=== PATIENT | female | born 1960 | race Caucasian/White ===

== ENCOUNTER 2020-04-13 10:52 | Outpatient (REF) | payer OTHER, SELFPAY ==
--- NOTE | 2020-04-13 10:56 | MM_ITS ---
EXAMINATION: MM SCREENING DIGITAL BREAST TOMOSYNTHESIS, BILATERAL CLINICAL INFORMATION: Screening. Asymptomatic. Prior history breast reduction. The lifetime risk of breast cancer based on the Tyrer-Cuzick Model is 6%. COMPARISON: Mammography: 02/04/2019, 12/23/2017, 12/02/2016 TECHNIQUE: Digital breast tomosynthesis is performed in both the craniocaudal and mediolateral oblique views along with computer-aided detection (CAD). Synthesized 2D images are generated from the tomosynthesis. Additional bilateral CC views are provided. FINDINGS: The breasts are almost entirely fatty (ACR BI-RADS breast composition Category a). There are no significant masses, abnormal calcifications, or other abnormalities. Parenchymal pattern is similar to prior studies. No significant changes. MM/MM tomosynthesis screening BI IMPRESSION: No mammographic evidence of malignancy. ASSESSMENT: BI-RADS 1: Negative RECOMMENDATION: Routine annual mammography screening. This patient's information was entered into a reminder system with a target due date for their next mammogram.
== END 2020-04-13 10:53 | disposition home or self-care (01) ==
LOC: HO.MAMMO 10:52
PROVIDERS: PCP Internal Medicine; Visit Provider Internal Medicine
DX: Z12.31 Encounter for screening mammogram for malignant neoplasm of breast (principal)
CPT/HCPCS: 77063; 77067

== ENCOUNTER → 2020-08-06 08:50 | Outpatient (BNVA) | payer OTHER, SELFPAY | PROVIDERS: PCP Internal Medicine; Visit Provider Physician Assistant ==

== ENCOUNTER → 2020-09-28 08:53 | Outpatient (BNVA) | payer OTHER, SELFPAY | PROVIDERS: PCP Internal Medicine; Referring Provider Internal Medicine; Visit Provider Dietitian, Registered | DX: E66.9 Obesity, unspecified (principal); Z68.32 Body mass index [BMI] 32.0-32.9, adult | CPT/HCPCS: 97802 ==

== ENCOUNTER 2020-09-29 15:38 | Outpatient (REF) | payer OTHER, SELFPAY ==
--- NOTE | ~2020-09-29 | XR_ITS ---
EXAMINATION: XR HAND, RIGHT XR HAND, LEFT CLINICAL INFORMATION: Pain in the right hand and left hand. COMPARISON: None pertinent. TECHNIQUE: 3 views of the right hand. 3 views of the left hand. FINDINGS: RIGHT HAND: There is no evidence of fracture. There are multifocal degenerative changes, particularly involving the DIP joints with joint space narrowing, subchondral sclerosis, and osteophyte formation. The most prominent is DIP joint of the index finger where there are large osteophytes present. Also noted is absence of the trapezium, presumably surgically absent. The base of the 1st metacarpal is subluxed proximally. No erosions are identified. The soft tissues are unremarkable. LEFT HAND: There is no evidence of fracture. Multifocal degenerative changes are noted, most prominently involving the DIP joints of the index and long fingers. This is associated with significant joint space narrowing and prominent osteophyte formation. There is also fairly prominent degenerative change at the 1st CMC joint, where the trapezium demonstrates an irregular contour and the base of the 1st metacarpal is subluxed radially and there is widening of the intermetacarpal joint space. No definite erosions are visualized. The soft tissues are unremarkable. XR/XR hand RT 2V IMPRESSION: Right Hand: Degenerative changes most prominent at the DIP joint of the index finger. 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 Left Hand: Multifocal degenerative changes, most prominent at the DIP joints of the index finger and long finger, as well as at the 1st CMC joint with subluxation of the base of the 1st metacarpal.
--- NOTE | ~2020-09-29 | XR_ITS ---
EXAMINATION: XR KNEE, LEFT CLINICAL INFORMATION: Pain in the left knee. COMPARISON: Left knee radiographs dated 06/10/2013. TECHNIQUE: AP, lateral, and sunrise views of the left knee. FINDINGS: There is no evidence of fracture. There are tricompartmental degenerative changes most prominent in the medial compartment and patellofemoral compartment, with moderate joint space narrowing and osteophyte formation. There are also marginal osteophytes in the lateral compartment, although the joint space is relatively well maintained. Since the previous radiograph, there may have been some progression of joint space narrowing in the patellofemoral compartment. Otherwise, no substantial interval change compared to prior. The patella is high riding. No subluxation is seen. The soft tissues are unremarkable. There is no knee joint effusion. The soft tissues are unremarkable. XR/XR knee LT 3V IMPRESSION: Tricompartmental degenerative changes in the left knee. The involvement of the patellofemoral compartment appears slightly progressed since the previous radiographs from 06/10/2013, but otherwise the appearance is relatively similar.
--- NOTE | ~2020-09-29 | XR_ITS ---
EXAMINATION: XR HAND, RIGHT XR HAND, LEFT CLINICAL INFORMATION: Pain in the right hand and left hand. COMPARISON: None pertinent. TECHNIQUE: 3 views of the right hand. 3 views of the left hand. FINDINGS: RIGHT HAND: There is no evidence of fracture. There are multifocal degenerative changes, particularly involving the DIP joints with joint space narrowing, subchondral sclerosis, and osteophyte formation. The most prominent is DIP joint of the index finger where there are large osteophytes present. Also noted is absence of the trapezium, presumably surgically absent. The base of the 1st metacarpal is subluxed proximally. No erosions are identified. The soft tissues are unremarkable. LEFT HAND: There is no evidence of fracture. Multifocal degenerative changes are noted, most prominently involving the DIP joints of the index and long fingers. This is associated with significant joint space narrowing and prominent osteophyte formation. There is also fairly prominent degenerative change at the 1st CMC joint, where the trapezium demonstrates an irregular contour and the base of the 1st metacarpal is subluxed radially and there is widening of the intermetacarpal joint space. No definite erosions are visualized. The soft tissues are unremarkable. XR/XR hand LT 2V IMPRESSION: Right Hand: Degenerative changes most prominent at the DIP joint of the index finger. 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 Left Hand: Multifocal degenerative changes, most prominent at the DIP joints of the index finger and long finger, as well as at the 1st CMC joint with subluxation of the base of the 1st metacarpal.
== END 2020-09-29 15:39 | disposition home or self-care (01) ==
LOC: HO.XRAY 15:38
PROVIDERS: PCP Internal Medicine; Visit Provider Internal Medicine
DX: M25.562 Pain in left knee (principal); M79.641 Pain in right hand; M79.642 Pain in left hand
CPT/HCPCS: 73120; 73562

== ENCOUNTER → 2020-11-02 10:20 | Outpatient (BNVA) | payer OTHER, SELFPAY | PROVIDERS: PCP Internal Medicine; Referring Provider Internal Medicine; Visit Provider Physician Assistant ==

== ENCOUNTER 2020-12-25 10:01 | Outpatient (REF) | payer OTHER, SELFPAY ==
[2020-12-25 11:22] LABS: MANUAL DIFF FLAG NO
[2020-12-25 11:31] LABS: Basophils Percent Auto 0.6 % (0-2); Eosinophils Absolute Auto 0.1 X10*3/uL (0.0-0.4); Eosinophils Percent Auto 2.4 % (0-4); Hematocrit 40.7 % (37-47); Hemoglobin 13.5 g/dl (12.0-16.0); Imm Gran Abs Auto 0.01 X10*3/uL (0.00-0.03); Imm Gran Pct Auto 0.2 % (0.0-0.4); Lymphocytes Absolute Auto 1.5 X10*3/uL (1.2-4.9); Lymphocytes Percent Auto 31.2 % (20-40); Mean Corpuscular HGB Conc 33.2 g/dl (31.0-35.0); Mean Corpuscular Hemoglobin 29.2 pg (27.0-33.0); Mean Corpuscular Volume 87.9 fL (80-98); Mean Platelet Volume 12.3 fL (9.4-12.3); Monocytes Absolute Auto 0.5 X10*3/uL (0.1-1.2); Neutrophils Absolute Auto 2.6 X10*3/uL (2.0-8.3); Neutrophils Percent Auto 55.6 % (45-73); Platelet Count 223 X10*3/uL (160-400); Red Blood Count 4.63 X10*6/uL (4.20-5.50); Red Cell Distribution Width 12.5 % (11.0-16.0); White Blood Count 4.7 X10*3/uL (4.8-10.8)
[2020-12-25 12:07] LABS: Free T4 (Free Thyroxine) 0.78 ng/dL (0.71-1.85); Thyroid Stimulating Hormone 1.83 uIU/mL (0.32-4.0); Vitamin D 25-OH Total 35.8 ng/mL (>30)
[2020-12-25 12:14] LABS: Alanine Aminotransferase 26 U/L (0-31); Albumin Level 4.3 g/dL (3.5-5.0); Alkaline Phosphatase 54 U/L (39-117); Anion Gap 13 (12-20); Aspartate Amino Transferase 22 U/L (5-31); Blood Urea Nitrogen 19 mg/dL (9-16); Carbon Dioxide 25 mmol/L (22-29); Chloride 106 mmol/L (96-108); Cholesterol 188 mg/dL; Estimated Glomerular Filt Rate > 60; Glucose Random 93 mg/dL (60-115); HDL Cholesterol 54 mg/dL; LDL Cholesterol Calculated 117 mg/dl; Potassium 4.3 mmol/L (3.3-5.1); Sodium 140 mmol/L (135-145); Total Protein 6.6 g/dL (6.5-8.0); Triglycerides 89 mg/dL
[2020-12-25 12:28] LABS: Folate 12.7 ng/mL (> or = 4.0); Vitamin B12 423 pg/mL (200-900)
== END 2020-12-25 10:02 | disposition home or self-care (01) ==
LOC: HO.HMGCLDS 10:01
PROVIDERS: PCP Internal Medicine; Visit Provider Internal Medicine
DX: I10 Essential (primary) hypertension (principal); E78.00 Pure hypercholesterolemia, unspecified
CPT/HCPCS: 36415; 80053; 80061; 82306; 82607; 82746; 84439; 84443; 85025

== ENCOUNTER → 2020-12-29 08:47 | Outpatient (BNVA) | payer OTHER, SELFPAY | PROVIDERS: PCP Internal Medicine; Visit Provider Dietitian, Registered | DX: E66.9 Obesity, unspecified (principal); Z68.33 Body mass index [BMI] 33.0-33.9, adult | CPT/HCPCS: 97803 ==

== ENCOUNTER 2021-05-11 07:31 | Outpatient (REF) | payer OTHER, SELFPAY ==
--- NOTE | ~2021-05-11 | MM_ITS ---
EXAMINATION: MM SCREENING DIGITAL BREAST TOMOSYNTHESIS, BILATERAL CLINICAL INFORMATION: Screening. Asymptomatic. Prior history reduction mammoplasty, 02/27/2017. The lifetime risk of breast cancer based on the Tyrer-Cuzick Model is 4%. COMPARISON: Mammography: 04/13/2020, 02/04/2019, 12/23/2017 TECHNIQUE: Digital breast tomosynthesis is performed in both the craniocaudal and mediolateral oblique views along with computer-aided detection (CAD). Synthesized 2D images are generated from the tomosynthesis. Additional right CC view is provided. FINDINGS: The breasts are almost entirely fatty (ACR BI-RADS breast composition Category a). There is minor stable scarring consistent with the reduction mammoplasty. Background stromal and fibroglandular densities are stable. There are no significant changes from prior studies. No interval mass or architectural abnormality or abnormal calcifications. MM/MM tomosynthesis screening BI IMPRESSION: No mammographic evidence of malignancy. ASSESSMENT: BI-RADS 2: Benign RECOMMENDATION: Routine annual mammography screening. This patient's information was entered into a reminder system with a target due date for their next mammogram.
== END 2021-05-11 07:32 | disposition home or self-care (01) ==
LOC: HO.MAMMO 07:31
PROVIDERS: PCP Internal Medicine; Visit Provider Internal Medicine
DX: Z12.31 Encounter for screening mammogram for malignant neoplasm of breast (principal)
CPT/HCPCS: 77063; 77067

== ENCOUNTER 2022-01-06 09:46 | Outpatient (REF) | payer OTHER, SELFPAY ==
[2022-01-06 11:34] LABS: MANUAL DIFF FLAG NO
[2022-01-06 11:45] LABS: Basophils Percent Auto 0.8 % (0-2); Eosinophils Absolute Auto 0.1 X10*3/uL (0.0-0.4); Eosinophils Percent Auto 1.8 % (0-4); Hematocrit 43.7 % (37.0-47.0); Hemoglobin 14.1 g/dl (12.0-16.0); Imm Gran Abs Auto 0.01 X10*3/uL (0.00-0.03); Imm Gran Pct Auto 0.2 % (0.0-0.4); Lymphocytes Absolute Auto 1.4 X10*3/uL (1.2-4.9); Lymphocytes Percent Auto 27.9 % (20-40); Mean Corpuscular HGB Conc 32.3 g/dl (31.0-35.0); Mean Corpuscular Hemoglobin 28.4 pg (27.0-33.0); Mean Corpuscular Volume 88.1 fL (80.0-98.0); Mean Platelet Volume 12.2 fL (9.4-12.3); Monocytes Absolute Auto 0.5 X10*3/uL (0.1-1.2); Monocytes Percent Auto 9.3 % (2-11); Platelet Count 261 X10*3/uL (160-400); Red Blood Count 4.96 X10*6/uL (4.20-5.50); Red Cell Distribution Width 12.2 % (11.0-16.0); White Blood Count 5.1 X10*3/uL (4.8-10.8)
[2022-01-06 12:06] LABS: Alanine Aminotransferase 27 U/L (0-31); Albumin Level 4.5 g/dL (3.5-5.0); Alkaline Phosphatase 62 U/L (39-117); Anion Gap 13 (12-20); Aspartate Amino Transferase 20 U/L (5-31); Bilirubin Total 0.9 mg/dL (0.0-1.0); Blood Urea Nitrogen 24 mg/dL (9-16); Calcium 9.3 mg/dL (8.4-10.2); Carbon Dioxide 29 mmol/L (22-29); Chloride 106 mmol/L (96-108); Cholesterol 204 mg/dL; Estimated Glomerular Filt Rate > 60; Glucose Random 88 mg/dL (60-115); HDL Cholesterol 65 mg/dL; LDL Cholesterol Calculated 127 mg/dl; Potassium 4.8 mmol/L (3.3-5.1); Sodium 143 mmol/L (135-145); Total Protein 6.8 g/dL (6.5-8.0); Triglycerides 61 mg/dL
[2022-01-06 12:31] LABS: Free T4 (Free Thyroxine) 0.94 ng/dL (0.71-1.85); Thyroid Stimulating Hormone 1.25 uIU/mL (0.32-4.0); Vitamin D 25-OH Total 30.6 ng/mL (>30)
[2022-01-06 12:41] LABS: Folate 7.8 ng/mL (> or = 4.0); Vitamin B12 356 pg/mL (200-900)
== END 2022-01-06 09:47 | disposition home or self-care (01) ==
LOC: HO.HMGCLDS 09:46
PROVIDERS: PCP Internal Medicine; Visit Provider Internal Medicine
DX: E78.00 Pure hypercholesterolemia, unspecified (principal)
CPT/HCPCS: 36415; 80053; 80061; 82306; 82607; 82746; 84439; 84443; 85025

== ENCOUNTER 2022-02-09 09:17 | Outpatient (REF) | payer OTHER, SELFPAY ==
--- NOTE | ~2022-02-09 | MM_ITS ---
EXAMINATION: BONE DENSITOMETRY CLINICAL INDICATION: Osteoporosis. COMPARISON: Baseline BD dated 05/06/2016. TECHNIQUE: Using a [employer] DXA System (software version: 13.1) manufactured by [employer], dual-energy x-ray absorptiometry was performed of the lumbar spine and left hip. The images are of good technical quality. Summary results are attached. FINDINGS: AP SPINE L1-L4: Current: BMD 1.170 g/cm2, Z-score 0.4, T-score -0.1, normal, 6.7% increase from baseline (<5% change is not significant). Baseline: BMD 1.097 g/cm2. LEFT FEMUR, NECK: Current: BMD 0.878 g/cm2, Z-score -0.4, T-score -1.2, osteopenia. Baseline: BMD 1.046 g/cm2. LEFT FEMUR, TOTAL: Current: BMD 0.966 g/cm2, Z-score 0.1, T-score -0.3, normal, 11.5% decrease from baseline (<5% change is not significant). Baseline: BMD 1.092 g/cm2. IDENTIFIED RISK FACTORS: Menopause, height loss, hysterectomy, history of fracture (adult), bilateral oophorectomy. HISTORY OF FRACTURE: Elbow. MEDICATIONS: None listed. MM/XR DEXA axial skeleton IMPRESSION: 1. DIAGNOSIS: Osteopenia based on the lowest T-score value of -1.2 in the femoral neck applying World Health Organization criteria. 2. 10-YEAR FRACTURE RISK PREDICTION, FRAX: Major osteoporotic fracture (clinical spine, forearm, hip or shoulder) 12.7%. Hip fracture 1.0%. 3. Treatment Recommendations: NOF guidelines recommend consideration for treatment in postmenopausal women and men age 50 and older presenting with the following: -A hip or vertebral (clinical or morphometric) fracture. -T-score less than or equal to -2.5 at the femoral neck or spine after appropriate evaluation to exclude secondary causes. -Low bone mass at the hip or spine and a 10-year fracture probability by FRAX of greater than or equal to 3% for hip fracture or greater than or equal to 20% for major osteoporotic fracture based on the [place] adapted WHO algorithm. 4. Other Recommendations: All treatment decisions require clinical judgment and consideration of individual patient factors, including patient preferences, comorbidities, previous drug use, risk factors not captured in the FRAX model (e.g. frailty, falls, vitamin D deficiency, increased bone turnover, interval significant decline in bone density) and possible under or overestimation of fracture risk by FRAX. Additional medical evaluation for secondary cause of low bone mineral density may be appropriate. FUTURE SCAN RECOMMENDATION: People with diagnosed cases of osteoporosis or at high risk for fracture should have regular bone mineral density tests. For patients eligible for Medicare, routine testing is allowed once every 2 years. The testing frequency can be increased to one year for patients who have rapidly progressing disease, those who are receiving or discontinuing medical therapy to restore bone mass, or have additional risk factors.
== END 2022-02-09 09:18 | disposition home or self-care (01) ==
LOC: HO.MAMMO 09:17
PROVIDERS: PCP Internal Medicine; Visit Provider Internal Medicine
DX: Z13.820 Encounter for screening for osteoporosis (principal); M81.0 Age-related osteoporosis without current pathological fracture; Z78.0 Asymptomatic menopausal state
CPT/HCPCS: 77080

== ENCOUNTER 2022-02-10 14:13 | Outpatient (REF) | payer OTHER, SELFPAY | END 2022-02-10 14:14 | disposition home or self-care (01) | LOC: HO.LNP 14:13 | PROVIDERS: Visit Provider Nurse Practitioner Family | DX: Z20.822 Contact with and (suspected) exposure to COVID-19 (principal); J06.9 Acute upper respiratory infection, unspecified | CPT/HCPCS: U0003; U0005 ==

== ENCOUNTER → 2022-02-24 10:18 | Outpatient (REF) | payer OTHER, SELFPAY | LOC: HO.SL 10:18 | PROVIDERS: PCP Internal Medicine; Visit Provider Internal Medicine | DX: G47.10 Hypersomnia, unspecified (principal) | CPT/HCPCS: 95806 ==

== ENCOUNTER 2022-05-16 07:23 | Outpatient (REF) | payer OTHER, SELFPAY ==
--- NOTE | ~2022-05-16 | MM_ITS ---
EXAMINATION: MM SCREENING DIGITAL BREAST TOMOSYNTHESIS, BILATERAL CLINICAL INFORMATION: Screening. Asymptomatic. Status post bilateral breast reduction surgery. The lifetime risk of breast cancer based on the Tyrer-Cuzick Model is 5.3%. COMPARISON: Mammography: May 11, 2021 and studies dating back to November 30, 2015 TECHNIQUE: Digital breast tomosynthesis is performed in both the craniocaudal and mediolateral oblique views along with computer-aided detection (CAD). Synthesized 2D images are generated from the tomosynthesis. Additional left breast exaggerated craniocaudal view performed. FINDINGS: The breasts are almost entirely fatty (ACR BI-RADS breast composition Category a). There are no significant masses, abnormal calcifications, or other abnormalities. Bilateral postsurgical change present. MM/MM tomosynthesis screening BI IMPRESSION: No significant changes ASSESSMENT: BI-RADS 2: Benign RECOMMENDATION: Routine annual mammography screening. This patient's information was entered into a reminder system with a target due date for their next mammogram.
== END 2022-05-16 07:24 | disposition home or self-care (01) ==
LOC: HO.MAMMO 07:23
PROVIDERS: PCP Internal Medicine; Visit Provider Internal Medicine
DX: Z12.31 Encounter for screening mammogram for malignant neoplasm of breast (principal)
CPT/HCPCS: 77063; 77067

== ENCOUNTER 2022-11-01 12:30 | Outpatient (AMB) | payer OTHER, SELFPAY ==
[2022-11-01 12:33] VITALS: BP 128/80; PULSE 78; O2SAT 98; BMI 33.9
--- NOTE | 2022-11-01 12:33 | MHC.PC.OV ---
Vital Signs 11/01/22 12:33 Height 5 ft 6.5 in Weight 213 lb BMI 33.9 BP 128/80 Blood Pressure Location Lt brachial Position Sitting Pulse 78 Pulse Source Pulse Oximeter Pulse Oximetry (%) 98 Oxygen Delivery Method Room Air Intake Visit Reasons: Medical Issues F/U Allergies No Known Allergies [No Known Allergies*] Allergy (Verified 11/01/22 12:34) Tobacco use date assessed: 04/27/22 Fall risk assessment: No Falls in past year Last assessed Fall Risk: 11/01/22 Dental Screening Dental Screen Date: 11/01/22 Did you have a dental visit in the last 12 months?: Yes Did you have a dental problem in the last 6 months where you did not have access to dental care?: No Was dental information given to patient?: Patient has dentist HPI Medical Issues F/U HPI Details 62-year-old obese female with obstructive sleep apnea generalized anxiety disorder hypercholesterolemia hypertension coming in for follow-up last seen in July 2022 blood work requested. Review of the notes in September [facility] sinus problems treated with Augmentin. problematic about friends dying. concern about cardiac, deny sob, , no palpitatons. epigastric pain. FH - sister had heart problem, brother - pacemaker, another heart problem. Patient is active and swims. wants work up [facility] Medical History (Updated 11/01/22 @ 12:44 by Hyacinth Marquez MD) Annual physical exam Anxiety and depression Cervicalgia Constipation COVID-19 virus infection Factor 5 Leiden mutation, heterozygous Finger pain Hypercholesterolemia Hypertension Knee pain, left Left renal stone Low back pain Lumbar spondylosis Osteoarthritis Overweight (BMI 25.0-29.9) Preop exam for internal medicine Pulmonary valve stenosis Sinusitis Viral upper respiratory illness Vitamin D deficiency Witnessed apneic spells Surgical History History of shoulder surgery Hx of breast reduction, elective Hx of right knee surgery Hx of total knee arthroplasty Peripheral vascular disease S/P PASCALE-BSO Strabismus Family History (Updated 07/13/22 @ 09:41 by Isis Murphy CMA) Father Lung cancer Mother COPD (chronic obstructive pulmonary disease) CVD (cardiovascular disease) AAA (abdominal aortic aneurysm) Brother Diabetes Sister Acute CVA (cerebrovascular accident) Daughter Thyroid cancer Social History Housing: House Alcohol intake: never Patient Tobacco Use Status: Never used Tobacco e-Cigarette/Vaping Use: Never Used Second Hand Smoke Exposure: No service: No Current occupational status: retired Cognitive needs: No Hearing needs: No Vision needs: Yes Questionnaire PHQ-9 Over the last 2 weeks, how often have you been bothered by any of the following problems? 1. Little interest or pleasure in doing things: not at all 2. Feeling down, depressed, or hopeless: several days 3. Trouble falling or staying asleep, or sleeping too much: not at all 4. Feeling tired or having little energy: not at all 5. Poor appetite or overeating: not at all 6. Feeling bad about yourself - or that you are a failure or have let yourself or your family down: not at all 7. Trouble concentrating on things, such as reading the newspaper or watching television: not at all 8. Moving or speaking so slowly that other people could have noticed. Or the opposite - being so fidgety or restless that you have been moving around a lot more than usual: not at all 9. Thoughts that you would be better off or of hurting yourself in some way: not at all Total score: 1 Depression Screening Interpretation: Negative Source: Developed by Drs. Boom Jin, Yesy Yang, Travis Santos and colleagues, with an educational pascual from [employer]. Thrive Questionnaire Date Thrive assessed: 04/27/22 AUDIT C Alcohol Use Questionnaire (AUDIT-C) 1. How often do you have a drink containing alcohol?: Monthly or less 2. How many drinks containing alcohol do you have on a typical day when you are drinking?: 1 or 2 3. How often do you have six or more drinks on one occasion?: Never Total Score: 1 BING-7 AMB Questionnaire BING-7 Date BING - 7 assessed: 11/01/22 Feeling nervous, anxious, or on edge: 1 = Several days Not being able to stop or control worryin = Not at all Worrying too much about different things: 0 = Not at all Trouble relaxin = Not at all Being so restless that it is hard to sit still: 0 = Not at all Becoming easily annoyed or irritable: 0 = Not at all Feeling afraid as if something awful might happen: 0 = Not at all Total BING-7 score (0-4 normal; 5-9 mild; 10-14 moderate; 15-21 severe): 1 Source: Developed by Drs. Boom Jin, Yesy Yang, Travis Santos and colleagues, with an educational pascual from [employer]. Physical exam (Primary Care) Vital Signs: Oxygen Delivery Method Room Air 11/01/22 12:33 BMI result Body Mass Index 33.9 Tobacco/Smoking Status: Tobacco use Status Tobacco use date assessed 04/27/22 07/13/22 09:41 Patient Tobacco Use Status Never used Tobacco 09/29/22 09:13 e-Cigarette/Vaping Use Never Used 07/13/22 09:41 Depression Screening Interpretation: Negative Thrive Assessment: Date of Thrive Assessment Date Thrive assessed 04/27/22 07/13/22 09:41 Const General: alert; No acute distress Eyes Conjunctivae: conjunctivae normal Resp Auscultation: clear to auscultation bilaterally Cardio Rate: regular rate Rhythm: regular rhythm GI Inspection: Yes normal to inspection Extrem General: Yes normal to inspection and No edema Assessment and Plan Assessment & Plan (1) Hypertension: Code(s): I10 - Essential (primary) hypertension Qualifiers: Hypertension type: essential hypertension Qualified Code(s): I10 - Essential (primary) hypertension Plan: Continue with blood pressure medication. Decrease salt intake and exercise patient is taking lisinopril 40 mg once a day (2) Hypercholesterolemia: Code(s): E78.00 - Pure hypercholesterolemia, unspecified Plan: Avoid fried foods, chicken skin, eggs, butter margarine, pastries and meat. Be it pork or beef they have a lot of cholesterol LDL goal of less than 130 and triglyceride of less than 150 patient is on simvastatin 10 mg once a day (3) Obesity (BMI 30-39.9): Code(s): E66.9 - Obesity, unspecified Plan: Diet and exercise (4) Generalized anxiety disorder: Comment: doing private counseling presently 06/2021 Code(s): F41.1 - Generalized anxiety disorder Plan: Continue with paroxetine 20 mg once a day and lorazepam as needed and therapy (5) Obstructive sleep apnea (adult) (pediatric): Comment: February 2022 Code(s): G47.33 - Obstructive sleep apnea (adult) (pediatric) Plan: Continue with the CPAP more than 4 hours a night and benefits from this (6) Epigastric abdominal pain: Code(s): R10.13 - Epigastric pain Plan: concern on cardiac due to family history Orders: Orders CA stress test Today R10.13 - Epigastric pain ECG 12 lead EKG Today R10.13 - Epigastric pain XR chest 2V Today R10.13 - Epigastric pain Coding Level of Care Code Est Pt Level 4 (64523) Diagnoses Hypertension I10 Hypertension type: essential hypertension Hypercholesterolemia E78.00 Obesity (BMI 30-39.9) E66.9 Generalized anxiety disorder F41.1 Obstructive sleep apnea (adult) (pediatric) G47.33 Epigastric abdominal pain R10.13
== END 2022-11-01 12:55 | disposition home or self-care (01) ==
PROVIDERS: PCP Internal Medicine; Visit Provider Internal Medicine
DX: I10 Essential (primary) hypertension (principal); E78.00 Pure hypercholesterolemia, unspecified; Z68.33 Body mass index [BMI] 33.0-33.9, adult; E66.9 Obesity, unspecified; F41.1 Generalized anxiety disorder; G47.33 Obstructive sleep apnea (adult) (pediatric); R10.13 Epigastric pain
CPT/HCPCS: 99214

== ENCOUNTER 2022-11-01 13:00 | Outpatient (REF) | payer OTHER, SELFPAY ==
--- NOTE | ~2022-11-01 | XR_ITS ---
EXAMINATION: XR CHEST CLINICAL INFORMATION: Epigastric pain COMPARISON: Chest and right ribs 02/04/2015 TECHNIQUE: 2 views of the chest were obtained. FINDINGS: There is no gross pneumothorax. Heart size is normal. Incidental note of an azygos lobe No pleural effusion. No new focal consolidation to suggest pneumonia. Degenerative changes in the thoracic spine. XR/XR chest 2V IMPRESSION: No evidence of pneumonia.
--- NOTE | 2022-11-01 13:06 | ECG_ITS ---
Test Reason : EPIGASTRIC PAIN Blood Pressure : / mmHG Vent. Rate : 073 BPM Atrial Rate : 073 BPM P-R Int : 192 ms QRS Dur : 122 ms QT Int : 400 ms P-R-T Axes : 047 002 002 degrees QTc Int : 440 ms Normal sinus rhythm Right bundle branch block Minimal voltage criteria for LVH, may be normal variant ( R in aVL ) Abnormal ECG When compared with ECG of 15-FEB-2017 15:10, No significant change was found Referred By: Hyacinth Marquez Electronically Signed By:JANNA SIN MD
== END 2022-11-01 13:01 | disposition home or self-care (01) ==
LOC: HO.XRAY 13:00
PROVIDERS: PCP Internal Medicine; Visit Provider Internal Medicine
DX: R10.13 Epigastric pain (principal)
CPT/HCPCS: 71046; 93005

== ENCOUNTER → 2022-11-01 13:06 | Outpatient (BNV) | payer OTHER, SELFPAY | PROVIDERS: PCP Internal Medicine; Visit Provider Internal Medicine Cardiovascular Disease | DX: R10.13 Epigastric pain (principal) | CPT/HCPCS: 93010 ==

== ENCOUNTER → 2022-11-15 08:50 | Outpatient (REF) | payer OTHER, SELFPAY ==
--- NOTE | 2022-11-15 08:54 | CA_ITS ---
Acquisition Time: 2022-11-15 08:59:38 Total Exercise Time: 00:05:11 Test Indications: cp Medications: see h Protocol: ADELINA Max HR: 136 BPM 87% of Pred: 156 BPM Max BP: 220/060 mmHG Max Work Load: 7.0 METS Exercise stress test exercuse 5 min 11 sec of Adelina protocol with need to stop due to systolic blood pressure of 220. achieving 85% MPHR, without anginal symptoms, without arrhythmias, with hypertensive response to exercise, without EKG changes. SR RBBB baseline EKG. Message sent to ordering provider/PCP in regards to HTN. Referred By: Hyacinth Marquez Overread By: Keeley Iraheta
== END ==
LOC: HO.CARD 08:50
PROVIDERS: PCP Internal Medicine; Visit Provider Internal Medicine
DX: R10.13 Epigastric pain (principal)
CPT/HCPCS: 93017

== ENCOUNTER → 2022-11-15 08:54 | Outpatient (BNV) | payer OTHER, SELFPAY | PROVIDERS: PCP Internal Medicine; Visit Provider Nurse Practitioner | DX: R07.9 Chest pain, unspecified (principal) | CPT/HCPCS: 93016; 93018 ==

== ENCOUNTER 2023-01-12 09:09 | Outpatient (AMB) | payer MEDICARE, OTHER, SELFPAY ==
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
[2023-01-12 09:13] VITALS: BP 122/68; PULSE 82; O2SAT 97; BMI 34.5
== END 2023-01-12 09:45 | disposition home or self-care (01) ==
PROVIDERS: PCP Internal Medicine; Visit Provider Physician Assistant
DX: M54.2 Cervicalgia (principal); V89.2XXA Person injured in unspecified motor-vehicle accident, traffic, initial encounter; M54.6 Pain in thoracic spine; M54.50 Low back pain, unspecified; Z23 Encounter for immunization
CPT/HCPCS: 90471; 90686; 99214

== ENCOUNTER 2023-01-12 09:51 | Outpatient (REF) | payer OTHER, SELFPAY | END 2023-01-12 09:52 | disposition home or self-care (01) | LOC: HO.XRAY 09:51 | PROVIDERS: PCP Internal Medicine; Visit Provider Physician Assistant | DX: M54.2 Cervicalgia (principal); M54.50 Low back pain, unspecified; M54.6 Pain in thoracic spine | CPT/HCPCS: 72040; 72072; 72100 ==

== ENCOUNTER 2023-01-13 09:26 | Outpatient (REF) | payer MEDICARE, OTHER, SELFPAY | END 2023-01-13 09:27 | disposition home or self-care (01) | LOC: HO.HMGCLDS 09:26 | PROVIDERS: PCP Internal Medicine; Visit Provider Internal Medicine | DX: E78.00 Pure hypercholesterolemia, unspecified (principal); M85.80 Other specified disorders of bone density and structure, unspecified site | CPT/HCPCS: 36415; 80053; 80061; 82306; 82607; 82746; 84439; 84443; 85025 ==

== ENCOUNTER 2023-01-19 10:00 | Outpatient (AMB) | payer OTHER, SELFPAY ==
[2023-01-19 10:31] VITALS: BP 140/76; PULSE 73; O2SAT 97; BMI 34.5
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
== END 2023-01-19 11:27 | disposition home or self-care (01) ==
PROVIDERS: Visit Provider Internal Medicine
DX: Z00.00 Encounter for general adult medical examination without abnormal findings (principal); E66.9 Obesity, unspecified; Z68.34 Body mass index [BMI] 34.0-34.9, adult; I10 Essential (primary) hypertension; E78.00 Pure hypercholesterolemia, unspecified; F41.1 Generalized anxiety disorder; G47.33 Obstructive sleep apnea (adult) (pediatric); M85.80 Other specified disorders of bone density and structure, unspecified site
CPT/HCPCS: 99397

== ENCOUNTER 2023-03-08 14:49 | Outpatient (AMB) | payer OTHER, MEDICARE, SELFPAY ==
[2023-03-08 15:20] VITALS: BP 136/76; PULSE 69; O2SAT 95
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
== END 2023-03-08 15:53 | disposition home or self-care (01) ==
PROVIDERS: PCP Internal Medicine; Visit Provider Physician Assistant
DX: M54.2 Cervicalgia (principal); V89.2XXA Person injured in unspecified motor-vehicle accident, traffic, initial encounter
CPT/HCPCS: 99213

== ENCOUNTER 2023-03-27 10:29 | Emergency (ER) | payer MEDICARE, OTHER, SELFPAY ==
--- NOTE | ~2023-03-27 | CT_ITS ---
EXAMINATION: CT HEAD WITHOUT CONTRAST CLINICAL INFORMATION: Headache COMPARISON: None available. TECHNIQUE: Contiguous axial imaging was performed from the skull base to vertex without intravenous administration of contrast. This CT examination was performed using dose optimization techniques as appropriate, variously including the following: *Automated exposure control *Adjustment of mA and/or kV according to patient size (this includes techniques or standardized protocols for targeted exams where dose is matched to indication/reason for exam; i.e. extremities or head) *Use of iterative reconstruction technique DLP: 660 mGy-cm FINDINGS: There is no intracranial hemorrhage or evidence of acute territorial infarction. No mass effect or midline shift. No extra-axial fluid collection. Cason-white matter differentiation is preserved. The ventricles are normal. There is prominence of the sulci and gyri consistent with age-related involutional change. No osseous abnormality. There is marked deviation of the nasal septum. There is mild mucosal thickening within the right maxillary sinus. The mastoid air cells are well aerated and clear. No osseous abnormality. CT/CT head/brain wo IV con IMPRESSION: No acute intracranial pathology. Marked deviation of the nasal septum.
[2023-03-27 10:51] VITALS: BP 226/87; PULSE 70; RESP 20; TEMP 36.1; O2SAT 96; BMI 35.5
--- NOTE | 2023-03-27 10:55 | ED.GENADULT ---
HPI - General Adult General Chief complaint: Headache Stated complaint: high bp 210/115 Time Seen by Provider: 03/27/23 15:14 History of Present Illness HPI narrative: NOTE MADE IN ERROR PLEASE DELETE Related Data Home Medications Medication Instructions Recorded Confirmed multivitamin (One Daily 1 tab PO DAILY 08/06/20 03/29/23 Multivitamin tablet) Previous Rx's Medication Instructions Recorded sennosides 8.6 mg-docusate sodium 2 tab-cap (2 x 8.6-50 mg) PO 07/06/21 50 mg tablet (Senna-S) BEDTIME PRN constipation 90 days #180 tabs AUTO PAP 6-16 cm H2O humidified AIR #1 ea 03/21/22 lisinopril 40 mg tablet 40 mg PO DAILY #90 tabs 06/24/22 simvastatin 10 mg tablet 10 mg PO DAILY #90 tabs 06/24/22 blood pressure monitor (Blood #1 ea 09/14/22 Pressure Kit) aspirin 81 mg tablet,delayed 81 mg PO DAILY #90 tabs 11/26/22 release (Adult Aspirin Regimen) cyclobenzaprine 5 mg tablet 5 mg PO BEDTIME 14 days #14 tabs 01/12/23 escitalopram oxalate 10 mg tablet 10 mg PO DAILY #30 tabs 03/29/23 (Lexapro) hydrochlorothiazide 25 mg tablet 25 mg PO DAILY #30 tabs 03/29/23 lorazepam 0.5 mg tablet 0.5 mg PO BID PRN agitation 30 03/29/23 days #60 tabs paroxetine HCl 20 mg tablet 10 mg (1/2 x 20 mg) PO DAILY #14 03/29/23 tabs Allergies Allergy/AdvReac Type Severity Reaction Status Date / Time No Known Allergies Allergy Verified 03/29/23 14:39 [No Known Allergies*] [facility] Past Medical History Medical History Annual physical exam Cervicalgia Viral upper respiratory illness Witnessed apneic spells Lumbar spondylosis Preop exam for internal medicine Sinusitis Constipation Finger pain Knee pain, left Low back pain COVID-19 virus infection Osteoarthritis Pulmonary valve stenosis Factor 5 Leiden mutation, heterozygous Hypercholesterolemia Vitamin D deficiency Left renal stone Overweight (BMI 25.0-29.9) Anxiety and depression Hypertension Surgical History Hx of total knee arthroplasty History of shoulder surgery Hx of breast reduction, elective Hx of right knee surgery Strabismus S/P PASCALE-BSO Peripheral vascular disease Family History Family History Father Lung cancer Mother COPD (chronic obstructive pulmonary disease) CVD (cardiovascular disease) AAA (abdominal aortic aneurysm) Brother Diabetes Sister Acute CVA (cerebrovascular accident) Daughter Thyroid cancer Social History Social History Housing: House Alcohol intake: never Patient Tobacco Use Status: Never used Tobacco e-Cigarette/Vaping Use: Never Used Second Hand Smoke Exposure: No service: No Current occupational status: retired Cognitive needs: No Hearing needs: No Vision needs: Yes (glasses) Physical Exam ED Vital Signs: Vital Signs - 24 hr 03/27/23 10:51 03/27/23 15:15 Temperature 96.9 F 98.2 F Pulse Rate 70 84 Respiratory Rate 20 18 Blood Pressure 226/87 H 177/66 H Pulse Oximetry 96 97 Oxygen Delivery Method Room Air Room Air BMI result Body Mass Index 35.5 Course Course Course Narrative: This is an RME: Additional HPI, ROS, PE not included below will be deferred to primary provider. This is a [id number]-female, w/ a hx of HTN and factor 5 trait, presenting to the ER with a complaints of headache and sinus pressure as well as high blood pressure readings. She only has been taking tylenol for her symptoms. blood pressure in triage elevated at 226/87 Plan: Labs, UA, CT head, EKG ordered Medical Decision Making Lab Data 03/27/23 11:02 03/27/23 11:02 Labs: Lab Results 03/27/23 03/27/23 Range/Units 11:02 17:04 WBC 4.9 (4.8-10.8) X10*3/uL RBC 4.87 (4.20-5.50) X10*6/uL Hgb 14.1 (12.0-16.0) g/dl Hct 43.3 (37.0-47.0) % MCV 88.9 (80.0-98.0) fL MCH 29.0 (27.0-33.0) pg MCHC 32.6 (31.0-35.0) g/dl RDW 12.9 (11.0-16.0) % Plt Count 264 (160-400) X10*3/uL MPV 11.2 (9.4-12.3) fL Immature Gran % (Auto) 0.6 H (0.0-0.4) % Neut % (Auto) 56.9 (45-73) % Lymph % (Auto) 30.5 (20-40) % [place] % (Auto) 9.8 (2-11) % Eos % (Auto) 1.6 (0-4) % Baso % (Auto) 0.6 (0-2) % Lymph # (Auto) 1.5 (1.2-4.9) X10*3/uL [place] # (Auto) 0.5 (0.1-1.2) X10*3/uL Eos # (Auto) 0.1 (0.0-0.4) X10*3/uL Baso # (Auto) 0.0 (0.0-0.2) X10*3/uL Abs Immat Gran (auto) 0.03 (0.00-0.03) X10*3/uL Absolute Neuts (auto) 2.8 (2.0-8.3) x10*3/uL Absolute Nucleated RBC 0.000 (0.0-0.012) X10*3/uL Nucleated RBC % (auto) 0.0 (0.0-0.2) /100WBC Sodium 143 (135-145) mmol/L Potassium 4.6 (3.3-5.1) mmol/L Chloride 106 (96-108) mmol/L Carbon Dioxide 29 (22-29) mmol/L Anion Gap 13 (12-20) BUN 10 (9-16) mg/dL Creatinine 0.68 (0.5-1.4) mg/dL Estim Creat Clear Calc 98.3 Estimated GFR > 60 Random Glucose 94 (60-115) mg/dL Calcium 9.8 D (8.4-10.2) mg/dL Total Bilirubin 0.6 (0.0-1.0) mg/dL Direct Bilirubin 0.2 (0.0-0.5) mg/dL AST 23 (5-31) U/L ALT 34 H (0-31) U/L Alkaline Phosphatase 57 (39-117) U/L Troponin I High Sens 2.7 (<3.5-17.0) ng/L Total Protein 7.5 (6.5-8.0) g/dL Albumin 4.5 (3.5-5.0) g/dL Urine Color Yellow Urine Appearance Clear Urine pH 7.5 (5.0-9.0) Ur Specific [place] <= 1.005 (1.005-1.025) Urine Protein Negative (Neg-Trace) mg/dL Urine Glucose (UA) Negative (Negative) mg/dL Urine Ketones Negative (Negative) mg/dL Urine Blood Negative (Negative) Urine Nitrite Negative (Negative) Ur Leukocyte Esterase Negative (Negative) Discharge Plan Discharge Clinical Impression: Hypertension, Headache Patient Disposition: Home, Self-Care Instructions: Hypertension (ED) Additional Instructions: As we discussed, you were seen today for high blood pressures and headaches. Your urinalysis, EKG, lab work (CBC, BMP, LFTs, troponin), and CT Head were reassuring. Please follow up with your PCP within the next 2 - 3 days to discuss your recent ED visit. Continue to take your blood pressure and write down the numbers so you can show the record to your doctor. Return to the hospital for passing out, chest pain, or difficulty breathing. Prescriptions: No Action (DME) AUTO PAP 6-16 cm H2O humidified AIR See Rx Instructions .Route .MEDSUPPLY Qty: 1 0RF Rx Instructions: As directed lisinopril 40 mg tablet 40 mg PO DAILY Qty: 90 3RF simvastatin 10 mg tablet 10 mg PO DAILY Qty: 90 3RF (DME) blood pressure monitor [Blood Pressure Kit] Kit See Rx Instructions .ROUTE .MEDSUPPLY Qty: 1 0RF Rx Instructions: As directed aspirin [Adult Aspirin Regimen] 81 mg tablet,delayed release (DR/EC) 81 mg PO DAILY Qty: 90 3RF cyclobenzaprine 5 mg tablet 5 mg PO BEDTIME 14 Days Qty: 14 0RF escitalopram oxalate [Lexapro] 10 mg tablet 10 mg PO DAILY Qty: 30 5RF hydrochlorothiazide 25 mg tablet 25 mg PO DAILY Qty: 30 3RF lorazepam 0.5 mg tablet 0.5 mg PO BID PRN (Reason: agitation) 30 Days Qty: 60 0RF paroxetine HCl 20 mg tablet 10 mg PO DAILY Qty: 14 2RF Rx Instructions: will taper to off sennosides-docusate sodium [Senna-S] 8.6-50 mg tablet 2 tab-cap PO BEDTIME PRN (Reason: constipation) 90 Days Qty: 180 1RF multivitamin [One Daily Multivitamin] Tablet 1 tab PO DAILY Interventions: ED Discharge Assessment Last Done: 03/27/23 17:49 Discharge Date/Time: 03/27/23 17:49
--- NOTE | 2023-03-27 10:58 | ECG_ITS ---
Test Reason : hypertension Blood Pressure : / mmHG Vent. Rate : 075 BPM Atrial Rate : 075 BPM P-R Int : 190 ms QRS Dur : 136 ms QT Int : 398 ms P-R-T Axes : 050 004 -17 degrees QTc Int : 444 ms Sinus rhythm with occasional Premature ventricular complexes Left ventricular hypertrophy with QRS widening ( R in aVL , Guilherme product ) Nonspecific T wave abnormality Abnormal ECG When compared with ECG of 01-NOV-2022 13:10, Premature ventricular complexes are now Present Right bundle branch block is no longer Present Referred By: Gisela Whitfield Electronically Signed By:JANNA SIN MD
[2023-03-27 11:17] LABS: Basophils Percent Auto 0.6 % (0-2); Eosinophils Absolute Auto 0.1 X10*3/uL (0.0-0.4); Eosinophils Percent Auto 1.6 % (0-4); Hematocrit 43.3 % (37.0-47.0); Hemoglobin 14.1 g/dl (12.0-16.0); Imm Gran Abs Auto 0.03 X10*3/uL (0.00-0.03); Imm Gran Pct Auto 0.6 % (0.0-0.4); Lymphocytes Absolute Auto 1.5 X10*3/uL (1.2-4.9); Lymphocytes Percent Auto 30.5 % (20-40); MANUAL DIFF FLAG NO; Mean Corpuscular HGB Conc 32.6 g/dl (31.0-35.0); Mean Corpuscular Volume 88.9 fL (80.0-98.0); Mean Platelet Volume 11.2 fL (9.4-12.3); Monocytes Absolute Auto 0.5 X10*3/uL (0.1-1.2); Monocytes Percent Auto 9.8 % (2-11); Neutrophils Absolute Auto 2.8 x10*3/uL (2.0-8.3); Neutrophils Percent Auto 56.9 % (45-73); Platelet Count 264 X10*3/uL (160-400); Red Blood Count 4.87 X10*6/uL (4.20-5.50); Red Cell Distribution Width 12.9 % (11.0-16.0); White Blood Count 4.9 X10*3/uL (4.8-10.8)
[2023-03-27 11:33] LABS: Alanine Aminotransferase 34 U/L (0-31); Albumin Level 4.5 g/dL (3.5-5.0); Alkaline Phosphatase 57 U/L (39-117); Anion Gap 13 (12-20); Aspartate Amino Transferase 23 U/L (5-31); Bilirubin Direct 0.2 mg/dL (0.0-0.5); Bilirubin Total 0.6 mg/dL (0.0-1.0); Blood Urea Nitrogen 10 mg/dL (9-16); Calcium 9.8 mg/dL (8.4-10.2); Carbon Dioxide 29 mmol/L (22-29); Chloride 106 mmol/L (96-108); Creatinine Clr Calc Pharmacy 98.3; Estimated Glomerular Filt Rate > 60; Glucose Random 94 mg/dL (60-115); Potassium 4.6 mmol/L (3.3-5.1); Sodium 143 mmol/L (135-145); Total Protein 7.5 g/dL (6.5-8.0)
[2023-03-27 11:41] LABS: Troponin-I High Sensitivity 2.7 ng/L (<3.5-17.0)
[2023-03-27 15:15] VITALS: BP 177/66; PULSE 84; RESP 18; TEMP 36.8; O2SAT 97
--- NOTE | 2023-03-27 15:17 | ED_ITS ---
HPI - General Adult General Chief complaint: Headache Stated complaint: high bp 210/115 Time Seen by Provider: 03/27/23 15:14 History of Present Illness HPI narrative: 63 y/o F patient; PMH TADEO, obesity, HTN, HLD; presents from home via triage with report of elevated blood pressure and generalized non-focal headaches. The patient states she was COVID positive one week ago. Since then she has noticed that her blood pressures have been higher than normal. She currently takes Lisinopril 40mg once daily. She otherwise denies: cough/congestion, chest pain, SOB, fever or chills, nausea/vomiting, abdominal pain, weakness/numbness/tingling. She spoke with her PCP who referred her to the ED or Urgent Care for further evaluation. Patient reports recently very high levels of stress at home as it is the anniversary of her sister's one year ago. Related Data Home Medications Medication Instructions Recorded Confirmed multivitamin (One Daily 1 tab PO DAILY 08/06/20 03/08/23 Multivitamin tablet) Previous Rx's Medication Instructions Recorded sennosides 8.6 mg-docusate sodium 2 tab-cap (2 x 8.6-50 mg) PO 07/06/21 50 mg tablet (Senna-S) BEDTIME PRN constipation 90 days #180 tabs AUTO PAP 6-16 cm H2O humidified AIR #1 ea 03/21/22 lisinopril 40 mg tablet 40 mg PO DAILY #90 tabs 06/24/22 simvastatin 10 mg tablet 10 mg PO DAILY #90 tabs 06/24/22 blood pressure monitor (Blood #1 ea 09/14/22 Pressure Kit) aspirin 81 mg tablet,delayed 81 mg PO DAILY #90 tabs 11/26/22 release (Adult Aspirin Regimen) paroxetine HCl 20 mg tablet 20 mg PO DAILY #90 tabs 11/30/22 cyclobenzaprine 5 mg tablet 5 mg PO BEDTIME 14 days #14 tabs 01/12/23 ibuprofen 600 mg tablet 600 mg PO Q8H PRN pain 10 days #30 01/12/23 tabs lorazepam 0.5 mg tablet 0.5 mg PO BID PRN agitation 30 01/19/23 days #60 tabs Allergies Allergy/AdvReac Type Severity Reaction Status Date / Time No Known Allergies Allergy Verified 03/08/23 15:41 [No Known Allergies*] Review of Systems 2 Review of Systems: Yes all other systems are reviewed and are negative Neurologic: Denies Sensory deficit (Neuro) [facility] Past Medical History Attestation statement: The following information was validated with the patient. Source: old records reviewed Medical History Annual physical exam Cervicalgia Viral upper respiratory illness Witnessed apneic spells Lumbar spondylosis Preop exam for internal medicine Sinusitis Constipation Finger pain Knee pain, left Low back pain COVID-19 virus infection Osteoarthritis Pulmonary valve stenosis Factor 5 Leiden mutation, heterozygous Hypercholesterolemia Vitamin D deficiency Left renal stone Overweight (BMI 25.0-29.9) Anxiety and depression Hypertension Surgical History Hx of total knee arthroplasty History of shoulder surgery Hx of breast reduction, elective Hx of right knee surgery Strabismus S/P PASCALE-BSO Peripheral vascular disease Family History Family History Father Lung cancer Mother COPD (chronic obstructive pulmonary disease) CVD (cardiovascular disease) AAA (abdominal aortic aneurysm) Brother Diabetes Sister Acute CVA (cerebrovascular accident) Daughter Thyroid cancer Social History Social History Housing: House Alcohol intake: never Patient Tobacco Use Status: Never used Tobacco e-Cigarette/Vaping Use: Never Used Second Hand Smoke Exposure: No Advance Directives: Yes Advance Directives Information Provided: No Advance Directives on File: No service: No Current occupational status: retired Cognitive needs: No Hearing needs: No Vision needs: Yes (glasses) Physical Exam ED Vital Signs: Vital Signs - 24 hr 03/27/23 10:51 03/27/23 15:15 Temperature 96.9 F 98.2 F Pulse Rate 70 84 Respiratory Rate 20 18 Blood Pressure 226/87 H 177/66 H Pulse Oximetry 96 97 Oxygen Delivery Method Room Air Room Air BMI result Body Mass Index 35.5 Patient is hypertensive, otherwise afebrile and hemodynamically stable. Const General: cooperative, comfortable and no acute distress Orientation/consciousness: patient oriented x3 HENMT Head: Yes normal to inspection and Yes atraumatic Eyes General: appearance normal, both eyes and all related structures Pupils: Equal, round and reactive pupils present EOM: EOMs intact bilaterally Neck Neck: Yes full ROM, Yes supple and No tender Chest Chest palpation & inspection: normal inspection of the chest and normal palpation of entire chest wall Resp Effort & Inspection: normal respiratory effort, able to speak in complete sentences and no respiratory distress Auscultation: clear to auscultation bilaterally Cardio Rate: regular rate Rhythm: regular rhythm Peripheral pulses: Peripheral pulses 2+ throughout GI Inspection: Yes normal to inspection and No distended Palpation (GI): Soft to palpation, not firm, nontender and no guarding Auscultation: normal bowel sounds General: Yes no CVA tenderness Back/Spine/Pelvis Back: no CVA tenderness Neuro General: patient oriented x3 Cranial nerves: Yes CN's II-XII intact bilaterally and Yes Equal, round and reactive pupils present Cognition (Neuro): normal cognition Gait exam (Neuro): Normal gait present Motor exam (neuro): 5/5 motor strength present throughout Sensory Exam: No Sensory deficit (Neuro) Course Course Course Narrative: Patient is hypertensive, afebrile, and hemodynamically statble. Reviewed triage work up including EKG, laboratory studies, CT Head, and UA. EKG NSR 75BPM with RBBB. Reassuring laboratory studies. CT Head without acute intracranial pathology. Discussed with patient and at bedside, reassured about results of work up. Subsequent blood pressure improved. Recommend discharge to home and PCP follow up, patient and family in agreement. Plan: Discharge to home with PCP follow up Return precautions given Medical Decision Making Lab Data MDM Lab Attestation statement: I reviewed the patient's lab results. 03/27/23 11:02 03/27/23 11:02 Labs: Lab Results 03/27/23 03/27/23 Range/Units 11:02 17:04 WBC 4.9 (4.8-10.8) X10*3/uL RBC 4.87 (4.20-5.50) X10*6/uL Hgb 14.1 (12.0-16.0) g/dl Hct 43.3 (37.0-47.0) % MCV 88.9 (80.0-98.0) fL MCH 29.0 (27.0-33.0) pg MCHC 32.6 (31.0-35.0) g/dl RDW 12.9 (11.0-16.0) % Plt Count 264 (160-400) X10*3/uL MPV 11.2 (9.4-12.3) fL Immature Gran % (Auto) 0.6 H (0.0-0.4) % Neut % (Auto) 56.9 (45-73) % Lymph % (Auto) 30.5 (20-40) % [place] % (Auto) 9.8 (2-11) % Eos % (Auto) 1.6 (0-4) % Baso % (Auto) 0.6 (0-2) % Lymph # (Auto) 1.5 (1.2-4.9) X10*3/uL [place] # (Auto) 0.5 (0.1-1.2) X10*3/uL Eos # (Auto) 0.1 (0.0-0.4) X10*3/uL Baso # (Auto) 0.0 (0.0-0.2) X10*3/uL Abs Immat Gran (auto) 0.03 (0.00-0.03) X10*3/uL Absolute Neuts (auto) 2.8 (2.0-8.3) x10*3/uL Absolute Nucleated RBC 0.000 (0.0-0.012) X10*3/uL Nucleated RBC % (auto) 0.0 (0.0-0.2) /100WBC Sodium 143 (135-145) mmol/L Potassium 4.6 (3.3-5.1) mmol/L Chloride 106 (96-108) mmol/L Carbon Dioxide 29 (22-29) mmol/L Anion Gap 13 (12-20) BUN 10 (9-16) mg/dL Creatinine 0.68 (0.5-1.4) mg/dL Estim Creat Clear Calc 98.3 Estimated GFR > 60 Random Glucose 94 (60-115) mg/dL Calcium 9.8 D (8.4-10.2) mg/dL Total Bilirubin 0.6 (0.0-1.0) mg/dL Direct Bilirubin 0.2 (0.0-0.5) mg/dL AST 23 (5-31) U/L ALT 34 H (0-31) U/L Alkaline Phosphatase 57 (39-117) U/L Troponin I High Sens 2.7 (<3.5-17.0) ng/L Total Protein 7.5 (6.5-8.0) g/dL Albumin 4.5 (3.5-5.0) g/dL Urine Color Yellow Urine Appearance Clear Urine pH 7.5 (5.0-9.0) Ur Specific [place] <= 1.005 (1.005-1.025) Urine Protein Negative (Neg-Trace) mg/dL Urine Glucose (UA) Negative (Negative) mg/dL Urine Ketones Negative (Negative) mg/dL Urine Blood Negative (Negative) Urine Nitrite Negative (Negative) Ur Leukocyte Esterase Negative (Negative) Independent Interpretation I performed an independent interpretation of an: EKG Radiology Impression Discussion of test interpretation with radiology: I have reviewed the radiologist's reading. Radiologist Impression: EXAMINATION: CT HEAD WITHOUT CONTRAST CLINICAL INFORMATION: Headache COMPARISON: None available. TECHNIQUE: Contiguous axial imaging was performed from the skull base to vertex without intravenous administration of contrast. This CT examination was performed using dose optimization techniques as appropriate, variously including the following: *Automated exposure control *Adjustment of mA and/or kV according to patient size (this includes techniques or standardized protocols for targeted exams where dose is matched to indication/reason for exam; i.e. extremities or head) *Use of iterative reconstruction technique DLP: 660 mGy-cm FINDINGS: There is no intracranial hemorrhage or evidence of acute territorial infarction. No mass effect or midline shift. No extra-axial fluid collection. Cason-white matter differentiation is preserved. The ventricles are normal. There is prominence of the sulci and gyri consistent with age-related involutional change. No osseous abnormality. There is marked deviation of the nasal septum. There is mild mucosal thickening within the right maxillary sinus. The mastoid air cells are well aerated and clear. No osseous abnormality. CT/CT head/brain wo IV con IMPRESSION: No acute intracranial pathology. Marked deviation of the nasal septum. Discharge Plan Discharge Clinical Impression: Hypertension, Headache Patient Disposition: Home, Self-Care Instructions: Hypertension (ED) Additional Instructions: As we discussed, you were seen today for high blood pressures and headaches. Your urinalysis, EKG, lab work (CBC, BMP, LFTs, troponin), and CT Head were reassuring. Please follow up with your PCP within the next 2 - 3 days to discuss your recent ED visit. Continue to take your blood pressure and write down the numbers so you can show the record to your doctor. Return to the hospital for passing out, chest pain, or difficulty breathing. Prescriptions: No Action (DME) AUTO PAP 6-16 cm H2O humidified AIR See Rx Instructions .Route .MEDSUPPLY Qty: 1 0RF Rx Instructions: As directed lisinopril 40 mg tablet 40 mg PO DAILY Qty: 90 3RF simvastatin 10 mg tablet 10 mg PO DAILY Qty: 90 3RF (DME) blood pressure monitor [Blood Pressure Kit] Kit See Rx Instructions .ROUTE .MEDSUPPLY Qty: 1 0RF Rx Instructions: As directed aspirin [Adult Aspirin Regimen] 81 mg tablet,delayed release (DR/EC) 81 mg PO DAILY Qty: 90 3RF paroxetine HCl 20 mg tablet 20 mg PO DAILY Qty: 90 2RF cyclobenzaprine 5 mg tablet 5 mg PO BEDTIME 14 Days Qty: 14 0RF ibuprofen 600 mg tablet 600 mg PO Q8H PRN (Reason: pain) 10 Days Qty: 30 0RF sennosides-docusate sodium [Senna-S] 8.6-50 mg tablet 2 tab-cap PO BEDTIME PRN (Reason: constipation) 90 Days Qty: 180 1RF lorazepam 0.5 mg tablet 0.5 mg PO BID PRN (Reason: agitation) 30 Days Qty: 60 0RF multivitamin [One Daily Multivitamin] Tablet 1 tab PO DAILY
[2023-03-27 17:12] LABS: Appearance Urine Clear; Color Urine Yellow; Glucose Urine UA Negative (Negative); Leukocyte Esterase Urine Negative (Negative); Nitrite Urine Negative (Negative); PH 7.5 (5.0-9.0); Specific Gravity - Urine <= 1.005 (1.005-1.025); Urine Blood Negative (Negative); Urine Ketones Negative (Negative); Urine Protein Negative (Neg-Trace)
== END 2023-03-27 17:49 | disposition home or self-care (01) ==
PROVIDERS: Physician Assistant Medical; Emergency Provider Emergency Medicine; PCP Internal Medicine
DX: R51.9 Headache, unspecified (principal); I10 Essential (primary) hypertension; R94.31 Abnormal electrocardiogram [ECG] [EKG]; Z79.899 Other long term (current) drug therapy
CPT/HCPCS: 36415; 70450; 80048; 80076; 81003; 84484; 85025; 93005; 99284

== ENCOUNTER → 2023-03-27 10:58 | Outpatient (BNV) | payer MEDICARE, OTHER, SELFPAY | PROVIDERS: PCP Internal Medicine; Visit Provider Internal Medicine Cardiovascular Disease | DX: I49.3 Ventricular premature depolarization (principal); R94.31 Abnormal electrocardiogram [ECG] [EKG] | CPT/HCPCS: 93010 ==

== ENCOUNTER 2023-03-29 14:37 | Outpatient (AMB) | payer MEDICARE, OTHER, SELFPAY ==
[2023-03-29 14:39] VITALS: BP 166/92; PULSE 83; O2SAT 99; BMI 36.3
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
== END 2023-03-29 15:35 | disposition home or self-care (01) ==
PROVIDERS: PCP Internal Medicine; Visit Provider Internal Medicine
DX: G47.33 Obstructive sleep apnea (adult) (pediatric) (principal); I10 Essential (primary) hypertension; Z68.36 Body mass index [BMI] 36.0-36.9, adult; E66.9 Obesity, unspecified; F41.1 Generalized anxiety disorder
CPT/HCPCS: 99214

== ENCOUNTER 2023-03-30 09:00 | Outpatient (RCR) | payer OTHER, MEDICARE, SELFPAY ==
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
--- NOTE | 2023-04-28 12:47 | MHC.PT.DC ---
[facility] [place] [facility] [place] [facility] [place] [facility] [address] Duy Dugan [address] [phone] F: [phone] F: [phone] F: [phone] F: [phone] Physical Therapy Discharge Report Diagnosis: This is a 63 yo female presenting to skilled PT with a script for cervicalgia. Date of Surgery: Date of Evaluation: 01/23/23 Date of Discharge: 04/28/23 Treatments to Date: 17 Cancellations to Date: 0 No Shows to Date: 0 Discharge Status: Achieved Goals Improved Function Independent with HEP Recommend MD Follow-up Discharge Summary: 03/30: Patient has come to 17 appointments, she has improved since eval but has started to plateau in progress. She has an HEP to continue on her own at this time. She returns to her PCP in April for a follow up. Chart will be kept open for 30 days in case something changes otherwise DC to HEP. Electronically signed by: Brittnee Anders PT Please sign and return to therapist. Thank you for your referral.
== END 2023-04-28 12:47 | disposition home or self-care (01) ==
LOC: HO.PTCHIC 09:00
PROVIDERS: PCP Internal Medicine; Visit Provider Physician Assistant
DX: M54.2 Cervicalgia (principal); V89.2XXD Person injured in unspecified motor-vehicle accident, traffic, subsequent encounter
CPT/HCPCS: 97110; 97140; 97162

== ENCOUNTER 2023-04-11 11:10 | Outpatient (AMB) | payer MEDICARE, OTHER, SELFPAY ==
[2023-04-11 11:12] VITALS: BMI 36.3
--- NOTE | 2023-04-11 11:12 | A.OFFVIS_ITS ---
Intake Vital Signs 04/11/23 11:12 Height 5 ft 6 in Weight 225 lb BMI 36.3 Intake Visit Reasons: RESPIRATORY PRACTITIONER- Re-Referral for Left LE VV Intake Note: RESPIRATORY PRACTITIONER, re-referral for Left LE VV, at last visit was scheduled for a Left LE Microphlebectomy but Covid hit and it was put off. Pt complains of Left LE pain, itching, burning and restlessness at night. Hx of bilateral GSV ablations. Last US 01/03/2019 Accompanied by: Spouse Allergies No Known Allergies [No Known Allergies*] Allergy (Verified 04/11/23 11:20) HPI RESPIRATORY PRACTITIONER- Re-Referral for Left LE VV HPI Details Very pleasant 63-year-old patient presents for follow-up regarding venous insufficiency. She had actually had undergone bilateral saphenous vein ablation is nearly 4 years ago with us. She was lost to follow-up secondary to COVID. Her vein procedures were literally done right before COVID began and she never followed up for microphlebectomy. She reports she had been doing fairly well from that time on and has been compliant with her compression stockings. Of note she does have a history of factor 5 Leiden deficiency. [facility] Medical History Annual physical exam Cervicalgia Viral upper respiratory illness Witnessed apneic spells Lumbar spondylosis Preop exam for internal medicine Sinusitis Constipation Finger pain Knee pain, left Low back pain COVID-19 virus infection Osteoarthritis Pulmonary valve stenosis Factor 5 Leiden mutation, heterozygous Hypercholesterolemia Vitamin D deficiency Left renal stone Overweight (BMI 25.0-29.9) Anxiety and depression Hypertension Surgical History Hx of total knee arthroplasty History of shoulder surgery Hx of breast reduction, elective Hx of right knee surgery Strabismus S/P PASCALE-BSO Peripheral vascular disease Family History Father Lung cancer Mother COPD (chronic obstructive pulmonary disease) CVD (cardiovascular disease) AAA (abdominal aortic aneurysm) Brother Diabetes Sister Acute CVA (cerebrovascular accident) Daughter Thyroid cancer Social History Housing: House Alcohol intake: never Patient Tobacco Use Status: Never used Tobacco e-Cigarette/Vaping Use: Never Used Second Hand Smoke Exposure: No service: No Current occupational status: retired Cognitive needs: No Hearing needs: No Vision needs: Yes (glasses) Review of Systems Const Reports as per HPI ENT Reports no additional complaints Card Denies chest pain, Denies chest pain at rest and Denies chest pain with activity Resp Denies chest congestion and Denies cough GI Reports no additional complaints Musc Details: pain over varicosities, aching of lower extremities, swelling, cramping, heaviness and tiredness, itching Denies abnormal gait Skin/Breast Reports pruritus and Denies wounds Neuro Reports no additional complaints and Denies abnormal gait Psych Denies no additional complaints Physical Exam Vital Signs: BMI result Body Mass Index 36.3 Const General: cooperative, healthy appearing and comfortable Orientation/consciousness: oriented to person, oriented to place and oriented to time Neck Carotids: no bruits Chest Chest palpation & inspection: normal inspection of the chest and normal palpation of entire chest wall Resp Effort & Inspection: normal respiratory effort and able to speak in complete sentences Cardio Rate: regular rate Heart sounds: S1 normal heart sound present and S2 normal heart sound present Peripheral pulses: Peripheral pulses 2+ throughout GI Inspection: Yes normal to inspection Skin Other: +2 edema, large rope-like varicosities greater than 4 mm large clusters throughout left calf and thigh bilaterally left greater than right CEAP Classification C4 - skin color changes Ep - Etiology Primary As - superficial veins P - reflux General skin exam: dry skin Neuro General: oriented to person, oriented to place and oriented to time Extrem Right lower extremity: full ROM, normal capillary refill and edema Left lower extremity: full ROM, normal capillary refill and edema Psych Mental Status: mental status grossly normal Assessment & Plan Assessment & Plan (1) Varicose veins of right lower extremity with inflammation: Comment: 02/15/2019 right great saphenous vein Cyanoacralate ablation Code(s): I83.11 - Varicose veins of right lower extremity with inflammation (2) Varicose veins of left lower extremity with inflammation: Comment: 04/03/2019 left great saphenous vein Cyanoacralate ablation Code(s): I83.12 - Varicose veins of left lower extremity with inflammation Plan: In short patient has multiple superficial varicosities. She had never undergone a microphlebectomy 4 years prior and it appears that they have become more prominent. I have taken the liberty of ordering repeat venous insufficiency testing to evaluate the status of the previous ablation is in to see if any new veins are refluxing. In addition we did discuss routine conservative measures including compression, elevation, and exercise. She will follow up with us after venous insufficiency testing. At the bare minimum she will require opera tive microphlebectomy. Thank you for allowing us to assist in her care. If there are any questions or concerns please do not hesitate to contact us Plan See above Coding Level of Care Code New Pt Level 4 (25197) Diagnoses Varicose veins of right lower extremity with inflammation I83.11 Varicose veins of left lower extremity with inflammation I83.12
== END 2023-04-11 11:42 | disposition home or self-care (01) ==
PROVIDERS: PCP Internal Medicine; Visit Provider Surgery Vascular Surgery
DX: I83.11 Varicose veins of right lower extremity with inflammation (principal); I83.12 Varicose veins of left lower extremity with inflammation
CPT/HCPCS: 99203

== ENCOUNTER → 2023-04-11 11:10 | Outpatient (BNVA) | payer MEDICARE, OTHER, SELFPAY | PROVIDERS: PCP Internal Medicine; Visit Provider Surgery Vascular Surgery | DX: I83.11 Varicose veins of right lower extremity with inflammation (principal); I83.12 Varicose veins of left lower extremity with inflammation | CPT/HCPCS: 99202 ==

== ENCOUNTER 2023-05-03 08:17 | Outpatient (REF) | payer MEDICARE, OTHER, SELFPAY ==
--- NOTE | ~2023-05-03 | US_ITS ---
EXAMINATION: US LOWER EXTREMITY VENOUS (REFLUX EXAM), BILATERAL CLINICAL INDICATION: Chronic venous insufficiency with history of varicose veins status post prior bilateral great saphenous vein ablations approximately 4 years ago. Patient with pain and swelling COMPARISON: Ultrasound from 02/18/2019 and 01/03/2019 TECHNIQUE: Color flow triplex imaging and compression Doppler was performed to evaluate both the deep and the superficial systems bilaterally. To evaluate the superficial system, the examination was performed in the upright position. Color-flow Doppler ultrasound and compression ultrasound were utilized. In addition, maneuvers were utilized to demonstrate reflux. FINDINGS: 1. DEEP VENOUS ULTRASOUND OF THE RIGHT LOWER EXTREMITY: Common Femoral Vein: Compressible, normal respiratory variation and augmented flow. Femoral Vein: Compressible, normal color flow and augmentation. Popliteal Vein: Compressible, normal augmentation. Deep Reflux: There is no evidence of reflux in the deep system in either the common femoral vein, superficial femoral or the popliteal vein. There is no evidence of a Mahoney's cyst. 2. SUPERFICIAL ULTRASOUND WITH DOPPLER OF RIGHT LOWER EXTREMITY: GREAT SAPHENOUS VEIN: Saphenofemoral Junction: 0.9 cm; Reflux: 2000 ms Proximal Thigh: 0.8 cm; Reflux: 2880 ms Mid Thigh: 0.3 cm; Reflux: 2984 ms Above Knee: 0.4 cm; Reflux: 3168 ms At Knee: 0.3 cm; Reflux: 2036 ms Below Knee: 0.5 cm; Reflux: 2412 ms Mid Calf: 0.3 cm; Reflux: 2752 ms Ankle: 0.1 cm; Reflux: 0 ms DUPLICATED MEDIAL GREAT SAPHENOUS VEIN: Diameter: None imaged Reflux: NA DUPLICATED LATERAL GREAT SAPHENOUS VEIN: Diameter: None imaged Reflux: NA SMALL SAPHENOUS VEIN: Saphenopopliteal Junction: 0.2 cm; Reflux: 0 ms Proximal: 0.2 cm; Reflux: 0 ms Distal: 0.2 cm; Reflux: 0 ms VEIN OF GIACOMINI: Size: NA Reflux: NA PERFORATORS: Location: Multiple perforators along of the great saphenous vein Size: 0.3 to 0.5 cm Reflux: 1512 ms in the mid calf VARICOSITIES: Location: Extensive varicosities seen throughout the thigh and calf arising from the great saphenous vein Size: 0.3 to 0.4 cm Reflux: 2968 ms VARICOSITIES: Location: Posterior knee off the popliteal vein Size: 1.0 cm Reflux: 0 ms 3. DEEP VENOUS ULTRASOUND OF THE LEFT LOWER EXTREMITY: Common Femoral Vein: Compressible, normal respiratory variation and augmented flow. Femoral Vein: Compressible, normal color flow and augmentation. Popliteal Vein: Compressible, normal augmentation. Deep Reflux: There is no evidence of reflux in the deep system in either the common femoral vein, superficial femoral or the popliteal vein. There is no evidence of a Mahoney's cyst. 4. SUPERFICIAL ULTRASOUND WITH DOPPLER OF LEFT LOWER EXTREMITY: GREAT SAPHENOUS VEIN: Echogenic thrombus and/for residual tissue glue seen within the great saphenous vein through the mid and proximal thigh extending all the way to the saphenofemoral junction. DUPLICATED MEDIAL GREAT SAPHENOUS VEIN: Diameter: None imaged Reflux: NA DUPLICATED LATERAL GREAT SAPHENOUS VEIN: Diameter: None imaged Reflux: NA SMALL SAPHENOUS VEIN: Saphenopopliteal Junction: 0.1 cm; Reflux: 2428 ms Proximal: 0.1 cm; Reflux: 1772 ms Distal: 0.1 cm; Reflux: 2464 ms VEIN OF GIACOMINI: Size: NA Reflux: NA PERFORATORS: Location: Posterior calf Size: 0.5 cm Reflux: None VARICOSITIES: Location: Posterior calf arising into a cardiovascular technologist vein. Echogenic thrombus is seen within the varicosity Size: 0.4 cm Reflux: NA US/US venous duplex LE BI IMPRESSION: Right: Recanalization of the right great saphenous vein with severe reflux throughout the thigh and calf. Multiple branching varicosities are arising along the entire course of the great saphenous vein. There is also a large varicose vein in the posterior knee arising from the popliteal vein. Left: Echogenic thrombus versus residual tissue glue within the left great saphenous vein extending to the saphenofemoral junction without extension into the deep veins. There is also echogenic thrombus within the varicose veins within the posterior calf. Findings consistent with a superficial thrombophlebitis
== END 2023-05-03 08:18 | disposition home or self-care (01) ==
LOC: HO.US 08:17
PROVIDERS: PCP Internal Medicine; Visit Provider Surgery Vascular Surgery
DX: I83.893 Varicose veins of bilateral lower extremities with other complications (principal)
CPT/HCPCS: 93970

== ENCOUNTER 2023-05-04 09:04 | Outpatient (AMB) | payer MEDICARE, OTHER, SELFPAY ==
--- NOTE | 2023-05-04 09:06 | A.OFFVIS_ITS ---
Intake Vital Signs 05/04/23 09:08 Height 5 ft 6 in Weight 225 lb BMI 36.3 BP 140/86 H Blood Pressure Location Rt brachial Position Sitting Pulse 78 Pulse Source Pulse Oximeter Pulse Oximetry (%) 95 Oxygen Delivery Method Room Air Intake Visit Reasons: follow up [facility] 05/03/2023 Intake Note: Pt presents to the office today for a follow up 05/03/23. Pt states only her left leg is bothering her. Pt states she gets vein swelling and itching. Pt states she uses her compression stockings everyday. Pt denies any discoloration Allergies No Known Allergies [No Known Allergies*] Allergy (Verified 05/04/23 09:10) HPI follow up 05/03/2023 HPI Details Very pleasant 63-year-old female presents for follow-up with venous insufficiency testing. She would actually undergone bilateral saphenous vein ablation nearly 4 years ago. She also has a history of factor 5 Leiden deficiency. She continues to have swollen painful legs. In particular she complains about the varicosities in her left lower extremity which have been a source of discomfort for her. She now presents for follow-up with venous insufficiency testing. [facility] Medical History Annual physical exam Cervicalgia Viral upper respiratory illness Witnessed apneic spells Lumbar spondylosis Preop exam for internal medicine Sinusitis Constipation Finger pain Knee pain, left Low back pain COVID-19 virus infection Osteoarthritis Pulmonary valve stenosis Factor 5 Leiden mutation, heterozygous Hypercholesterolemia Vitamin D deficiency Left renal stone Overweight (BMI 25.0-29.9) Anxiety and depression Hypertension Surgical History Hx of total knee arthroplasty History of shoulder surgery Hx of breast reduction, elective Hx of right knee surgery Strabismus S/P PASCALE-BSO Peripheral vascular disease Family History Father Lung cancer Mother COPD (chronic obstructive pulmonary disease) CVD (cardiovascular disease) AAA (abdominal aortic aneurysm) Brother Diabetes Sister Acute CVA (cerebrovascular accident) Daughter Thyroid cancer Social History Housing: House Alcohol intake: never Patient Tobacco Use Status: Never used Tobacco e-Cigarette/Vaping Use: Never Used Second Hand Smoke Exposure: No service: No Current occupational status: retired Cognitive needs: No Hearing needs: No Vision needs: Yes (glasses) Review of Systems Const Reports as per HPI ENT Reports no additional complaints Card Denies chest pain, Denies chest pain at rest and Denies chest pain with activity Resp Denies chest congestion and Denies cough GI Reports no additional complaints Musc Details: pain over varicosities, aching of lower extremities, swelling, cramping, heaviness and tiredness, itching Denies abnormal gait Skin/Breast Reports pruritus and Denies wounds Neuro Reports no additional complaints and Denies abnormal gait Psych Denies no additional complaints Physical Exam Vital Signs: Last Vital Signs Pulse 78 05/04/23 09:08 BP 140/86 H 05/04/23 09:08 Pulse Ox 95 05/04/23 09:08 Oxygen Delivery Method Room Air 05/04/23 09:08 BMI result Body Mass Index 36.3 Const General: cooperative, healthy appearing and comfortable Orientation/consciousness: oriented to person, oriented to place and oriented to time Neck Carotids: no bruits Chest Chest palpation & inspection: normal inspection of the chest and normal palpation of entire chest wall Resp Effort & Inspection: normal respiratory effort and able to speak in complete sentences Cardio Rate: regular rate Heart sounds: S1 normal heart sound present and S2 normal heart sound present Peripheral pulses: Peripheral pulses 2+ throughout GI Inspection: Yes normal to inspection Skin Other: +2 edema, large rope-like varicosities greater than 4 mm CEAP Classification C4 - skin color changes Ep - Etiology Primary As - superficial veins P - reflux General skin exam: dry skin Neuro General: oriented to person, oriented to place and oriented to time Extrem Right lower extremity: full ROM, normal capillary refill and edema Left lower extremity: full ROM, normal capillary refill and edema Psych Mental Status: mental status grossly normal Results Reviewed Results Reviewed: Brief summary of venous insufficiency testing is as follows: right great saphenous vein: Positive right small saphenous vein: negative right accessory vein: none present left great saphenous vein: negative left small saphenous vein: Positive left accessory vein: none present Please note there is no evidence of any venous aneurysms or significant tortuosity Assessment & Plan Assessment & Plan (1) Varicose veins of left lower extremity with inflammation: Comment: 04/03/2019 left great saphenous vein Cyanoacralate ablation Code(s): I83.12 - Varicose veins of left lower extremity with inflammation Plan: This patient has varicose veins with inflammation. They continue to be a source of discomfort for the patient. The patient has tried conservative treatment with compression, leg elevation and exercise program for over 3 months time. They have been compliant with all treatment. This has provided minimal relief for the patient. I do not anticipate this course of treatment will alter the underlying etiology. The patient has been scheduled for lower extremity venous treatment inclusive of --- left small saphenous vein radiofrequency ablation. Risks, benefits, and complications of this procedure has been discussed in detail with the patient including but not limited to bleeding, infection, and the development of a DVT. The patient has demonstrated a clear understanding and has consented. We will schedule the patient as soon as possible. Thank you for allowing us to participate in this patient's care. If there are any questions or concerns please do not hesitate to contact us. (2) Varicose veins of right lower extremity with inflammation: Comment: 02/15/2019 right great saphenous vein Cyanoacralate ablation Code(s): I83.11 - Varicose veins of right lower extremity with inflammation Plan: See above Coding Level of Care Code Est Pt Level 4 (25690) Diagnoses Varicose veins of left lower extremity with inflammation I83.12 Varicose veins of right lower extremity with inflammation I83.11
[2023-05-04 09:08] VITALS: BP 140/86; PULSE 78; O2SAT 95; BMI 36.3
== END 2023-05-04 09:40 | disposition home or self-care (01) ==
PROVIDERS: PCP Internal Medicine; Visit Provider Surgery Vascular Surgery
DX: I83.12 Varicose veins of left lower extremity with inflammation (principal); I83.11 Varicose veins of right lower extremity with inflammation
CPT/HCPCS: 99214

== ENCOUNTER → 2023-05-04 09:04 | Outpatient (BNVA) | payer MEDICARE, OTHER, SELFPAY | PROVIDERS: PCP Internal Medicine; Visit Provider Surgery Vascular Surgery | DX: I83.12 Varicose veins of left lower extremity with inflammation (principal); I83.11 Varicose veins of right lower extremity with inflammation | CPT/HCPCS: 99212 ==

== ENCOUNTER 2023-05-09 09:05 | Outpatient (AMB) | payer MEDICARE, OTHER, SELFPAY ==
[2023-05-09 09:08] VITALS: BP 138/72; PULSE 83; O2SAT 99; BMI 36.2
--- NOTE | 2023-05-09 09:08 | A.OFFPC_ITS ---
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 Allergies No Known Allergies [No Known Allergies*] Allergy (Verified 05/09/23 09:08) Medication List - Last Reconciled 05/09/23 by Hyacinth Marquez MD aspirin (Adult Aspirin Regimen) 81 mg PO DAILY [AUTO PAP 6-16 cm H2O humidified AIR As directed] blood pressure monitor (Blood Pressure Kit) As directed cyclobenzaprine 5 mg PO BEDTIME 14 days escitalopram oxalate (Lexapro) 10 mg PO DAILY hydrochlorothiazide 25 mg PO DAILY lisinopril 40 mg PO DAILY lorazepam 0.5 mg PO BID PRN 30 days multivitamin (One Daily Multivitamin tablet) 1 tab PO DAILY sennosides-docusate sodium 8.6-50 mg (Senna-S) 2 tab-caps (2 x 8.6-50 mg) PO BEDTIME PRN 90 days simvastatin 10 mg PO DAILY Tobacco use date assessed: 05/09/23 Fall risk assessment: No Falls in past year Last assessed Fall Risk: 05/09/23 Dental Screening Dental Screen Date: 05/09/23 Did you have a dental visit in the last 12 months?: Yes Did you have a dental problem in the last 6 months where you did not have access to dental care?: No Was dental information given to patient?: Patient has dentist HPI Obstructive sleep apnea HPI Details 63-year-old obese female with obstructiv e sleep apnea hypertension hypercholesterolemia generalized anxiety disorder last seen in March 2023. Patient's colonoscopy is due this year, mammogram is due next month and bone density later this year. Patient had varicose veins and was sent to the vascular surgeon patient has been scheduled for radiofrequency ablation. sister recently . [facility] Medical History Annual physical exam Cervicalgia Viral upper respiratory illness Witnessed apneic spells Lumbar spondylosis Preop exam for internal medicine Sinusitis Constipation Finger pain Knee pain, left Low back pain COVID-19 virus infection Osteoarthritis Pulmonary valve stenosis Factor 5 Leiden mutation, heterozygous Hypercholesterolemia Vitamin D deficiency Left renal stone Overweight (BMI 25.0-29.9) Anxiety and depression Hypertension Surgical History Hx of total knee arthroplasty History of shoulder surgery Hx of breast reduction, elective Hx of right knee surgery Strabismus S/P PASCALE-BSO Peripheral vascular disease Family History Father Lung cancer Mother COPD (chronic obstructive pulmonary disease) CVD (cardiovascular disease) AAA (abdominal aortic aneurysm) Brother Diabetes Sister Acute CVA (cerebrovascular accident) Daughter Thyroid cancer Social History Housing: House Alcohol intake: never Patient Tobacco Use Status: Never used Tobacco e-Cigarette/Vaping Use: Never Used Second Hand Smoke Exposure: No service: No Current occupational status: retired Cognitive needs: No Hearing needs: No Vision needs: Yes (glasses) Questionnaire PHQ-9 Over the last 2 weeks, how often have you been bothered by any of the following problems? 9. Thoughts that you would be better off or of hurting yourself in some way: not at all Source: Developed by Drs. Boom Jin, Yesy Yang, Travis Santos and colleagues, with an educational pascual from [employer]. Thrive Questionnaire Date Thrive assessed: 05/09/23 I am a: Patient What is your living situation today?: I have a steady place to live Within the past 12 months, did the food you bought not last and you didn't have the money to get more?: Never true Within the past 12 months, did you worry whether your food would run out before you got money to buy more?: Never true Do you have trouble paying for medicines?: No Do you have trouble getting transportation to medical appointments?: No Do you have trouble paying your heating and electricity bill?: No Do you have trouble taking care of your child, family member or friend?: No Do you have trouble with day-to-day activities such as bathing, preparing meals, shopping, managing finances, etc.?: No Are you currently unemployed and looking for a job?: No Are you interested in more education?: No THRIVE Score: 0 AUDIT C Alcohol Use Questionnaire (AUDIT-C) 1. How often do you have a drink containing alcohol?: Monthly or less 2. How many drinks containing alcohol do you have on a typical day when you are drinking?: 1 or 2 3. How often do you have six or more drinks on one occasion?: Never Total Score: 1 BING-7 AMB Questionnaire BING-7 Date BING - 7 assessed: 05/09/23 Source: Developed by Drs. Boom Jin, Yesy Yang, Travis Santos and colleagues, with an educational pascual from [employer]. Physical exam (Primary Care) Vital Signs: Last Vital Signs Pulse 83 05/09/23 09:08 BP 138/72 05/09/23 09:08 Pulse Ox 99 05/09/23 09:08 Oxygen Delivery Method Room Air 05/09/23 09:08 BMI result Body Mass Index 36.2 Tobacco/Smoking Status: Tobacco use Status Tobacco use date assessed 05/09/23 05/09/23 09:09 Patient Tobacco Use Status Never used Tobacco 05/09/23 09:09 e-Cigarette/Vaping Use Never Used 05/09/23 09:09 PHQ-9: PHQ-9 Score PHQ-9: Total score 0 05/09/23 09:33 Thrive Assessment: Date of Thrive Assessment Date Thrive assessed 05/09/23 05/09/23 09:09 Const General: alert; No acute distress Eyes Conjunctivae: conjunctivae normal Resp Auscultation: clear to auscultation bilaterally Cardio Rate: regular rate Rhythm: regular rhythm GI Inspection: Yes normal to inspection Extrem General: Yes normal to inspection and No edema Assessment and Plan Assessment & Plan (1) Colon cancer screening: Code(s): Z12.11 - Encounter for screening for malignant neoplasm of colon Plan: Reminded patient about colonoscopy (2) Varicose veins of left lower extremity with inflammation: Comment: 04/03/2019 left great saphenous vein Cyanoacralate ablation Code(s): I83.12 - Varicose veins of left lower extremity with inflammation Plan: Patient follows up with vascular surgeon and planned radiofrequency ablation (3) Obstructive sleep apnea (adult) (pediatric): Comment: February 2022 Code(s): G47.33 - Obstructive sleep apnea (adult) (pediatric) Plan: Continue to use the CPAP more than 4 hours a night and benefits from this (4) Hypertension: Code(s): I10 - Essential (primary) hypertension Qualifiers: Hypertension type: essential hypertension Qualified Code(s): I10 - Essential (primary) hypertension Plan: Continue with blood pressure medication. Decrease salt intake and exercise patient takes hydrochlorothiazide and lisinopril (5) Hypercholesterolemia: Code(s): E78.00 - Pure hypercholesterolemia, unspecified Plan: Avoid fried foods, chicken skin, eggs, butter margarine, pastries and meat. Be it pork or beef they have a lot of cholesterol October last blood work LDL goal of less than 130 and triglyceride of less than 150. (6) Obesity (BMI 30-39.9): Code(s): E66.9 - Obesity, unspecified Plan: Diet and exercise (7) Generalized anxiety disorder: Comment: doing private counseling presently 06/2021 Code(s): F41.1 - Generalized anxiety disorder Plan: Continue with counseling and therapy. Coding Level of Care Code Est Pt Level 4 (08308) Diagnoses Colon cancer screening Z12.11 Varicose veins of left lower extremity with inflammation I83.12 Obstructive sleep apnea (adult) (pediatric) G47.33 Essential hypertension I10 Hypertension type: essential hypertension Hypercholesterolemia E78.00 Obesity (BMI 30-39.9) E66.9 Generalized anxiety disorder F41.1
== END 2023-05-09 10:17 | disposition home or self-care (01) ==
PROVIDERS: PCP Internal Medicine; Visit Provider Internal Medicine
DX: Z12.11 Encounter for screening for malignant neoplasm of colon (principal); I83.12 Varicose veins of left lower extremity with inflammation; G47.33 Obstructive sleep apnea (adult) (pediatric); I10 Essential (primary) hypertension; E78.00 Pure hypercholesterolemia, unspecified; E66.9 Obesity, unspecified; F41.1 Generalized anxiety disorder
CPT/HCPCS: 99214

== ENCOUNTER 2023-05-22 07:51 | Outpatient (REF) | payer MEDICARE, OTHER, SELFPAY ==
--- NOTE | ~2023-05-22 | MM_ITS ---
EXAMINATION: MM SCREENING DIGITAL BREAST TOMOSYNTHESIS, BILATERAL CLINICAL INFORMATION: Screening. Asymptomatic. The patient is status post bilateral breast reduction. COMPARISON: Mammography: This study is compared with prior exams dating back to TECHNIQUE: Digital breast tomosynthesis is performed in both the craniocaudal and mediolateral oblique views along with computer-aided detection (CAD). Synthesized 2D images are generated from the tomosynthesis. FINDINGS: The breasts are almost entirely fatty (ACR BI-RADS breast composition Category a). There are no significant masses, abnormal calcifications, or other abnormalities. Bilateral post reduction changes are present. MM/MM tomosynthesis screening BI IMPRESSION: No mammographic evidence of malignancy. ASSESSMENT: BI-RADS BI-RADS 2 - Benign Findings RECOMMENDATION: Routine annual mammography screening. 1 year F/U This examination should not preclude the clinical evaluation of a suspicious palpable abnormality. This patient's information was entered into a reminder system with a target due date for their next mammogram.
== END 2023-05-22 07:52 | disposition home or self-care (01) ==
LOC: HO.MAMMO 07:51
PROVIDERS: PCP Internal Medicine; Visit Provider Internal Medicine
DX: Z12.31 Encounter for screening mammogram for malignant neoplasm of breast (principal)
CPT/HCPCS: 77063; 77067

== ENCOUNTER → 2023-05-22 08:00 | Outpatient (BNV) | payer MEDICARE, OTHER, SELFPAY | PROVIDERS: PCP Internal Medicine; Visit Provider Radiology Diagnostic Radiology | DX: Z12.31 Encounter for screening mammogram for malignant neoplasm of breast (principal) | CPT/HCPCS: 77063; 77067 ==

== ENCOUNTER 2023-07-07 07:49 | Outpatient (AMB) | payer MEDICARE, OTHER, SELFPAY ==
[2023-07-07 07:52] VITALS: BMI 36.2
--- NOTE | 2023-07-07 07:52 | MHC.OFFVIS ---
Intake Vital Signs 07/07/23 07:52 Height 5 ft 6 in Weight 224 lb BMI 36.2 Intake Visit Reasons: Left Small RFA Accompanied by: Self / Same As Patient Allergies No Known Allergies [No Known Allergies*] Allergy (Verified 07/07/23 07:52) [facility] Medical History Annual physical exam Cervicalgia Viral upper respiratory illness Witnessed apneic spells Lumbar spondylosis Preop exam for internal medicine Sinusitis Constipation Finger pain Knee pain, left Low back pain COVID-19 virus infection Osteoarthritis Pulmonary valve stenosis Factor 5 Leiden mutation, heterozygous Hypercholesterolemia Vitamin D deficiency Left renal stone Overweight (BMI 25.0-29.9) Anxiety and depression Hypertension Surgical History Hx of total knee arthroplasty History of shoulder surgery Hx of breast reduction, elective Hx of right knee surgery Strabismus S/P PASCALE-BSO Peripheral vascular disease Family History Father Lung cancer Mother COPD (chronic obstructive pulmonary disease) CVD (cardiovascular disease) AAA (abdominal aortic aneurysm) Brother Diabetes Sister Acute CVA (cerebrovascular accident) Daughter Thyroid cancer Social History Housing: House Alcohol intake: never Patient Tobacco Use Status: Never used Tobacco e-Cigarette/Vaping Use: Never Used Second Hand Smoke Exposure: No service: No Current occupational status: retired Cognitive needs: No Hearing needs: No Vision needs: Yes (glasses) Physical Exam Vital Signs: BMI result Body Mass Index 36.2 Office Procedures Vascular Office Procedure Details Details: Diagnosis: Varicose veins with inflammation of left leg Procedure: Attempted Endovenous radiofrequency ablation of the left small saphenous vein(s) of the lower extremity with Venclose Anesthesia: Local infiltration 10 cc, Tumescent 0 cc. Estimated Blood Loss: Minimal The patient was transferred to the procedure suite and the insufficient small saphenous vein was mapped by ultrasound and diagrammed on the overlying skin. The depth and diameter of the vein(s) to be treated was documented. The varicose tributary veins and suitable access sites were identified and mapped as well. The patient was then positioned prone on the procedure table. The affected limb was prepped and draped in the usual sterile fashion. The RF catheter was placed on the sterile field, flushed and wiped down, prepared, and connected by a sterile cable. The patient was placed in a prone position and local anesthesia was instilled in the skin overlying the access site. A skin incision was made overlying the identified and mapped small saphenous vein entry site. We made several attempts at accessing the small saphenous vein. Apparently went into spasm and we were unable to access this. A small cutdown was even attempted over the small saphenous vein. We were unable to cannulate it. After several attempts the procedure was terminated. Steri-Strips and a sterile dressing were applied. All charges added?: Additional procedure code (CPT) needed Assessment & Plan Assessment & Plan (1) Varicose veins of left lower extremity with inflammation: Comment: 04/03/2019 left great saphenous vein Cyanoacralate ablation Code(s): I83.12 - Varicose veins of left lower extremity with inflammation Plan: Unsuccessful left small saphenous vein ablation Coding Level of Care Code Procedure Only Diagnoses Varicose veins of left lower extremity with inflammation I83.12
== END 2023-07-07 09:35 | disposition home or self-care (01) ==
PROVIDERS: PCP Internal Medicine; Visit Provider Surgery Vascular Surgery
DX: I83.12 Varicose veins of left lower extremity with inflammation (principal)
CPT/HCPCS: 36475

== ENCOUNTER → 2023-07-07 07:49 | Outpatient (BNVA) | payer MEDICARE, OTHER, SELFPAY | PROVIDERS: PCP Internal Medicine; Visit Provider Surgery Vascular Surgery | DX: I83.12 Varicose veins of left lower extremity with inflammation (principal); Z53.8 Procedure and treatment not carried out for other reasons | CPT/HCPCS: 36475 ==

== ENCOUNTER 2023-08-01 09:12 | Outpatient (AMB) | payer MEDICARE, OTHER, SELFPAY ==
--- NOTE | 2023-08-01 09:17 | MHC.OFFVIS ---
Vital Signs 08/01/23 09:20 Height 5 ft 6 in Weight 223 lb BMI 36.0 Intake Visit Reasons: 2 week follow up left small rfa Intake Note: Patient presents for 2 week follow up left small rfa. States her legs are feeling good . No pain , swelling , bruising . Accompanied by: Self / Same As Patient Allergies No Known Allergies [No Known Allergies*] Allergy (Verified 08/01/23 09:19) HPI HPI 2 week follow up left small rfa: Details: Very pleasant 63-year-old female presents for follow-up status post attempt left small saphenous radiofrequency ablation. Unfortunately the vein was too small for treatment. Postprocedure she reports no issues. In general she reports that the leg actually is been doing better since the attempt at treatment. She now presents for routine follow-up. She has been compliant with her compression. [facility] Medical History Annual physical exam Cervicalgia Viral upper respiratory illness Witnessed apneic spells Lumbar spondylosis Preop exam for internal medicine Sinusitis Constipation Finger pain Knee pain, left Low back pain COVID-19 virus infection Osteoarthritis Pulmonary valve stenosis Factor 5 Leiden mutation, heterozygous Hypercholesterolemia Vitamin D deficiency Left renal stone Overweight (BMI 25.0-29.9) Anxiety and depression Hypertension Surgical History Hx of total knee arthroplasty History of shoulder surgery Hx of breast reduction, elective Hx of right knee surgery Strabismus S/P PASCALE-BSO Peripheral vascular disease Family History Father Lung cancer Mother COPD (chronic obstructive pulmonary disease) CVD (cardiovascular disease) AAA (abdominal aortic aneurysm) Brother Diabetes Sister Acute CVA (cerebrovascular accident) Daughter Thyroid cancer Social History Housing: House Alcohol intake: never Patient Tobacco Use Status: Never used Tobacco e-Cigarette/Vaping Use: Never Used Second Hand Smoke Exposure: No service: No Current occupational status: retired Cognitive needs: No Hearing needs: No Vision needs: Yes (glasses) Review of Systems Const All systems reviewed & are unremarkable except as noted in HPI and below Reports no additional complaints ENT Reports Normal hearing present Card Denies chest pain, Denies chest pain at rest, Denies chest pain with activity and Denies pedal edema Resp Denies cough GI Denies abdominal pain Musc Denies abnormal gait, Denies muscle cramps and Denies radiating pain into limb Skin/Breast Denies skin ulcer and Denies wounds Neuro Reports Normal hearing present and Denies abnormal gait Psych Reports no additional complaints Physical Exam Vital Signs: BMI result Body Mass Index 36.0 Const General: cooperative, healthy appearing and comfortable Orientation/consciousness: oriented to person, oriented to place and oriented to time HEENT Head: Yes normal to inspection Neck Neck: Yes normal visual inspection Carotids: no bruits Chest Chest palpation & inspection: normal inspection of the chest Resp Effort & Inspection: normal respiratory effort and able to speak in complete sentences Auscultation: clear to auscultation bilaterally, no crackles, no rales, no rhonchi and no wheezes Cardio Rate: regular rate Rhythm: regular rhythm Heart sounds: S1 normal heart sound present and S2 normal heart sound present Bruits: no carotid bruits Peripheral pulses: Peripheral pulses 2+ throughout GI Inspection: Yes normal to inspection Skin Wounds: no wounds Hair: normal Neuro General: oriented to person, oriented to place and oriented to time Cranial nerves: Yes CN's II-XII intact bilaterally and Yes Normal hearing present Cognition (Neuro): normal cognition Motor exam (neuro): 5/5 motor strength present throughout Extrem Other: venous exam: No significant superficial varicosities or spider telangiectasias, minimal edema General: No clubbing, No cyanosis and No edema Psych Appearance: grossly normal Mental Status: mental status grossly normal Speech and movement: Normal speech and movement present Assessment & Plan Assessment & Plan (1) Varicose veins of left lower extremity with inflammation: Comment: 04/03/2019 left great saphenous vein Cyanoacralate ablation 07/07/2023 - attempted left small saphenous vein ablation Code(s): I83.12 - Varicose veins of left lower extremity with inflammation Category: Medical Plan: In short has done well with all her previous venous procedures. It appears that her leg is doing well. Will not re-attempt small saphenous vein ablation. We did discuss routine conservative measures including compression elevation and exercise. Patient will follow up with us on an as-needed basis. Thank you for allowing us to assist in her care. (2) Varicose veins of right lower extremity with inflammation: Comment: 02/15/2019 right great saphenous vein Cyanoacralate ablation Code(s): I83.11 - Varicose veins of right lower extremity with inflammation Category: Medical Plan: See above
[2023-08-01 09:20] VITALS: BMI 36.0
== END 2023-08-01 09:36 | disposition home or self-care (01) ==
PROVIDERS: PCP Internal Medicine; Visit Provider Surgery Vascular Surgery
DX: I83.12 Varicose veins of left lower extremity with inflammation (principal); I83.11 Varicose veins of right lower extremity with inflammation
CPT/HCPCS: 99213

== ENCOUNTER → 2023-08-01 09:12 | Outpatient (BNVA) | payer MEDICARE, OTHER, SELFPAY | PROVIDERS: PCP Internal Medicine; Visit Provider Surgery Vascular Surgery | DX: I83.11 Varicose veins of right lower extremity with inflammation (principal); I83.12 Varicose veins of left lower extremity with inflammation | CPT/HCPCS: 99212 ==

== ENCOUNTER 2023-08-15 08:38 | Outpatient (AMB) | payer MEDICARE, OTHER, SELFPAY ==
[2023-08-15 08:44] VITALS: BP 134/72; PULSE 75; O2SAT 97; BMI 36.8
--- NOTE | 2023-08-15 08:44 | A.OFFPC_ITS ---
Vital Signs 08/15/23 08:44 Height 5 ft 6 in Weight 228 lb BMI 36.8 BP 134/72 Blood Pressure Location Lt brachial Position Sitting Pulse 75 Pulse Source Pulse Oximeter Pulse Oximetry (%) 97 Oxygen Delivery Method Room Air Intake Visit Reasons: situational depression Allergies No Known Allergies [No Known Allergies*] Allergy (Verified 08/15/23 08:44) Tobacco use date assessed: 05/09/23 Fall risk assessment: No Falls in past year Last assessed Fall Risk: 08/15/23 Dental Screening Dental Screen Date: 05/09/23 HPI situational depression HPI Details 63-year-old obese female with hypertensi on hypercholesterolemia generalized anxiety disorder obstructive sleep apnea coming in for follow-up. Last seen in April 2023. Review of the notes recently seen vascular surgeon status post left saphenous radiofrequency ablation attempts but because of the blood vessel being small this was not done. Conservative management When s itting down elevate the legs, exercise, and support stockings PFSH Medical History (Updated 08/15/23 @ 09:25 by Hyacinth Marquez MD) Varicose veins of right lower extremity with inflammation Annual physical exam Cervicalgia Viral upper respiratory illness Witnessed apneic spells Lumbar spondylosis Preop exam for internal medicine Sinusitis Constipation Finger pain Knee pain, left Low back pain COVID-19 virus infection Osteoarthritis Pulmonary valve stenosis Factor 5 Leiden mutation, heterozygous Hypercholesterolemia Vitamin D deficiency Left renal stone Overweight (BMI 25.0-29.9) Anxiety and depression Hypertension Surgical History Hx of total knee arthroplasty History of shoulder surgery Hx of breast reduction, elective Hx of right knee surgery Strabismus S/P PASCALE-BSO Peripheral vascular disease Family History Father Lung cancer Mother COPD (chronic obstructive pulmonary disease) CVD (cardiovascular disease) AAA (abdominal aortic aneurysm) Brother Diabetes Sister Acute CVA (cerebrovascular accident) Daughter Thyroid cancer Social History Housing: House Alcohol intake: never Patient Tobacco Use Status: Never used Tobacco e-Cigarette/Vaping Use: Never Used Second Hand Smoke Exposure: No service: No Current occupational status: retired Cognitive needs: No Hearing needs: No Vision needs: Yes (glasses) Questionnaire PHQ-9 Over the last 2 weeks, how often have you been bothered by any of the following problems? 1. Little interest or pleasure in doing things: several days 2. Feeling down, depressed, or hopeless: several days 3. Trouble falling or staying asleep, or sleeping too much: not at all 4. Feeling tired or having little energy: not at all 5. Poor appetite or overeating: not at all 6. Feeling bad about yourself - or that you are a failure or have let yourself or your family down: not at all 7. Trouble concentrating on things, such as reading the newspaper or watching television: not at all 8. Moving or speaking so slowly that other people could have noticed. Or the opposite - being so fidgety or restless that you have been moving around a lot more than usual: not at all 9. Thoughts that you would be better off or of hurting yourself in some way: not at all Total score: 2 Depression Screening Interpretation: Positive Depression Screening Done: Yes Source: Developed by Drs. Boom Jin, Yesy Yang, Travis Santos and colleagues, with an educational pascual from [employer]. Thrive Questionnaire Date Thrive assessed: 05/09/23 AUDIT C Alcohol Use Questionnaire (AUDIT-C) 1. How often do you have a drink containing alcohol?: Monthly or less 2. How many drinks containing alcohol do you have on a typical day when you are drinking?: 1 or 2 3. How often do you have six or more drinks on one occasion?: Never Total Score: 1 BING-7 AMB Questionnaire BING-7 Date BING - 7 assessed: 08/15/23 Feeling nervous, anxious, or on edge: 1 = Several days Not being able to stop or control worryin = Not at all Worrying too much about different things: 0 = Not at all Trouble relaxin = Not at all Being so restless that it is hard to sit still: 0 = Not at all Becoming easily annoyed or irritable: 0 = Not at all Feeling afraid as if something awful might happen: 0 = Not at all Total BING-7 score (0-4 normal; 5-9 mild; 10-14 moderate; 15-21 severe): 1 Source: Developed by Yesy HeinW. Trey, Travis Santos and colleagues, with an educational pascual from [employer]. Physical exam (Primary Care) Vital Signs: Last Vital Signs Pulse 75 08/15/23 08:44 BP 134/72 08/15/23 08:44 Pulse Ox 97 08/15/23 08:44 Oxygen Delivery Method Room Air 08/15/23 08:44 BMI result Body Mass Index 36.8 Tobacco/Smoking Status: Tobacco use Status Tobacco use date assessed 05/09/23 08/15/23 08:51 Patient Tobacco Use Status Never used Tobacco 08/15/23 08:51 e-Cigarette/Vaping Use Never Used 08/15/23 08:51 PHQ-9: PHQ-9 Score PHQ-9: Total score 2 08/15/23 09:15 Depression Screening Interpretation: Positive Thrive Assessment: Date of Thrive Assessment Date Thrive assessed 05/09/23 08/15/23 08:51 Const General: alert; No acute distress Eyes Conjunctivae: conjunctivae normal Resp Auscultation: clear to auscultation bilaterally Cardio Rate: regular rate Rhythm: regular rhythm GI Inspection: Yes normal to inspection Extrem General: Yes normal to inspection and No edema Assessment and Plan Assessment & Plan (1) Varicose veins of left lower extremity with inflammation: Comment: 04/03/2019 left great saphenous vein Cyanoacralate ablation 07/07/2023 - attempted left small saphenous vein ablation Code(s): I83.12 - Varicose veins of left lower extremity with inflammation Plan: Patient follows up with vascular surgeon. When sitting down elevate the legs, exercise, and support stockings. (2) Generalized anxiety disorder: Comment: doing private counseling presently 06/2021 Code(s): F41.1 - Generalized anxiety disorder (3) Obstructive sleep apnea (adult) (pediatric): Comment: February 2022 Code(s): G47.33 - Obstructive sleep apnea (adult) (pediatric) Plan: will refer to neurology to find options as patient is not able to tolerate CPAP (4) GERD (gastroesophageal reflux disease): Code(s): K21.9 - Gastro-esophageal reflux disease without esophagitis Qualifiers: Esophagitis presence: without esophagitis Qualified Code(s): K21.9 - Gastro-esophageal reflux disease without esophagitis (5) Chest pain: Code(s): R07.9 - Chest pain, unspecified Qualifiers: Chest pain type: unspecified Qualified Code(s): R07.9 - Chest pain, unspecified Plan: nuclear stress test requested Orders: Orders CA lexiscan stress w claudine Today R07.9 - Chest pain, unspecified NM cardiolite stress test Today R07.9 - Chest pain, unspecified Referrals Sleep Medicine Referral G47.33 - Obstructive sleep apnea (adult) (pediatric) Medications: New omeprazole 20 mg PO DAILY 30 caps 0RF K21.9 - Gastro-esophageal reflux disease without esophagitis Coding Level of Care Code Est Pt Level 4 (11227) Diagnoses Varicose veins of left lower extremity with inflammation I83.12 Generalized anxiety disorder F41.1 Obstructive sleep apnea (adult) (pediatric) G47.33 Gastroesophageal reflux disease without esophagitis K21.9 Esophagitis presence: without esophagitis Chest pain, unspecified type R07.9 Chest pain type: unspecified
== END 2023-08-15 09:31 | disposition home or self-care (01) ==
PROVIDERS: PCP Internal Medicine; Visit Provider Internal Medicine
DX: I83.12 Varicose veins of left lower extremity with inflammation (principal); F41.1 Generalized anxiety disorder; G47.33 Obstructive sleep apnea (adult) (pediatric); K21.9 Gastro-esophageal reflux disease without esophagitis; R07.9 Chest pain, unspecified
CPT/HCPCS: 99214

== ENCOUNTER → 2023-10-10 07:49 | Outpatient (REF) | payer MEDICARE, OTHER, SELFPAY ==
--- NOTE | ~2023-10-10 | NM_ITS ---
Lexiscan Myocardial perfusion study Indication: Coronary artery disease, assess for ischemia Technique: The patient was brought in for a Lexiscan perfusion study on 10/10/2023 and was injected 0.4 mg of Lexiscan intravenously. Within a minute of this injection 35 mCi of sestamibi was given intravenously. Images were obtained using the SPECT gamma camera interlaced with the gating device. Images were obtained in supine position. Resting perfusion study was performed on 10/11/2023. Patient was administered 35 mCi of sestamibi intravenously at rest. Images were then obtained in supine position. Images were processed with the software and compared side to side in short axis, horizontal long axis and vertical long axis views. Total DLP 264mGy-cm. Findings: Raw acquisition reviewed. The stress perfusion study showed mildly reduced tracer uptake in the distal part of anterior wall. With CT attenuation correction, no significant change. The gated study shows normal LV systolic function with calculated LVEF of 51%. LV cavity is normal in size. The gated study shows normal wall thickening and contraction of segments. Resting study shows mildly diminished tracer uptake in the distal part of anterior wall. Otherwise unremarkable.. Gating at rest reveals normal wall motion with ejection fraction at 63%. The findings are consistent with fixed distal anterior defect. NM/NM cardiolite stress test Impression: 1. Myocardial perfusion imaging study shows fixed appearing distal perfusion defect with normal contractility. Probably artifactual. Less likely to be small nontransmural infarct 2. Gated LVEF is 51% during stress and 63% during rest. 3. Transient ischemic dilatation not present. EKG component of the test reported separately.
--- NOTE | 2023-10-10 07:51 | CA_ITS ---
Acquisition Time: 2023-10-10 08:15:16 Total Exercise Time: 00:02:00 Test Indications: R07.9 - Chest pain, unspecified Medications: Protocol: LEXISCAN Max HR: 117 BPM 75% of Pred: 155 BPM Max BP: 138/082 mmHG Max Work Load: 1.6 METS Pharmacological stress test with Lexiscan injection while walking slowly on treadmill, without anginal symptosms, without arrhythmias, with normotenisve response to exercise, with horizontal depression in lead 2 and aVF. Aminophylline 75mg IVP given to reverse Lexiscan., Nuclear images pending, Test reviewed with Dr. Beltran. Referred By: Hyacinth Marquez Overread By: Keeley Iraheta
== END ==
LOC: HO.CARD 07:49
PROVIDERS: PCP Internal Medicine; Visit Provider Internal Medicine
DX: R07.9 Chest pain, unspecified (principal)
CPT/HCPCS: 78452; 93017; A9500; J0280; J2785

== ENCOUNTER → 2023-10-10 07:51 | Outpatient (BNV) | payer MEDICARE, OTHER, SELFPAY | PROVIDERS: PCP Internal Medicine; Visit Provider Nurse Practitioner | DX: I25.10 Atherosclerotic heart disease of native coronary artery without angina pectoris (principal) | CPT/HCPCS: 78452; 93016; 93018 ==

== ENCOUNTER 2023-12-27 10:59 | Outpatient (AMB) | payer MEDICARE, OTHER, SELFPAY ==
--- NOTE | 2023-12-27 11:02 | MHC.OFFVIS ---
Vital Signs 12/27/23 11:03 Height 5 ft 6 in Weight 221 lb 6 oz BMI 35.7 BP 138/82 Blood Pressure Location Rt brachial Position Sitting Respiration 16 Pulse 77 Pulse Source Pulse Oximeter Pulse Oximetry (%) 97 Oxygen Delivery Method Room Air Intake Visit Reasons: INP-TADEO Intake Note: New pt presents to the office for consultation for TADEO. 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: No Allergies No Known Allergies [No Known Allergies*] Allergy (Verified 12/27/23 11:03) Medication List - Last Reconciled 12/27/23 by Alyssa Murillo MD aspirin (Adult Aspirin Regimen) 81 mg PO DAILY [AUTO PAP 6-16 cm H2O humidified AIR As directed] blood pressure monitor (Blood Pressure Kit) As directed cyclobenzaprine 5 mg PO BEDTIME 14 days escitalopram oxalate (Lexapro) 10 mg PO DAILY hydrochlorothiazide 25 mg PO DAILY lisinopril 40 mg PO DAILY lorazepam 0.5 mg PO BID PRN 30 days multivitamin (One Daily Multivitamin tablet) 1 tab PO DAILY omeprazole 20 mg PO DAILY sennosides-docusate sodium 8.6-50 mg (Senna-S) 2 tab-caps (2 x 8.6-50 mg) PO BEDTIME PRN 90 days simvastatin 10 mg PO DAILY HPI Comments Details: 63y/o female comes for further management of Obstructive sleep apnea. she was diagnosed with severe sleep apnea AHI 48 O2 odalys 80% 2 years ago . she was started on AutoPAP 5-20 cm of water. she is using it regularly but says it is very uncomfortable and wants to discuss about other options. she reports poor sleep with CPAP .she has some nocturnal leg cramps especially when she is on a low carb diet.she denies any restless legs.she denies nocturia. 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 [facility] Medical History (Updated 12/27/23 @ 11:32 by Alyssa Murillo MD) Obstructive sleep apnea hypopnea, severe Varicose veins of right lower extremity with inflammation Annual physical exam Cervicalgia Viral upper respiratory illness Witnessed apneic spells Lumbar spondylosis Preop exam for internal medicine Sinusitis Constipation Finger pain Knee pain, left Low back pain COVID-19 virus infection Osteoarthritis Pulmonary valve stenosis Factor 5 Leiden mutation, heterozygous Hypercholesterolemia Vitamin D deficiency Left renal stone Overweight (BMI 25.0-29.9) Anxiety and depression Hypertension Surgical History Hx of total knee arthroplasty History of shoulder surgery Hx of breast reduction, elective Hx of right knee surgery Strabismus S/P PASCALE-BSO Peripheral vascular disease Family History Father Lung cancer Mother COPD (chronic obstructive pulmonary disease) CVD (cardiovascular disease) AAA (abdominal aortic aneurysm) Brother Diabetes Sister Acute CVA (cerebrovascular accident) Daughter Thyroid cancer Social History Housing: House Alcohol intake: never Patient Tobacco Use Status: Never used Tobacco e-Cigarette/Vaping Use: Never Used Second Hand Smoke Exposure: No service: No Current occupational status: retired Cognitive needs: No Hearing needs: No Vision needs: Yes (glasses) Physical Exam Vital Signs: Last Vital Signs Pulse 77 12/27/23 11:03 Resp 16 12/27/23 11:03 BP 138/82 12/27/23 11:03 Pulse Ox 97 12/27/23 11:03 Oxygen Delivery Method Room Air 12/27/23 11:03 BMI result Body Mass Index 35.7 Const General: cooperative, comfortable and no acute distress Nutritional Appearance: obese Orientation/consciousness: patient oriented x3 Eyes Pupils: Equal, round and reactive pupils present Neuro Other: strabismus Mallampatti grade 4 General: patient oriented x3, tone normal, moves all extremities and no focal motor deficits Cranial nerves: Yes Facial sensation intact/muscles of mastication intact, Yes Equal, round and reactive pupils present, Yes Nystagmus not present, Yes Normal facial strength present, Yes Midline tongue present, Yes Symmetric palate elevation present and Yes Ability to bilaterally elevate shoulders present Cognition (Neuro): normal cognition Gait exam (Neuro): Normal gait present Motor exam (neuro): 5/5 motor strength present throughout and Normal motor muscle tone present throughout Deep tendon reflexes (DTR's): Right triceps reflex intensity grade: 2+, Left triceps reflex intensity grade: 2+, Rt Biceps (C5, C6): 2+, Left biceps reflex intensity grade: 2+, Right brachioradialis reflex intensity grade: 2+, Left brachioradialis reflex intensity grade: 2+, Right patellar reflex intensity grade: 2+ and Left patellar reflex intensity grade: 2+ Coordination: [id number] test normal Assessment & Plan Assessment & Plan (1) Obstructive sleep apnea hypopnea, severe: Code(s): G47.33 - Obstructive sleep apnea (adult) (pediatric) Category: Medical Plan I will schedule her for a split night PAP titration study to further assess will start her on gabapentin 100mg qhs for leg cramps Due to the severity of her sleep apnea she will not be a candidate for INSPIRE or oral device. Orders: Orders RT PSG in-lab sleep titration Today G47.33 - Obstructive sleep apnea (adult) (pediatric) Coding Level of Care Code New Pt Level 4 (49163) Diagnoses Obstructive sleep apnea hypopnea, severe G47.33
[2023-12-27 11:03] VITALS: BP 138/82; PULSE 77; RESP 16; O2SAT 97; BMI 35.7
== END 2023-12-27 11:39 | disposition home or self-care (01) ==
PROVIDERS: PCP Internal Medicine; Visit Provider Psychiatry & Neurology Neurology
DX: G47.33 Obstructive sleep apnea (adult) (pediatric) (principal)
CPT/HCPCS: 99204

== ENCOUNTER → 2023-12-27 10:59 | Outpatient (BNVA) | payer MEDICARE, OTHER, SELFPAY | PROVIDERS: PCP Internal Medicine; Visit Provider Psychiatry & Neurology Neurology | DX: G47.33 Obstructive sleep apnea (adult) (pediatric) (principal) | CPT/HCPCS: 99202 ==

== ENCOUNTER → 2024-01-09 20:30 | Outpatient (REF) | payer MEDICARE, OTHER, SELFPAY | LOC: HO.SL 20:30 | PROVIDERS: PCP Internal Medicine; Visit Provider Psychiatry & Neurology Neurology | DX: G47.33 Obstructive sleep apnea (adult) (pediatric) (principal) | CPT/HCPCS: 95810 ==

== ENCOUNTER → 2024-01-09 23:04 | Outpatient (BNV) | payer MEDICARE, OTHER, SELFPAY | PROVIDERS: PCP Internal Medicine; Visit Provider Psychiatry & Neurology Neurology | DX: G47.33 Obstructive sleep apnea (adult) (pediatric) (principal) | CPT/HCPCS: 95810 ==

== ENCOUNTER 2024-03-05 08:52 | Outpatient (AMB) | payer MEDICARE, OTHER, SELFPAY ==
[2024-03-05 08:55] VITALS: BP 140/86; PULSE 82; O2SAT 98; BMI 35.5
--- NOTE | 2024-03-05 08:55 | MHC.PC.OV ---
Vital Signs 03/05/24 08:55 03/05/24 09:42 Height 5 ft 6 in Weight 220 lb 0.2 oz BMI 35.5 BP 140/86 H 138/80 Blood Pressure Location Lt brachial Rt brachial Position Sitting Sitting Pulse 82 Pulse Source Pulse Oximeter Pulse Oximetry (%) 98 Oxygen Delivery Method Room Air Intake Visit Reasons: Physical Allergies No Known Allergies [No Known Allergies*] Allergy (Verified 03/05/24 09:14) Medication List - Last Reconciled 03/05/24 by Becky Hernandez PA-C aspirin (Adult Aspirin Regimen) 81 mg PO DAILY [AUTO PAP 6-16 cm H2O humidified AIR As directed] blood pressure monitor (Blood Pressure Kit) As directed escitalopram oxalate (Lexapro) 10 mg PO DAILY hydrochlorothiazide 25 mg PO DAILY lisinopril 40 mg PO DAILY lorazepam 0.5 mg PO BID PRN 30 days simvastatin 10 mg PO DAILY Tobacco use date assessed: 03/05/24 Fall risk assessment: No Falls in past year Last assessed Fall Risk: 03/05/24 Dental Screening Dental Screen Date: 03/05/24 Did you have a dental visit in the last 12 months?: Yes Did you have a dental problem in the last 6 months where you did not have access to dental care?: No Was dental information given to patient?: Patient has dentist HPI Physical HPI Details 64-year-old female with past medical history of hypertension, hypercholesterolemia, generalized anxiety disorder, obstructive sleep apnea last seen by Dr. Marquez august 2023 coming in for annual exam. In review of the notes patient was seen by Neurology 12/27/2023 scheduled for sleep lab PAP titration study and started on gabapentin for leg cramps. Patient's colonoscopy is due this year last completed 2018 with follow up in 5 years. She has an appointment today with Dr. Mclaughlin to reschedule the colonoscopy. She has a history of complete hysterectomy and does not follow with gynecology for routine Pap smears. Mammogram completed in May 2023 and scheduled for May 2024. She states she has been dealing with increased family stress and has an appointment with her counselor this week due to increased anxiety and depression. She has been taking her blood pressures at home which have been within normal limits. She has no acute concerns today. [facility] Medical History Obstructive sleep apnea hypopnea, severe Varicose veins of right lower extremity with inflammation Annual physical exam Cervicalgia Viral upper respiratory illness Witnessed apneic spells Lumbar spondylosis Preop exam for internal medicine Sinusitis Constipation Finger pain Knee pain, left Low back pain COVID-19 virus infection Osteoarthritis Pulmonary valve stenosis Factor 5 Leiden mutation, heterozygous Hypercholesterolemia Vitamin D deficiency Left renal stone Overweight (BMI 25.0-29.9) Anxiety and depression Hypertension Surgical History Hx of total knee arthroplasty History of shoulder surgery Hx of breast reduction, elective Hx of right knee surgery Strabismus S/P PASCALE-BSO Peripheral vascular disease Family History Father Lung cancer Mother COPD (chronic obstructive pulmonary disease) CVD (cardiovascular disease) AAA (abdominal aortic aneurysm) Brother Diabetes Sister Acute CVA (cerebrovascular accident) Daughter Thyroid cancer Social History Housing: House Alcohol intake: never Patient Tobacco Use Status: Never used Tobacco e-Cigarette/Vaping Use: Never Used Second Hand Smoke Exposure: No service: No Current occupational status: retired Cognitive needs: No Hearing needs: No Vision needs: Yes (glasses) Questionnaire PHQ-9 Over the last 2 weeks, how often have you been bothered by any of the following problems? 1. Little interest or pleasure in doing things: not at all 2. Feeling down, depressed, or hopeless: not at all 3. Trouble falling or staying asleep, or sleeping too much: not at all 4. Feeling tired or having little energy: not at all 5. Poor appetite or overeating: not at all 6. Feeling bad about yourself - or that you are a failure or have let yourself or your family down: not at all 7. Trouble concentrating on things, such as reading the newspaper or watching television: not at all 8. Moving or speaking so slowly that other people could have noticed. Or the opposite - being so fidgety or restless that you have been moving around a lot more than usual: not at all 9. Thoughts that you would be better off or of hurting yourself in some way: not at all Total score: 0 Depression Screening Interpretation: Negative Depression Screening Done: Yes 75283 - PHQ-9 Billing: Yes Source: Developed by Drs. Boom Jin, Yesy Yang, Travis Santos and colleagues, with an educational pascual from [employer]. Thrive Questionnaire Date Thrive assessed: 01/16/24 I am a: Patient What is your living situation today?: I have a steady place to live Within the past 12 months, did the food you bought not last and you didn't have the money to get more?: Never true Within the past 12 months, did you worry whether your food would run out before you got money to buy more?: Never true Do you have trouble paying for medicines?: No Do you have trouble getting transportation to medical appointments?: No Do you have trouble paying your heating and electricity bill?: No Do you have trouble taking care of your child, family member or friend?: No Do you have trouble with day-to-day activities such as bathing, preparing meals, shopping, managing finances, etc.?: No Are you currently unemployed and looking for a job?: No Are you interested in more education?: No Please select the resources that you would like help with: None Currently or been in a relationship where the following occur: No concerns reported THRIVE Score: 0 AUDIT C Alcohol Use Questionnaire (AUDIT-C) 1. How often do you have a drink containing alcohol?: Monthly or less 2. How many drinks containing alcohol do you have on a typical day when you are drinking?: 1 or 2 3. How often do you have six or more drinks on one occasion?: Never Total Score: 1 BING-7 AMB Questionnaire BING-7 Date BING - 7 assessed: 03/05/24 Feeling nervous, anxious, or on edge: 1 = Several days Not being able to stop or control worryin = Not at all Worrying too much about different things: 0 = Not at all Trouble relaxin = Not at all Being so restless that it is hard to sit still: 0 = Not at all Becoming easily annoyed or irritable: 0 = Not at all Feeling afraid as if something awful might happen: 0 = Not at all Total BING-7 score (0-4 normal; 5-9 mild; 10-14 moderate; 15-21 severe): 1 Source: Developed by Drs. Boom Jin, Yesy Yang, Travis Santos and colleagues, with an educational pascual from [employer]. Review of Systems Const Denies body aches, Denies chills, Denies fever(s), Denies headache(s) and Denies poor appetite Eyes Details: Dr. Lott yearly. hx of strabismus Reports no additional complaints and Denies change in vision ENT Denies dysphagia, Denies dizziness, Denies headache(s) and Denies odynophagia Card Denies chest pain, Denies syncope, Denies edema, Denies irregular heart rhythm, Denies lightheadedness and Denies dyspnea Resp Denies cough and Denies dyspnea GI Denies abdominal pain, Reports constipation, Denies dysphagia, Denies diarrhea, Denies nausea, Denies odynophagia and Denies vomiting Reports no additional complaints Musc Reports no additional complaints and Denies abnormal gait Skin/Breast Reports system reviewed and no additional complaints, except as documented Neuro Denies abnormal gait, Denies dizziness, Denies syncope and Denies headache(s) Psych Reports no additional complaints Physical exam (Primary Care) Vital Signs: Last Vital Signs Pulse 82 03/05/24 08:55 BP 140/86 H 03/05/24 08:55 Pulse Ox 98 03/05/24 08:55 Oxygen Delivery Method Room Air 03/05/24 08:55 BMI result Body Mass Index 35.5 Tobacco/Smoking Status: Tobacco use Status Tobacco use date assessed 03/05/24 03/05/24 09:04 Patient Tobacco Use Status Never used Tobacco 03/05/24 09:04 e-Cigarette/Vaping Use Never Used 03/05/24 09:04 PHQ-9: PHQ-9 Score PHQ-9: Total score 0 03/05/24 09:08 Depression Screening Interpretation: Negative Thrive Assessment: Date of Thrive Assessment Date Thrive assessed 01/16/24 03/05/24 09:04 Currently or been in a relationship where the following occur: No concerns reported Const General: cooperative, healthy appearing, comfortable and no acute distress Orientation/consciousness: patient oriented x3 HENMT Head: Yes normocephalic Ears: hearing grossly normal bilaterally, external ears normal, TM's normal bilaterally and EAC's normal General nose exam: Normal external nose present Face and sinus: Yes normal facial exam and Yes sinuses nontender Mouth: Normal oral and palatal mucosa present and tongue normal Throat: Yes posterior oropharynx normal Eyes General: appearance normal, both eyes and all related structures Conjunctivae: conjunctivae normal Pupils: Equal, round and reactive pupils present EOM: EOMs intact bilaterally and No Nystagmus present Neck Neck: Yes normal visual inspection, Yes full ROM and Yes no lymphadenopathy Chest Chest palpation & inspection: normal inspection of the chest Resp Effort & Inspection: normal respiratory effort Auscultation: clear to auscultation bilaterally, no crackles, no rales, no rhonchi, no wheezes and breath sounds present Cardio Rate: regular rate Rhythm: regular rhythm Peripheral pulses: radial pulses present and dorsalis pedis present GI Inspection: Yes normal to inspection and No Abdominal wall edema Palpation (GI): Soft to palpation, not firm and nontender Auscultation: normal bowel sounds Rectal Exam - Female: deferred General: Yes no CVA tenderness Back/Spine/Pelvis Back: no CVA tenderness Skin General skin exam: no rashes or lesions noted Neuro General: patient oriented x3 Cranial nerves: Yes Equal, round and reactive pupils present, Yes Midline tongue present, Yes Ability to bilaterally elevate shoulders present and No Nystagmus present Gait exam (Neuro): Normal gait present Extrem General: Yes normal to inspection, Yes full ROM, No no pedal edema and No edema Psych Speech and movement: Normal speech and movement present Affect: normal affect Insight: Good insight present (Psych) Judgement: Good judgement present (Psych) Immunizations Boostrix Tdap 2.5 Lf unit-8 mcg-5 Lf/0.5 mL intramuscular syringe Performing Provider: Becky Hernandez PA-C [facility] Administered by: CAROLINA Haro on 03/05/24 09:41 Dose Route Admin Location Dispensed Lot Number Expiration Date [facility] Communication Center Operator 0.5 mL IM Left Deltoid 0.5 mL [id number] 05/01/26 [id number] [employer] VIS Given Date VIS Provided VIS Publication Date 03/05/24 Single Vaccine 20 Eligibility Eligibility Date Funding Source Not [facility] Eligible 03/05/24 Private Coding Level of Care Code Est Pt Prev Care >65y(54884) Diagnoses Obstructive sleep apnea hypopnea, severe G47.33 Gastroesophageal reflux disease without esophagitis K21.9 Esophagitis presence: without esophagitis Colon cancer screening Z12.11 Annual physical exam Z00.00 Osteopenia M85.80 Generalized anxiety disorder F41.1 Obesity (BMI 30-39.9) E66.9 Hypercholesterolemia E78.00 Essential hypertension I10 Hypertension type: essential hypertension Additional Codes PHQ-9 - 09900 - PHQ-9 Billing: Yes ([id number]) Assessment & Plan Assessment & Plan (1) Obstructive sleep apnea hypopnea, severe: Code(s): G47.33 - Obstructive sleep apnea (adult) (pediatric) Category: Medical Plan: Recently had Pap dose titration overnight study in following up with pulmonology and Neurology. Uses CPAP faithfully at least 4 hours a night and benefits from this therapy. (2) GERD (gastroesophageal reflux disease): Code(s): K21.9 - Gastro-esophageal reflux disease without esophagitis Category: Medical Qualifiers: Esophagitis presence: without esophagitis Qualified Code(s): K21.9 - Gastro-esophageal reflux disease without esophagitis Plan: Avoid trigger foods such as citrus, tomato products, soda, caffeine, spicy foods and other foods that may be irritating to your stomach. Avoid laying flat 3-4 hours after eating and elevate the head of the bed 30 degrees to prevent acid from moving into the esophagus. Not on medical management uses Tums as needed (3) Colon cancer screening: Code(s): Z12.11 - Encounter for screening for malignant neoplasm of colon Category: Medical Plan: Colonoscopy completed by Dr. Mclaughlin in 2019 with a recommendation of 5 year follow up. Patient has follow up with with Dr. Mclaughlin today (4) Annual physical exam: Code(s): Z00.00 - Encounter for general adult medical examination without abnormal findings Category: Medical Plan: Patient is up-to-date on all recommended routine screenings and vaccinations for her age. Tetanus shot given today and reminded about blood work. (5) Osteopenia: Comment: February 2022 Code(s): M85.80 - Other specified disorders of bone density and structure, unspecified site Category: Medical Plan: Repeat DEXA scan due this year. Order placed. (6) Generalized anxiety disorder: Comment: doing private counseling presently 06/2021 Code(s): F41.1 - Generalized anxiety disorder Category: Medical Plan: Continue to follow with counselor and continue on current medication. (7) Obesity (BMI 30-39.9): Code(s): E66.9 - Obesity, unspecified Category: Medical Plan: Healthy diet and regular exercise is encouraged. (8) Hypercholesterolemia: Code(s): E78.00 - Pure hypercholesterolemia, unspecified Category: Medical Plan: Avoid foods that are high in cholesterol such as red meat, fried foods, eggs and baked goods. Triglyceride goal of less than 150 and LDL goal of less than 100. Continue on simvastatin (9) Hypertension: Code(s): I10 - Essential (primary) hypertension Category: Medical Qualifiers: Hypertension type: essential hypertension Qualified Code(s): I10 - Essential (primary) hypertension Plan: Continue on current blood pressure medication. Avoid salt intake and encourage healthy diet and regular exercise. Plan This note was constructed using voice recognition software. While every effort has been made to ensure accuracy and technical solutions consultant, still areas may have been included sometimes these areas may affect the content or meeting of the given symptoms. Total time spent caring for the patient today was 30 minutes. This includes time spent before the visit reviewing the chart, time spent during the visit, and time spent after the visit and documentation. Orders: Orders TDaP Immunization Today Z23 - Encounter for immunization Comprehensive Met. Panel Today Z00.00 - Encounter for general adult medical examination without abnormal findings Free T4 (Free Thyroxine) Today Z00.00 - Encounter for general adult medical examination without abnormal findings TSH reflex Free T4 Today Z00.00 - Encounter for general adult medical examination without abnormal findings Hemoglobin A1c Today E11.65 - Type 2 diabetes mellitus with hyperglycemia XR DEXA axial skeleton Today Z78.0 - Asymptomatic menopausal state Complete Blood Count Auto Diff Today Z00.00 - Encounter for general adult medical examination without abnormal findings Lipid Panel Today E78.00 - Pure hypercholesterolemia, unspecified Vitamin D 25-OH (D2 and D3) Today Z00.00 - Encounter for general adult medical examination without abnormal findings Vitamin B12 and Folate Today Z00.00 - Encounter for general adult medical examination without abnormal findings Medications: Refilled escitalopram oxalate (Lexapro) 10 mg PO DAILY 90 tabs 1RF F41.1 - Generalized anxiety disorder hydrochlorothiazide 25 mg PO DAILY 90 tabs 1RF I10 - Essential (primary) hypertension lisinopril 40 mg PO DAILY 90 tabs 3RF I10 - Essential (primary) hypertension aspirin (Adult Aspirin Regimen) 81 mg PO DAILY 90 tabs 3RF M25.562 - Pain in left knee simvastatin 10 mg PO DAILY 90 tabs 3RF E78.00 - Pure hypercholesterolemia, unspecified
[2024-03-05 09:42] VITALS: BP 138/80
== END 2024-03-05 09:53 | disposition home or self-care (01) ==
PROVIDERS: PCP Internal Medicine
DX: Z00.00 Encounter for general adult medical examination without abnormal findings (principal); G47.33 Obstructive sleep apnea (adult) (pediatric); E66.9 Obesity, unspecified; Z68.35 Body mass index [BMI] 35.0-35.9, adult; K21.9 Gastro-esophageal reflux disease without esophagitis; Z12.11 Encounter for screening for malignant neoplasm of colon; M85.80 Other specified disorders of bone density and structure, unspecified site; F41.1 Generalized anxiety disorder; E78.00 Pure hypercholesterolemia, unspecified; I10 Essential (primary) hypertension

== ENCOUNTER → 2024-03-05 08:52 | Outpatient (BNVA) | payer MEDICARE, OTHER, SELFPAY | PROVIDERS: PCP Internal Medicine | DX: Z00.00 Encounter for general adult medical examination without abnormal findings (principal); Z23 Encounter for immunization; K21.9 Gastro-esophageal reflux disease without esophagitis; M85.80 Other specified disorders of bone density and structure, unspecified site; F41.1 Generalized anxiety disorder; E66.9 Obesity, unspecified; E78.00 Pure hypercholesterolemia, unspecified; I10 Essential (primary) hypertension; G47.33 Obstructive sleep apnea (adult) (pediatric) | CPT/HCPCS: 90471; 90715; 96127; 99397 ==

== ENCOUNTER 2024-04-19 10:52 | Outpatient (REF) | payer MEDICARE, OTHER, SELFPAY ==
--- NOTE | ~2024-04-19 | MM_ITS ---
EXAMINATION: Dual-Energy X-ray Absorptiometry - Bone Density Study HISTORY: Estrogen deficiency TECHNIQUE: Biodirection Dual energy absorptiometry (DEXA) of the lumbar spine, total left hip, and femoral neck was performed. COMPARISON: Comparison is made with the prior examination dated 02/09/2022. FINDINGS: The bone mineral density of the lumbar spine is 1.193 with a T-score of 0.1, and a Z-score of 0.6. This represents a BMD change of 2.0% compared to the prior exam. This is not statistically significant. The bone mineral density of the left total hip is 1.071 with a T-score of 0.5, and a Z-score of 0.9. This represents BMD change of 10.9% compared to the prior exam. This is statistically significant. The bone mineral density of the left femoral neck is 0.961 with a T-score of -0.6, and a Z-score of 0.2. This represents BMD change of 9.5% compared to the prior exam. FRACTURE RISK: The FRAX index suggests a ten year probability of major osteoporotic fracture of 11.6%, and of hip fracture 0.6%. MM/XR DEXA axial skeleton IMPRESSION: Based on bone mineral density, and according to World Health Organization (WHO) criteria, the diagnosis is consistent with normal bone mineral density. All bone density values are in grams per centimeter squared. At this facility, the least significant change in BMD with 95% confidence is 0.022 at the lumbar spine, 0.027 at the hip, and 0.023 at the distal 1/3 radius. Electronically signed by: Boom Burnette MD 04/22/2024 02:26 PM [facility]
--- OUTSIDE RECORDS SUMMARY | 2024-04-19 11:00 | XMS_ITS ---
Author Organization [facility] Address [address] [place] [address] Care Team Providers Care Investment Professional Name Role Phone Hyacinth Marquez Primary Care Provider UnavailNamrata Arrington [phone] Encounters Encounter Location Date Provider Diagnosis [facility] [address] [place] [address] 03/21/2024 Namrata Fernandez Plan Of Treatment No Information Progress Notes * Liza [place] MDOB:1960 (64 yo F)Acc No.[id number]:03/21/2024 Progress Note Patient:?FRANCESCA Liza Rahman Provider:?Namrata Fernandez DPM :1960???Age:64 Y???Sex:Female D ate:03/21/2024 Address:[address] [facility] [place] [facility] Pcp:Hyacinth Marquez Subjective: * Chief Complaints: * ??? * Medical History:? Objective: * Vitals:? Assessment: Plan: * Treatment: * Images: * The named appointment provid er may or may not be the originator of this progress note, and it is not deemed complete until electronically signed by the appointment provider. Sign off status: Pending * Provider:?Namrata Fernandez DPM Date:?1 05/22/2023 Generated for Printi ng/Faxing/eTransmitting on:?04/19/2024 11:00 AM EST
--- OUTSIDE RECORDS SUMMARY | 2024-04-19 11:00 | XMS_ITS ---
Author Organization [facility] Address [address] [place] [address] Care Team Providers Care Care Assistant Name Role Phone Hyacinth Marquez MD Primary Care Provider Boom Snow [phone] ALLERGIES No Known Allergies REASON FOR VISIT PATIENT PRESENTS TODAY FOR COLON SCREENING MEDICATIONS Medication SIG (Take, Route, Frequency, Duration) Notes Start Date End Date Status hydroCHLOROthiazide 25 MG TAKE 1 TABLET BY MOUTH EVERY DAY Oral for 90 Active Escitalopram Oxalate 10 MG TAKE 1 TABLET BY MOUTH DAILY Oral for 90 Active Aspir-81 81 MG 1 tablet Orally Once a day for 30 day(s) Active Simvastatin 10 MG 1 tablet in the even ing Orally Once a day for 30 day(s) Active Lisinopril 40 MG 1 tablet Orally Once a day for 30 day(s) Active SOCIAL HISTORY Tobacco Use: Social History Observation Description Date Details (start date - stop date) Never Smoker NA - NA Sex Assigned At : Social History Observation Description Sex Assigned At Unknown Tobacco Use/Smoking Question Answer Notes Patient is a nonsmoker Alcohol Screen Question Answer Notes Did you have a drink containing alcohol in the p ast year? No Points 0 Interpretation Negative PROBLEMS Problem Type ICD Code Onset Dates Problem Status W/U Status Risk SNOMED Code Notes Problem Aspirin long-term use (Z79.82) Active confirmed Long-term current use of aspirin (936097960638 103) VITAL SIGNS BMI 33.45 kg/m2 03/05/2024 Blood pressure systolic 00 mm Hg 03/05/20 24 Blood pressure diastolic 00 mm Hg 024 Height 68 in 03/05/2024 Weight 220 lbs 03/05/2024 Encounters Encounter Location Date Provider Diagnosis [facility] [address] [place] [address] 03/05/2024 Boom Mclaughlin Encounter for screen ing for malignant neoplasm of colon Z12.11 ; Aspirin long-term use Z79.82 and Preprocedural examination Z01.818 ASSESSMENTS Encounter Date Diagnosis Assessment Notes Treatment Notes Treatment Clinical Notes 03/05/2024 Encounter for screening for malignant neoplasm of colon (ICD-10 - Z12.11) Stop aspirin for 1 week before the colonoscopy Do not use any Hydrochlorothiaide the day before nor on the day of the colonoscopy 03/05/2024 Aspirin long-term use (ICD-10 - Z79.82) 03/05/2024 Preprocedural examination (ICD-10 - Z01.818) PLAN OF TREATMENT Treatment Notes Assessment Notes Encounter for screening for malignant neoplasm of colon Stop aspirin for 1 week before the colonoscopy Do not use any Hydrochlorothiaide the day before nor on the day of the colonoscopy Future Test Test Name Order Date COLONOSCOPY 03/05/2024 Next Appt Details Follow Up: prn, Reason: Provider Name:Boom Mclaughlin , 06/26/2024 08:30:00 AM, [address] [place] [address], [phone], Progress Notes * Examination Category Sub-Category Detail Notes General Examination GENERAL APPEARANCE: pleasant , well nourished, well developed, in no acute distress HEAD: EYES: sclera non-icteric EARS: NOSE: THROAT: NECK/THYROID: no cervical lymphade nopathy, neck supple HEART: S1, S2 normal CHEST: LUNGS: clear to auscultatio n bilaterally ABDOMEN: normal bowel sounds, no guarding or rigidity, no guarding or rigidity, no masses palpable, soft, nontender, nondistended NEUROLOGIC: alert and oriented SKIN: nonjaundiced, no spi malik angiomata EXTREMITIES: no edema PERIPHERAL PULSES: BACK: BREASTS: MUSCULOSKELETAL: MALE GENITOURINARY: LYMPH NODES: RECTAL EXAM: FEMALE GENITOURINARY: ORAL CAVITY: mucosa moist
--- OUTSIDE RECORDS SUMMARY | 2024-04-19 11:00 | XMS_ITS ---
Author Organization [facility] Address [address] [place] [address] Care Team Providers Care Supervisor Shed Workers Name Role Phone Hyacinth Marquez Primary Care Provider UnavailNamrata Arrington Unavailable [phone] Deyvi Henley [phone] Marin Encounters Encounter Location Date Provider Diagnosis [facility] [address] [place] [address] 03/20/2024 Deyvi Henley Plan Of Treatment No Information Progress Notes * Liza [place] MDOB:1960 (64 yo F)Acc No.[id number]:03/20/2024 Progress Note Patient:Liza RUTLEDGE Provider:?Deyvi Henley DPM :1960???Age:64 Y???Sex:Female D ate:03/20/2024 Address:[address] [place], [place] [address] Pcp:Hyacinth Marquez Subjective: * Chief Complaints: * ???1. Dr Marin. * Medical History:? Objective: * Vitals:? Assessment: Plan: * Treatment: * Images: * The named appointment provid er may or may not be the originator of this progress note, and it is not deemed complete until electronically signed by the appointment provider. Sign off status: Pending * Provider:Dre Henley DPM Date:? 024 Generated for Printi ng/Faxing/eTransmitting on:?04/19/2024 11:00 AM EST
--- OUTSIDE RECORDS SUMMARY | 2024-04-19 11:00 | XMS_ITS ---
Author Organization [facility] Address [address] [facility] [address] [place] [address] Care Team Providers Care Finger Lift Operator Name Role Phone Hyacinth Marquez MD Primary Care Provider Boom Snow [phone] REASON FOR VISIT new insurance? Encounters Encounter Location Date Provider Diagnosis [facility] [address] [facility] [address] [place] [address] 01/17/2024 Boom Mclaughlin PLAN OF TREATMENT Next Appt Details Provider Name:Boom Mclaughlin , 06/26/2024 08:30:00 AM, [address] [place] [address] , [place], [place], [id number],
--- OUTSIDE RECORDS SUMMARY | 2024-04-19 11:00 | XMS_ITS | Patient Health Record ---
Author Organization [facility] Address [address] [place] [address] Care Team Providers Care Seasonal Warehouse Associate Name Role Phone Po Hyacinth HOLMAN Primary Care Provider Boom Snow [phone] ALLERGIES No Known Allergies REASON FOR REFERRAL No Information MEDICATIONS Medication SIG (Take, Route, Frequency, Duration) [...] Once a day for 30 day(s) Active IMMUNIZATIONS Vaccine Route Administration Date Status Comme nts Influenza Unknown 01/17/2018 Administered SOCIAL HISTORY Tobacco Use: Social History Observation [...] W/U Status Risk SNOMED Code Notes Problem Encounter for screening for malignant neoplasm of colon (Z12.11) Active confirmed 221357728 Problem Preprocedural examination (Z01.818) Active confirmed 213297374974185 Problem Aspirin long-term use (Z79.82) Active confirmed Long-term curre nt use of aspirin (535939653867570) VITAL SIGNS Blood pressure diastolic 00 mm Hg 03/05/2024 Height 68 in 03/05/2024 Blood pressure systolic 00 mm Hg 03/05/2024 Weight 220 lbs 03/05/2024 BMI 33.45 kg/m2 03/05/2024 Encounters Encounter Location Date Provider Diagnosis [facility] [address] [place] [address] 03/05/2024 Boom Mclaughlin Encounter for screen ing for malignant neoplasm of colon Z12.11 ; Aspirin long-term use Z79.82 and Preprocedural examination Z01.818 [facility] [address] [place] [address] 01/17/2024 Boom Mclaughlin ASSESSMENTS Encounter Date Diagnosis Assessment Notes Treatment Notes Treatment Clinical Notes 03/05/2024 Encounter for screening for malignant neoplasm of colon (ICD-10 - Z12.11) Stop aspirin for 1 week before the colonoscopy Do not use any Hydrochlorothiaide the day before nor on the day of the colonoscopy 03/05/2024 Aspirin long-term use (ICD-10 - Z79.82) 03/05/2024 Preprocedural examination (ICD-10 - Z01.818) PLAN OF TREATMENT Future Test Test Name Order Date COLONOSCOPY 09/19/2018 COLONOSCOPY 03/05/2024 Next Appt Details Provider Name:Boom Mclaughlin , 06/26/2024 08:30:00 AM, [address] [facility] , [place], [place], [phone], Insurance Providers Payer Name Payer Address Payer Phone Subscriber Number Group Number Insured Name Patient Relationship to Insured Coverage Start Date Coverage End Date MEDICARE OF [place] [address] [facility] [place] [address] [phone] [id number] RAOUL LOPEZ Self - patient is the insured [facility] [address] [place] [address] [id number] RAOUL LOPEZ Self - patient is the insured MEDICAL (GENERAL) HISTORY Medical History History ICD Code Denies [place],DM,CVA,Lung disease,renal dise ase Hypertension Hyperlipidemia Anxiety Neg. screening colonoscopy in 03/2009 Neg. 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
--- OUTSIDE RECORDS SUMMARY | 2024-04-19 11:00 | XMS_ITS ---
Author Organization [facility] Address [address] [place] [address] Care Team Providers Care Underwear Hemmer Name Role Phone Hyacinth Marquez Primary Care Provider Namrata Tucker [phone] Marin Encounters Encounter Location Date Provider Diagnosis [facility] [address] [place] [address] 03/20/2024 Namrata Fernandez Plan Of Treatment No Information Progress Notes * Liza [place] MDOB:1960 (64 yo F)Acc No.[id number]:03/20/2024 Progress Note Patient:?Liza [place] Provider:?Namrata Fernandez DPM :1960???Age:64 Y???Sex:Female D ate:03/20/2024 Address:[address] [place], [place] [address] [facility] Pcp:Hyacinth Marquez Subjective: * Chief Complaints: * ???1. Dr Marin. * Medical History:? Objective: * Vitals:? Assessment: Plan: * Treatment: * Images: * The named appointment provid er may or may not be the originator of this progress note, and it is not deemed complete until electronically signed by the appointment provider. Sign off status: Pending * Provider:?Namrata Fernandez DPM Date:?1 05/21/2023 Generated for Emir boyd/Lilian/eTransmitting on:?04/19/2024 11:00 AM EST
--- OUTSIDE RECORDS SUMMARY | 2024-04-19 11:01 | XMS_ITS | Patient Health Record ---
Author Organization [facility] Address [address] [facility] [place] [address] Care Team Providers Care Er Nurse Name Role Phone Hyacinth Marquez Primary Care Provider UnavailNamrata Arrington Unavailable [phone] HenleyDeyvi Unavailable [phone] Allergies No Known Allergies Reason For Referral No Information Medications Medication SIG (Take, Route, Frequency, Duration) Notes Start Date End Date Status PARoxetine HCl 20 MG 1 tablet in the morning Orally Once a day for 30 day(s) Not-Taking Lisinopril 40 MG 1 tablet Orally Once a day for 30 day(s) Active Aspirin 81 MG 1 tablet Orally Once a day for 30 day(s) Active hydroCHLOROthiazide 25 MG 1 tablet in th e morning Orally Once a day for 30 day(s) Active Lexapro 10 MG 1 tablet Orally Once a day for 30 day(s) Active Physical Therapy . . . 2-3x/week for 3- 4 weeks 06/15/2023 Not-Taking Simvastatin 10 MG 1 tablet in the evening Orally Once a day for 30 day(s) Active Vitamin D3 Not-Takin g Doxycycline Hyclate 100 MG 1 capsule Ora lly Once a day for 10 day(s) 07/13/2022 Not-Taking Immunizations Vaccine Route Administration Date Status Comme nts COVID-19 Moderna Vaccine Unknown 03/01/2021 Administered First Dose: 06/14/20 Second Dose:07/12/20 Social History Tobacco Use: Social History Observation Description Date Details (start date - stop date) Never Smoker NA - NA Tobacco Use/Smoking Question Answer Notes Are you a: nonsmoker Additional Findings: Tobacco Non-User Current no n-smoker Alcohol Screen Question Answer Notes Did you have a drink containing alcohol in the p ast year? No Points 0 Interpretation Negative Tobacco use other than smoking: Question Answer Notes Are you an other tobacco user? No Vital Signs Blood pressure diastolic 78 mm Hg 07/19/2023 Height 5ft 6in in 07/19/2023 Blood pressure systolic 132 mm Hg 07/19/2023 Weight 225 lbs 07/19/2023 BMI 36.31 kg/m2 07/19/2023 Encounters Encounter Location Date Provider Diagnosis [address] [address] 06/15/2023 Deyvi Henley Plantar fascial fibromatosis M72.2 ; Pain in left foot M79.672 ; Sprain of left foot, initial encounter S93.602A ; Skin disease L98.9 ; Tinea unguium B35.1 and Ingrowing nail L60.[address] [address] 07/19/2023 Deyvi Henley Ingrowing nail L60.0 ; Plantar fascial fibromatosis M72.2 ; Pain in left foot M79.672 and Skin disease L98.[address] [address] 06/06/[address] [address] 06/15/2023 [facility] [address] [address] 07/18/2023 Deyvi [place] Assessments Encounter Date Diagnosis (ICD Code) Assessment Notes Treatment Notes Treatment Clinical Notes Section Notes 06/15/2023 Plantar fascial fibromatosis (ICD-10 - M72.2) Patient Educated with: HEEL CORD STRETCHES.pdf (HEEL CORD STRETCHES.pdf) Patient Educated with: RICE THERAPY.pdf (RICE THERAPY.pdf) Patient Educated with: INJECTIONTHERAPY .pdf (INJECTIONTHERAP Y.pdf) Patient Educated with: INSTRUCTIONS FOR PROPER USE OF ORTHOTICS.pdf (INSTRUCTIONS FOR PROPER USE OF ORTHOTICS.pdf) 07/19/2023 Plantar fascial fibromatosis (ICD-10 - M72.2) 07/19/2023 Ingrowing nail (ICD-10 - L60.0) 07/19/2023 Pain in left foot (ICD-10 - M79.672) 06/15/2023 Pain in left foot (ICD-10 - M79.672) 06/15/2023 Sprain of left foot, initial encounter (ICD-10 - S93.602A) 07/19/2023 Skin disease (ICD-10 - L98.9) 06/15/2023 Skin disease (ICD-10 - L98.9) 06/15/2023 Tinea unguium (ICD-10 - B35.1) 06/15/2023 Ingrowing nail (ICD-10 - L60.0) Plan Of Treatment Pending Test Test Name Order Date X ray : Foot, left 3V 04/14/2021 X ray : Foot, left 3V 06/15/2023 X ray : Foot, right 3V 04/14/2021 Insurance Providers Payer Name Payer Address Payer Phone Subscriber Number Group Number Insured Name Patient Relationship to Insured Coverage Start Date Coverage End Date Medicare National Gov[employer] Sv[employer] [address] [place] [address] [id number] Liza Ma Self - patient is the insured [facility] [address] [facility] [place] [address] [id number] Liza Ma Self - patient is the insured Medical (General) History Medical History History ICD Code Arthritis Back,Hip,and Knee pain Cancer covid-19 High blood pressure Rheumatic fever Measles Mumps Chicken pox Surgical History Surgery Date(Month/Year) rotator cuff tear repair Meniscus repair hysterectomy oral surgery cancer eye surgery left knee replacement 09/2021 wisdom teeth extraction
== END 2024-04-19 10:53 | disposition home or self-care (01) ==
LOC: HO.MAMMO 10:52
PROVIDERS: PCP Internal Medicine
DX: Z13.820 Encounter for screening for osteoporosis (principal); Z78.0 Asymptomatic menopausal state
CPT/HCPCS: 77080

== ENCOUNTER → 2024-04-19 11:00 | Outpatient (BNV) | payer MEDICARE, OTHER, SELFPAY | PROVIDERS: PCP Internal Medicine; Visit Provider Radiology Diagnostic Radiology | DX: E28.39 Other primary ovarian failure (principal) | CPT/HCPCS: 77080 ==

== ENCOUNTER 2024-05-02 09:23 | Outpatient (AMB) | payer MEDICARE, OTHER, SELFPAY ==
--- NOTE | 2024-05-02 09:54 | MHC.OFFVIS ---
Vital Signs 05/02/24 09:56 Height 5 ft 6 in Weight 220 lb BMI 35.5 BP 130/82 Blood Pressure Location Lt brachial Position Sitting Pulse 61 Pulse Source Pulse Oximeter Pulse Oximetry (%) 97 Oxygen Delivery Method Room Air Intake Visit Reasons: 4m follow up TADEO Intake Note: Patient presents for a 4 mo fu for TADEO. Pt has no concerns. Wrap Turner Required: No Accompanied by: Self / Same As Patient Allergies No Known Allergies [No Known Allergies*] Allergy (Verified 05/02/24 09:55) Medication List - Last Reconciled 05/02/24 by Mady Braden PA-C aspirin (Adult Aspirin Regimen) 81 mg PO DAILY [AUTO PAP 6-16 cm H2O humidified AIR As directed] blood pressure monitor (Blood Pressure Kit) As directed escitalopram oxalate (Lexapro) 10 mg PO DAILY hydrochlorothiazide 25 mg PO DAILY lisinopril 40 mg PO DAILY lorazepam 0.5 mg PO BID PRN 30 days simvastatin 10 mg PO DAILY HPI Comments Details: 63y/o female comes for further management of Obstructive sleep apnea. She was diagnosed with severe sleep apnea AHI 48 O2 odalys 80% 2 years ago . She was started on AutoPAP 5-20 cm of water. She just got a new machine 2 weeks ago and is doing much better with the pressures as they are better now and she is using it daily. Bedtime is 11am gets up at 7am, and has 1 bathroom break. Her sleep is more refreshing now. She denies morning headaches. Will have her f/u in 3 months for compliance. She has some nocturnal leg cramps especially when she is on her feet a lot. She denies any restless legs. She denies nocturia. In 2002 Dr. Escobedo surgically removed dermal cyst Prem and Woman in remission now, with clean margins. Mood, diet, and memory is good. She walks daily and sees a therapist as needed, grief counseling d/t loss of sisters this year. [facility] Medical History Obstructive sleep apnea hypopnea, severe Varicose veins of right lower extremity with inflammation Annual physical exam Cervicalgia Viral upper respiratory illness Witnessed apneic spells Lumbar spondylosis Preop exam for internal medicine Sinusitis Constipation Finger pain Knee pain, left Low back pain COVID-19 virus infection Osteoarthritis Pulmonary valve stenosis Factor 5 Leiden mutation, heterozygous Hypercholesterolemia Vitamin D deficiency Left renal stone Overweight (BMI 25.0-29.9) Anxiety and depression Hypertension Surgical History Hx of total knee arthroplasty History of shoulder surgery Hx of breast reduction, elective Hx of right knee surgery Strabismus S/P PASCALE-BSO Peripheral vascular disease Family History Father Lung cancer Mother COPD (chronic obstructive pulmonary disease) CVD (cardiovascular disease) AAA (abdominal aortic aneurysm) Brother Diabetes Sister Acute CVA (cerebrovascular accident) Daughter Thyroid cancer Social History Housing: House Alcohol intake: never Patient Tobacco Use Status: Never used Tobacco e-Cigarette/Vaping Use: Never Used Second Hand Smoke Exposure: No service: No Current occupational status: retired Cognitive needs: No Hearing needs: No Vision needs: Yes (glasses) Physical Exam Vital Signs: Last Vital Signs Pulse 61 05/02/24 09:56 BP 130/82 05/02/24 09:56 Pulse Ox 97 05/02/24 09:56 Oxygen Delivery Method Room Air 05/02/24 09:56 BMI result Body Mass Index 35.5 Const General: cooperative, comfortable and no acute distress Nutritional Appearance: obese Orientation/consciousness: patient oriented x3 Eyes Pupils: Equal, round and reactive pupils present Neuro Other: strabismus Mallampatti grade 4 General: patient oriented x3, tone normal, moves all extremities and no focal motor deficits Cranial nerves: Yes Facial sensation intact/muscles of mastication intact, Yes Equal, round and reactive pupils present, Yes Nystagmus not present, Yes Normal facial strength present, Yes Midline tongue present, Yes Symmetric palate elevation present and Yes Ability to bilaterally elevate shoulders present Cognition (Neuro): normal cognition Gait exam (Neuro): Normal gait present Motor exam (neuro): 5/5 motor strength present throughout and Normal motor muscle tone present throughout Deep tendon reflexes (DTR's): Right triceps reflex intensity grade: 2+, Left triceps reflex intensity grade: 2+, Rt Biceps (C5, C6): 2+, Left biceps reflex intensity grade: 2+, Right brachioradialis reflex intensity grade: 2+, Left brachioradialis reflex intensity grade: 2+, Right patellar reflex intensity grade: 2+ and Left patellar reflex intensity grade: 2+ Coordination: [id number] test normal Results Reviewed Results Reviewed: HST: Assessment & Plan Assessment & Plan (1) Obstructive sleep apnea hypopnea, severe: Code(s): G47.33 - Obstructive sleep apnea (adult) (pediatric) Category: Medical Plan TADEO - Compliance Visit she just received a new machine, insufficient data. - She change filters, clean mask, tubing and adjusts temperature as needed. -Patient is experiencing good sleep with her new machine, 12 days on APAP [id number] and AHI is 1.5 Patient Education Sleep Hygiene as she has HTN and it is well managed. Will discuss Inspire if she is not doing well on the new machine at the next visit. 3month f/u - new machine Coding Level of Care Code Est Pt Level 3 (20305) Diagnoses Obstructive sleep apnea hypopnea, severe G47.33 Time Spent (min) 20
[2024-05-02 09:56] VITALS: BP 130/82; PULSE 61; O2SAT 97; BMI 35.5
== END 2024-05-02 10:22 | disposition home or self-care (01) ==
PROVIDERS: PCP Internal Medicine; Visit Provider Physician Assistant Medical
DX: G47.33 Obstructive sleep apnea (adult) (pediatric) (principal)
CPT/HCPCS: 99213

== ENCOUNTER → 2024-05-02 09:23 | Outpatient (BNVA) | payer MEDICARE, OTHER, SELFPAY | PROVIDERS: PCP Internal Medicine; Visit Provider Physician Assistant Medical | DX: G47.33 Obstructive sleep apnea (adult) (pediatric) (principal) | CPT/HCPCS: 99212 ==

== ENCOUNTER 2024-05-06 10:30 | Outpatient (REF) | payer MEDICARE, OTHER, SELFPAY ==
[2024-05-06 13:14] LABS: MANUAL DIFF FLAG NO
[2024-05-06 13:26] LABS: Basophils Percent Auto 0.7 % (0-2); Eosinophils Absolute Auto 0.1 X10*3/uL (0.0-0.4); Eosinophils Percent Auto 1.8 % (0-4); Hematocrit 40.7 % (37.0-47.0); Hemoglobin 13.2 g/dl (12.0-16.0); Imm Gran Abs Auto 0.01 X10*3/uL (0.00-0.03); Imm Gran Pct Auto 0.2 % (0.0-0.4); Lymphocytes Absolute Auto 1.1 X10*3/uL (1.2-4.9); Lymphocytes Percent Auto 25.2 % (20-40); Mean Corpuscular HGB Conc 32.4 g/dl (31.0-35.0); Mean Corpuscular Hemoglobin 28.8 pg (27.0-33.0); Mean Corpuscular Volume 88.7 fL (80.0-98.0); Mean Platelet Volume 11.7 fL (9.4-12.3); Monocytes Absolute Auto 0.5 X10*3/uL (0.1-1.2); Monocytes Percent Auto 10.3 % (2-11); Neutrophils Absolute Auto 2.7 x10*3/uL (2.0-8.3); Neutrophils Percent Auto 61.8 % (45-73); Platelet Count 276 X10*3/uL (160-400); Red Blood Count 4.59 X10*6/uL (4.20-5.50); Red Cell Distribution Width 12.4 % (11.0-16.0); White Blood Count 4.4 X10*3/uL (4.8-10.8)
[2024-05-06 13:29] LABS: Estimated Average Glucose 123 mg/dL; Hemoglobin A1c % 5.9 % (<6.0); Total Hemoglobin (HGBA1C) 3323.4537 umol/L
[2024-05-06 13:51] LABS: Alanine Aminotransferase 41 U/L (0-31); Albumin Level 4.4 g/dL (3.5-5.0); Alkaline Phosphatase 48 U/L (39-117); Anion Gap 12 (12-20); Aspartate Amino Transferase 33 U/L (5-31); Bilirubin Total 0.8 mg/dL (0.0-1.0); Blood Urea Nitrogen 19 mg/dL (9-16); Calcium 9.1 mg/dL (8.4-10.2); Carbon Dioxide 27 mmol/L (22-29); Chloride 106 mmol/L (96-108); Cholesterol 167 mg/dL (<200); Estimated Glomerular Filt Rate > 60; Glucose Random 93 mg/dL (60-115); HDL Cholesterol 52 mg/dL (>40); LDL Cholesterol Calculated 99 mg/dL (<100); Potassium 4.2 mmol/L (3.3-5.1); Sodium 141 mmol/L (135-145); Total Protein 7.5 g/dL (6.5-8.0); Triglycerides 84 mg/dL (<150)
[2024-05-06 13:55] LABS: Free T4 (Free Thyroxine) 0.87 ng/dL (0.71-1.85); TSH reflex Free T4 1.72 uIU/mL (0.32-4.0)
[2024-05-06 14:21] LABS: Folate 15.4 ng/mL (> or = 4.0); Vitamin B12 452 pg/mL (200-900)
--- OUTSIDE RECORDS SUMMARY | 2024-05-06 15:14 | XMS_ITS ---
Author Organization [facility] Address [address] [place] [address] Care Team Providers Care Dry Lumber Grader Name Role Phone Hyacinth Marquez Primary Care Provider Namrata Tucker [phone] Marin Encounters Encounter Location Date Provider Diagnosis [facility] [address] [place] [address] 03/20/2024 Namrata Fernandez Plan Of Treatment No Information Progress Notes * Liza MA MDOB:1960 (64 yo F)Acc No.[id number]:03/20/2024 Progress Note Patient:?Liza MA Provider:?Namrata Fernandez DPM :1960???Age:64 Y???Sex:Female D ate:03/20/2024 Address:[address] [place], [place] [address] [facility] Pcp:Hyacinth Marquez Subjective: * Chief Complaints: * [...] DPM Date:?1 05/21/2023 Generated for Emir boyd/Lilian/eTransmitting on:?05/06/2024 03:14 PM EST
--- OUTSIDE RECORDS SUMMARY | 2024-05-06 15:14 | XMS_ITS | Patient Health Record ---
Author Organization [facility] Address [address] [place] [address] Care Team Providers Care Rabbler Name Role Phone Po Hyacinth HOLMAN Primary Care Provider Boom Snow [phone] ALLERGIES No Known Allergies REASON FOR REFERRAL [...] malignant neoplasm of colon (Z12.11) Active confirmed [id number] Problem Preprocedural examination (Z01.818) Active confirmed [id number] Problem Aspirin long-term use (Z79.82) Active confirmed Long-term curre nt use of aspirin ([id number]) VITAL SIGNS Blood pressure diastolic 00 mm Hg 03/05/2024 Height 68 in 03/05/2024 Blood pressure systolic 00 mm Hg 03/05/2024 Weight 220 lbs 03/05/2024 BMI 33.45 kg/m2 03/05/2024 Encounters Encounter Location Date Provider Diagnosis [facility] [address] [place] [address] 03/05/2024 Boom Mclaughlin Encounter for screen ing for malignant neoplasm of colon Z12.11 ; Aspirin long-term use Z79.82 and Preprocedural examination Z01.818 [facility] [address] [place] [address] 01/17/2024 Boom Mclaughlin ASSESSMENTS Encounter Date Diagnosis [...] Name:Boom Mclaughlin , 06/26/2024 08:30:00 AM, [address] [facility] , [place], [place], [phone], Insurance Providers Payer Name Payer Address Payer Phone Subscriber Number Group Number Insured Name Patient Relationship to Insured Coverage Start Date Coverage End Date MEDICARE OF [place] [address] [facility] [place] [address] [id number] RAOUL LOPEZ Self - patient is the insured [facility] [address] [place] [address] [id number] RAOUL LOPEZ Self - patient is the insured MEDICAL (GENERAL) HISTORY Medical History History ICD Code Denies VT,DM,CVA,Lung disease,renal dise ase Hypertension Hyperlipidemia Anxiety Neg. screening colonoscopy in 03/2009 Neg. 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
--- OUTSIDE RECORDS SUMMARY | 2024-05-06 15:14 | XMS_ITS ---
Author Organization [facility] Address [address] [facility] [address] [place] [address] Care Team Providers Care Excelsior Machine Operator Name Role Phone Hyacinth Marquez MD Primary Care Provider Boom Snow [phone] REASON FOR VISIT new insurance? Encounters Encounter Location Date Provider Diagnosis [facility] [address] [facility] [address] [place] [address] 01/17/2024 Boom Mclaughlin PLAN OF TREATMENT Next Appt Details Provider Name:Boom Mclaughlin , 06/26/2024 08:30:00 AM, [address] [place] [address] , [place], [place], [phone],
--- OUTSIDE RECORDS SUMMARY | 2024-05-06 15:14 | XMS_ITS ---
Author Organization [facility] Address [address] [place] [address] Care Team Providers Care Defense Travel Administrator Name Role Phone Hyacinth Marquez Primary Care Provider UnavailNamrata Arrington [phone] Encounters Encounter Location Date Provider Diagnosis [facility] [address] [place] [address] 03/21/2024 Namrata Fernandez Plan Of Treatment No Information Progress Notes * Liza [place] MDOB:1960 (64 yo F)Acc No.[id number]:03/21/2024 Progress Note Patient:?FRANCESCA Liza Rahman Provider:?Namrata Fernandez DPM :1960???Age:64 Y???Sex:Female D ate:03/21/2024 Address:[address] [facility] [place] [facility] Pcp:Hyacinth Marquez Subjective: * Chief Complaints: * [...] DPM Date:?1 05/22/2023 Generated for Printi ng/Faxing/eTransmitting on:?05/06/2024 03:14 PM EST
--- OUTSIDE RECORDS SUMMARY | 2024-05-06 15:15 | XMS_ITS ---
Author Organization [facility] Address [address] [place] [address] Care Team Providers Care Outpatient Admitting Clerk Name Role Phone Hyacinth Marquez Primary Care Provider UnavailNamrata Arrington Unavailable [phone] Deyvi Henley [phone] Marin Encounters Encounter Location Date Provider Diagnosis [facility] [address] [place] [address] 03/20/2024 Deyvi Henley Plan Of Treatment No Information Progress Notes * Liza MA MDOB:1960 (64 yo F)Acc No.[id number]:03/20/2024 Progress Note Patient:Liza RUTLEDGE Provider:?Deyvi Henley DPM :1960???Age:64 Y???Sex:Female D ate:03/20/2024 Address:[address] [place], [place] [address], [place] Pcp:Hyacinth Marquez Subjective: * Chief Complaints: * [...] DPM Date:? 024 Generated for Printi ng/Faxing/eTransmitting on:?05/06/2024 03:14 PM EST
--- OUTSIDE RECORDS SUMMARY | 2024-05-06 15:15 | XMS_ITS ---
Author Organization [facility] Address [address] [place] [address] Care Team Providers Care Side Gluer Name Role Phone Hyacinth Marquez MD Primary Care Provider Boom Snow [phone] ALLERGIES No Known Allergies REASON FOR VISIT [...] Active confirmed Long-term current use of aspirin (011323902109 103) VITAL SIGNS BMI 33.45 kg/m2 03/05/2024 Blood pressure systolic 00 mm Hg 03/05/20 24 Blood pressure diastolic 00 mm Hg 024 Height 68 in 03/05/2024 Weight 220 lbs 03/05/2024 Encounters Encounter Location Date Provider Diagnosis [facility] [address] [place] [address] 03/05/2024 Boom Mclaughlin Encounter for screen ing [...] Provider Name:Boom Mclaughlin , 06/26/2024 08:30:00 AM, [address] [place] [address], [phone], Progress Notes * Examination Category Sub-Category Detail [...]
--- OUTSIDE RECORDS SUMMARY | 2024-05-06 15:15 | XMS_ITS | Patient Health Record ---
Author Organization [facility] Address [address] [facility] [place] [address] Care Team Providers Care Sign Language Instructor Name Role Phone Hyacinth Marquez Primary Care Provider UnavailNamrata Arrington Unavailable [phone] HenleyDeyvi Unavailable [phone] Allergies No Known Allergies Reason For Referral [...] 07/19/2023 Encounters Encounter Location Date Provider Diagnosis [address] [address] 06/15/2023 Deyvi Henley Plantar fascial fibromatosis M72.2 ; Pain in left foot M79.672 ; Sprain of left foot, initial encounter S93.602A ; Skin disease L98.9 ; Tinea unguium B35.1 and Ingrowing nail L60.[address] [address] 07/19/2023 Deyvi Henley Ingrowing nail L60.0 ; Plantar fascial fibromatosis M72.2 ; Pain in left foot M79.672 and Skin disease L98.[address] [address] 06/06/[address] [address] 06/15/2023 [facility] [address] [address] 07/18/2023 Deyvi Maybell Assessments Encounter Date Diagnosis (ICD Code) Assessment [...] National Govt [employer] [address] [place] [address] [id number] Liza Ma Self - patient is the insured [facility] [address] [place] [id number] Liza Ma Self - patient is the insured Medical (General) History Medical History History ICD Code Arthritis Back,Hip,and Knee pain Cancer covid-19 High blood pressure Rheumatic fever Measles Mumps Chicken pox Surgical History Surgery Date(Month/Year) rotator cuff tear repair Meniscus repair hysterectomy oral surgery cancer eye surgery left knee replacement 09/2021 wisdom teeth extraction
[2024-05-10 16:14] LABS: Vitamin D 25-OH, D2 <4 ng/mL; Vitamin D 25-OH, D3 24 ng/mL; Vitamin D 25-OH, Total 24 ng/mL (30-100)
== END 2024-05-06 10:31 | disposition home or self-care (01) ==
LOC: HO.HMGCLDS 10:30
PROVIDERS: PCP Internal Medicine
DX: Z00.00 Encounter for general adult medical examination without abnormal findings (principal); E11.65 Type 2 diabetes mellitus with hyperglycemia; E78.00 Pure hypercholesterolemia, unspecified
CPT/HCPCS: 36415; 80053; 80061; 82306; 82607; 82746; 83036; 84439; 84443; 85025

== ENCOUNTER → 2024-05-09 09:36 | Outpatient (BNVA) | payer MEDICARE, OTHER, SELFPAY | PROVIDERS: PCP Internal Medicine; Visit Provider Internal Medicine | DX: G47.33 Obstructive sleep apnea (adult) (pediatric) (principal); K21.9 Gastro-esophageal reflux disease without esophagitis; I10 Essential (primary) hypertension; E78.00 Pure hypercholesterolemia, unspecified; E66.9 Obesity, unspecified; F41.1 Generalized anxiety disorder; R79.89 Other specified abnormal findings of blood chemistry; R73.01 Impaired fasting glucose | CPT/HCPCS: 96127; 99212 ==

== ENCOUNTER 2024-06-04 08:33 | Outpatient (REF) | payer MEDICARE, OTHER, SELFPAY ==
--- OUTSIDE RECORDS SUMMARY | 2024-06-04 09:04 | XMS_ITS ---
Author Organization [facility] Address [address] [place] [address] Care Team Providers Care Zinc Plating Machine Operator Name Role Phone Hyacinth Marquez Primary Care Provider UnavailNamrata Arrington [phone] Encounters Encounter Location Date Provider Diagnosis [facility] [address] [place] [address] 03/21/2024 Namrata Fernandez Plan Of Treatment No Information Progress Notes * Liza [place] MDOB:1960 (64 yo F)Acc No.[id number]:03/21/2024 Progress Note Patient:?FRANCESCA Liza Rahman Provider:?Namrata Fernandez DPM :1960???Age:64 Y???Sex:Female D ate:03/21/2024 Address:[address] [facility] [place] Pcp:Hyacinth Marquez Subjective: * Chief Complaints: * [...] DPM Date:?1 05/22/2023 Generated for Printi ng/Faxing/eTransmitting on:?06/04/2024 09:04 AM EST
--- OUTSIDE RECORDS SUMMARY | 2024-06-04 09:04 | XMS_ITS ---
Author Organization [facility] Address [address] [place] [address] Care Team Providers Care Employment Coach Name Role Phone Hyacinth Marquez Primary Care Provider Namrata Tucker [phone] Marin Encounters Encounter Location Date Provider Diagnosis [facility] [address] [place] [address] 03/20/2024 Namrata Fernandez Plan Of Treatment No Information Progress Notes * Liza [place] MDOB:1960 (64 yo F)Acc No.[id number]:03/20/2024 Progress Note Patient:?Liza [place] Provider:?Namrata Fernandez DPM :1960???Age:64 Y???Sex:Female D ate:03/20/2024 Address:[address] [place], [place] [address] [facility] Pcp:Hyacinth Marquez Subjective: * Chief Complaints: * [...] DPM Date:?1 05/21/2023 Generated for Emir boyd/Lilian/eTransmitting on:?06/04/2024 09:04 AM EST
--- OUTSIDE RECORDS SUMMARY | 2024-06-04 09:04 | XMS_ITS ---
Author Organization [facility] Address [address] [facility] [address] [place] [address] Care Team Providers Care Insole Department Worker Name Role Phone Hyacinth Marquez MD Primary Care Provider Boom Snow [phone] REASON FOR VISIT new insurance? Encounters Encounter Location Date Provider Diagnosis [facility] [address] [facility] [address] [place] [address] 01/17/2024 Boom Mclaughlin PLAN OF TREATMENT Next Appt Details Provider Name:Boom Mclaughlin , 06/26/2024 08:30:00 AM, [address] [place] [address] , [place], [place], [phone],
--- OUTSIDE RECORDS SUMMARY | 2024-06-04 09:05 | XMS_ITS | Patient Health Record ---
Author Organization [facility] Address [address] [place] [address] Care Team Providers Care Home Demonstrator Name Role Phone Po Hyacinth HOLMAN Primary Care Provider Boom Snow [phone] ALLERGIES No Known Allergies REASON FOR REFERRAL [...] malignant neoplasm of colon (Z12.11) Active confirmed 607033806 Problem Preprocedural examination (Z01.818) Active confirmed [id number] Problem Aspirin long-term use (Z79.82) Active confirmed Long-term curre nt use of aspirin (844776193169475) VITAL SIGNS Blood pressure diastolic 00 mm Hg 03/05/2024 Height 68 in 03/05/2024 Blood pressure systolic 00 mm Hg 03/05/2024 Weight 220 lbs 03/05/2024 BMI 33.45 kg/m2 03/05/2024 Encounters Encounter Location Date Provider Diagnosis [facility] [address] [place] [address] 03/05/2024 Boom Mclaughlin Encounter for screen ing for malignant neoplasm of colon Z12.11 ; Aspirin long-term use Z79.82 and Preprocedural examination Z01.818 [facility] [address] [place] [address] 01/17/2024 Boom Mclaughlin ASSESSMENTS Encounter Date Diagnosis [...] Name:Boom Mclaughlin , 06/26/2024 08:30:00 AM, [address] [facility] , [place], [place], [id number], Insurance Providers Payer Name Payer Address Payer Phone Subscriber Number Group Number Insured Name Patient Relationship to Insured Coverage Start Date Coverage End Date MEDICARE OF [place] [address] [place] [address] [id number] RAOUL LOPEZ Self - patient is the insured [facility] [address] [place] [address] [phone] [id number] RAOUL LOPEZ Self - patient is the insured MEDICAL (GENERAL) HISTORY Medical History History ICD Code Denies [place],DM,CVA,Lung disease,renal dise ase Hypertension Hyperlipidemia Anxiety Neg. screening colonoscopy in 03/2009 Neg. 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
--- OUTSIDE RECORDS SUMMARY | 2024-06-04 09:05 | XMS_ITS ---
Author Organization [facility] Address [address] [place] [address] Care Team Providers Care Computer Technology Instructor Name Role Phone Hyacinth Marquez Primary Care Provider UnavailNamrata Arrington Unavailable [phone] Deyvi Henley [phone] Marin Encounters Encounter Location Date Provider Diagnosis [facility] [address] [place] [address] 03/20/2024 Deyvi Henley Plan Of Treatment No Information Progress Notes * Liza [place] MDOB:1960 (64 yo F)Acc No.[id number]:03/20/2024 Progress Note Patient:Liza RUTLEDGE Provider:?Deyvi Henley DPM :1960???Age:64 Y???Sex:Female D ate:03/20/2024 Address:[address] [place], [place] [address] Pcp:Hyacinth Marquez Subjective: * Chief Complaints: * [...] DPM Date:? 024 Generated for Printi ng/Faxing/eTransmitting on:?06/04/2024 09:04 AM EST
--- OUTSIDE RECORDS SUMMARY | 2024-06-04 09:05 | XMS_ITS | Patient Health Record ---
Author Organization [facility] Address [address] [facility] [place] [address] Care Team Providers Care Chaplain Name Role Phone Hyacinth Marquez Primary Care Provider UnavailNamrata Arrington Unavailable [phone] HenleyDeyvi Unavailable [phone] Allergies No Known Allergies Reason For Referral [...] 07/19/2023 Encounters Encounter Location Date Provider Diagnosis [address] [address] 06/15/2023 Deyvi Henley Plantar fascial fibromatosis M72.2 ; Pain in left foot M79.672 ; Sprain of left foot, initial encounter S93.602A ; Skin disease L98.9 ; Tinea unguium B35.1 and Ingrowing nail L60.[address] [address] 07/19/2023 Deyvi Henley Ingrowing nail L60.0 ; Plantar fascial fibromatosis M72.2 ; Pain in left foot M79.672 and Skin disease L98.[address] [address] 06/06/[address] [address] 06/15/2023 [facility] [address] [address] 07/18/2023 Deyvi [place] Assessments Encounter Date Diagnosis (ICD Code) Assessment [...] [employer] [address] [facility] [place] [address] [id number] Liza Ma Self - patient is the insured [facility] [address] [place] [address] [id number] Liza Ma Self - patient is the insured Medical (General) History Medical History History ICD Code Arthritis Back,Hip,and Knee pain Cancer covid-19 High blood pressure Rheumatic fever Measles Mumps Chicken pox Surgical History Surgery Date(Month/Year) rotator cuff tear repair Meniscus repair hysterectomy oral surgery cancer eye surgery left knee replacement 09/2021 wisdom teeth extraction
--- OUTSIDE RECORDS SUMMARY | 2024-06-04 09:05 | XMS_ITS ---
Author Organization [facility] Address [address] [place] [address] Care Team Providers Care Television Production Assistant Name Role Phone Hyacinth Marquez MD Primary Care Provider Boom Snow [phone] ALLERGIES No Known Allergies REASON FOR VISIT [...] Active confirmed Long-term current use of aspirin (265763905833 103) VITAL SIGNS Blood pressure systolic 00 mm Hg 03/05/20 24 Blood pressure diastolic 00 mm Hg 024 Height 68 in 03/05/2024 Weight 220 lbs 03/05/2024 BMI 33.45 kg/m2 03/05/2024 Encounters Encounter Location Date Provider Diagnosis [facility] [address] [place] [address] 03/05/2024 Boom Mclaughlin Encounter for screen ing [...] Provider Name:Boom Mclaughlin , 06/26/2024 08:30:00 AM, [address] [place] [address], [phone], Progress Notes * Examination Category Sub-Category Detail [...]
== END 2024-06-04 08:34 | disposition home or self-care (01) ==
LOC: HO.MAMMO 08:33
PROVIDERS: PCP Internal Medicine; Visit Provider Internal Medicine
DX: Z12.31 Encounter for screening mammogram for malignant neoplasm of breast (principal)
CPT/HCPCS: 77063; 77067

== ENCOUNTER 2024-06-04 10:00 | Outpatient (REF) | payer MEDICARE, OTHER, SELFPAY ==
--- NOTE | ~2024-06-04 | US_ITS ---
CLINICAL HISTORY: R79.89 - Other specified abnormal findings of blood chemistry US abdomen complete with duplex and color Doppler Comparison: None Findings: Mildly prominent pancreatic duct at 3 mm. Portions of the pancreas was obscured by bowel gas. Aorta and IVC unremarkable Liver is mildly enlargedand diffusely echogenic Right lobe 18.8 cm length. No focal hepatic masses. Common duct 6.0 mm diameter. Physiologic distention of the gallbladder. No gallstones or sludge. No gallbladder wall thickening. No pericholecystic fluid. No sonographic Dawson sign. Main portal vein antegrade. Right kidney normal size, 12.3 cm in length. Normal cortical width and echotexture. No solid or cystic renal masses. No nephrolithiasis or hydronephrosis. Left kidney normal, 13.0 cm in length. Normal cortical width and echotexture. Indeterminate hypoechoic lesion midpole measuring 1.5 x 1.6 x 1.4 cm.No nephrolithiasis or hydronephrosis. Spleen measures 8.7 cm. No splenic masses. No ascites. No lymphadenopathy. Impression: 1. Mildly dilated pancreatic duct. 2. Hepatomegaly/hepatic steatosis. 3. Common bile duct upper limits of normal in diameter 4. Indeterminate renal cortical lesion lower pole left kidney 5. MRI of the abdomen with and without contrast can be used to address the above described findings This document has been electronically signed by: Arnulfo Baptiste MD on 06/04/2024 11:11:02
[2024-06-05 08:42] LABS: HBS Num1 0.51 mIU/mL (0-7.99); HBc Num1 0.09 S/CO (0.00-0.79); HBsAGNum1 0.26 S/CO (0.00-0.99); Hepatitis B Core Antibody Nonreactive (Nonreactive); Hepatitis B Surface Antigen Negative (Negative); ~HepC Num1 0.13 S/CO (0.00-0.79); ~Hepatitis B Surface Antibody NONREACTIVE (Nonreactive); ~Hepatitis C Antibody Nonreactive (Nonreactive)
== END 2024-06-04 10:01 | disposition home or self-care (01) ==
LOC: HO.HMGCX 10:00
PROVIDERS: PCP Internal Medicine
DX: Z12.31 Encounter for screening mammogram for malignant neoplasm of breast (principal); R79.89 Other specified abnormal findings of blood chemistry
CPT/HCPCS: 36415; 76700; 77063; 77067; 86704; 86706; 86803; 87340

== ENCOUNTER → 2024-06-04 10:03 | Outpatient (BNV) | payer MEDICARE, OTHER, SELFPAY | PROVIDERS: PCP Internal Medicine; Visit Provider Radiology Diagnostic Radiology | DX: Z12.31 Encounter for screening mammogram for malignant neoplasm of breast (principal) | CPT/HCPCS: 77063; 77067 ==

== ENCOUNTER 2024-06-09 16:00 | Outpatient (REF) | payer MEDICARE, OTHER, SELFPAY ==
--- NOTE | ~2024-06-09 | MR_ITS ---
CLINICAL HISTORY: N28.9 - Disorder of kidney and ureter, unspecified MR abdomen with and without intravenous contrast Comparison: Abdominal ultrasound from 01/27/2015 Findings: Multiple sequences are degraded by motion artifacts. Mild bibasilar atelectasis. Partially exophytic cysts of the left kidney measures 1.5 cm maximum diameter without septal enhancement or nodular enhancement, anteriorly in the interpolar region. 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 No enhancing renal mass accounting for motion artifacts and phase artifacts. Mild perinephric stranding is nonspecific. No hydronephrosis. No liver mass. No significant iron deposition of the liver. Steatotic change of the liver noted on out of phase imaging. The spleen is nonenlarged. Borderline enlargement of the pancreatic duct without defined pancreatic mass. No diffusion weighted imaging available for review. The adrenal glands are normal. Gallbladder is unremarkable. No choledocholithiasis. No small bowel obstruction. Degenerative changes include the imaged spine, including imaged facet arthropathy. IMPRESSION: 1. Simple 1.5 cm cyst of the left kidney. Adjacent 1 cm cystic lesion is nonspecific and likely site of the previous hemorrhage. No enhancing soft tissue renal mass at this time. 2. Steatotic change of the liver. No liver mass. 3. Borderline enlargement of the main pancreatic duct. Without associated or defined pancreatic mass by MRI. This document has been electronically signed by: Donald Reddy MD on 06/10/2024 20:43:15
--- OUTSIDE RECORDS SUMMARY | 2024-06-09 16:11 | XMS_ITS ---
Author Organization [facility] Address [address] [place] [address] Care Team Providers Care Hvac R Instructor Name Role Phone Hyacinth Marquez Primary Care Provider UnavailNamrata Arrington Unavailable [phone] Deyvi Henley [phone] Marin Encounters Encounter Location Date Provider Diagnosis [facility] [address] [place] [address] 03/20/2024 Deyvi Henley Plan Of Treatment No Information Progress Notes * Liza [place] MDOB:1960 (64 yo F)Acc No.[id number]:03/20/2024 Progress Note Patient:Liza RUTLEDGE Provider:?Deyvi Henley DPM :1960???Age:64 Y???Sex:Female D ate:03/20/2024 Address:[address] [place], [place] [address], [place] Pcp:Hyacinth Marquez Subjective: * Chief Complaints: * [...] DPM Date:? 024 Generated for Printi ng/Faxing/eTransmitting on:?06/09/2024 04:11 PM EST
--- OUTSIDE RECORDS SUMMARY | 2024-06-09 16:11 | XMS_ITS ---
Author Organization [facility] Address [address] [place] [address] Care Team Providers Care Power Plant Inspector Name Role Phone Hyacinth Marquez Primary Care Provider UnavailNamrata Arrington [phone] Encounters Encounter Location Date Provider Diagnosis [facility] [address] [place] [address] 03/21/2024 Namrata Fernandez Plan Of Treatment No Information Progress Notes * Liza [place] MDOB:1960 (64 yo F)Acc No.[id number]:03/21/2024 Progress Note Patient:?FRANCESCA Liza Rahman Provider:?Namrata Fernandez DPM :1960???Age:64 Y???Sex:Female D ate:03/21/2024 Address:[address] [facility] [place] Pcp:Hyacinth Marquez Subjective: * Chief Complaints: * [...] DPM Date:?1 05/22/2023 Generated for Printi ng/Faxing/eTransmitting on:?06/09/2024 04:11 PM EST
--- OUTSIDE RECORDS SUMMARY | 2024-06-09 16:12 | XMS_ITS | Patient Health Record ---
Author Organization [facility] Address [address] [facility] [place] [address] Care Team Providers Care Chassis Driver Name Role Phone Hyacinth Marquez Primary Care Provider UnavailNamrata Arrington Unavailable [phone] HenleyDeyvi Unavailable [phone] Allergies No Known Allergies Reason For Referral [...] 07/19/2023 Encounters Encounter Location Date Provider Diagnosis [address] [address] 06/15/2023 Deyvi Henley Plantar fascial fibromatosis M72.2 ; Pain in left foot M79.672 ; Sprain of left foot, initial encounter S93.602A ; Skin disease L98.9 ; Tinea unguium B35.1 and Ingrowing nail L60.[address] [address] 07/19/2023 Deyvi Henley Ingrowing nail L60.0 ; Plantar fascial fibromatosis M72.2 ; Pain in left foot M79.672 and Skin disease L98.[address] [address] 06/15/2023 [facility] [address] [address] 07/18/2023 Deyvi [place] Assessments Encounter Date Diagnosis (ICD Code) Assessment [...] Medicare National [employer] [address] [facility] [place] [address] [id number] Liza Ma Self - patient is the insured [facility] [address] [place] [id number] Liza Ma Self - patient is the insured Medical (General) History Medical History History ICD Code Arthritis Back,Hip,and Knee pain Cancer covid-19 High blood pressure Rheumatic fever Measles Mumps Chicken pox Surgical History Surgery Date(Month/Year) rotator cuff tear repair Meniscus repair hysterectomy oral surgery cancer eye surgery left knee replacement 09/2021 wisdom teeth extraction
[2024-06-09] MEDS: gadobutroL 10 ML VIAL IVPUSH (16:34)
== END 2024-06-09 16:01 | disposition home or self-care (01) ==
LOC: HO.MRI 16:00
PROVIDERS: PCP Internal Medicine
DX: N28.9 Disorder of kidney and ureter, unspecified (principal); K86.89 Other specified diseases of pancreas
CPT/HCPCS: 74183; A9585

== ENCOUNTER → 2024-06-09 16:01 | Outpatient (BNV) | payer MEDICARE, OTHER, SELFPAY | PROVIDERS: PCP Internal Medicine; Visit Provider Radiology Neuroradiology | DX: N28.9 Disorder of kidney and ureter, unspecified (principal) | CPT/HCPCS: 74183 ==

== ENCOUNTER 2024-06-14 09:27 | Outpatient (AMB) | payer MEDICARE, OTHER, SELFPAY ==
[2024-06-14 09:29] VITALS: BP 116/80; PULSE 76; O2SAT 96
--- NOTE | 2024-06-14 09:29 | MHC.PC.OV ---
Vital Signs 06/14/24 09:29 Height 5 ft 6 in BMI Reason not done Patient refused/unable BP 116/80 Blood Pressure Location Lt brachial Position Sitting Pulse 76 Pulse Source Pulse Oximeter Pulse Oximetry (%) 96 Oxygen Delivery Method Room Air Intake Visit Reasons: Lab Results Reconciliation Accountant Required: No Accompanied by: Self / Same As Patient Allergies No Known Allergies [No Known Allergies*] Allergy (Verified 06/14/24 09:48) Medication List - Last Reconciled 06/14/24 by Becky Hernandez PA-C aspirin (Adult Aspirin Regimen) 81 mg PO DAILY [AUTO PAP 6-16 cm H2O humidified AIR As directed] blood pressure monitor (Blood Pressure Kit) As directed escitalopram oxalate (Lexapro) 10 mg PO DAILY hydrochlorothiazide 25 mg PO DAILY lisinopril 40 mg PO DAILY lorazepam 0.5 mg PO BID PRN 30 days simvastatin 10 mg PO DAILY Tobacco use date assessed: 06/14/24 Fall risk assessment: No Falls in past year Last assessed Fall Risk: 06/14/24 Dental Screening Dental Screen Date: 06/14/24 Did you have a dental visit in the last 12 months?: Yes Did you have a dental problem in the last 6 months where you did not have access to dental care?: No Was dental information given to patient?: Patient has dentist HPI Lab Results HPI Details 64-year-old female with past medical history of hypertension, hypercholesterolemia, generalized anxiety disorder, obstructive sleep apnea last seen by Dr. Marquez 04/2024 coming in for follow up. In review of the notes, patient completed abdominal MRI which showed:? IMPRESSION: 1. Simple 1.5 cm cyst of the left kidney. Adjacent 1 cm cystic lesion is? nonspecific and likely site of the previous hemorrhage. No enhancing soft? tissue renal mass at this time. 2. Steatotic change of the liver. No liver mass. 3. Borderline enlargement of the main pancreatic duct. Without associated? or defined pancreatic mass by MRI. Patient presents today with her daughter. She has no acute concerns today. [facility] Medical History Obstructive sleep apnea (adult) (pediatric) Obstructive sleep apnea hypopnea, severe Varicose veins of right lower extremity with inflammation Annual physical exam Cervicalgia Viral upper respiratory illness Witnessed apneic spells Lumbar spondylosis Preop exam for internal medicine Sinusitis Constipation Finger pain Knee pain, left Low back pain COVID-19 virus infection Osteoarthritis Pulmonary valve stenosis Factor 5 Leiden mutation, heterozygous Hypercholesterolemia Vitamin D deficiency Left renal stone Overweight (BMI 25.0-29.9) Anxiety and depression Hypertension Surgical History Hx of total knee arthroplasty History of shoulder surgery Hx of breast reduction, elective Hx of right knee surgery Strabismus S/P PASCALE-BSO Peripheral vascular disease Family History Father Lung cancer Mother COPD (chronic obstructive pulmonary disease) CVD (cardiovascular disease) AAA (abdominal aortic aneurysm) Brother Diabetes Sister Acute CVA (cerebrovascular accident) Daughter Thyroid cancer Social History Housing: House Alcohol intake: never Patient Tobacco Use Status: Never used Tobacco Tobacco use type: Cigarette e-Cigarette/Vaping Use: Never Used Second Hand Smoke Exposure: No service: No Current occupational status: retired Cognitive needs: No Hearing needs: No Vision needs: Yes (glasses) Questionnaire PHQ-9 Over the last 2 weeks, how often have you been bothered by any of the following problems? 1. Little interest or pleasure in doing things: not at all 2. Feeling down, depressed, or hopeless: not at all 3. Trouble falling or staying asleep, or sleeping too much: not at all 4. Feeling tired or having little energy: not at all 5. Poor appetite or overeating: not at all 6. Feeling bad about yourself - or that you are a failure or have let yourself or your family down: not at all 7. Trouble concentrating on things, such as reading the newspaper or watching television: not at all 8. Moving or speaking so slowly that other people could have noticed. Or the opposite - being so fidgety or restless that you have been moving around a lot more than usual: not at all 9. Thoughts that you would be better off or of hurting yourself in some way: not at all Total score: 0 Depression Screening Interpretation: Negative Depression Screening Done: Yes 06081 - PHQ-9 Billing: Yes Source: Developed by Drs. Boom Jin, Travis Bazan and colleagues, with an educational pascual from [employer]. Thrive Questionnaire Date Thrive assessed: 06/14/24 I am a: Patient What is your living situation today?: I have a steady place to live Within the past 12 months, did the food you bought not last and you didn't have the money to get more?: Never true Within the past 12 months, did you worry whether your food would run out before you got money to buy more?: Never true Do you have trouble paying for medicines?: No Do you have trouble getting transportation to medical appointments?: No Do you have trouble paying your heating and electricity bill?: No Do you have trouble taking care of your child, family member or friend?: No Do you have trouble with day-to-day activities such as bathing, preparing meals, shopping, managing finances, etc.?: No Are you currently unemployed and looking for a job?: No Are you interested in more education?: No Please select the resources that you would like help with: None Currently or been in a relationship where the following occur: No concerns reported THRIVE Score: 0 AUDIT C Alcohol Use Questionnaire (AUDIT-C) 1. How often do you have a drink containing alcohol?: Never 3. How often do you have six or more drinks on one occasion?: Never Total Score: 0 BING-7 AMB Questionnaire BING-7 Date BING - 7 assessed: 06/14/24 Feeling nervous, anxious, or on edge: 1 = Several days Not being able to stop or control worryin = Not at all Worrying too much about different things: 0 = Not at all Trouble relaxin = Not at all Being so restless that it is hard to sit still: 0 = Not at all Becoming easily annoyed or irritable: 0 = Not at all Feeling afraid as if something awful might happen: 0 = Not at all Total BING-7 score (0-4 normal; 5-9 mild; 10-14 moderate; 15-21 severe): 1 Source: Developed by Drs. Boom Jin, Travis Bazan and colleagues, with an educational pascual from [employer]. Review of Systems Const Denies body aches, Denies chills, Denies fever(s) and Denies poor appetite Eyes Reports no additional complaints ENT Reports no additional complaints Card Denies chest pain, Denies lightheadedness and Denies dyspnea Resp Denies dyspnea GI Denies abdominal pain, Denies nausea and Denies vomiting Reports no additional complaints Musc Reports no additional complaints and Denies abnormal gait Skin/Breast Reports system reviewed and no additional complaints, except as documented Neuro Denies abnormal gait Psych Reports no additional complaints Physical exam (Primary Care) Vital Signs: Last Vital Signs Pulse 76 06/14/24 09:29 BP 116/80 06/14/24 09:29 Pulse Ox 96 06/14/24 09:29 Oxygen Delivery Method Room Air 06/14/24 09:29 Tobacco/Smoking Status: Tobacco use Status Tobacco use date assessed 06/14/24 06/14/24 09:31 Patient Tobacco Use Status Never used Tobacco 06/14/24 09:29 Tobacco use type Cigarette 06/14/24 09:29 e-Cigarette/Vaping Use Never Used 06/14/24 09:29 PHQ-9: PHQ-9 Score PHQ-9: Total score 0 06/14/24 09:36 Depression Screening Interpretation: Negative Thrive Assessment: Date of Thrive Assessment Date Thrive assessed 06/14/24 06/14/24 09:31 Currently or been in a relationship where the following occur: No concerns reported Const General: cooperative, healthy appearing, comfortable and no acute distress Orientation/consciousness: patient oriented x3 HENMT Head: Yes normocephalic Ears: hearing grossly normal bilaterally General nose exam: Normal external nose present Eyes General: appearance normal, both eyes and all related structures Conjunctivae: conjunctivae normal Neck Neck: Yes full ROM and Yes no lymphadenopathy Resp Effort & Inspection: normal respiratory effort Auscultation: clear to auscultation bilaterally, no crackles, no rales, no rhonchi and no wheezes Cardio Rate: regular rate Rhythm: regular rhythm Skin General skin exam: no rashes or lesions noted Neuro General: patient oriented x3 Gait exam (Neuro): Normal gait present Extrem General: Yes normal to inspection, Yes full ROM and No edema Psych Affect: normal affect Attitude: cooperative Insight: Good insight present (Psych) Judgement: Good judgement present (Psych) Coding Level of Care Code Est Pt Level 3 (50492) Diagnoses Pancreatic duct dilated K86.89 Impaired fasting blood sugar R73.01 Gastroesophageal reflux disease without esophagitis K21.9 Esophagitis presence: without esophagitis Obesity (BMI 30-39.9) E66.9 Essential hypertension I10 Hypertension type: essential hypertension Additional Codes PHQ-9 - 33256 - PHQ-9 Billing: Yes ([id number]) Assessment & Plan Assessment & Plan (1) Pancreatic duct dilated: Code(s): K86.89 - Other specified diseases of pancreas Category: Medical Plan: MRI showing no mass to demonstrate pancreatic duct dilation. At this time referral will be placed to gastroenterology for further evaluation. All questions were answered today from the patient and her daughter. (2) Impaired fasting blood sugar: Code(s): R73.01 - Impaired fasting glucose Category: Medical Plan: Decrease the amount of carbohydrates such as pasta, bread, rice, and potatoes and limit the amount of sweets. Although fruits are generally healthy they should be eaten in moderation as they are still high in sugar. (3) GERD (gastroesophageal reflux disease): Code(s): K21.9 - Gastro-esophageal reflux disease without esophagitis Category: Medical Qualifiers: Esophagitis presence: without esophagitis Qualified Code(s): K21.9 - Gastro-esophageal reflux disease without esophagitis Plan: Avoid trigger foods such as citrus, tomato products, soda, caffeine, spicy foods and other foods that may be irritating to your stomach. Avoid laying flat 3-4 hours after eating and elevate the head of the bed 30 degrees to prevent acid from moving into the esophagus. (4) Obesity (BMI 30-39.9): Code(s): E66.9 - Obesity, unspecified Category: Medical Plan: Healthy diet and regular exercise is encouraged. (5) Hypertension: Code(s): I10 - Essential (primary) hypertension Category: Medical Qualifiers: Hypertension type: essential hypertension Qualified Code(s): I10 - Essential (primary) hypertension Plan: Continue on current blood pressure medication. Avoid salt intake and encourage healthy diet and regular exercise. Plan This note was constructed using voice recognition software. While every effort has been made to ensure accuracy and base draw operator, still areas may have been included sometimes these areas may affect the content or meeting of the given symptoms. Total time spent caring for the patient today was 20 minutes. This includes time spent before the visit reviewing the chart, time spent during the visit, and time spent after the visit and documentation. Orders: Referrals Gastroenterology Referral K86.89 - Other specified diseases of pancreas
--- OUTSIDE RECORDS SUMMARY | 2024-06-14 10:12 | XMS_ITS ---
Author Organization [facility] Address [address] [place] [address] Care Team Providers Care Asphalt Spreader Name Role Phone Hyacinth Marquez MD Primary Care Provider Boom Snow [phone] REASON FOR VISIT new insurance? Encounters Encounter Location Date Provider Diagnosis [facility] [address] [place] [phone] 01/17/2024 Boom Mclaughlin Plan Of Treatment Next Appt Details Provider Name:Boom Mclaughlin , 06/26/2024 08:30:00 AM, [address] [place] [address] , [place], [place], [phone], Progress Notes * RAOUL LOPEZDOB:1960 ( 64 yo F)Acc No.[id number]:01/17/2024 Patient:?JESSICAROGELIONA :1960???Age:64 Y???Sex:Female Address:[address] [place] [id number] * true * Date:? Generated for Printi ng/Lilian/eTransmitting on:?06/14/2024 10:12 AM EST
--- OUTSIDE RECORDS SUMMARY | 2024-06-14 10:12 | XMS_ITS | Patient Health Record ---
Author Organization [facility] Address [address] [place] [address] Care Team Providers Care Roll Out Manager Name Role Phone Hyacinth Marquez MD Primary Care Provider Boom Snow [phone] Allergies No Known Allergies Reason For Referral [...] Problem Status W/U Status Risk Notes Problem [id number] Encounter for screening for malignant neoplasm of colon (Z12.11) Active confirmed Problem [id number] Preprocedural examination (Z01.818) Active confirmed Problem Long-term current use of aspirin (748117748443318) Aspirin long-term use (Z79.82) Active confirmed Vital Signs Blood pressure diastolic 00 mm Hg 03/05/2024 Height 68 in 03/05/2024 Blood pressure systolic 00 mm Hg 03/05/2024 Weight 220 lbs 03/05/2024 BMI 33.45 kg/m2 03/05/2024 Encounters Encounter Location Date Provider Diagnosis [facility] [address] [place] [address] 03/05/2024 Boom Mclaughlin Encounter for screen ing for malignant neoplasm of colon Z12.11 ; Aspirin long-term use Z79.82 and Preprocedural examination Z01.818 [facility] [address] [place] [address] 01/17/2024 Boom Mclaughlin Assessments Encounter Date Diagnosis [...] Provider Name:Boom Mclaughlin , 06/26/2024 08:30:00 AM, [address] [place] [address] , [place], [place], [phone], Insurance Providers Payer Name Payer Address Payer Phone Subscriber Number Group Number Insured Name Patient Relationship to Insured Coverage Start Date Coverage End Date MEDICARE OF [place] [address] [place] [phone] [id number] LIZA LOPEZ Self - patient is the insured [facility] [address] [place] [phone] [id number] LIZA LOPEZ Self - patient is the insured Medical (General) History Medical History History ICD Code Denies PA,DM,CVA,Lung disease,renal dise ase Hypertension Hyperlipidemia Anxiety Neg. screening colonoscopy in 03/2009 Neg. 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
--- OUTSIDE RECORDS SUMMARY | 2024-06-14 10:12 | XMS_ITS ---
Author Organization [facility] Address [address] [place] [address] Care Team Providers Care Supervisor Anodizing Name Role Phone Hyacinth Marquez Primary Care Provider Namrata Tucker [phone] Marin Encounters Encounter Location Date Provider Diagnosis [facility] [address] [place] [address] 03/20/2024 Namrata Fernandez Plan Of Treatment No Information Progress Notes * Liza MA MDOB:1960 (64 yo F)Acc No.[id number]:03/20/2024 Progress Note Patient:?Liza MA Provider:?Namrata Fernandez DPM :1960???Age:64 Y???Sex:Female D ate:03/20/2024 Address:[address] [place], [place] [address] Pcp:Hyacinth Marquez Subjective: * Chief Complaints: * [...] DPM Date:?1 05/21/2023 Generated for Emir boyd/Lilian/eTransmitting on:?06/14/2024 10:12 AM EST
--- OUTSIDE RECORDS SUMMARY | 2024-06-14 10:12 | XMS_ITS ---
Author Organization [facility] Address [address] [place] [address] Care Team Providers Care Surface Ship Usw Supervisor Name Role Phone Hyacinth Marquez Primary Care Provider UnavailNamrata Arrington Unavailable [phone] Deyvi Henley [phone] Marin Encounters Encounter Location Date Provider Diagnosis [facility] [address] [place] [address] 03/20/2024 Deyvi Henley Plan Of Treatment No Information Progress Notes * Liza [place] MDOB:1960 (64 yo F)Acc No.[id number]:03/20/2024 Progress Note Patient:Liza R[place]LEDGE Provider:?Deyvi Henley DPM :1960???Age:64 Y???Sex:Female D ate:03/20/2024 Address:[address] [place], [place] [address] Pcp:Hyacinth Marquez Subjective: * Chief Complaints: * [...] DPM Date:? 024 Generated for Printi ng/Faxing/eTransmitting on:?06/14/2024 10:12 AM EST
--- OUTSIDE RECORDS SUMMARY | 2024-06-14 10:12 | XMS_ITS ---
Author Organization [facility] Address [address] [place] [address] Care Team Providers Care Forestry Tree Pruner Name Role Phone Hyacinth Marquez Primary Care Provider UnavailNmarata Arrington [phone] Encounters Encounter Location Date Provider Diagnosis [facility] [address] [place] [address] 03/21/2024 Namrata Fernandez Plan Of Treatment No Information Progress Notes * Liza MA MDOB:1960 (64 yo F)Acc No.[id number]:03/21/2024 Progress Note Patient:?FRANCESCA Liza Rahman Provider:?Namrata Fernandez DPM :1960???Age:64 Y???Sex:Female D ate:03/21/2024 Address:[address] [facility] [place] Pcp:Hyacinth Marquez Subjective: * Chief Complaints: * ??? * Medical History:? Objective: * Vitals:? Assessment: Plan: * Treatment: * Images: * The named appointment provid er may or may not be the originator of this progress note, and it is not deemed complete until electronically signed by the appointment provider. Sign off status: Pending * Provider:?Namrata Fernandez DPM Date:?1 05/22/2023 Generated for Printi ng/Fajulio cg/eTransmitting on:?06/14/2024 10:12 AM EST
--- OUTSIDE RECORDS SUMMARY | 2024-06-14 10:13 | XMS_ITS ---
Author Organization [facility] Address [address] [place] [address] Care Team Providers Care Carbide Die Maker Name Role Phone Hyacinth Marquez MD Primary Care Provider Boom Snow [phone] Allergies No Known Allergies REASON FOR VISIT [...] Notes Problem Long-term current use of aspirin ([id number]) Aspirin long-term use (Z79.82) Active confirmed Vital Signs Blood pressure systolic 00 mm Hg 03/05/20 24 Blood pressure diastolic 00 mm Hg 024 Height 68 in 03/05/2024 Weight 220 lbs 03/05/2024 BMI 33.45 kg/m2 03/05/2024 Encounters Encounter Location Date Provider Diagnosis [facility] [address] [place] [address] 03/05/2024 Boom Mclaughlin Encounter for screen ing [...] Provider Name:Boom Mclaughlin , 06/26/2024 08:30:00 AM, [address] [place] [address], [phone], Progress Notes * ROGELIO LOPEZLAKESHADOB:1960 ( 64 yo F)Acc No.[id number]:03/05/2024 Progress Notes Patient:?LIZA LOPEZ Provider:?Boom Mclaughlin MD :1960???Age:64 Y???Sex:Female D ate:03/05/2024 Address:[address] [place] [address] Pcp:Hyacinth Marquez MD Subjective: * Chief Complaints: [...] the past year??No,?Points?0,?Interpretation?Negative.?Miscellaneous:?Marital status: . 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 ???Nonsmoker; no sig alcohol. * Medications:?TakingLisinopri [...] Procedure Codes:?3017F COLOR ECTAL CA SCREEN DOC [id number] TOBACCO [id number] BP SCR NOT PRFRM REC REASON NOS [...] MD Date:? 024 Generated for Emir boyd/Lilian/Johnitting on:?06/14/2024 10:12 AM EST History and Physical Notes * HPI [...]
--- OUTSIDE RECORDS SUMMARY | 2024-06-14 10:13 | XMS_ITS | Patient Health Record ---
Author Organization [facility] Address [address] [facility] [place] [address] Care Team Providers Care Concrete Precast Moulder Name Role Phone Hyacinth Marquez Primary Care Provider UnavailNamrata Arrington Unavailable [phone] HenleyDeyvi Unavailable [phone] Allergies No Known Allergies Reason For Referral [...] 07/19/2023 Encounters Encounter Location Date Provider Diagnosis [address] [address] 06/15/2023 Deyvi Henley Plantar fascial fibromatosis M72.2 ; Pain in left foot M79.672 ; Sprain of left foot, initial encounter S93.602A ; Skin disease L98.9 ; Tinea unguium B35.1 and Ingrowing nail L60.[address] [address] 07/19/2023 Deyvi Henley Ingrowing nail L60.0 ; Plantar fascial fibromatosis M72.2 ; Pain in left foot M79.672 and Skin disease L98.[address] [address] 06/15/2023 [facility] [address] [address] 07/18/2023 Deyvi Paris Assessments Encounter Date Diagnosis (ICD Code) Assessment [...] Medicare [employer] [address] [facility] [place] [address] [id number] Liza Ma Self - patient is the insured [facility] [address] [place] [id number] Liza Ma Self - patient is the insured Medical (General) History Medical History History ICD Code Arthritis Back,Hip,and Knee pain Cancer covid-19 High blood pressure Rheumatic fever Measles Mumps Chicken pox Surgical History Surgery Date(Month/Year) rotator cuff tear repair Meniscus repair hysterectomy oral surgery cancer eye surgery left knee replacement 09/2021 wisdom teeth extraction
== END 2024-06-14 10:13 | disposition home or self-care (01) ==
PROVIDERS: PCP Internal Medicine
DX: K86.89 Other specified diseases of pancreas (principal); R73.01 Impaired fasting glucose; E66.9 Obesity, unspecified; K21.9 Gastro-esophageal reflux disease without esophagitis; I10 Essential (primary) hypertension

== ENCOUNTER → 2024-06-14 09:27 | Outpatient (BNVA) | payer MEDICARE, OTHER, SELFPAY | PROVIDERS: PCP Internal Medicine | DX: K86.89 Other specified diseases of pancreas (principal); R73.01 Impaired fasting glucose; K21.9 Gastro-esophageal reflux disease without esophagitis; E66.9 Obesity, unspecified; I10 Essential (primary) hypertension | CPT/HCPCS: 96127; 99212 ==

== ENCOUNTER 2024-06-26 07:29 | Day surgery (SDC) | payer MEDICARE, OTHER, SELFPAY ==
--- OUTSIDE RECORDS SUMMARY | 2024-06-12 17:45 | XMS_ITS ---
Author Organization [facility] Address [address] [place] [address] Care Team Providers Care Underground Drill Operator Name Role Phone Hyacinth Marquez Primary Care Provider Namrata Tucker [phone] Marin Encounters Encounter Location Date Provider Diagnosis [facility] [address] [place] [address] 03/20/2024 Namrata Fernandez Plan Of Treatment No Information Progress Notes * Liza [place] MDOB:1960 (64 yo F)Acc No.[id number]:03/20/2024 Progress Note Patient:?Liza [place] Provider:?Namrata Fernandez DPM :1960???Age:64 Y???Sex:Female D ate:03/20/2024 Address:[address] [place], [place] [address] [facility] Pcp:Hyacinth Marquze Subjective: * Chief Complaints: * ???1. Dr [...] DPM Date:?1 05/21/2023 Generated for Emir boyd/Lilian/eTransmitting on:?06/12/2024 05:45 PM EST
--- OUTSIDE RECORDS SUMMARY | 2024-06-12 17:46 | XMS_ITS ---
Author Organization [facility] Address [address] [place] [address] Care Team Providers Care Chain Maker Loom Control Name Role Phone Hyacinth Marquez MD Primary Care Provider Boom Snow [phone] REASON FOR VISIT new insurance? Encounters Encounter Location Date Provider Diagnosis [facility] [address] [place] [address] 01/17/2024 Boom Mclaughlin Plan Of Treatment Next Appt Details Provider Name:Boom Mclaughlin , 06/26/2024 08:30:00 AM, [address] [place] [address] , [place], [place], [phone], Progress Notes * RAOUL LOPEZDOB:1960 ( 64 yo F)Acc No.[id number]:01/17/2024 Patient:?JESSICAROGELIONA :1960???Age:64 Y???Sex:Female Address:[address] [place] [address] * true * Date:? Generated for Printi oliver/Lilian/eTransmitting on:?06/12/2024 05:45 PM EST
--- OUTSIDE RECORDS SUMMARY | 2024-06-12 17:46 | XMS_ITS | Patient Health Record ---
Author Organization [facility] Address [address] [facility] [place] [address] Care Team Providers Care Electrical Products Sales Engineer Name Role Phone Hyacinth Marquez Primary Care Provider UnavailNamrata Arrington Unavailable [phone] HenleyDeyvi Unavailable [phone] Allergies No Known Allergies Reason For Referral [...] 07/19/2023 Encounters Encounter Location Date Provider Diagnosis [address] [address] 06/15/2023 Deyvi Henley Plantar fascial fibromatosis M72.2 ; Pain in left foot M79.672 ; Sprain of left foot, initial encounter S93.602A ; Skin disease L98.9 ; Tinea unguium B35.1 and Ingrowing nail L60.[address] [address] 07/19/2023 Deyvi Henley Ingrowing nail L60.0 ; Plantar fascial fibromatosis M72.2 ; Pain in left foot M79.672 and Skin disease L98.[address] [address] 06/15/2023 [facility] [address] [address] 07/18/2023 Deyvi [place] Assessments Encounter Date Diagnosis (ICD Code) Assessment [...] Medicare National [employer] [address] [place] [address] [id number] Liza Ma Self - patient is the insured [facility] [address] [place] [id number] Liza Ma Self - patient is the insured Medical (General) History Medical History History ICD Code Arthritis Back,Hip,and Knee pain Cancer covid-19 High blood pressure Rheumatic fever Measles Mumps Chicken pox Surgical History Surgery Date(Month/Year) rotator cuff tear repair Meniscus repair hysterectomy oral surgery cancer eye surgery left knee replacement 09/2021 wisdom teeth extraction
--- OUTSIDE RECORDS SUMMARY | 2024-06-12 17:46 | XMS_ITS | Patient Health Record ---
Author Organization [facility] Address [address] [place] [address] Care Team Providers Care Photoengraving Proofer Name Role Phone Hyacinth Marquez MD Primary Care Provider Boom Snow [phone] Allergies No Known Allergies Reason For Referral [...] Once a day for 30 day(s) Active Immunizations Vaccine Route Administration Date Status Comme nts Influenza Unknown 01/17/2018 Administered Social History Tobacco Use: Social History Observation Description Date Details (start date - stop date) Never Smoker NA - NA Tobacco Use/Smoking Question Answer Notes Patient is a nonsmoker Alcohol Screen Question Answer Notes Did you have a drink containing alcohol in the p ast year? No Points 0 Interpretation Negative Section Notes: Nonsmoker; no sig alcohol Nonsmoker; no sig alcohol Problems Problem Type SNOMED Code ICD Code Onset Dates Problem Status W/U Status Risk Notes Problem [id number] Encounter for screening for malignant neoplasm of colon (Z12.11) Active confirmed Problem [id number] Preprocedural examination (Z01.818) Active confirmed Problem Long-term current use of aspirin (067478792262469) Aspirin long-term use (Z79.82) Active confirmed Vital Signs Blood pressure diastolic 00 mm Hg 03/05/2024 Height 68 in 03/05/2024 Blood pressure systolic 00 mm Hg 03/05/2024 Weight 220 lbs 03/05/2024 BMI 33.45 kg/m2 03/05/2024 Encounters Encounter Location Date Provider Diagnosis [facility] [address] [place] [address] 03/05/2024 Boom Mclaughlin Encounter for screen ing for malignant neoplasm of colon Z12.11 ; Aspirin long-term use Z79.82 and Preprocedural examination Z01.818 [facility] [address] [place] [address] 01/17/2024 Boom Mclaughlin Assessments Encounter Date Diagnosis (ICD Code) Assessment Notes Treatment Notes Treatment Clinical Notes Section Notes 03/05/2024 Encounter for screening for malignant neoplasm of colon (ICD-10 - Z12.11) Stop aspirin for 1 week before the colonoscopy Do not use any Hydrochlorothiaide the day before nor on the day of the colonoscopy Overall, Liza appears quite well. Although her colonoscopy 5 years ago was negative for any polyps, I did recommend a followup colonoscopy for screening purposes with a hopefully better cleanout since the exam in 2019 was limited. We did review the rationale for this in regard to colon cancer prevention. Full consent was obtained for this, including risks of bleeding and perforation. The procedure will be done monitored anesthesia care. She was given the below instructions regarding adjustment of her medications for the procedure. She will also have a 2 day prep for the colonoscopy to hopefully allow for a better cleanout. Liza was comfortable with this plan. Thank you again for allowing me to participate in Liza's care. I shall continue to keep you advised of her progress. 03/05/2024 Aspirin long-term use (ICD-10 - Z79.82) Overall, Liza appears quite well. Although her colonoscopy 5 years ago was negative for any polyps, I did recommend a followup colonoscopy for screening purposes with a hopefully better cleanout since the exam in 2019 was limited. We did review the rationale for this in regard to colon cancer prevention. Full consent was obtained for this, including risks of bleeding and perforation. The procedure will be done monitored anesthesia care. She was given the below instructions regarding adjustment of her medications for the procedure. She will also have a 2 day prep for the colonoscopy to hopefully allow for a better cleanout. Liza was comfortable with this plan. Thank you again for allowing me to participate in Liza's care. I shall continue to keep you advised of her progress. 03/05/2024 Preprocedural examination (ICD-10 - Z01.818) Overall, Liza appears quite well. Although her colonoscopy 5 years ago was negative for any polyps, I did recommend a followup colonoscopy for screening purposes with a hopefully better cleanout since the exam in 2018 was limited. We did review the rationale for this in regard to colon cancer prevention. Full consent was obtained for this, including risks of bleeding and perforation. The procedure will be done monitored anesthesia care. She was given the below instructions regarding adjustment of her medications for the procedure. She will also have a 2 day prep for the colonoscopy to hopefully allow for a better cleanout. Liza was comfortable with this plan. Thank you again for allowing me to participate in Liza's care. I shall continue to keep you advised of her progress. Plan Of Treatment Future Test Test Name Order Date COLONOSCOPY 09/19/2018 COLONOSCOPY 03/05/2024 Next Appt Details Provider Name:Boom Mclaughlin , 06/26/2024 08:30:00 AM, [address] [place] [address] , [place], [place], [phone], Insurance Providers Payer Name Payer Address Payer Phone Subscriber Number Group Number Insured Name Patient Relationship to Insured Coverage Start Date Coverage End Date MEDICARE OF [place] [address] [place] [phone] [id number] LIZA LOPEZ Self - patient is the insured [facility] [address] [place] [address] [phone] [id number] LIZA LOPEZ Self - patient is the insured Medical (General) History Medical History History ICD Code Denies [place],DM,CVA,Lung disease,renal dise ase Hypertension Hyperlipidemia Anxiety Neg. screening colonoscopy in 03/2009 Neg. 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
--- OUTSIDE RECORDS SUMMARY | 2024-06-12 17:46 | XMS_ITS ---
Author Organization [facility] Address [address] [place] [address] Care Team Providers Care Director Of Golf Name Role Phone Hyacinth Marquez MD Primary Care Provider Boom Snow [phone] Allergies No Known Allergies REASON FOR VISIT PATIENT PRESENTS TODAY FOR COLON SCREENING Medications Medication SIG (Take, Route, Frequency, Duration) [...] Once a day for 30 day(s) Active Social History Tobacco Use: Social History Observation Description Date Details (start date - stop date) Never Smoker NA - NA Tobacco Use/Smoking Question Answer Notes Patient is a nonsmoker Alcohol Screen Question Answer Notes Did you have a drink containing alcohol in the p ast year? No Points 0 Interpretation Negative Section Notes: Nonsmoker; no sig alcohol Problems Problem Type SNOMED Code ICD Code Onset Dates Problem Status W/U Status Risk Notes Problem Long-term current use of aspirin ([id number]) Aspirin long-term use (Z79.82) Active confirmed Vital Signs Blood pressure systolic 00 mm Hg 03/05/20 24 Blood pressure diastolic 00 mm Hg 024 Height 68 in 03/05/2024 Weight 220 lbs 03/05/2024 BMI 33.45 kg/m2 03/05/2024 Encounters Encounter Location Date Provider Diagnosis [facility] [address] [place] [address] 03/05/2024 Boom Mclaughlin Encounter for screen ing for malignant neoplasm of colon Z12.11 ; Aspirin long-term use Z79.82 and Preprocedural examination Z01.818 Assessments Encounter Date Diagnosis (ICD Code) Assessment [...] advised of her progress. Plan Of Treatment Treatment Notes Assessment Notes Encounter for screening for malignant neoplasm of colon Stop aspirin for 1 week before the colonoscopy Do not use any Hydrochlorothiaide the day before nor on the day of the colonoscopy Future Test Test Name Order Date COLONOSCOPY 03/05/2024 Next Appt Details Follow Up: prn, Reason: Provider Name:Boom Mclaughlin , 06/26/2024 08:30:00 AM, [address] [place] [address], [phone], Progress Notes * ROGELIO LOPEZLAKESHADOB:1960 ( 64 yo F)Acc No.[id number]:03/05/2024 Progress Notes Patient:?LIZA LOPEZ Provider:?Boom Mclaughlin MD :1960???Age:64 Y???Sex:Female D ate:03/05/2024 Address:[address] [place] [address] Pcp:Hyacinth Marquez MD Subjective: * Chief Complaints: * ???PATIENT PRESENTS TODAY FO R COLON SCREENING * HPI: ???incontinence:? I saw Liza in the office today for evaluation of colorectal cancer screening. ?I last saw Liza in December of 2018, at which time she underwent a negative screening colonoscopy. However, the exam was limited due a somewhat limited bowel prep. She has been feeling well other than some anxiety in relation to the relatively recent deaths of different family members. She enjoys a good appetite without any significant heartburn or dysphagia. Her bowel movements have been regular and without any signs of bleeding. She denies abdominal pain, jaundice, nor unintentional weight loss. She denies any known family history of colon cancer. * ROS:?General/Constitutional:?Change in appetite?denies.?Chills?denies.?Fatigue?denies.?Ophthalmologic:?Comments?all negative.?ENT:?Comments?all negative.?Respiratory:?hemoptysis?denies.?Cough?denies.?Cardiovascular:?Chest pain?denies.?Orthopnea?denies.?Gastrointestinal:?Comments?See HPI for details.?Genitourinary:?Hematuria?denies.?Dysuria?denies.?Musculoskeletal:?Painful joints?denies.?Weakness?denies.?Skin:?Itching?denies.?Rash?denies.?Neurologic:?Headache?denies.?Seizures?denies.?Psychiatric:?Comments?all negative.? * Medical History:? 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 * Family History:?Father: dece ased, diagnosed with HTN (hypertension).?Mother: , diagnosed with HTN (hypertension).? No colorectal cancer. * Social History:?Tobacco Use:?Tobacco Use/Smoking?Patient is a?nonsmoker.?Drugs/Alcohol:?Alcohol Screen?Did you have a drink containing alcohol in the past year??No,?Points?0,?Interpretation?Negative.?Miscellaneous:?Marital status: . 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 ???Nonsmoker; no sig alcohol. * Medications:?TakingLisinopri l 40 MG Tablet 1 tablet Orally Once a daySimvastatin 10 MG Tablet 1 tablet in the evening Orally Once a dayAspir-81 81 MG Tablet Delayed Release 1 tablet Orally Once a dayEscitalopram Oxalate 10 MG Tablet TAKE 1 TABLET BY MOUTH DAILY Oral hydroCHLOROthiazide 25 MG Tablet TAKE 1 TABLET BY MOUTH EVERY DAY Oral Taking Lisinopril 40 MG Tablet 1 tablet Orally Once a dayTaking Simvastatin 10 MG Tablet 1 tablet in the evening Orally Once a dayTaking Aspir-81 81 MG Tablet Delayed Release 1 tablet Orally Once a dayTaking Escitalopram Oxalate 10 MG Tablet TAKE 1 TABLET BY MOUTH DAILY Oral Taking hydroCHLOROthiazide 25 MG Tablet TAKE 1 TABLET BY MOUTH EVERY DAY Oral DiscontinuedPARoxetine HCl 20 MG Tablet 1 tablet in the morning Orally Once a dayMedication List reviewed and reconciled with the patientDiscontinued PARoxetine HCl 20 MG Tablet 1 tablet in the morning Orally Once a dayMedication List reviewed and reconciled with the patient * Allergies:?N.K.D.A.yes[Aller gies Verified] Objective: * Vitals:?Wt: 220 lbs, Ht: 68 in, BMI:33.45 Index, BP: 00/00 mm Hg. * Examination: ???General Examination: ?GENERAL APPEARANCE:?pleasant, well nourished, well developed, in no acute distress.?EYES:?sclera non-icteric.?ORAL CAVITY:?mucosa moist.?NECK/THYROID:?no cervical lymphadenopathy, neck supple.?SKIN:?nonjaundiced, no spider angiomata.?HEART:?S1, S2 normal.?LUNGS:?clear to auscultation bilaterally.?ABDOMEN:?normal bowel sounds, no guarding or rigidity, no guarding or rigidity, no masses palpable, soft, nontender, nondistended.?EXTREMITIES:?no edema.?NEUROLOGIC:?alert and oriented.? Assessment: * Assessment: 1.?Aspirin long-term use - Z 79.82 (Primary)?2.?Encounter for screening for malignant neoplasm of colon - Z12.11?3.?Preprocedural examination - Z01.818? Overall, Liza appears quite well. Although her [...] to keep you advised of her progress. Plan: * Treatment: Notes: Stop aspirin for 1 week before the colonoscopy Do not use any Hydrochlorothiaide the day before nor on the day of the colonoscopy?? * Procedure Codes:?3017F COLOR ECTAL CA SCREEN DOC [id number] TOBACCO NON-[id number] BP SCR NOT PRFRM REC REASON NOS * Preventive Medicine:? ??Counseling:?Care goal follow-up plan:?Above Normal BMI Follow-up?Giving encouragement to exercise,?BMI management provided?Yes.? ??Urinary Incontinence:?Urinary Incontinence?Assessment:?Absent,?Plan of care documented:?No, reason not specified.? ??Screenings:?Fall Risk Screening?Fall Risk Assessment:?No falls in the past year,?Screening:?No falls in the past year,?Assessment:?Not performed, no reason specified,?Plan of Care:?Not documented, no reason specified.? * Follow Up:?prn * * Sign off status: Completed true * Provider:?Boom Mclaughlin MD Date:? 024 Generated for Emir boyd/Lilian/Johnitting on:?06/12/2024 05:46 PM EST History and Physical Notes * HPI (History of Present Illness) Category Sub-Category Detail Notes Category Not es incontinence I saw Liza in the office today for evaluation of colorectal cancer screening. I last saw Liza in December of 2018, at which time she underwent a negative screening colonoscopy. However, the exam was limited due a somewhat limited bowel prep. She has been feeling well other than some anxiety in relation to the relatively recent deaths of different family members. She enjoys a good appetite without any significant heartburn or dysphagia. Her bowel movements have been regular and without any signs of bleeding. She denies abdominal pain, jaundice, nor unintentional weight loss. She denies any known family history of colon cancer. Examination Category Sub-Category Detail Notes Category Not es General Examination GENERAL APPEARANCE: pleasant , well [...]
--- OUTSIDE RECORDS SUMMARY | 2024-06-12 17:46 | XMS_ITS ---
Author Organization [facility] Address [address] [place] [address] Care Team Providers Care Manager Technical Services Name Role Phone Hyacinth Marquez Primary Care Provider UnavailNamrata Arrington Unavailable [phone] Deyvi Henley [phone] Marin Encounters Encounter Location Date Provider Diagnosis [facility] [address] [place] [address] 03/20/2024 Deyvi Henley Plan Of Treatment No Information Progress Notes * Liza [place] MDOB:1960 (64 yo F)Acc No.[id number]:03/20/2024 Progress Note Patient:Liza RUTLEDGE Provider:?Deyvi Henley DPM :1960???Age:64 Y???Sex:Female D ate:03/20/2024 Address:[address] [place], [place] [address], [place] Pcp:Hyacinth Marquez Subjective: * Chief Complaints: * [...] DPM Date:? 024 Generated for Printi ng/Faxing/eTransmitting on:?06/12/2024 05:46 PM EST
--- OUTSIDE RECORDS SUMMARY | 2024-06-12 17:46 | XMS_ITS ---
Author Organization [facility] Address [address] [place] [address] Care Team Providers Care Materials Engineer Name Role Phone Hyacinth Marquez Primary Care Provider UnavailNamrata Arrington [phone] Encounters Encounter Location Date Provider Diagnosis [facility] [address] [place] [address] 03/21/2024 Namrata Fernandez Plan Of Treatment No Information Progress Notes * Liza [place] MDOB:1960 (64 yo F)Acc No.[id number]:03/21/2024 Progress Note Patient:?FRANCESCA Liza Rahman Provider:?Namrata Fernandez DPM :1960???Age:64 Y???Sex:Female D ate:03/21/2024 Address:[address] [facility] [place] Pcp:Hyacinth Marquez Subjective: * Chief Complaints: * [...] DPM Date:?1 05/22/2023 Generated for Printi ng/Faxing/eTransmitting on:?06/12/2024 05:45 PM EST
[2024-06-24 13:59] VITALS: BMI 35.5
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
[2024-06-26 07:52] VITALS: BMI 36.0
[2024-06-26 08:14] VITALS: BP 129/81; PULSE 65; RESP 16; TEMP 36.3; O2SAT 97
[2024-06-26] MEDS: Lactated Ringers 1,000 ML 100 ML IVCONT (08:25)
[2024-06-26 10:07] VITALS: BP 104/68; PULSE 64; RESP 16; TEMP 36.6; O2SAT 97
--- NOTE | 2024-06-26 10:09 | P.BOP_ITS ---
Brief Operative Note Date of Service: 06/26/24 Pre-op diagnosis: Screening Post-op diagnosis: other (Polyp) Procedure: Colonoscopy to the cecum and TI with hot snare polypectomy x 1 Surgeon: Boom Mclaughlin MD Anesthesia: MAC Was an Pharmacy Retail Support Specialist used for this Procedure?: No Estimated blood loss (mL): 0 Pathology: other (A. Transverse colon polyp) Condition: stable Disposition: PACU
[2024-06-26 10:20] VITALS: BP 142/77; PULSE 59; RESP 16; O2SAT 97
--- NOTE | 2024-06-26 10:30 | OP_ITS ---
DATE OF SERVICE: 06/26/2024 SURGEON: Boom Mclaughlin MD INDICATIONS: The patient presents for evaluation of colorectal cancer screening. Full consent has been obtained from her for this, including risks of bleeding and perforation. PREOPERATIVE DIAGNOSIS: Colorectal cancer screening. POSTOPERATIVE DIAGNOSIS: PROCEDURE PERFORMED: Colonoscopy to the cecum and terminal ileum with hot snare polypectomy x1. ESTIMATED BLOOD LOSS: COMPLICATIONS: ANESTHESIA: Medication used, monitored anesthesia care. ASSISTANTS: SPECIMENS: POSTOPERATIVE DIAGNOSES: Colorectal cancer screening, colon polyp, diverticulosis, and internal hemorrhoids. DESCRIPTION OF PROCEDURE: The patient was placed in left lateral decubitus position. The digital rectal exam revealed external hemorrhoids. The Olympus video pediatric colonoscope was entered into the rectum and advanced easily to the cecum. Once in the cecum, I did identify normal-appearing cecal pouch with appendiceal orifice and a normal-appearing ileocecal valve. The terminal ileum was cannulated and appeared normal. The scope was withdrawn back in the colon. The entire cecum and ileocecal valve appeared normal. The scope was slowly withdrawn assessing all mucosal surfaces carefully. Preparation was excellent after her 2-day prep. In what appeared to be the proximal portion of the transverse colon was a flat, but slightly raised polyp measuring about 10 to 12 mm. This was removed by hot snare polypectomy and recovered by suction. The polypectomy site appeared clean, without any sign of residual polyp nor bleeding. I did not visualize any other polyps, colitis, nor angiodysplasia. There was a mild amount of sigmoid diverticulosis. In the rectum, scope was retroflexed visualizing internal hemorrhoids, but no other pathology. The rectal mucosa appeared normal. The scope was straightened and withdrawn from the patient. She tolerated the procedure well and was returned to the recovery area in stable condition. IMPRESSION: 1. Colon polyp. 2. Diverticulosis. 3. Internal and external hemorrhoids. PLAN: The results of the pathology will be checked. If this is a tubular adenoma and/or a serrated polyp, I would recommend a repeat colonoscopy within 5 years. If it is only hyperplastic tissue, I would recommend a followup coloscopy in 10 years. She was advised not to use any aspirin and NSAIDs for 1 week. This has been discussed with her . MD EARL Padilla/MAREL / [id number]
== END 2024-06-26 10:52 | disposition home or self-care (01) ==
PROVIDERS: PCP Internal Medicine; Visit Provider Internal Medicine
PROC: 0DJD8ZZ Inspection of Lower Intestinal Tract, Via Natural or Artificial Opening Endoscopic (ICD-10-PCS; CPT 45378; principal; 2024-06-26 08:30)
DX: Z12.11 Encounter for screening for malignant neoplasm of colon (principal); D12.3 Benign neoplasm of transverse colon; K57.30 Diverticulosis of large intestine without perforation or abscess without bleeding; K64.8 Other hemorrhoids; K64.4 Residual hemorrhoidal skin tags; G47.33 Obstructive sleep apnea (adult) (pediatric); I10 Essential (primary) hypertension; E78.5 Hyperlipidemia, unspecified; F41.9 Anxiety disorder, unspecified; Z79.82 Long term (current) use of aspirin; Z79.899 Other long term (current) drug therapy; Z98.890 Other specified postprocedural states
CPT/HCPCS: 45385; 88305; J2003; J2704

== ENCOUNTER 2024-08-06 07:56 | Outpatient (AMB) | payer MEDICARE, OTHER, SELFPAY ==
[2024-08-06 07:58] VITALS: BP 158/84; PULSE 70; O2SAT 97; BMI 36.8
--- NOTE | 2024-08-06 07:58 | MHC.OFFVIS ---
Vital Signs 08/06/24 07:58 Height 5 ft 6 in Weight 228 lb BMI 36.8 BP 158/84 H Blood Pressure Location Rt brachial Position Sitting Pulse 70 Pulse Source Pulse Oximeter Pulse Oximetry (%) 97 Oxygen Delivery Method Room Air Intake Visit Reasons: follow up Intake Note: Patient Presents follow up TADEO. Compliance in chart(86/90days, >=4hrs 83days, Median-11.7, AHI-1.6) Allergies No Known Allergies [No Known Allergies*] Allergy (Verified 08/06/24 08:01) HPI Comments Details: 64 y/o female comes for further management of Obstructive sleep apnea. She was diagnosed with severe sleep apnea AHI 48 O2 odalys 80%. She was started on AutoPAP 5-20 cm of water. Pancreatic Duct dilation, and NAFLD, she is being followed by PCP. She just got a new machine 2 weeks ago and is doing much better with the pressures as they are better now and she is using it daily. She goes to bed at 11am gets up at 7am, and has 1 bathroom break. Her sleep is more refreshing now, we reviewed compliance today. She denies morning headaches and muscle strains, or spasms in the neck. She has some nocturnal leg cramps especially when she is on her feet a lot and uses 2 ibuprofens occasionally as needed. She denies any restless legs. She denies nocturia. She denies morning headaches. Mood, diet, and memory is good, she is struggling to lose weight, she is enjoying all the sports with her grandkids. Today her BP is elevated as she forgot to take her meds, however it is usually good around 118/84, she monitors it at home. She washes her mask, changes hoses, filters and fills the reservoir with water as needed. [facility] Medical History Obstructive sleep apnea hypopnea, severe Varicose veins of right lower extremity with inflammation Obstructive sleep apnea (adult) (pediatric) Viral upper respiratory illness Witnessed apneic spells Lumbar spondylosis Preop exam for internal medicine Sinusitis Constipation Finger pain Knee pain, left Annual physical exam Low back pain COVID-19 virus infection Cervicalgia Osteoarthritis Pulmonary valve stenosis Factor 5 Leiden mutation, heterozygous Hypercholesterolemia Vitamin D deficiency Left renal stone Overweight (BMI 25.0-29.9) Anxiety and depression Hypertension Surgical History H/O colonoscopy Hx of total knee arthroplasty History of shoulder surgery Hx of breast reduction, elective Hx of right knee surgery Strabismus S/P PASCALE-BSO Peripheral vascular disease Family History Father Lung cancer Mother COPD (chronic obstructive pulmonary disease) CVD (cardiovascular disease) AAA (abdominal aortic aneurysm) Brother Diabetes Sister Acute CVA (cerebrovascular accident) Daughter Thyroid cancer Social History Housing: House Are you a primary farm or ranch animal caretaker to a significant other at home: No Do you presently have visiting nurse or other home services: No Alcohol intake: never Patient Tobacco Use Status: Never used Tobacco Tobacco use type: Cigarette e-Cigarette/Vaping Use: Never Used Second Hand Smoke Exposure: No service: No Current occupational status: retired Cognitive needs: No Hearing needs: No Vision needs: Yes (glasses) Physical Exam Vital Signs: Last Vital Signs Pulse 70 08/06/24 07:58 BP 158/84 H 08/06/24 07:58 Pulse Ox 97 08/06/24 07:58 Oxygen Delivery Method Room Air 08/06/24 07:58 BMI result Body Mass Index 36.8 Const General: cooperative, comfortable and no acute distress Nutritional Appearance: obese Orientation/consciousness: patient oriented x3 Eyes Pupils: Equal, round and reactive pupils present Neuro Other: strabismus Mallampatti grade 4 General: patient oriented x3, tone normal, moves all extremities and no focal motor deficits Cranial nerves: Yes Facial sensation intact/muscles of mastication intact, Yes Equal, round and reactive pupils present, Yes Nystagmus not present, Yes Normal facial strength present, Yes Midline tongue present, Yes Symmetric palate elevation present and Yes Ability to bilaterally elevate shoulders present Cognition (Neuro): normal cognition Gait exam (Neuro): Normal gait present Motor exam (neuro): 5/5 motor strength present throughout and Normal motor muscle tone present throughout Deep tendon reflexes (DTR's): Right triceps reflex intensity grade: 2+, Left triceps reflex intensity grade: 2+, Rt Biceps (C5, C6): 2+, Left biceps reflex intensity grade: 2+, Right brachioradialis reflex intensity grade: 2+, Left brachioradialis reflex intensity grade: 2+, Right patellar reflex intensity grade: 2+ and Left patellar reflex intensity grade: 2+ Coordination: [id number] test normal Psych Appearance: grossly normal Attitude: cooperative Thought process: Normal thought process present Thought content: Normal thought content present Results Reviewed Results Reviewed: IMPRESSION: 1. Simple 1.5 cm cyst of the left kidney. Adjacent 1 cm cystic lesion is nonspecific and likely site of the previous hemorrhage. No enhancing soft tissue renal mass at this time. 2. Steatotic change of the liver. No liver mass. 3. Borderline enlargement of the main pancreatic duct. Without associated or defined pancreatic mass by MRI. TADEO Compliance 04/26/2024-07/24/2024 Avg use 87/90 days and 97% >4 hour 85days and 94% Avg total days 7hours and 58min APAP [id number] Press 11.6 to 18.5cmH20 Leaks 0-49.0 AHI 1.6cmH20 Assessment & Plan Assessment & Plan (1) Obstructive sleep apnea hypopnea, severe: Code(s): G47.33 - Obstructive sleep apnea (adult) (pediatric) Category: Medical (2) Cervicalgia: Code(s): M54.2 - Cervicalgia Category: Medical (3) Leg cramps, sleep related: Code(s): G47.62 - Sleep related leg cramps Category: Medical Plan TADEO - Compliance reviewed with patient today. She feels refreshed in the morning. Patient Education Sleep Hygiene as she has HTN and it is managed on HCTZ and Lisinopril. Anxiety, takes lexapro and mood is improved. Nocturnal leg cramps, will monitor start magnesium 400mg PO daily at bedtime. F/U in 6 months for compliance. Patient Instructions: Patient Education: Use CPAP therapy as directed accordingly for a minimum of 4-6 hours per night. Each sleep cycle is 90 min. N1, N2, N3 and REM, thus cycling through these 4 phases reaching REM allows the Hypothalamus signals to the Pituitary gland to release GNRH, GHRH, TSH, CRH etc. for growth tissue repair, mood and immunity. If you experience any difficulties with your machine reach out to your cpap provider, and or [facility] for replacements, adjustments of masks, or pressure settings. Download the [employer] jennifer to monitor your own sleep cycle nightly. Write down your questions and lets discuss them. Wash the mask daily,replace hoses, change filters, fill your reservoir with distilled water as needed. Monitor for bp changes at home, and nocturnal leg spasms, neck pains, using a cervical neck pillow may be supportive for the c-spine. Coding Level of Care Code Est Pt Level 4 (06935) Diagnoses Obstructive sleep apnea hypopnea, severe G47.33 Cervicalgia M54.2 Leg cramps, sleep related G47.62 Time Spent (min) 30
--- OUTSIDE RECORDS SUMMARY | 2024-08-06 08:00 | XMS_ITS ---
Author Organization [facility] Address [address] [place] [address] Care Team Providers Care Hosiery Bagger Name Role Phone JimmyHyacinth Primary Care Provider UnavailGraeme Rodríguez Unavailable [phone] REASON FOR VISIT eClinicalMobile: ePrescription Medications Medication SIG (Take, Route, Fr equency, Duration) Notes Start Date End Date Status Cephalexin 500 MG 1 capsule Orally 4 t imes a day for 10 day(s) 07/14/2024 Active Encounters Encounter Location Date Provider Diagnosis [facility] [address] [place] [address] 07/14/2024 Graeme Padilla Plan Of Treatment Medication Medication Name Sig Start Date Stop Date Notes Cephalexin 500 MG 1 capsule Orally 4 t imes a day for 10 day(s) 07/14/2024 Progress Notes * Liza [place] MDOB:1960 (64 yo F)Acc No.[id number]:07/14/2024 Patient:?Liza AM :1960???Age:64 Y???Sex:Female Address:[address] [place], [address] * Refills? Start Cephalexin Capsule, 500 MG, Orally, 40 Capsule, 1 capsule, 4 times a day, 10 day(s), Refills=0 * true * Date:? Generated for Printi ng/Faxing/eTransmitting on:?08/06/2024 08:00 AM EDT
--- OUTSIDE RECORDS SUMMARY | 2024-08-06 08:00 | XMS_ITS ---
Author Organization [facility] Address [address] [place] [address] Care Team Providers Care Driver Sales Name Role Phone JimmyShannontammy Primary Care Provider UnavailGraeme Rodríguez [phone] REASON FOR VISIT Redness, swelling after nail matricectomy Encounters Encounter Location Date Provider Diagnosis [facility] [address] [place] [address] 07/14/2024 Graeme Padilla Plan Of Treatment No Information Progress Notes * Liza [place] MDOB:1960 (64 yo F)Acc No.[id number]:07/14/2024 Patient:?Liza MA :1960???Age:64 Y???Sex:Female Address:[address] [place], [address] * true * Date:? Generated for Printi ng/Fajulio cg/eTransmitting on:?08/06/2024 08:00 AM EDT
--- OUTSIDE RECORDS SUMMARY | 2024-08-06 08:00 | XMS_ITS | Patient Health Record ---
Author Organization [facility] Address [address] [place] [address] Care Team Providers Care Confectionery Cooker Name Role Phone Hyacinth Marquez Primary Care Provider UnavailGraeme Rodríguez Unavailable [phone] Deyvi Henley Unavailable [phone] Namrata Fernandez Unavailable [phone] Allergies No Known Allergies Reason For Referral No Information Medications Medication SIG (Take, Route, Frequency, Duration) Notes Start Date End Date Status Vitamin D3 Not-Takin g hydroCHLOROthiazide 25 MG 1 tablet in th [...] Once a day for 30 day(s) Active PARoxetine HCl 20 MG 1 tablet in the morning Orally Once a day for 30 day(s) Not-Taking Cephalexin 500 MG 1 capsule Orally 4 times a day for 10 day(s) 07/14/2024 Active Doxycycline Hyclate 100 MG 1 capsule Ora lly Once a day for 10 day(s) 07/13/2022 Not-Taking Physical Therapy . . . 2-3x/week for 3- 4 weeks 06/15/2023 Not-Taking Immunizations Vaccine Route Administration Date Status Comme nts COVID-19 Moderna Vaccine Unknown 03/01/2021 Administered First Dose: 06/14/20 Second Dose:07/12/20 Social History Tobacco Use: Social History Observation Description Date Details (start date - stop date) Never Smoker NA - NA Tobacco use other than smoking: Question Answer Notes Are you an other tobacco user? No Tobacco Control (Standard) Question Answer Notes Tobacco use: Nonsmoker Additional Findings: Tobacco non-user Current no nsmoker AUDIT-C (Standard) Question Answer Notes Did you have a drink containing alcohol in the p ast year? No Points 0 Interpretation Negative Vital Signs Blood pressure diastolic 70 mm Hg 07/16/2024 Height 5ft 6in in 07/16/2024 Blood pressure systolic 120 mm Hg 07/16/2024 Weight 225 lbs 07/16/2024 BMI 36.31 kg/m2 07/16/2024 Procedures Procedure Date Ordered Date Performed Result Body Sit e [id number] 07/04/2024 N/A [id number] SKIN/TISSUE 07/16/2024 N/A Encounters Encounter Location Date [facility] [address] [facility] [address] [place] [address] 07/04/2024 Graeme Skinnerier Ingrown nail L60.[address] [facility] [address] 07/16/2024 Graeme Randy Skin ulcer of toe of right foot with fat layer [facility] [address] 07/14/2024 Graeme Padilla [address] [address] 07/14/2024 Graeme Padilla Assessments Encounter Date Diagnosis (ICD Code) Assessment Notes Treatment Notes Treatment Clinical Notes Section Notes 07/04/2024 Ingrown nail (ICD-10 - L60.0) 07/16/2024 Skin ulcer of toe of right foot with fat layer exposed (ICD-10 - L97.512) Patient Educated with: WOUND CARE INSTRUCTIONS.p df (WOUND CARE INSTRUCTIONS.p df) 07/16/2024 Other Plan Of Treatment Pending Test Test Name Order Date X ray : Foot, left 3V 04/14/2021 X ray : Foot, left 3V 06/15/2023 X ray : Foot, right 3V 04/14/2021 [id number] 07/04/2024 [id number] SKIN/TISSUE 07/16/2024 Insurance Providers Payer Name Payer Address Payer Phone Subscriber Number Group Number Insured Name Patient Relationship to Insured Coverage Start Date Coverage End Date [employer] [address] [place] [address] [id number] Liza Ma Self - patient is the insured [facility] [address] [place] [address] [id number] Liza Ma Self - patient is the insured Medical (General) History Medical History History ICD Code Arthritis Back,Hip,and Knee pain Cancer covid-19 High blood pressure Rheumatic fever Measles Mumps Chicken pox Hypercholesterolemia Surgical History Surgery Date(Month/Year) rotator cuff tear repair Meniscus repair hysterectomy oral surgery cancer eye surgery left knee replacement 09/2021 wisdom teeth extraction
--- OUTSIDE RECORDS SUMMARY | 2024-08-06 08:00 | XMS_ITS ---
Author Organization [facility] Address [address] [place] [address] Care Team Providers Care Provider Relations Advocate Name Role Phone JimmyCatyvandana Primary Care Provider UnavailGraeme Rodríguez Unavailable [phone] Allergies No Known Allergies REASON FOR VISIT Open sore - Toe Medications Medication SIG (Take, Route, Frequency, Duration) [...] 2-3x/week for 3- 4 weeks 06/15/2023 Not-Taking Social History Tobacco Use: Social History Observation [...] No Points 0 Interpretation Negative Vital Signs Height 5ft 6in in 07/16/2024 Weight 225 lbs 07/16/2024 BMI 36.31 kg/m2 07/16/2024 Blood pressure systolic 120 mm Hg 07/17/19 25 Blood pressure diastolic 70 mm Hg 025 Procedures Procedure Date Ordered Date Performed Result Body Sit e 53699-PKBBZTG SKIN/TISSUE 07/16/2024 N/A Encounters Encounter Location Date Provider Diagnosis [facility] [place] [address] [place] [address] 07/16/2024 Graeme Padilla Skin ulcer of toe of right foot with fat layer exposed L97.512 Assessments Encounter Date Diagnosis (ICD Code) Assessment Notes Treatment Notes Treatment Clinical Notes Section Notes 07/16/2024 Skin ulcer of toe of right foot with fat layer exposed (ICD-10 - L97.512) Patient Educated with: WOUND CARE INSTRUCTIONS.p df (WOUND CARE INSTRUCTIONS.p df) 07/16/2024 Other Plan Of Treatment Treatment Notes Assessment Notes Skin ulcer of toe of right f oot with fat layer exposed Patient Educated with: WOUND CARE INSTRUCTIONS.pdf (WOUND CARE INSTRUCTIONS.pdf) Pending Test Test Name Order Date 31500-DVXPOCO SKIN/TISSUE 07/16/2024 Next Appt Details Follow Up: prn, Reason: Procedure Notes * Category Sub-Category Detail Notes Debride skin and subQ Open wound Physician of record performed open wound selective debridement of devitalized necrotic/nonviable soft tissue, fibrin, exudate, epidermis, dermis, thru skin and subcutaneous fat tissue, first 20 sq cm or less, using sharp dissection with sterile 15 blade, and/or tissue nippers. ANESTHESIA- was accomplished TOPICALLY with Lidocaine Hydrochloride Jelly 2 percent, Sterile antibiotic dressing applied. Hemostasis was controlled through direct pressure. Post debridement measurements: 5mm x 5mm x 3mm. Character of the wound post debriement is stable (39148) Progress Notes * Liza MA MDOB:1960 (64 yo F)Acc No.[id number]:07/16/2024 Progress Notes Patient:?Liza MA M Provider:?Graeme Padilla DPM :1960???Age:64 Y???Sex:Female D ate:07/16/2024 Address:[address] [place] Pcp:Hyacinth Marquez Subjective: * Chief Complaints: * ???Open sore - Toe * HPI: ???Skin problems:?Nature:?Open sore.?Treatments:?Topical abx, soaks, medication ( Keflex for possible infection).? * ROS:?General/Constitutional:?Nausea?denies.?Vomiting?denies.?Hunger Thirst?denies.?Loss appetite?denies.?Chills?denies.?Fatigue?denies.?Fever?denies.?Night Sweats?denies.?Unexplained weight loss?denies.?Unexplained weight gain?denies.?HEENTM:?Dentures?denies.?Dizziness?denies.?Glasses/contacts?admits.?Retinopathy?de nies.?Blurred/double vision?denies.?TMJ?denies.?Discharge/drainage?denies.?Implants?denies.?Sore throat?denies.?Dental implants?denies.?Hard of hearing ?denies.?Difficulty chewing/swallowing/speaking?denies.?Nose bleeds?denies.?Sore mouth?denies.?Respiratory:?On Oxygen?denies.?Pneumonia/pleurisy?denies.?Bronchitis?denies.?Emphysema?denies.?C oughing?denies.?Cough blood?denies.?Shortness of breath?denies.?Wheezing?denies.?Cardiovascular:?Pacemaker?denies.?MVP?denies.?WPW?denies.?CHF?denies.?Heart attack?denies.?Septal defect?denies.?Rapid beat?denies.?Chest pain ?denies.?Atrial Fib.?denies.?Murmur/Palpitations?admits.?Gastrointestinal:?Hemorrhoids?denies.?Stomach/Abdominal pain?denies.?Dark blood stool?denies.?Irritable bowel ?denies.?Constipation?denies.?Diarrhea?denies.?Hematology:?Swelling?denies.?Clots?denies.?Varicose Veins?admits.?Bruising?denies.?Bleeding problem?denies.?Genitourinary:?Blood urine?denies.?Frequent/Painfu/urination/bladder control?denies.?Kidney stones?denies.?Infection (UTI)?denies.?Nephropathy?denies.?sex trans dis (STD)?denies.?Prostate?denies.?Musculoskeletal:?Hammertoes?denies.?Bunions?denies.?Back Pain?admits.?Muscle Cramps/ Resting?admits.?Muscle cramps / walking?denies.?Generalized aches and pains?admits.?Weakness?denies.?Integ.:?Mcneil?denies.?Scars?denies.?Corns/calluses?denies.?Ingrown nails?admits.?Painful nails?admits.?Open Sores?denies.?Rashes?denies.?Neurologic:?Difficulty sleeping?denies.?Brain disorder?denies.?Numbness?denies.?Balance trouble?denies.?Confusion?denies.?Fainting/blackouts?denies.?Tingling?denies.?Tr emors?denies.? * Medical History:? * Surgical History:?rotator cu ff tear repair Meniscus repair hysterectomy oral surgery cancer eye surgery left knee replacement 09/2021wisdom teeth extraction * Hospitalization/Major Diagno stic Procedure:?Denies Past Hospitalization * Family History:?Mother: dece ased, diagnosed with Unspecified essential hypertension, Family history of arthritis.?Father: .?Siblings: diagnosed with Diabetic - NIDDM, Unspecified essential hypertension, Unspecified cerebral artery occlusion with cerebral infarction.? * Social History:?Tobacco Use:?Tobacco use other than smoking?Are you an other tobacco user??No ?Tobacco Control (Standard)?Tobacco use:?Nonsmoker ?Additional Findings: Tobacco non-user?Current nonsmoker ???Drugs/Alcohol:?Drugs?Have you used drugs other than those for medical reasons in the past 12 months??No ???Drug/Alcohol:?AUDIT-C (Standard)?Did you have a drink containing alcohol in the past year??No ?Points?0 ?Interpretation?Negative * Medications:?TakingLexapro 1 0 MG Tablet 1 tablet Orally Once a day hydroCHLOROthiazide 25 MG Tablet 1 tablet in the morning Orally Once a day Aspirin 81 MG Tablet Chewable 1 tablet Orally Once a day Lisinopril 40 MG Tablet 1 tablet Orally Once a day Simvastatin 10 MG Tablet 1 tablet in the evening Orally Once a day Cephalexin 500 MG Capsule 1 capsule Orally 4 times a day Taking Lexapro 10 MG Tablet 1 tablet Orally Once a day Taking hydroCHLOROthiazide 25 MG Tablet 1 tablet in the morning Orally Once a day Taking Aspirin 81 MG Tablet Chewable 1 tablet Orally Once a day Taking Lisinopril 40 MG Tablet 1 tablet Orally Once a day Taking Simvastatin 10 MG Tablet 1 tablet in the evening Orally Once a day Taking Cephalexin 500 MG Capsule 1 capsule Orally 4 times a day Not-Taking/PRNPARoxetine HCl 20 MG Tablet 1 tablet in the morning Orally Once a day Physical Therapy . . . . 2-3x/week Doxycycline Hyclate 100 MG Capsule 1 capsule Orally Once a day Vitamin D3 Medication List reviewed and reconciled with the patientNot-Taking/PRN PARoxetine HCl 20 MG Tablet 1 tablet in the morning Orally Once a day Not-Taking/PRN Physical Therapy . . . . 2-3x/week Not-Taking/PRN Doxycycline Hyclate 100 MG Capsule 1 capsule Orally Once a day Not-Taking/PRN Vitamin D3 Medication List reviewed and reconciled with the patient * Allergies:?N.K.D.A.yes[Aller gies Verified] Objective: * Vitals:?Ht:5ft 6in, Wt:225, BMI:36.31, Shoe size:10-10.5, BP:120/70mm Hg, Ht-cm: 167.64 cm, Wt-k.06 kg. * Examination: ???Dermatologic: ?ULCER:? LOCATION, Dorsal,T6, SIZE, 5mm X 5mm X 2-3mm, BASE, fibro- granular, RIM, hyperkeratotic, UNDERMINING, mild, TRACKING, Sub Q with Fat layer exposed, DRAINAGE, serosanguineous, moderate, NECROTIC TISSUE, loosely-adherent, yellow slough, MALODOR, absent, CALOR, trace, ERYTHEMA, trace.? Assessment: * Assessment: 1.?Skin ulcer of toe of righ t foot with fat layer exposed - L97.512 (Primary)??? Plan: * Treatment: * Procedures:?Debride skin and subQ:?Open wound?Physician of record performed open wound selective debridement of devitalized necrotic/nonviable soft tissue, fibrin, exudate, epidermis, dermis, thru skin and subcutaneous fat tissue, first 20 sq cm or less, using sharp dissection with sterile 15 blade, and/or tissue nippers. ANESTHESIA- was accomplished TOPICALLY with Lidocaine Hydrochloride Jelly 2 percent, Sterile antibiotic dressing applied. Hemostasis was controlled through direct pressure. Post debridement measurements: 5mm x 5mm x 3mm. Character of the wound post debriement is stable (05883).? * Procedure Codes:?49797 DEBRI DE SKIN/TISSUE * Preventive Medicine:? ??Counseling:?Ulcer:?A detailed plan of care was reviewed with the patient. We emphasized the fact that the patient takes on an active participating role in the treatment process and emphasized to them that they are an included, valued, and important member of the wound healing team in order to reach an expedient successful outcome. The patient agreed to follow their medically recommended diet while increasing their protein intake if safely able to do so, maintain proper bodily hydaration, abide by weight-bearing restrictions at all times, quit all current smoking habits if any, and diligently follow any/all dressing change instructions. It was clearly made known to the patient that if they fail to do their part, they will likely extend their course of treatment as well as possibly increase their risk of adverse events including amputation. The patient was instructed on importance of proper wound care consisting of pressure reduction, and proper maintainance of a moist wound environment. The patient is to cleanse the wound with warm soapy water/peroxide/saline, or betadine BID based on product availability. The patient is to apply ( Neosporin, Polysporin, or Triple, ) Antibiotic to the wound and cover with a DSD as directed. The patient was instructed to change dressings according to orders, or PRN saturation, leaks. The patient was instructed to monitor and report any signs or symptoms of infection or any untoward reactions. Precautions Taken: Offloading/Pressure reduction via rest/ limited activity to essential to daily life only, shoe modification, accommodative padding, sharp debridement, and take/apply medication as directed. THE GOALS of wound debridement to remove devitilized tissue, decrease risk for infection, promote wound healing and prevent further complication were discussed/reviewed. Debridement frequency as indicated, Given recent successful results to treatment, The patient is to cont the local wound care as directed till completely healed.? * Follow Up:?prn * Images: * Sign off status: Completed true * Provider:?Graeme Padilla DPM Date:?2024 Generated for Emir boyd/Lilian/Batsheva on:?08/06/2024 08:00 AM EDT History and Physical Notes * HPI (History of Present Illness) Category Sub-Category Detail Notes Category Not es Skin problems Nature: Open sore Treatments: Topical abx, soaks, medication ( Keflex for possible infection) Examination Category Sub-Category Detail Notes Category Not es Dermatologic ULCER: LOCATION, Dorsal ,T6, SIZE, 5mm X 5mm X 2-3mm, BASE, fibro-granular, RIM, hyperkeratotic, UNDERMINING, mild, TRACKING, Sub Q with Fat layer exposed, DRAINAGE, serosanguineous, moderate, NECROTIC TISSUE, loosely-adherent, yellow slough, MALODOR, absent, CALOR, trace, ERYTHEMA, trace
== END 2024-08-06 08:30 | disposition home or self-care (01) ==
LOC: HO.HSMS 07:57
PROVIDERS: PCP Internal Medicine; Visit Provider Physician Assistant Medical
DX: G47.33 Obstructive sleep apnea (adult) (pediatric) (principal); M54.2 Cervicalgia; G47.62 Sleep related leg cramps
CPT/HCPCS: 99214

== ENCOUNTER → 2024-08-06 07:56 | Outpatient (BNVA) | payer MEDICARE, OTHER, SELFPAY | PROVIDERS: PCP Internal Medicine; Visit Provider Physician Assistant Medical | DX: G47.33 Obstructive sleep apnea (adult) (pediatric) (principal); G47.62 Sleep related leg cramps; M54.2 Cervicalgia; Z99.89 Dependence on other enabling machines and devices | CPT/HCPCS: 99212 ==

== ENCOUNTER 2024-08-14 09:09 | Outpatient (REF) | payer MEDICARE, OTHER, SELFPAY ==
--- OUTSIDE RECORDS SUMMARY | 2024-08-09 15:38 | XMS_ITS ---
Author Organization [facility] Address [address] [place] [address] Care Team Providers Care Television Tube Inspector Name Role Phone JimmyHyacinth Primary Care Provider UnavailGraeme Rodríguez Unavailable [phone] REASON FOR VISIT eClinicalMobile: ePrescription Medications Medication SIG (Take, Route, Fr equency, Duration) Notes Start Date End Date Status Cephalexin 500 MG 1 capsule Orally 4 t imes a day for 10 day(s) 07/14/2024 Active Encounters Encounter Location Date Provider Diagnosis [facility] [address] [place] [address] 07/14/2024 Graeme Padilla Plan Of Treatment Medication Medication Name Sig Start Date Stop Date Notes Cephalexin 500 MG 1 capsule Orally 4 t imes a day for 10 day(s) 07/14/2024 Progress Notes * Liza [place] MDOB:1960 (64 yo F)Acc No.[id number]:07/14/2024 Patient:?Liza MA :1960???Age:64 Y???Sex:Female Address:[address] [place], [address] * Refills? Start Cephalexin Capsule, 500 MG, Orally, 40 Capsule, 1 capsule, 4 times a day, 10 day(s), Refills=0 * true * Date:? Generated for Printi ng/Fajulio cg/eTransmitting on:?08/09/2024 03:37 PM EDT
--- OUTSIDE RECORDS SUMMARY | 2024-08-09 15:38 | XMS_ITS ---
Author Organization [facility] Address [address] [place] [address] [place] [address] Care Team Providers Care Jewel Corner Brushing Machine Operator Name Role Phone Hyacinth Maqruez MD Primary Care Provider Boom Snow [phone] REASON FOR VISIT screening Encounters Encounter Location Date Provider Diagnosis [facility] [place] [address] [place] [phone] 06/26/2024 Boom Mclaughlin Colon cancer scree tavo [...] Provider Name:Boom Mclaughlin , 01/07/2025 09:30:00 AM, [address] [place] [address], [address], [place], [address], Progress Notes * RAOUL LOPEZDOB:1960 ( 64 yo F)Acc No.[id number]:06/26/2024 COLON WITH MAC Patient:?ROGELIO LOPEZNA Provider:?Boom Mclaughlin MD :1960???Age:64 Y???Sex:Female D ate:06/26/2024 Address:[address] [place], [place] [id number] Pcp:Hyacinth Marquez MD Subjective: * Chief Complaints: * ???1. Screening. * Medical History:? Objective: * Vitals:? Assessment: * Assessment: 1.?Colon cancer screening - Z12.11 (Primary)???2.?Colon polyps - K63.5???3.?Diverticulosis of large intestine without perforation or abscess without bleeding - K57.30???4.?Other hemorrhoids - K64.8???5.?External hemorrhoids - K64.4??? Plan: * Treatment: * Procedure Codes:?72155 LESIO N REMOVAL COLONOSCOPY, Modifiers: PT , 0529F INTRVL 3+YRS PTS CLNSCP DOCD, 0528F RCMND FLW-UP 10 YRS DOCD * * The named appointment provid er may or may not be the originator of this progress note, and it is not deemed complete until electronically signed by the appointment provider. Sign off status: Pending * Provider:?Boom Mclaughlin MD Date:? 025 Generated for Emir boyd/Lilian/eTlyndasmitting on:?08/09/2024 03:38 PM EDT
--- OUTSIDE RECORDS SUMMARY | 2024-08-09 15:38 | XMS_ITS ---
Author Organization [facility] Address [address] [place] [address] Care Team Providers Care Desk Lieutenant Name Role Phone JimmyShannontammy Primary Care Provider UnavailGraeme Rodríguez Unavailable [phone] REASON FOR VISIT Redness, swelling after nail matricectomy Encounters Encounter Location Date Provider Diagnosis [facility] [address] [place] [address] 07/14/2024 Graeme Padilla Plan Of Treatment No Information Progress Notes * Liza [place] MDOB:1960 (64 yo F)Acc No.[id number]:07/14/2024 Patient:?Liza MA :1960???Age:64 Y???Sex:Female Address:[address] [place], [address] * true * Date:? Generated for Printi oliver/Lilian/eTransmitting on:?08/09/2024 03:38 PM EDT
--- OUTSIDE RECORDS SUMMARY | 2024-08-09 15:38 | XMS_ITS | Patient Health Record ---
Author Organization [facility] Address [address] [place] [address] Care Team Providers Care Lunch Wagon Operator Name Role Phone Hyacinth Marquez MD Primary Care Provider Boom Snow [phone] Allergies No Known Allergies Results Component Value Reference Range Notes Pathology Reviewed date:08/09/2024 03:32:14 PM Interpretation: Performing Lab:, [address] [place] [phone] Notes/Report: Name: FrancescaLiza M Age/Sex: 64/F [facility] 1960 [id number] [id number] Attend Dr: Boom Mclaughlin MD Re06/26/24 Status : [facility] Location: [facility] Disch: SPEC : [id number] RECD : 06/26/24 STATUS: KRISTEL VALENTINO NUM: [id number] [place]: 06/26/24 [facility] DR: Boom Mclaughlin MD ENTERED: 06/26/24-02 13 SP TYPE: Surgical OTHR DR: Hyacinth Marquez MD ORDERED: HE Stain/3, Gross Micro L4 Diagnosis Colon, transverse, p olyp: Tubular adenoma; negative for high-grade dysplasia and carcinoma. Clinical History Pre-Op Dx: Encounter for screening for malignant neoplasm of colon Post-Op Dx: Polyp, diverticulosis, hemorrhoids Microscopic Description Microscopic sections reviewed. Material Received Transverse colon polyp Gross Description Received in formalin labeled ?transverse colon polyp? is a 0.3 cm white-pink papular tissue fragment, submitted in toto in a cassette labeled A. CEDS Copies To: Hyacinth Marquez MD [facility],[address] [place] [address] Boom Mclaughlin MD [facility] [address] [place] [address] Signed (si gnature on file) Darcie Nasir 06/27/24 1159 END OF REPORT Reason For Referral No Information Medications Medication SIG (Take, Route, Frequency, Duration) Notes Start Date End Date Status Escitalopram Oxalate 10 MG TAKE 1 TABLET BY MOUTH DAILY Oral for 90 Active hydroCHLOROthiazide 25 MG TAKE 1 TABLET BY MOUTH EVERY DAY Oral for 90 Active Simvastatin 10 MG 1 tablet in the even ing Orally Once a day for 30 day(s) Active Aspir-81 81 MG 1 tablet Orally Once a day for 30 day(s) Active Lisinopril 40 MG 1 tablet Orally Once a day for 30 day(s) Active Immunizations Vaccine Route Administration Date Status Comme nts Influenza Unknown 01/17/2018 Administered Influenza Unknown 01/23/2024 Administered Social History Tobacco Use: Social History Observation Description Date Details (start date - stop date) Never Smoker NA - NA Tobacco Use/Smoking Question Answer Notes Patient is a nonsmoker Alcohol Screen Question Answer Notes Did you have a drink containing alcohol in the p ast year? No Points 0 Interpretation Negative Section Notes: Nonsmoker; no sig alcohol Nonsmoker; no sig alcohol Nonsmoker; no sig alcohol Problems Problem Type SNOMED Code ICD Code Onset Dates Problem Status W/U Status Risk Notes Problem [id number] Encounter for screening for malignant neoplasm of colon (Z12.11) Active confirmed Problem Abnormal findings diagnostic imaging of liver and biliary tract (423562355) Abnormal CT scan, pancreas or bile duct (R93.2) Active confirmed Problem 404264839074175 Preprocedural examination (Z01.818) Active confirmed Problem Fatty liver (153692852) Fatty liver (K76.0) Active confirmed Problem Long-term current use of aspirin (982570918773485) Aspirin long-term use (Z79.82) Active confirmed Problem 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) Active confirmed Problem Imaging of abdomen abnormal (985716368) Abnormal MRI of abdomen (R93.5) Active confirmed Problem History of adenomatous polyp of colon (684417447) History of adenomatous polyp of colon (Z86.0101) Active confirmed Vital Signs Temperature 95.3 degrees Fahrenheit 08/09/2024 Blood pressure diastolic 01 mm Hg 08/09/2024 Height 68 in 08/09/2024 Blood pressure systolic 001 mm Hg 08/09/2024 Weight 226 lbs 08/09/2024 BMI 34.36 kg/m2 08/09/2024 Encounters Encounter Location Date Provider Diagnosis [facility] [address] [place], [place] [phone] 06/26/2024 Boom Mclaughlin Colon cancer screeni ng Z12.11 ; Colon polyps K63.5 ; Diverticulosis of large intestine without perforation or abscess without bleeding K57.30 ; Other hemorrhoids K64.8 and External hemorrhoids K64.4 [facility] [address] [place] [phone] 08/09/2024 Boom Mclaughlin Fatty liver K76.0 ; History of adenomatous polyp of colon Z86.0101 ; Abnormal MRI of abdomen R93.5 and Pancreatic ductal abnormality Q45.3 [facility] [address] [place] [phone] 03/05/2024 Boom Mclaughlin Encounter for screen ing for malignant neoplasm of colon Z12.11 ; Aspirin long-term use Z79.82 and Preprocedural examination Z01.818 [facility] [address] [place] [phone] 01/17/2024 Boom Mclaughlin Assessments Encounter Date Diagnosis (ICD Code) Assessment Notes Treatment Notes Treatment Clinical Notes Section Notes 06/26/2024 Colon cancer screening (ICD-10 - Z12.11) 06/26/2024 Colon polyps (ICD-10 - K63.5) 08/09/2024 Fatty liver (ICD-10 - K76.0) Watch diet, try to lose weight, and monitor the cholesterol to help with the fatty liver 08/09/2024 History of adenomatous polyp of colon (ICD-10 - Z86.0101) Repeat colonoscopy in 06/202903/05/2024 Encounter for screening for malignant neoplasm of [...] to keep you advised of her progress. 06/26/2024 Diverticulosis of large intestine without perforation or abscess without bleeding (ICD-10 - K57.30) 08/09/2024 Abnormal MRI of abdomen (ICD-10 - R93.5) 03/05/2024 Preprocedural examination (ICD-10 - Z01.818) Overall, [...] to keep you advised of her progress. 06/26/2024 Other hemorrhoids (ICD-10 - K64.8) 08/09/2024 Pancreatic ductal abnormality (ICD-10 - Q45.3) 06/26/2024 External hemorrhoids (ICD-10 - K64.4) Plan Of Treatment Pending Test Test Name Order Date LIVER PROFILE 08/09/2024 IRON + IBC (FE) 08/09/2024 CA 19-9 08/09/2024 FLUOR. ANTINUCLEAR AB SCREEN (ASAD) 05/2024 Ferritin 08/09/2024 Amylase 08/09/2024 Lipase 08/09/2024 Alpha 1 Anti-trypsin 08/09/2024 Liver Fibrosis Pnl 08/09/2024 Mitochondrial Antibody 08/09/2024 Smooth Muscle Antibody 08/09/2024 Hepatitis B,C Profile 08/09/2024 Future Test Test Name Order Date COLONOSCOPY 09/19/2018 COLONOSCOPY 03/05/2024 Next Appt Details Provider Name:Boom Josiah Mclaughlin , 01/07/2025 09:30:00 AM, [address] [place] [address], [address], [place], [address], Insurance Providers Payer Name Payer Address Payer Phone Subscriber Number Group Number Insured Name Patient Relationship to Insured Coverage Start Date Coverage End Date MEDICARE OF [place] [address] [place] [address] [id number] LIZA LOPEZ Self - patient is the insured [facility] [address] [place] [phone] [id number] LIZA LOPEZ Self - patient is the insured Medical (General) History Medical History History ICD Code Denies DC,DM,CVA,Lung disease,renal dise ase Hypertension Hyperlipidemia Anxiety Neg. screening colonoscopy in 03/2009 Neg. 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
--- OUTSIDE RECORDS SUMMARY | 2024-08-09 15:38 | XMS_ITS ---
Author Organization [facility] Address [address] [place] [address] Care Team Providers Care Director Of Mechanical Engineering Name Role Phone JimmyCatyvandana Primary Care Provider UnavailGraeme Rodríguez Unavailable [phone] Allergies No Known Allergies REASON FOR VISIT [...] Ordered Date Performed Result Body Sit e 50580-LHCIWCQ SKIN/TISSUE 07/16/2024 N/A Encounters Encounter Location Date Provider Diagnosis [facility] [place] [address] [place] [address] 07/16/2024 Graeme Padilla Skin ulcer of toe [...] INSTRUCTIONS.pdf) Pending Test Test Name Order Date 91438-SAEIMFM SKIN/TISSUE 07/16/2024 Next Appt Details Follow Up: [...] of the wound post debriement is stable (00605) Progress Notes * Liza MA MDOB:1960 (64 yo F)Acc No.[id number]:07/16/2024 Progress Notes Patient:?Liza MA M Provider:?Graeme Padilla DPM :1960???Age:64 Y???Sex:Female D ate:07/16/2024 Address:[address] [place] Pcp:Hyacinth Marquez Subjective: * Chief Complaints: * [...] of the wound post debriement is stable (73752).? * Procedure Codes:?26007 DEBRI DE SKIN/TISSUE * Preventive Medicine:? ??Counseling:?Ulcer:?A [...] Padilla DPM Date:?2024 Generated for Emir boyd/Lilian/Batsheva on:?08/09/2024 03:38 PM EDT History and Physical Notes * HPI [...]
--- OUTSIDE RECORDS SUMMARY | 2024-08-09 15:39 | XMS_ITS ---
Author Organization [facility] Address [address] [place] [address] Care Team Providers Care Metal Die Finisher Name Role Phone Hyacinth Marquez MD Primary Care Provider Boom Snow [phone] Allergies No Known Allergies REASON FOR VISIT [...] Notes Problem Long-term current use of aspirin (841753078858 103) Aspirin long-term use (Z79.82) Active confirmed Vital Signs Blood pressure systolic 00 mm Hg 03/05/20 24 Blood pressure diastolic 00 mm Hg 024 Height 68 in 03/05/2024 Weight 220 lbs 03/05/2024 BMI 33.45 kg/m2 03/05/2024 Encounters Encounter Location Date Provider Diagnosis [facility] [address] [place] [address] 03/05/2024 Boom Mclaughlin Encounter for screen ing [...] Up: prn, Reason: Provider Name:Boom Mclaughlin , 01/07/2025 09:30:00 AM, [address] [place] [address], [address], [place], [address], Progress Notes * LIZA LOPEZDOB:1960 ( 64 yo F)Acc No.[id number]:03/05/2024 Progress Notes Patient:?LIZA LOPEZ Provider:?Boom Mclaughlin MD :1960???Age:64 Y???Sex:Female D ate:03/05/2024 Address:[address] [place] [address] Pcp:Hyacinth Marquez MD Subjective: * Chief Complaints: [...] the past year??No,?Points?0,?Interpretation?Negative.?Miscellaneous:?Marital status: . 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 ???Nonsmoker; no sig alcohol. * Medications:?TakingLisinopri [...] Procedure Codes:?3017F COLOR ECTAL CA SCREEN DOC [id number] TOBACCO NON-SJDRD8981 BP SCR NOT PRFRM REC REASON NOS [...] MD Date:? 024 Generated for Emir boyd/Lilian/Johnitting on:?08/09/2024 03:38 PM EDT History and Physical [...]
--- OUTSIDE RECORDS SUMMARY | 2024-08-09 15:39 | XMS_ITS ---
Author Organization [facility] Address [address] [place] [address] Care Team Providers Care Youth Development Professional Name Role Phone Hyacinth Marquez MD Primary Care Provider Boom Snow [phone] Allergies No Known Allergies REASON FOR VISIT Patient presents today for an enlarged pancreatic duct Medications Medication SIG (Take, Route, Frequency, Duration) [...] Problem Status W/U Status Risk Notes Problem Fatty liver (510502258) Fatty liver (K76.0) Active confirmed Problem Abnormal findings diagnostic imaging of liver and biliary tract (296193699) Abnormal CT scan, pancreas or bile duct (R93.2) Active confirmed Problem History of adenomatous polyp of colon (334102158) History of adenomatous polyp of colon (Z86.0101) Active confirmed Problem Imaging of abdomen abnormal (656497580) Abnormal MRI of abdomen (R93.5) Active confirmed Problem Anomalies of pancreas (324204579) 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) Active confirmed Vital Signs Temperature 95.3 degrees Fahrenheit 08/10/19 25 Blood pressure systolic 001 mm Hg 08/10/19 25 Blood pressure diastolic 01 mm Hg 025 Height 68 in 08/09/2024 Weight 226 lbs 08/09/2024 BMI 34.36 kg/m2 08/09/2024 Encounters Encounter Location Date Provider Diagnosis [facility] [address] [place] [address] 08/09/2024 Boom Mclaughlin Fatty liver K76.0 ; History of adenomatous polyp of colon Z86.0101 ; Abnormal MRI of abdomen R93.5 and Pancreatic ductal abnormality Q45.3 Assessments Encounter Date Diagnosis (ICD Code) Assessment Notes Treatment Notes Treatment Clinical Notes Section Notes 08/09/2024 Fatty liver (ICD-10 - K76.0) Watch diet, try to lose weight, and monitor the cholesterol to help with the fatty liver 08/09/2024 History of adenomatous polyp of colon (ICD-10 - Z86.0101) Repeat colonoscopy in 06/202908/09/2024 Abnormal MRI of abdomen (ICD-10 - R93.5) 08/09/2024 Pancreatic ductal abnormality (ICD-10 - Q45.3) Plan Of Treatment Treatment Notes Assessment Notes Fatty liver Watch diet, try to l ose weight, and monitor the cholesterol to help with the fatty liver History of adenomatous polyp of colon Re peat colonoscopy in 06/2029 Pending Test Test Name Order Date LIVER PROFILE 08/09/2024 IRON + IBC (FE) 08/09/2024 CA 19-9 08/09/2024 FLUOR. ANTINUCLEAR AB SCREEN (ASAD) 05/2024 Ferritin 08/09/2024 Amylase 08/09/2024 Lipase 08/09/2024 Alpha 1 Anti-trypsin 08/09/2024 Liver Fibrosis Pnl 08/09/2024 Mitochondrial Antibody 08/09/2024 Smooth Muscle Antibody 08/09/2024 Hepatitis B,C Profile 08/09/2024 Next Appt Details Follow Up: 6 Months, Reason: Provider Name:Boom Mclaughlin , 01/07/2025 09:30:00 AM, [address], [address], [place], [address], Progress Notes * RAOUL LOPEZDOB:1960 ( 64 yo F)Acc No.[id number]:08/09/2024 Progress Notes Patient:RAOUL RUTLEDGE Provider:?Boom Mclaughlin MD :1960???Age:64 Y???Sex:Female D ate:08/09/2024 Address:[address] [place], [place] [address] Pcp:Hyacinth Marquez MD Subjective: * Chief Complaints: * ???1. Patient presents today for an enlarged pancreatic duct. * Medical History:?Denies VT,D M,CVA,Lung disease,renal disease, Hypertension, Hyperlipidemia, Anxiety, Neg. screening colonoscopy in 03/2009, Neg. screening colonoscopy in 12/2018, but limited prep. 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 * Family History:?Father: dece ased, diagnosed with HTN (hypertension).?Mother: , diagnosed with HTN (hypertension).? No colorectal cancer. no family history of liver cancer. * Social History:?Tobacco Use:?Tobacco Use/Smoking?Patient is a?nonsmoker.?Drugs/Alcohol:?Alcohol Screen?Did you have a drink containing alcohol in the past year??No,?Points?0,?Interpretation?Negative.?Miscellaneous:?Marital status: . 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 ???Nonsmoker; no sig alcohol. * Medications:?Taking Lisinopr il 40 MG Tablet 1 tablet Orally Once a day , Taking Simvastatin 10 MG Tablet 1 tablet in the evening Orally Once a day , Taking Aspir-81 81 MG Tablet Delayed Release 1 tablet Orally Once a day , Taking Escitalopram Oxalate 10 MG Tablet TAKE 1 TABLET BY MOUTH DAILY Oral , Taking hydroCHLOROthiazide 25 MG Tablet TAKE 1 TABLET BY MOUTH EVERY DAY Oral , Medication List reviewed and reconciled with the patient * Allergies:?N.K.D.A. Objective: * Vitals:?Wt: 226 lbs, Ht: 68 in, BMI: 34.36 Index, BP: 001/01 mm Hg, Temp: 95.3, Wt-k.51. 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 Plan: * Treatment: 2.?History of adenomatous po lyp of colon? Notes: Repeat colonoscopy in 06/2029?? 3.?Abnormal MRI of abdomen?LAB: CA 19-9 ?LAB: Amylase ?LAB: Lipase 4.?Pancreatic ductal abnorma lity?LAB: CA 19-9 ?LAB: Amylase ?LAB: Lipase * Preventive Medicine:? ??Counseling:?Care goal follow-up plan:?Above Normal BMI Follow-up?Dietary management education, guidance, and counseling,?BMI management provided?Yes.? ??Urinary Incontinence:?Urinary Incontinence?Assessment:?Absent,?Plan of care documented:?No, reason not specified.? ??Screenings:?Fall Risk Screening?Fall Risk Assessment:?No falls in the past year,?Screening:?No falls in the past year,?Assessment:?Not performed, no reason specified,?Plan of Care:?Not documented, no reason specified.? * Follow Up:?6 Months * * The named appointment provid er may or may not be the originator of this progress note, and it is not deemed complete until electronically signed by the appointment provider. Sign off status: Pending * Provider:?Boom Mclaughlin MD Date:? 025 Generated for Emir boyd/Lilian/Batsheva on:?08/09/2024 03:38 PM EDT
--- OUTSIDE RECORDS SUMMARY | 2024-08-09 15:39 | XMS_ITS | Patient Health Record ---
Author Organization [facility] Address [address] [place] [address] Care Team Providers Care Scaffold Builder Name Role Phone Hyacinth Marquez Primary Care Provider UnavailGraeme Rodríguez Unavailable [phone] Deyvi Henley Unavailable [phone] Namrata Fernandez Unavailable [phone] Allergies No Known Allergies Reason For Referral [...] Ordered Date Performed Result Body Sit e 76529-DJD 07/04/2024 N/A 95976-HNMZTBA SKIN/TISSUE 07/16/2024 N/A Encounters Encounter Location Date [facility] [address] [place] [address] 07/04/2024 Graeme Skinnerier Ingrown nail L60.[address] [facility] [address] 07/16/2024 Graeme Randy Skin ulcer of toe of right foot with fat layer exposed [facility]97.[facility] [address] 07/14/2024 Graeme Padilla [address] [address] 07/14/2024 Graeme Padilla Assessments Encounter Date Diagnosis [...] X ray : Foot, right 3V 04/14/2021 93516-DND 07/04/2024 84733-VJWZSYK SKIN/TISSUE 07/16/2024 Insurance Providers Payer Name Payer Address Payer Phone Subscriber Number Group Number Insured Name Patient Relationship to Insured Coverage Start Date Coverage End Date Medicare National [employer] [address] [place] [address] [id number] Liza Ma Self - patient is the insured [facility] [address] [place] [address] [id number] Liza Ma Self - patient is the insured Medical (General) History Medical History History ICD Code Arthritis Back,Hip,and Knee pain Cancer covid-19 High blood pressure Rheumatic fever Measles Mumps Chicken pox Hypercholesterolemia Surgical History Surgery Date(Month/Year) rotator cuff tear repair Meniscus repair hysterectomy oral surgery cancer eye surgery left knee replacement 09/2021 wisdom teeth extraction
--- OUTSIDE RECORDS SUMMARY | 2024-08-14 09:40 | XMS_ITS ---
Author Organization [facility] Address [address] [place] [address] Care Team Providers Care Banking Services Advisor Name Role Phone JimmyHyacinth Primary Care Provider UnavailGraeme Rodríguez Unavailable [phone] REASON FOR VISIT eClinicalMobile: ePrescription Medications Medication SIG (Take, Route, Fr equency, Duration) Notes Start Date End Date Status Cephalexin 500 MG 1 capsule Orally 4 t imes a day for 10 day(s) 07/14/2024 Active Encounters Encounter Location Date Provider Diagnosis [facility] [address] [place] [address] 07/14/2024 Graeme Padilla Plan Of Treatment Medication Medication Name Sig Start Date Stop Date Notes Cephalexin 500 MG 1 capsule Orally 4 t imes a day for 10 day(s) 07/14/2024 Progress Notes * Liza MA MDOB:1960 (64 yo F)Acc No.[id number]:07/14/2024 Patient:?Liza MA :1960???Age:64 Y???Sex:Female Address:[address] [place], [address] * Refills? Start Cephalexin Capsule, 500 MG, Orally, 40 Capsule, 1 capsule, 4 times a day, 10 day(s), Refills=0 * true * Date:? Generated for Printi ng/Fajulio cg/eTransmitting on:?08/14/2024 09:40 AM EDT
--- OUTSIDE RECORDS SUMMARY | 2024-08-14 09:40 | XMS_ITS ---
Author Organization [facility] Address [address] [place] [address] Care Team Providers Care Er Nurse Name Role Phone JimmyShannontammy Primary Care Provider UnavailGraeme Rodríguez Unavailable [phone] REASON FOR VISIT Redness, swelling after nail matricectomy Encounters Encounter Location Date Provider Diagnosis [facility] [address] [place] [address] 07/14/2024 Graeme Padilla Plan Of Treatment No Information Progress Notes * Liza MA MDOB:1960 (64 yo F)Acc No.[id number]:07/14/2024 Patient:?Liza MA :1960???Age:64 Y???Sex:Female Address:[address] [place], [address] * true * Date:? Generated for Printi ng/Prakashg/eTransmitting on:?08/14/2024 09:40 AM EDT
--- OUTSIDE RECORDS SUMMARY | 2024-08-14 09:40 | XMS_ITS ---
Author Organization [facility] Address [address] [facility] [address] Care Team Providers Care Bill Of Lading Clerk Name Role Phone JimmyCatyvandana Primary Care Provider UnavailGraeme Rodríguez Unavailable [phone] Allergies No Known Allergies REASON FOR VISIT [...] Ordered Date Performed Result Body Sit e 62362-VVLTHHA SKIN/TISSUE 07/16/2024 N/A Encounters Encounter Location Date Provider Diagnosis [facility] [place] [address] [place] [address] 07/16/2024 Graeme Padilla Skin ulcer of toe [...] INSTRUCTIONS.pdf) Pending Test Test Name Order Date 60932-XLPQBNZ SKIN/TISSUE 07/16/2024 Next Appt Details Follow Up: [...] of the wound post debriement is stable (49338) Progress Notes * Liza MA MDOB:1960 (64 yo F)Acc No.[id number]:07/16/2024 Progress Notes Patient:?Liza MA M Provider:?Graeme Padilla DPM :1960???Age:64 Y???Sex:Female D ate:07/16/2024 Address:[address] [place] Pcp:Hyacinth Marquez Subjective: * Chief Complaints: * [...] of the wound post debriement is stable (78933).? * Procedure Codes:?05666 DEBRI DE SKIN/TISSUE * Preventive Medicine:? ??Counseling:?Ulcer:?A [...] Padilla DPM Date:?2024 Generated for Emir boyd/Lilian/Batsheva on:?08/14/2024 09:40 AM EDT History and Physical Notes * [...]
--- OUTSIDE RECORDS SUMMARY | 2024-08-14 09:41 | XMS_ITS ---
Author Organization [facility] Address [address] [place] [address] Care Team Providers Care Nursing Program Manager Name Role Phone Hyacinth Marquez MD Primary Care Provider Boom Snow [phone] Allergies No Known Allergies REASON FOR VISIT [...] Notes Problem Long-term current use of aspirin (796559280396 103) Aspirin long-term use (Z79.82) Active confirmed Vital Signs Blood pressure systolic 00 mm Hg 03/05/20 24 Blood pressure diastolic 00 mm Hg 024 Height 68 in 03/05/2024 Weight 220 lbs 03/05/2024 BMI 33.45 kg/m2 03/05/2024 Encounters Encounter Location Date Provider Diagnosis [facility] [address] [place] [address] 03/05/2024 Boom Mclaughlin Encounter for screen ing [...] Provider Name:Boom Mclaughlin , 01/07/2025 09:30:00 AM, [address] [place] [address], [address], [address], Progress Notes * LIZA LOPEZDOB:1960 ( 64 yo F)Acc No.[id number]:03/05/2024 Progress Notes Patient:?LIZA LOPEZ Provider:?Boom Mclaughlin MD :1960???Age:64 Y???Sex:Female D ate:03/05/2024 Address:[address] [place] [address] Pcp:Hyacinth Marquez MD Subjective: * Chief Complaints: [...] the past year??No,?Points?0,?Interpretation?Negative.?Miscellaneous:?Marital status: . 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 ???Nonsmoker; no sig alcohol. * [...] Procedure Codes:?3017F COLOR ECTAL CA SCREEN DOC [id number] TOBACCO NON-ZVVXN0684 BP SCR NOT PRFRM REC REASON NOS [...] MD Date:? 024 Generated for Emir boyd/Lilian/Johnitting on:?08/14/2024 09:40 AM EDT History and Physical [...]
--- OUTSIDE RECORDS SUMMARY | 2024-08-14 09:41 | XMS_ITS ---
Author Organization [facility] Address [address] [place] [address] [place] [address] Care Team Providers Care Public Bath Attendant Name Role Phone Hyacinth Marquez MD Primary Care Provider Boom Snow [phone] REASON FOR VISIT screening Encounters Encounter Location Date Provider Diagnosis [facility] [address] [place] [phone] 06/26/2024 Boom Mclaughlin Colon cancer scree tavo [...] Provider Name:Boom Mclaughlin , 01/07/2025 09:30:00 AM, [address] [place] [address], [address], [place], [address], Progress Notes * RAOLU LOPEZDOB:1960 ( 64 yo F)Acc No.[id number]:06/26/2024 COLON WITH MAC Patient:?ROGELIO LOPEZNA Provider:?Boom Mclaughlin MD :1960???Age:64 Y???Sex:Female D ate:06/26/2024 Address:[address] [place], [place] [address] Pcp:Hyacinth Marquez MD Subjective: * Chief Complaints: * ???1. Screening. * Medical History:? Objective: * Vitals:? Assessment: * Assessment: 1.?Colon cancer screening - Z12.11 (Primary)???2.?Colon polyps - K63.5???3.?Diverticulosis of large intestine without perforation or abscess without bleeding - K57.30???4.?Other hemorrhoids - K64.8???5.?External hemorrhoids - K64.4??? Plan: * Treatment: * Procedure Codes:?44298 LESIO N REMOVAL COLONOSCOPY, Modifiers: PT , [...] MD Date:? 025 Generated for Emir boyd/Lilian/eTlyndasmitting on:?08/14/2024 09:40 AM EDT
--- OUTSIDE RECORDS SUMMARY | 2024-08-14 09:41 | XMS_ITS | Patient Health Record ---
Author Organization [facility] Address [address] [place] [address] Care Team Providers Care Strip Machine Operator Name Role Phone Hyacinth Marquez MD Primary Care Provider Boom Snow [phone] Allergies No Known Allergies Results Component Value Reference Range Notes Pathology Reviewed date:08/09/2024 03:32:14 PM Interpretation: Performing Lab:[facility], [address] [place] [phone] Notes/Report: Name: FrancescaLiza M Age/Sex: 64/F : 1960 [facility] Manort#: [id number] Unit#: [id number] Attend Dr: Boom Mclaughlin MD Re06/26/24 Status : [facility] Location: [facility] Disch: SPEC : [id number] RECD : 06/26/24 STATUS: KRISTEL VALENTINO NUM: [id number] W[place]DE[place]: 06/26/[address] [facility] [address]: Boom Mclaughlin MD ENTERED: 06/26/24-02 13 [...] A. CEDS Copies To: Hyacinth Marquez MD [facility] Primary Care,[address] [place] [address] Boom Mclaughlin MD [facility] [address] [place] [address] Signed (si gnature on file) Darcie Nasir [...] Problem Status W/U Status Risk Notes Problem [id number] Encounter for screening for malignant neoplasm of colon (Z12.11) Active confirmed Problem Abnormal findings diagnostic imaging of liver and biliary tract (394759827) Abnormal CT scan, pancreas or bile duct (R93.2) Active confirmed Problem [id number] Preprocedural examination (Z01.818) Active confirmed Problem Fatty liver (644906316) Fatty liver (K76.0) Active confirmed Problem Long-term current use of aspirin (872887550720895) Aspirin long-term use (Z79.82) Active confirmed Problem 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) Active confirmed Problem Imaging of abdomen abnormal (913540779) Abnormal MRI of abdomen (R93.5) Active confirmed Problem History of adenomatous polyp of colon (479572557) History of adenomatous polyp of colon (Z86.0101) Active confirmed Vital Signs Temperature 95.3 degrees Fahrenheit 08/09/2024 Blood pressure diastolic 01 mm Hg 08/09/2024 Height 68 in 08/09/2024 Blood pressure systolic 001 mm Hg 08/09/2024 Weight 226 lbs 08/09/2024 BMI 34.36 kg/m2 08/09/2024 Encounters Encounter Location Date Provider Diagnosis [facility] [address] [place], [place] [id number] 06/26/2024 Boom Mclaughlin Colon cancer screeni ng Z12.11 ; Colon polyps K63.5 ; Diverticulosis of large intestine without perforation or abscess without bleeding K57.30 ; Other hemorrhoids K64.8 and External hemorrhoids K64.4 [facility] [address] [place] [address] 08/09/2024 Boom Mclaughlin Fatty liver K76.0 ; History of adenomatous polyp of colon Z86.0101 ; Abnormal MRI of abdomen R93.5 and Pancreatic ductal abnormality Q45.3 [facility] [address] [place] [phone] 03/05/2024 Boom Mclaughlin Encounter for screen ing for malignant neoplasm of colon Z12.11 ; Aspirin long-term use Z79.82 and Preprocedural examination Z01.818 [facility] [address] [place] [phone] 01/17/2024 Boom Mclaughlin Assessments Encounter Date Diagnosis (ICD Code) Assessment Notes Treatment Notes Treatment Clinical Notes Section Notes 06/26/2024 Colon cancer screening (ICD-10 - Z12.11) 06/26/2024 Colon polyps (ICD-10 - K63.5) 08/09/2024 Fatty liver (ICD-10 - K76.0) Watch diet, try to lose weight, and monitor the cholesterol to help with the fatty liver Overall, Liza appears quite well. We did review her colonoscopy findings with the single tubular adenoma removed in June and I advised her of the need for a repeat colonoscopy in 5 years for further screening. We did review the diagnosis of her presumed fatty liver. The minimal elevation of the liver enzymes does not seem particularly worrisome and I advised her could actually be just from her statin medication alone. We did review risk factors for fatty liver in regard to her weight and the history of elevated cholesterol and the need to try to eat carefully and lose some weight. I advised her that I would not recommend stopping the statin as I think she is having much more benefit from it than any potential risks. I did advise her that I would like to have her undergo a complete liver workup to rule out other causes of liver disease although again I think that would be very unlikely as her history seems to fit very well with just fatty liver. At this point I would not recommend any type of liver biopsy or other specific treatment for fatty liver. In regard to the report of the borderline dilated pancreatic duct I advised her that based on the MRI findings and her clinical history this does not seem to be clinically significant. There is no evidence of any pancreatic lesion nor any suspected lesion at the major ampulla that might be causing that I advised her that I would like to check a CA 19-9 level and pancreatic enzymes, although again I suspect those studies will be normal. I will plan to see her in 6 months for a follow-up visit at which time I would plan to repeat the MRI of the pancreas. If the follow-up MRI does not show any significant or worrisome changes then I do not think she will need to have surveillance of the pancreas long-term thereafter. Liza was very comfortable with this plan. Thank you again for allowing me to participate in Liza's care. I shall continue to keep you advised of her progress.. 08/09/2024 History of adenomatous polyp of colon (ICD-10 - Z86.0101) Repeat colonoscopy in 06/2029 Overall, Liza appears quite well. We did review her colonoscopy findings with the single tubular adenoma removed in June and I advised her of the need for a repeat colonoscopy in 5 years for further screening. We did review the diagnosis of her presumed fatty liver. The minimal elevation of the liver enzymes does not seem particularly worrisome and I advised her could actually be just from her statin medication alone. We did review risk factors for fatty liver in regard to her weight and the history of elevated cholesterol and the need to try to eat carefully and lose some weight. I advised her that I would not recommend stopping the statin as I think she is having much more benefit from it than any potential risks. I did advise her that I would like to have her undergo a complete liver workup to rule out other causes of liver disease although again I think that would be very unlikely as her history seems to fit very well with just fatty liver. At this point I would not recommend any type of liver biopsy or other specific treatment for fatty liver. In regard to the report of the borderline dilated pancreatic duct I advised her that based on the MRI findings and her clinical history this does not seem to be clinically significant. There is no evidence of any pancreatic lesion nor any suspected lesion at the major ampulla that might be causing that I advised her that I would like to check a CA 19-9 level and pancreatic enzymes, although again I suspect those studies will be normal. I will plan to see her in 6 months for a follow-up visit at which time I would plan to repeat the MRI of the pancreas. If the follow-up MRI does not show any significant or worrisome changes then I do not think she will need to have surveillance of the pancreas long-term thereafter. Liza was very comfortable with this plan. Thank you again for allowing me to participate in Liza's care. I shall continue to keep you advised of her progress.. 03/05/2024 Encounter for screening for malignant neoplasm [...] Abnormal MRI of abdomen (ICD-10 - R93.5) Overall, Liza appears quite well. We did review her colonoscopy findings with the single tubular adenoma removed in June and I advised her of the need for a repeat colonoscopy in 5 years for further screening. We did review the diagnosis of her presumed fatty liver. The minimal elevation of the liver enzymes does not seem particularly worrisome and I advised her could actually be just from her statin medication alone. We did review risk factors for fatty liver in regard to her weight and the history of elevated cholesterol and the need to try to eat carefully and lose some weight. I advised her that I would not recommend stopping the statin as I think she is having much more benefit from it than any potential risks. I did advise her that I would like to have her undergo a complete liver workup to rule out other causes of liver disease although again I think that would be very unlikely as her history seems to fit very well with just fatty liver. At this point I would not recommend any type of liver biopsy or other specific treatment for fatty liver. In regard to the report of the borderline dilated pancreatic duct I advised her that based on the MRI findings and her clinical history this does not seem to be clinically significant. There is no evidence of any pancreatic lesion nor any suspected lesion at the major ampulla that might be causing that I advised her that I would like to check a CA 19-9 level and pancreatic enzymes, although again I suspect those studies will be normal. I will plan to see her in 6 months for a follow-up visit at which time I would plan to repeat the MRI of the pancreas. If the follow-up MRI does not show any significant or worrisome changes then I do not think she will need to have surveillance of the pancreas long-term thereafter. Liza was very comfortable with this plan. Thank you again for allowing me to participate in Liza's care. I shall continue to keep you advised of her progress.. 03/05/2024 Preprocedural examination (ICD-10 - Z01.818) Overall, [...] 08/09/2024 Pancreatic ductal abnormality (ICD-10 - Q45.3) Overall, Liza appears quite well. We did review her colonoscopy findings with the single tubular adenoma removed in June and I advised her of the need for a repeat colonoscopy in 5 years for further screening. We did review the diagnosis of her presumed fatty liver. The minimal elevation of the liver enzymes does not seem particularly worrisome and I advised her could actually be just from her statin medication alone. We did review risk factors for fatty liver in regard to her weight and the history of elevated cholesterol and the need to try to eat carefully and lose some weight. I advised her that I would not recommend stopping the statin as I think she is having much more benefit from it than any potential risks. I did advise her that I would like to have her undergo a complete liver workup to rule out other causes of liver disease although again I think that would be very unlikely as her history seems to fit very well with just fatty liver. At this point I would not recommend any type of liver biopsy or other specific treatment for fatty liver. In regard to the report of the borderline dilated pancreatic duct I advised her that based on the MRI findings and her clinical history this does not seem to be clinically significant. There is no evidence of any pancreatic lesion nor any suspected lesion at the major ampulla that might be causing that I advised her that I would like to check a CA 19-9 level and pancreatic enzymes, although again I suspect those studies will be normal. I will plan to see her in 6 months for a follow-up visit at which time I would plan to repeat the MRI of the pancreas. If the follow-up MRI does not show any significant or worrisome changes then I do not think she will need to have surveillance of the pancreas long-term thereafter. Liza was very comfortable with this plan. Thank you again for allowing me to participate in Liza's care. I shall continue to keep you advised of her progress.. 06/26/2024 External hemorrhoids (ICD-10 - K64.4) Plan [...] Provider Name:Boom Mclaughlin , 01/07/2025 09:30:00 AM, [address] [place] [address], [address], [place], [address], Insurance Providers Payer Name Payer Address Payer Phone Subscriber Number Group Number Insured Name Patient Relationship to Insured Coverage Start Date Coverage End Date MEDICARE OF [facility] [address] [place] [address] [phone] [id number] LIZA LOPEZ Self - patient is the insured [facility] [address] [place] [address] [phone] [id number] LIZA LOPEZ Self - patient is the insured Medical (General) History Medical History History ICD Code Denies [place],DM,CVA,Lung disease,renal dise ase Hypertension Hyperlipidemia Anxiety Neg. screening colonoscopy in 03/2009 Neg. screening colonoscopy in 12/2018, bu t limited prep Screening colonoscopy in Jun after a 2-day prep revealed a single tubular adenoma that was removed Fatty liver with minimally elevated LFTs in 2024 Borderline dilated pancreati c duct seen on ultrasound and MRI in 2024, but without any sign of pancreatic mass. 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
--- OUTSIDE RECORDS SUMMARY | 2024-08-14 09:41 | XMS_ITS | Patient Health Record ---
Author Organization [facility] Address [address] [place] [address] Care Team Providers Care Veterinary Technician Instructor Name Role Phone Hyacinth Marquez Primary Care Provider UnavailGraeme Rodríguez Unavailable [phone] Deyvi Henley Unavailable [phone] Namrata Fernandez Unavailable [phone] Allergies No Known Allergies Reason For Referral [...] Ordered Date Performed Result Body Sit e [id number] 07/04/2024 N/A [id number] SKIN/TISSUE 07/16/2024 N/A Encounters Encounter Location Date Provider Diagnosis [facility] [address] [facility] [address] [place] [address] 07/04/2024 Graeme Skinnerier Ingrown nail L60.[address] [facility] [address] 07/16/2024 Graeme Randy Skin ulcer of toe of right foot with fat layer exposed L97.[address] [facility] [address] 07/14/2024 Graeme Padilla [address] [address] 07/14/2024 Graeme Padilla Assessments Encounter Date Diagnosis [...] X ray : Foot, right 3V 04/14/2021 [id number] 07/04/2024 [id number] SKIN/TISSUE 07/16/2024 Insurance Providers Payer Name Payer Address Payer Phone Subscriber Number Group Number Insured Name Patient Relationship to Insured Coverage Start Date Coverage End Date [employer] [address] [place] [address] [id number] Liza Ma Self - patient is the insured [facility] [address] [place] [id number] Liza Ma Self - patient is the insured Medical (General) History Medical History History ICD Code Arthritis Back,Hip,and Knee pain Cancer covid-19 High blood pressure Rheumatic fever Measles Mumps Chicken pox Hypercholesterolemia Surgical History Surgery Date(Month/Year) rotator cuff tear repair Meniscus repair hysterectomy oral surgery cancer eye surgery left knee replacement 09/2021 wisdom teeth extraction
--- OUTSIDE RECORDS SUMMARY | 2024-08-14 09:41 | XMS_ITS ---
Author Organization [facility] Address [address] [place] [address] Care Team Providers Care Administrator Of Home Health Name Role Phone Hyacinth Marquez MD Primary Care Provider Boom Snow [phone] Allergies No Known Allergies REASON FOR VISIT [...] W/U Status Risk Notes Problem Fatty liver (K76.0) Active confirmed Problem Abnormal findings diagnostic imaging of liver and biliary tract (288780238) Abnormal CT scan, pancreas or bile duct (R93.2) Active confirmed Problem History of adenomatous polyp of colon (223786072) History of adenomatous polyp of colon (Z86.0101) Active confirmed Problem Imaging of abdomen abnormal (790107013) Abnormal MRI of abdomen (R93.5) Active confirmed Problem Anomalies of pancreas (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 08/09/2024 Abnormal MRI of abdomen (ICD-10 - [...] keep you advised of her progress.. 08/09/2024 Pancreatic ductal abnormality (ICD-10 - Q45.3) [...] to keep you advised of her progress.. Plan Of Treatment Treatment Notes Assessment Notes [...] Name:Boom Mclaughlin , 01/07/2025 09:30:00 AM, [address] [facility], [address], [place], [address], Progress Notes * LIZA LOPEZDOB:1960 ( 64 yo F)Acc No.[id number]:08/09/2024 Progress Notes Patient:?LIZA LOPEZ Provider:?Boom Mclaughlin MD :1960???Age:64 Y???Sex:Female D ate:08/09/2024 Address:[address] [place], [place] [id number] Pcp:Hyacinth Marquez MD Subjective: * Chief Complaints: * ???1. Patient presents today for an enlarged pancreatic duct. * HPI: ???incontinence:? I saw Liza in the office today for evaluation of slightly elevated LFTs and fatty liver, abnormal imaging of the pancreatic duct., and her history of a tubular adenoma of the colon. I last saw Liza in June, at which time she underwent a screening colonoscopy after a 2-day prep with removal of a tubular adenoma from the colon. The visualization of the colon was dramatically better than it was on the previous colonoscopy about 5 years earlier. Since her colonoscopy she has been feeling well but did have an abdominal ultrasound in May for evaluation of slightly elevated LFTs. This revealed what appears to be a fatty liver with some mild hepatomegaly, but no evidence of any splenomegaly, ascites, nor cirrhosis based on ultrasound imaging. At that time her LFTs were just minimally elevated with an AST of 33 and ALT of 41, and with a normal total bilirubin, alk phos, and albumin. The ultrasound also described a mildly prominent pancreatic duct of 3 mm , but without any evidence of a pancreatic mass. Based on the abnormal ultrasound she underwent a MRI of the pancreas in June that described similar findings with just borderline enlargement of the pancreatic duct but without any obvious pancreatic duct stricture nor pancreatic mass. The MRI of the liver also describes a fatty liver but without any sign of biliary disease nor liver mass. She presently feels very well. She denies any abdominal pain, jaundice, nor unintentional weight loss. She denies any increasing abdominal girth, edema, pruritus, nor fatigue. She enjoys a good appetite without any significant heartburn or dysphagia. Her bowel movements have been regular and without any sign of bleeding. She does have a history of some hyperlipidemia for which she is on a statin. She does not use any significant amounts of alcohol. She does not have any history of diabetes. She denies any known family history of pancreatic disease nor liver disease. * Medical History:?Denies IN,D M,CVA,Lung disease,renal disease, Hypertension, Hyperlipidemia, Anxiety, Neg. screening colonoscopy in 03/2009, Neg. screening colonoscopy in 12/2018, but limited prep, Screening colonoscopy in June 2024 after a 2-day prep revealed a single tubular adenoma that was removed, Fatty liver with minimally elevated LFTs in 2024, Borderline dilated pancreatic duct seen on ultrasound and MRI in 2024, but without any sign of pancreatic mass.. * Surgical History:?Eye surger y , Oral [...] the past year??No,?Points?0,?Interpretation?Negative.?Miscellaneous:?Marital status: . 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 ???Nonsmoker; no sig alcohol. * Medications:?Taking [...] abdomen - R93.5???4.?Pancreatic ductal abnormality - Q45.3??? Overall, Liza appears quite well. We did [...] to keep you advised of her progress.. Plan: * Treatment: 2.?History of adenomatous po [...] Mclaughlin MD Date:? 025 Generated for Emir boyd/Lilian/Johnitting on:?08/14/2024 09:40 AM EDT History and Physical Notes * HPI (History of Present Illness) Category Sub-Category Detail Notes Category Not es incontinence I saw Liza in the office today for evaluation of slightly elevated LFTs and fatty liver, abnormal imaging of the pancreatic duct., and her history of a tubular adenoma of the colon. I last saw Liza in June, at which time she underwent a screening colonoscopy after a 2-day prep with removal of a tubular adenoma from the colon. The visualization of the colon was dramatically better than it was on the previous colonoscopy about 5 years earlier. Since her colonoscopy she has been feeling well but did have an abdominal ultrasound in May for evaluation of slightly elevated LFTs. This revealed what appears to be a fatty liver with some mild hepatomegaly, but no evidence of any splenomegaly, ascites, nor cirrhosis based on ultrasound imaging. At that time her LFTs were just minimally elevated with an AST of 33 and ALT of 41, and with a normal total bilirubin, alk phos, and albumin. The ultrasound also described a mildly prominent pancreatic duct of 3 mm , but without any evidence of a pancreatic mass. Based on the abnormal ultrasound she underwent a MRI of the pancreas in June that described similar findings with just borderline enlargement of the pancreatic duct but without any obvious pancreatic duct stricture nor pancreatic mass. The MRI of the liver also describes a fatty liver but without any sign of biliary disease nor liver mass. She presently feels very well. She denies any abdominal pain, jaundice, nor unintentional weight loss. She denies any increasing abdominal girth, edema, pruritus, nor fatigue. She enjoys a good appetite without any significant heartburn or dysphagia. Her bowel movements have been regular and without any sign of bleeding. She does have a history of some hyperlipidemia for which she is on a statin. She does not use any significant amounts of alcohol. She does not have any history of diabetes. She denies any known family history of pancreatic disease nor liver disease.
[2024-08-14 10:08] LABS: Alanine Aminotransferase 36 U/L (0-31); Albumin Level 4.4 g/dL (3.5-5.0); Alkaline Phosphatase 52 U/L (39-117); Amylase 44 U/L (28-100); Aspartate Amino Transferase 30 U/L (5-31); Bilirubin Direct 0.3 mg/dL (0.0-0.5); Bilirubin Total 0.7 mg/dL (0.0-1.0); Iron 96 mcg/dL (30-160); Lipase 22 U/L (8-78); Percent Iron Saturation 32 % (15-50); Total Iron Binding Capacity 302 mcg/dL (228-428); Total Protein 7.2 g/dL (6.5-8.0); Unsaturated Iron Binding 206 ug/dL
[2024-08-14 10:27] LABS: Ferritin 221 ng/mL (10-250); HBS Num1 0.31 mIU/mL (0-7.99); HBc Num1 0.06 S/CO (0.00-0.79); HBsAGNum1 0.41 S/CO (0.00-0.99); Hepatitis B Core Antibody Nonreactive (Nonreactive); Hepatitis B Surface Antigen Negative (Negative); ~Hepatitis B Surface Antibody NONREACTIVE (Nonreactive); ~Hepatitis C Antibody Nonreactive (Nonreactive)
[2024-08-15 06:18] LABS: Alpha 1 Anti-trypsin 153 mg/dL (83-199)
[2024-08-15 16:43] LABS: Mitochondrial Antibodies NEGATIVE (NEGATIVE)
[2024-08-16 08:28] LABS: Anti Nuclear Antibody Screen POSITIVE (NEGATIVE)
[2024-08-16 09:23] LABS: Carbohydrate Antigen 19-9 36 U/mL (<34)
[2024-08-17 09:14] LABS: Smooth Muscle Antibody <20 U (<20)
[2024-08-21 14:09] LABS: FIB-ALT 26 U/L (6-29); FIB-Alpha-2-Macroglobulin 166 mg/dL (106-279); FIB-Apolipoprotein A1 195 mg/dL (101-198); FIB-GGT 31 U/L (3-65); FIB-Haptoglobin 221 mg/dL (43-212); FIB-Total Bilirubin 0.5 mg/dL (0.2-1.2); Liver Fibrosis Score 0.09; Liver Fibrosis Stage F0; Nec Inflam Act Grade A0; Nec Inflam Act Score 0.09; Reference ID 5484250
== END 2024-08-14 09:10 | disposition home or self-care (01) ==
LOC: HO.LAB 09:09
PROVIDERS: PCP Internal Medicine; Visit Provider Internal Medicine
DX: K76.0 Fatty (change of) liver, not elsewhere classified (principal); R93.5 Abnormal findings on diagnostic imaging of other abdominal regions, including retroperitoneum; Q45.3 Other congenital malformations of pancreas and pancreatic duct
CPT/HCPCS: 36415; 80076; 81596; 82103; 82150; 82728; 83540; 83690; 86015; 86038; 86039; 86301; 86381; 86704; 86706; 86803; 87340

== ENCOUNTER 2024-09-06 13:09 | Outpatient (AMB) | payer MEDICARE, OTHER, SELFPAY ==
[2024-09-06 13:11] VITALS: BP 140/88; PULSE 61; TEMP 36.4; O2SAT 96; BMI 38.1
--- NOTE | 2024-09-06 13:11 | AM.OFFWIN_ITS ---
Intake Vital Signs 09/06/24 13:11 Height 5 ft 6 in Weight 236 lb 4 oz BMI 38.1 BP 140/88 H Blood Pressure Location Lt brachial Position Sitting Pulse 61 Pulse Source Pulse Oximeter Temp 97.6 F Pulse Oximetry (%) 96 Oxygen Delivery Method Room Air Intake Visit Reasons: EP back pain Intake Note: Pt presents to the office today for c/o back pain. Pt states it is right near her coccyx. Pt states this started 5 days ago. Pt states she gets spasms that are very painful. Pt denies any urinary symptoms. Patient Tobacco Use Status: Never used Tobacco Allergies No Known Allergies [No Known Allergies*] Allergy (Verified 09/06/24 13:20) HPI HPI Comments History of Present Illness Details History of Present Illness - The patient is a 64-year-old female pr esenting with musculoskeletal pain and low back and buttocks spasms following a recent physical activity. - The onset of symptoms occurred after i ncreased physical exertion and a specific incident involving car entry and exit with constraints. - Pain and muscle spasms localized to th e lower back began 4 days ago s/p these activities, along with unusual swelling in the ankles which has now resolved. - Temporary relief has been achieved usi ng ibuprofen, heat therapy, and topical applications, but symptoms exacerbated after resuming household activities. - The patient denies urinary changes. - Pt states she can feel the bulging spa sms in her buttocks Physical Exam General: Cooperative, healthy appearing, comfortable, no acute distress and well developed Orientation: Patient oriented x3 Limitations: No limitations Head: Normal to inspection Ears: Hearing grossly normal bilaterally Nose: Normal External nose present Face and sinus: Normal facial exam Eyes: Appearance normal, both eyes and all related structures Neck: Normal visual inspection and Yes full ROM Respiratory: Normal respiratory effort and able to speak in complete sentences. Skin: No rashes or lesions noted Neuro: Patient oriented x3 Back/spine: no ttp cervical, thoracic or lumbar spine Extremities: Normal to inspection [facility] Medical History Obstructive sleep apnea hypopnea, severe Varicose veins of right lower extremity with inflammation Obstructive sleep apnea (adult) (pediatric) Viral upper respiratory illness Witnessed apneic spells Lumbar spondylosis Preop exam for internal medicine Sinusitis Constipation Finger pain Knee pain, left Annual physical exam Low back pain COVID-19 virus infection Cervicalgia Osteoarthritis Pulmonary valve stenosis Factor 5 Leiden mutation, heterozygous Hypercholesterolemia Vitamin D deficiency Left renal stone Overweight (BMI 25.0-29.9) Anxiety and depression Hypertension Surgical History H/O colonoscopy Hx of total knee arthroplasty History of shoulder surgery Hx of breast reduction, elective Hx of right knee surgery Strabismus S/P PASCALE-BSO Peripheral vascular disease Family History Father Lung cancer Mother COPD (chronic obstructive pulmonary disease) CVD (cardiovascular disease) AAA (abdominal aortic aneurysm) Brother Diabetes Sister Acute CVA (cerebrovascular accident) Daughter Thyroid cancer Social History Housing: House Are you a primary chiropractic care to a significant other at home: No Do you presently have visiting nurse or other home services: No Alcohol intake: never Patient Tobacco Use Status: Never used Tobacco Tobacco use type: Cigarette e-Cigarette/Vaping Use: Never Used Second Hand Smoke Exposure: No service: No Current occupational status: retired Cognitive needs: No Hearing needs: No Vision needs: Yes (glasses) Review of Systems Const All systems reviewed & are unremarkable except as noted in HPI and below Physical Exam Vital Signs: Last Vital Signs Temp 97.6 F 09/06/24 13:11 Pulse 61 09/06/24 13:11 BP 140/88 H 09/06/24 13:11 Pulse Ox 96 09/06/24 13:11 Oxygen Delivery Method Room Air 09/06/24 13:11 BMI result Body Mass Index 38.1 Assessment & Plan Assessment & Plan (1) Spasm of lumbar paraspinous muscle: Code(s): M62.830 - Muscle spasm of back Plan: Back spasm vs sciatica however pt denying sharp shooting pain down legs and seems to lend more towards spasms so we will treat for that today. To manage the musculoskeletal pain and spasms, I prescribed cyclobenzaprine 5 mg to target the muscle spasms with an option to increase to 10 mg as needed. The patient is advised on the careful use of NSAIDs considering her hypertension and their interactions. Monitoring over the weekend is recommended, and she should return if no improvement is observed. Further assessment next week could include additional anti-inflammatory or steroid treatment if necessary. Prescription details have been arranged for convenient collection. Patient was informed and verbally consented to the use of an ambient scribe for clinic note documentation during this visit. Medications: New cyclobenzaprine 5 mg PO Q8H PRN 20 tabs 0RF Muscle Spasm Coding Level of Care Code Est Pt Level 3 (63830) Diagnoses Spasm of lumbar paraspinous muscle M62.830
--- OUTSIDE RECORDS SUMMARY | 2024-09-06 13:20 | XMS_ITS ---
Author Organization [facility] Address [address] [place] [address] Care Team Providers Care Wool Carder Name Role Phone Hyacinth Marquez MD Primary Care Provider Boom Snow [phone] Encounters Encounter Location Date Provider Diagnosis [facility] [address] [place] [address] [address] [place] [address] 08/25/2024 Boom Mclaughlin Plan Of Treatment Next Appt Details Provider Name:Boom Mclaughlin , 01/07/2025 09:30:00 AM, [address], [address], [place], [address], Progress Notes * RAOUL LOPEZDOB:1960 ( 64 yo F)Acc No.[id number]:08/25/2024 Patient:?RAOUL LOPEZ :1960???Age:64 Y???Sex:Female Address:[address] [place] [address] [place] [address] * true * Date:? Generated for Printi ng/Fajulio cg/eTransmitting on:?09/06/2024 01:19 PM EDT
== END 2024-09-06 13:51 | disposition home or self-care (01) ==
PROVIDERS: PCP Internal Medicine; Visit Provider Physician Assistant
DX: M62.830 Muscle spasm of back (principal)

== ENCOUNTER → 2024-09-06 13:09 | Outpatient (BNVA) | payer MEDICARE, OTHER, SELFPAY | PROVIDERS: PCP Internal Medicine; Visit Provider Physician Assistant | DX: M62.830 Muscle spasm of back (principal) | CPT/HCPCS: 99212 ==

== ENCOUNTER 2024-09-09 15:38 | Outpatient (AMB) | payer MEDICARE, OTHER, SELFPAY ==
--- NOTE | 2024-09-09 16:06 | MHC.PC.OV ---
Vital Signs 09/09/24 16:08 Height 5 ft 6 in Weight 235 lb BMI 37.9 BP 138/78 Blood Pressure Location Lt brachial Position Sitting Pulse 72 Pulse Source Pulse Oximeter Temp 97.3 F Temp Source Temporal Artery Scan Pulse Oximetry (%) 98 Oxygen Delivery Method Room Air Intake Visit Reasons: low back/coccyx pain Intake Note: Patient is here to follow up on Low back/coccyx pain. Architectural Wood Model Maker Required: No Home Health Care Physician: Not Required per policy Accompanied by: Self / Same As Patient Allergies No Known Allergies [No Known Allergies*] Allergy (Verified 09/09/24 16:47) Medication List - Last Reconciled 09/09/24 by Sung Marte PA-C aspirin (Adult Aspirin Regimen) 81 mg PO DAILY [AUTO PAP 6-16 cm H2O humidified AIR As directed] blood pressure monitor (Blood Pressure Kit) As directed cyclobenzaprine 10 mg PO TID 10 days escitalopram oxalate (Lexapro) 10 mg PO DAILY hydrochlorothiazide 25 mg PO DAILY lisinopril 40 mg PO DAILY lorazepam 0.5 mg PO BID PRN 30 days magnesium 200 mg PO DAILY 90 days MDD 200mg PO prednisone 10 mg PO DIRECTED 9 days simvastatin 10 mg PO DAILY Tobacco use date assessed: 09/09/24 Fall risk assessment: No Falls in past year Last assessed Fall Risk: 09/09/24 Dental Screening Dental Screen Date: 06/14/24 HPI low back/coccyx pain HPI Details The patient is a 64-year-old female presenting with acute lumbar pain and muscle spasms. The pain commenced following increased physical activity approximately two weeks prior and an incident of sitting awkwardly to accommodate her granddaughter. The patient reports the pain is centered in the lower back and radiates to the buttocks, without traveling into the legs. It is characteristically spasmodic and exacerbated by movement. The patient's history includes degenerative arthritis in the lumbar spine. Initial interventions included cyclobenzaprine, which provided brief relief from spasms, and a low-dose prednisone regimen, which the patient found insufficient to provide marked relief. Supplementation with a heating pad has reportedly helped to some extent. The patient has run low on her cyclobenzaprine medication. Additional factors considered include sacroiliac joint inflammation and past imaging indicated degenerative changes. [facility] Medical History Obstructive sleep apnea hypopnea, severe Varicose veins of right lower extremity with inflammation Obstructive sleep apnea (adult) (pediatric) Viral upper respiratory illness Witnessed apneic spells Lumbar spondylosis Preop exam for internal medicine Sinusitis Constipation Finger pain Knee pain, left Annual physical exam Low back pain COVID-19 virus infection Cervicalgia Osteoarthritis Pulmonary valve stenosis Factor 5 Leiden mutation, heterozygous Hypercholesterolemia Vitamin D deficiency Left renal stone Overweight (BMI 25.0-29.9) Anxiety and depression Hypertension Surgical History H/O colonoscopy Hx of total knee arthroplasty History of shoulder surgery Hx of breast reduction, elective Hx of right knee surgery Strabismus S/P PASCALE-BSO Peripheral vascular disease Family History Father Lung cancer Mother COPD (chronic obstructive pulmonary disease) CVD (cardiovascular disease) AAA (abdominal aortic aneurysm) Brother Diabetes Sister Acute CVA (cerebrovascular accident) Daughter Thyroid cancer Social History Housing: House Are you a primary respite care provider to a significant other at home: No Do you presently have visiting nurse or other home services: No Alcohol intake: never Patient Tobacco Use Status: Never used Tobacco Tobacco use type: Cigarette e-Cigarette/Vaping Use: Never Used Second Hand Smoke Exposure: No service: No Current occupational status: retired Cognitive needs: No Hearing needs: No Vision needs: Yes (glasses) Questionnaire PHQ-9 Over the last 2 weeks, how often have you been bothered by any of the following problems? 1. Little interest or pleasure in doing things: not at all 2. Feeling down, depressed, or hopeless: not at all 3. Trouble falling or staying asleep, or sleeping too much: not at all 4. Feeling tired or having little energy: not at all 5. Poor appetite or overeating: not at all 6. Feeling bad about yourself - or that you are a failure or have let yourself or your family down: not at all 7. Trouble concentrating on things, such as reading the newspaper or watching television: not at all 8. Moving or speaking so slowly that other people could have noticed. Or the opposite - being so fidgety or restless that you have been moving around a lot more than usual: not at all 9. Thoughts that you would be better off or of hurting yourself in some way: not at all Total score: 0 Depression Screening Interpretation: Negative Depression Screening Done: Yes Source: Developed by Drs. Boom Jin, Yesy Yang, Travis Santos and colleagues, with an educational pascual from [employer]. Thrive Questionnaire Date Thrive assessed: 09/09/24 I am a: Patient What is your living situation today?: I have a steady place to live Within the past 12 months, did the food you bought not last and you didn't have the money to get more?: Never true Within the past 12 months, did you worry whether your food would run out before you got money to buy more?: Never true Do you have trouble paying for medicines?: No Do you have trouble getting transportation to medical appointments?: No Do you have trouble paying your heating and electricity bill?: No Do you have trouble taking care of your child, family member or friend?: No Do you have trouble with day-to-day activities such as bathing, preparing meals, shopping, managing finances, etc.?: No Are you currently unemployed and looking for a job?: No Are you interested in more education?: No Please select the resources that you would like help with: None Currently or been in a relationship where the following occur: No concerns reported THRIVE Score: 0 AUDIT C Alcohol Use Questionnaire (AUDIT-C) 1. How often do you have a drink containing alcohol?: Never Total Score: 0 BING-7 AMB Questionnaire BING-7 Date BING - 7 assessed: 06/14/24 Feeling nervous, anxious, or on edge: 0 = Not at all Not being able to stop or control worryin = Not at all Worrying too much about different things: 0 = Not at all Trouble relaxin = Not at all Being so restless that it is hard to sit still: 0 = Not at all Becoming easily annoyed or irritable: 0 = Not at all Feeling afraid as if something awful might happen: 0 = Not at all Total BING-7 score (0-4 normal; 5-9 mild; 10-14 moderate; 15-21 severe): 0 Source: Developed by Drs. Boom Jin, Yesy Yang, Travis Santos and colleagues, with an educational pascual from [employer]. Review of Systems Const Denies headache(s) Eyes Denies loss of vision ENT Denies vertigo, Denies dizziness, Denies headache(s) and Denies sore throat Card Denies chest pain, Denies leg edema and Denies lightheadedness Resp Denies cough, Denies hemoptysis and Denies wheezing GI Denies abdominal pain, Denies melena, Denies constipation, Denies diarrhea and Denies vomiting Denies urinary frequency, Denies dysuria and Denies urinary urgency Musc Denies arthralgias, Denies joint swelling, Denies numbness and Denies tingling Neuro Denies Abnormal speech present, Denies behavioral changes, Denies vertigo, Denies dizziness, Denies headache(s), Denies loss of vision, Denies memory loss, Denies numbness and Denies tingling Psych Denies anxiety, Denies behavioral changes, Denies depression, Denies memory loss and Denies panic attacks Hunter/Lymph Denies easy bleeding and Denies easy bruising Aller/Immun Denies wheezing Physical exam (Primary Care) Vital Signs: Last Vital Signs Temp 97.3 F 09/09/24 16:08 Pulse 72 09/09/24 16:08 BP 138/78 09/09/24 16:08 Pulse Ox 98 09/09/24 16:08 Oxygen Delivery Method Room Air 09/09/24 16:08 BMI result Body Mass Index 37.9 Tobacco/Smoking Status: Tobacco use Status Tobacco use date assessed 09/09/24 09/09/24 16:12 Patient Tobacco Use Status Never used Tobacco 09/09/24 16:12 Tobacco use type Cigarette 09/09/24 16:12 e-Cigarette/Vaping Use Never Used 09/09/24 16:12 PHQ-9: PHQ-9 Score PHQ-9: Total score 0 09/09/24 16:43 Depression Screening Interpretation: Negative Thrive Assessment: Date of Thrive Assessment Date Thrive assessed 09/09/24 09/09/24 16:12 Currently or been in a relationship where the following occur: No concerns reported Const General: healthy appearing, no acute distress, alert and awake Nutritional Appearance: well nourished Orientation/consciousness: oriented to person, oriented to place and oriented to time HENMT Ears: TM's normal bilaterally General nose exam: Normal nasal mucous membranes and turbinates present Eyes Conjunctivae: conjunctivae normal Sclerae: sclerae normal Pupils: Equal, round and reactive pupils present Neck Neck: Yes no lymphadenopathy and Yes no JVD Thyroid: Thyroid normal Carotids: no bruits Resp Effort & Inspection: normal respiratory effort and not tachypneic Auscultation: no crackles, no rales, no rhonchi and no wheezes Cardio Rate: regular rate Rhythm: regular rhythm Heart sounds: no murmurs and normal S1 and S2 GI Palpation (GI): Soft to palpation, nontender, no hepatomegaly and no splenomegaly Auscultation: normal bowel sounds Back/Spine/Pelvis Other: LIMITED RANGE OF MOTION OF THE LOWER LUMBAR SPINE DUE TO PAIN AND STIFFNESS UPON MOVEMENT. Skin General skin exam: no rashes or lesions noted and dry skin Neuro General: oriented to person, oriented to place and oriented to time Cranial nerves: Yes Equal, round and reactive pupils present Speech: No Abnormal speech present Gait exam (Neuro): Normal gait present Motor exam (neuro): no tremor noted Extrem Right upper extremity: full ROM Left upper extremity: full ROM Right lower extremity: full ROM; no edema Left lower extremity: full ROM; no edema Psych Mental Status: mental status grossly normal Speech and movement: Normal speech and movement present Affect: normal affect Attitude: cooperative Thought process: Normal thought process present Coding Level of Care Code Est Pt Level 3 (34579) Diagnoses Spasm of lumbar paraspinous muscle M62.830 Assessment & Plan Assessment & Plan (1) Spasm of lumbar paraspinous muscle: Code(s): M62.830 - Muscle spasm of back Category: Medical Plan: Patient does have underlying lumbar spine arthritis though signs/ symptoms here most consistent with a muscular etiology.. Manage acute lumbar muscle spasms with cyclobenzaprine and a short course of prednisone. Continue heat application for symptomatic relief. Medications: New prednisone take 3 tablets x3 days, 2 tablets x2 days, 1 tablet x3 days 10 mg PO DIRECTED 18 tabs 0RF 9 days M62.830 - Muscle spasm of back lidocaine 5% leave on most painful area for up to 12 hrs 1 patch topical DAILY 15 ea 0RF 15 days M62.830 - Muscle spasm of back cyclobenzaprine 10 mg PO TID 30 tabs 0RF 10 days M62.830 - Muscle spasm of back Discontinued cyclobenzaprine Discontinued Reason: Doctor's Order 5 mg PO Q8H PRN 20 tabs 0RF Muscle Spasm
[2024-09-09 16:08] VITALS: BP 138/78; PULSE 72; TEMP 36.3; O2SAT 98; BMI 37.9
--- OUTSIDE RECORDS SUMMARY | 2024-09-09 16:48 | XMS_ITS ---
Author Organization [facility] Address [address] [place] [address] Care Team Providers Care Group Therapist Name Role Phone Hyacinth Marquez MD Primary Care Provider Boom Snow [phone] Encounters Encounter Location Date Provider Diagnosis [facility] [address] [place] [address] [address] [place] [address] 08/25/2024 Boom Mclaughlin Plan Of Treatment Next Appt Details Provider Name:Boom Mclaughlin , 01/07/2025 09:30:00 AM, [address], [address], [place], [address], Progress Notes * RAOUL LOPEZDOB:1960 ( 64 yo F)Acc No.[id number]:08/25/2024 Patient:?RAOUL LOPEZ :1960???Age:64 Y???Sex:Female Address:[address] [place] [address] [place] [address] * true * Date:? Generated for Printi ng/Lilian/eTransmitting on:?09/09/2024 04:47 PM EDT
== END 2024-09-09 16:50 | disposition home or self-care (01) ==
LOC: HO.HMCH 15:39
PROVIDERS: PCP Internal Medicine; Visit Provider Physician Assistant
DX: M62.830 Muscle spasm of back (principal)

== ENCOUNTER → 2024-09-09 15:38 | Outpatient (BNVA) | payer MEDICARE, OTHER, SELFPAY | PROVIDERS: PCP Internal Medicine; Visit Provider Physician Assistant | DX: M62.830 Muscle spasm of back (principal) | CPT/HCPCS: 99212 ==

== ENCOUNTER 2024-10-24 15:46 | Outpatient (AMB) | payer MEDICARE, OTHER, SELFPAY ==
--- OUTSIDE RECORDS SUMMARY | 2024-03-21 05:30 | XMS_ITS ---
Author Organization [facility] Address [address] [place] [address] Care Team Providers Care Emergency Physician Name Role Phone Hyacinth Marquez Primary Care Provider UnavailGraeme Rodríguez Unavailable [phone] Namrata Fernandez [phone] Encounters Encounter Location Date Provider Diagnosis [facility] [address] [place] [address] 03/21/2024 Namrata Fernandez Plan Of Treatment No Information Progress Notes * Liza [place] MDOB:1960 (64 yo F)Acc No.[id number]:03/21/2024 Progress Note Patient: Liza LIAO Provider: Doris Fernandez DPM :1960 A ge:64 Y S ex:Female Date:03/21/2024 Address:[address] [place] Pcp:Hyacinth Marquez Subjective: * Chief Complaints: * * Medical History: Objective: * Vitals: Assessment: Plan: * Treatment: * Images: * The named appointment provid er may or may not be the originator of this progress note, and it is not deemed complete until electronically signed by the appointment provider. Sign off status: Pending * Provider: Doris Fernandez DPM Date: 1 05/22/2023 Generated for Printi ng/Faxing/eTransmitting on: 0 10/24/2024 04:15 PM EDT
[2024-10-24 16:11] VITALS: BP 146/78; PULSE 77; O2SAT 98; BMI 37.4
--- NOTE | 2024-10-24 16:11 | A.OFFPC_ITS ---
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 Accompanied by: Self / Same As Patient Allergies No Known Allergies (No Known Allergies*) Allergy (Verified 10/24/24 16:24) Medication List - Last Reconciled 10/24/24 by Becky Hernandez PA-C aspirin (Adult Aspirin Regimen) 81 mg PO DAILY [AUTO PAP 6-16 cm H2O humidified AIR As directed] blood pressure monitor (Blood Pressure Kit) As directed cyclobenzaprine 10 mg PO TID 10 days escitalopram oxalate (Lexapro) 10 mg PO DAILY hydrochlorothiazide 25 mg PO DAILY lidocaine 5% 1 patch topical DAILY 15 days lisinopril 40 mg PO DAILY lorazepam 0.5 mg PO BID PRN 30 days magnesium 200 mg PO DAILY 90 days MDD 200mg PO prednisone 10 mg PO DIRECTED 9 days simvastatin 10 mg PO DAILY Tobacco use date assessed: 10/24/24 Fall risk assessment: No Falls in past year Last assessed Fall Risk: 10/24/24 Dental Screening Dental Screen Date: 10/24/24 Did you have a dental visit in the last 12 months?: Yes Did you have a dental problem in the last 6 months where you did not have access to dental care?: No Was dental information given to patient?: Patient has dentist HPI follow up HPI Details 64-year-old female with past medical his tory of hypertension, hypercholesterolemia, generalized anxiety disorder, obstructive sleep apnea last seen by [facility] 09/2024 coming in for follow up. Presenting with concerns about weight gain and anxiety. She reports a significant weight gain over the past year and a half, despite previous success in maintaining weight loss. The patient attributes her weight management difficulties to anxiety and stress, particularly related to health concerns. Family history includes significant cardiovascular events, with siblings having undergone major cardiac surgeries and treatments. [facility] Medical History Obstructive sleep apnea hypopnea, severe Varicose veins of right lower extremity with inflammation Obstructive sleep apnea (adult) (pediatric) Viral upper respiratory illness Witnessed apneic spells Lumbar spondylosis Preop exam for internal medicine Sinusitis Constipation Finger pain Knee pain, left Annual physical exam Low back pain COVID-19 virus infection Cervicalgia Osteoarthritis Pulmonary valve stenosis Factor 5 Leiden mutation, heterozygous Hypercholesterolemia Vitamin D deficiency Left renal stone Overweight (BMI 25.0-29.9) Anxiety and depression Hypertension Surgical History H/O colonoscopy Hx of total knee arthroplasty History of shoulder surgery Hx of breast reduction, elective Hx of right knee surgery Strabismus S/P PASCALE-BSO Peripheral vascular disease Family History Father Lung cancer Mother COPD (chronic obstructive pulmonary disease) CVD (cardiovascular disease) AAA (abdominal aortic aneurysm) Brother Diabetes Sister Acute CVA (cerebrovascular accident) Daughter Thyroid cancer Social History Housing: House Are you a primary child care specialist to a significant other at home: No Do you presently have visiting nurse or other home services: No Alcohol intake: never Patient Tobacco Use Status: Never used Tobacco Tobacco use type: Cigarette e-Cigarette/Vaping Use: Never Used Second Hand Smoke Exposure: No service: No Current occupational status: retired Cognitive needs: No Hearing needs: No Vision needs: Yes (glasses) Questionnaire Thrive Questionnaire Date Thrive assessed: 10/24/24 I am a: Patient What is your living situation today?: I have a steady place to live Within the past 12 months, did the food you bought not last and you didn't have the money to get more?: Never true Within the past 12 months, did you worry whether your food would run out before you got money to buy more?: Never true Do you have trouble paying for medicines?: No Do you have trouble getting transportation to medical appointments?: No Do you have trouble paying your heating and electricity bill?: No Do you have trouble taking care of your child, family member or friend?: No Do you have trouble with day-to-day activities such as bathing, preparing meals, shopping, managing finances, etc.?: No Are you currently unemployed and looking for a job?: No Are you interested in more education?: No Please select the resources that you would like help with: None Currently or been in a relationship where the following occur: No concerns reported THRIVE Score: 0 BING-7 AMB Questionnaire BING-7 Date BING - 7 assessed: 10/24/24 Source: Developed by Drs. Boom Jin, Yesy Yang, Travis Santos and colleagues, with an educational pascual from [employer]. Review of Systems Const Denies body aches, Denies chills, Denies fever(s), Denies headache(s) and Denies poor appetite Eyes Reports no additional complaints ENT Denies dysphagia, Denies dizziness, Denies headache(s) and Denies odynophagia Card Denies chest pain, Denies syncope, Denies edema, Denies irregular heart rhythm, Denies lightheadedness and Denies dyspnea Resp Denies cough and Denies dyspnea GI Denies abdominal pain, Denies constipation, Denies dysphagia, Denies diarrhea, Denies nausea, Denies odynophagia and Denies vomiting Reports no additional complaints Musc Reports no additional complaints and Denies abnormal gait Skin/Breast Reports system reviewed and no additional complaints, except as documented Neuro Denies abnormal gait, Denies dizziness, Denies syncope and Denies headache(s) Psych Reports no additional complaints Physical exam (Primary Care) Vital Signs: Last Vital Signs Pulse 77 10/24/24 16:11 BP 146/78 H 10/24/24 16:11 Pulse Ox 98 10/24/24 16:11 Oxygen Delivery Method Room Air 10/24/24 16:11 BMI result Body Mass Index 37.4 Tobacco/Smoking Status: Tobacco use Status Tobacco use date assessed 10/24/24 10/24/24 16:15 Patient Tobacco Use Status Never used Tobacco 10/24/24 16:15 Tobacco use type Cigarette 10/24/24 16:15 e-Cigarette/Vaping Use Never Used 10/24/24 16:15 Thrive Assessment: Date of Thrive Assessment Date Thrive assessed 10/24/24 10/24/24 16:15 Currently or been in a relationship where the following occur: No concerns reported Const General: cooperative, healthy appearing, comfortable and no acute distress Orientation/consciousness: patient oriented x3 HENMT Head: Yes normocephalic Ears: hearing grossly normal bilaterally General nose exam: Normal external nose present Eyes General: appearance normal, both eyes and all related structures Conjunctivae: conjunctivae normal Neck Neck: Yes full ROM and Yes no lymphadenopathy Resp Effort & Inspection: normal respiratory effort Auscultation: clear to auscultation bilaterally, no crackles, no rales, no rhonchi and no wheezes Cardio Rate: regular rate Rhythm: regular rhythm Skin General skin exam: no rashes or lesions noted Neuro General: patient oriented x3 Gait exam (Neuro): Normal gait present Extrem General: Yes normal to inspection, Yes full ROM and No edema Psych Affect: normal affect Attitude: cooperative Insight: Good insight present (Psych) Judgement: Good judgement present (Psych) Coding Level of Care Code Est Pt Level 3 (90210) Diagnoses Essential hypertension I10 Hypertension type: essential hypertension Hypercholesterolemia E78.00 Obesity (BMI 30-39.9) E66.9 Gastroesophageal reflux disease without esophagitis K21.9 Esophagitis presence: without esophagitis Impaired fasting blood sugar R73.01 Assessment & Plan Assessment & Plan (1) Hypertension: Code(s): I10 - Essential (primary) hypertension Category: Medical Qualifiers: Hypertension type: essential hypertension Qualified Code(s): I10 - Essential (primary) hypertension Plan: Continue on current blood pressure medication. Avoid salt intake and encourage healthy diet and regular exercise. (2) Hypercholesterolemia: Code(s): E78.00 - Pure hypercholesterolemia, unspecified Category: Medical Plan: Avoid foods that are high in cholesterol such as red meat, fried foods, eggs and baked goods. Triglyceride goal of less than 150 and LDL goal of less than 130. (3) Obesity (BMI 30-39.9): Code(s): E66.9 - Obesity, unspecified Category: Medical Plan: Healthy diet and regular exercise is encouraged. (4) GERD (gastroesophageal reflux disease): Code(s): K21.9 - Gastro-esophageal reflux disease without esophagitis Category: Medical Qualifiers: Esophagitis presence: without esophagitis Qualified Code(s): K21.9 - Gastro-esophageal reflux disease without esophagitis Plan: Avoid trigger foods such as citrus, tomato products, soda, caffeine, spicy foods and other foods that may be irritating to your stomach. Avoid laying flat 3-4 hours after eating and elevate the head of the bed 30 degrees to prevent acid from moving into the esophagus. (5) Impaired fasting blood sugar: Code(s): R73.01 - Impaired fasting glucose Category: Medical Plan: Decrease the amount of carbohydrates such as pasta, bread, rice, and potatoes and limit the amount of sweets. Although fruits are generally healthy they should be eaten in moderation as they are still high in sugar. Plan The patient is encouraged to maintain her physical activity, focusing on swimming and aerobic exercises, to help manage her weight and overall health. For anxiety management, particularly during travel, a refill of lorazepam is planned for as-needed use. To address her acid reflux, the patient should adhere to a daily omeprazole regimen and be mindful of dietary triggers. Follow-up appointments are planned to monitor cardiovascular health and evaluate weight management progress, considering her family history of cardiovascular disease. This note was constructed using voice recognition software. While every effort has been made to ensure accuracy and spooling machine operator, still areas may have been included sometimes these areas may affect the content or meeting of the given symptoms. Total time spent caring for the patient today was 20 minutes. This includes time spent before the visit reviewing the chart, time spent during the visit, and time spent after the visit and documentation. Patient was informed and verbally consented to the use of an ambient scribe for clinic note documentation during this visit. Medications: Refilled omeprazole 20 mg PO DAILY 90 caps 0RF K21.9 - Gastro-esophageal reflux disease without esophagitis
== END 2024-10-24 16:50 | disposition home or self-care (01) ==
LOC: HO.HMCH 15:47
PROVIDERS: PCP Internal Medicine
DX: I10 Essential (primary) hypertension (principal); E66.9 Obesity, unspecified; Z68.37 Body mass index [BMI] 37.0-37.9, adult; E78.00 Pure hypercholesterolemia, unspecified; K21.9 Gastro-esophageal reflux disease without esophagitis; R73.01 Impaired fasting glucose

== ENCOUNTER → 2024-10-24 15:46 | Outpatient (BNVA) | payer MEDICARE, OTHER, SELFPAY | PROVIDERS: PCP Internal Medicine | DX: I10 Essential (primary) hypertension (principal); E78.00 Pure hypercholesterolemia, unspecified; K21.9 Gastro-esophageal reflux disease without esophagitis; R73.01 Impaired fasting glucose; E66.9 Obesity, unspecified; Z68.37 Body mass index [BMI] 37.0-37.9, adult; Z71.3 Dietary counseling and surveillance | CPT/HCPCS: 99212 ==

== ENCOUNTER 2024-12-16 09:16 | Outpatient (AMB) | payer MEDICARE, OTHER, SELFPAY ==
--- OUTSIDE RECORDS SUMMARY | 2024-03-20 04:15 | XMS_ITS ---
Author Organization [facility] Address [address] [place] [address] Care Team Providers Care Buggy Loader Name Role Phone Hyacinth Marquez Primary Care Provider UnavailGraeme Rodríguez Unavailable [phone] Deyvi Henley [phone] Marin Encounters Encounter Location Date Provider Diagnosis [facility] [address] [place] [address] 03/20/2024 Deyvi Henley Plan Of Treatment No Information Progress Notes * Liza MA MDOB:1960 (64 yo F)Acc No.[id number]:03/20/2024 Progress Note Patient: Liza LIAO Provider: Thang Henley DPM :1960 A ge:64 Y S ex:Female Date:03/20/2024 Address:[address] [place] [address] [address] [facility] Pcp:Hyacinth Marquez Subjective: * Chief Complaints: * [...] Henley DPM Date: 1 05/21/2023 Generated for Merlyni ng/Fajulio cg/eTransmitting on: 0 12/16/2024 10:26 AM EDT
--- OUTSIDE RECORDS SUMMARY | 2024-03-20 05:00 | XMS_ITS ---
Author Organization [facility] Address [address] [place] [address] Care Team Providers Care Binder Cutter Hand Name Role Phone Hyacinth Marquez Primary Care Provider UnavailGraeme Rodríguez Unavailable [phone] Namrata Fernandez [phone] Marin Encounters Encounter Location Date Provider Diagnosis [facility] [address] [place] [address] 03/20/2024 Namrata Fernandez Plan Of Treatment No Information Progress Notes * Liza [place] MDOB:1960 (64 yo F)Acc No.[id number]:03/20/2024 Progress Note Patient: Liza LIAO Provider: Doris Fernandez DPM :1960 A ge:64 Y S ex:Female Date:03/20/2024 Address:[address] [place] [address] [place] , [place] Pcp:Hyacinth Marquez Subjective: * Chief Complaints: * [...] DPM Date: 1 05/21/2023 Generated for Printi ng/Facindi/eTransmitting on: 0 12/16/2024 10:25 AM EDT
--- OUTSIDE RECORDS SUMMARY | 2024-03-21 05:30 | XMS_ITS ---
Author Organization [facility] Address [address] [place] [address] Care Team Providers Care Tetryl Blender Operator Name Role Phone Hyacinth Marquez Primary Care Provider UnavailGraeme Rodríguez Unavailable [phone] Namrata Fernandez [phone] Encounters Encounter Location Date Provider Diagnosis [facility] [address] [place] [address] 03/21/2024 Namrata Fernandez Plan Of Treatment No Information Progress Notes * Liza [place] MDOB:1960 (64 yo F)Acc No.[id number]:03/21/2024 Progress Note Patient: Liza LIAO Provider: Drois Fernandez DPM :1960 A ge:64 Y S ex:Female Date:03/21/2024 Address:[address] [place] [facility] Pcp:Hyacinth Marquez Subjective: * Chief Complaints: * [...] 05/22/2023 Generated for Printi ng/Faxing/eTransmitting on: 0 12/16/2024 10:25 AM EDT
--- OUTSIDE RECORDS SUMMARY | 2024-06-26 04:30 | XMS_ITS ---
Author Organization [facility] Address [address] [place] [address] [place] [address] Care Team Providers Care Insulation Hoseman Name Role Phone Hyacinth Marquez MD Primary Care Provider Boom Snow [phone] REASON FOR VISIT screening Encounters Encounter Location Date Provider Diagnosis [facility] Outpatient [address] [place] [phone] 06/26/2024 Boom Mclaughlin Colon cancer scree tavo [...] Next Appt Details Provider Name:Boom Mclaughlin , 01/07/2025 09:30:00 AM, [address] [place] [address], [address], [place], [address], Progress Notes * RAOUL LOPEZDOB:1960 ( 64 yo F)Acc No.[id number]:06/26/2024 COLON WITH MAC Patient: RAOUL LIAO Provider: Heidi Mclaughlin MD :1960 A ge:64 Y S ex:Female Date:06/26/2024 Address:[address] [place], [place] [id number] Pcp:Hyacinth Marquez MD Subjective: * Chief Complaints: * 1 . Screening. * Medical History: Objective: * Vitals: Assessment: * Assessment: 1. C olon cancer screening - Z12.11 (Primary) 2 . C olon polyps - K63.5? 3. D iverticulosis of large intestine without perforation or abscess without bleeding - K57.30 4 . O ther hemorrhoids - K64.8 5 . E xternal hemorrhoids - K64.4 Plan: * Treatment: * Procedure Codes: 4 5385 LESION REMOVAL COLONOSCOPY, Modifiers: PT , 0529F INTRVL 3+YRS PTS CLNSCP DOCD, 0528F RCMND FLW-UP 10 YRS DOCD * * The named appointment provid er may or may not be the originator of this progress note, and it is not deemed complete until electronically signed by the appointment provider. Sign off status: Pending * Provider: Heidi Mclaughlin MD Date: 0 06/26/2024 Generated for Emir boyd/Lilian/Johnitting on: 0 12/16/2024 10:25 AM EDT
[2024-12-16 09:19] VITALS: BP 130/78; PULSE 78; O2SAT 98; BMI 36.0
--- NOTE | 2024-12-16 09:19 | A.OFFPC_ITS ---
Vital Signs 12/16/24 09:19 Height 5 ft 6 in Weight 223 lb BMI 36.0 BP 130/78 Blood Pressure Location Lt brachial Position Sitting Pulse 78 Pulse Source Pulse Oximeter Pulse Oximetry (%) 98 Oxygen Delivery Method Room Air Intake Visit Reasons: f/u HTN and GERD Allergies No Known Allergies (No Known Allergies*) Allergy (Verified 12/16/24 09:21) Tobacco use date assessed: 10/24/24 Fall risk assessment: No Falls in past year Last assessed Fall Risk: 12/16/24 Dental Screening Dental Screen Date: 10/24/24 HPI f/u HTN and GERD HPI Details PAtient is undergoing hypnosis and doing good on loosing weight PFSH Medical History (Updated 12/16/24 @ 09:40 by Hyacinth Marquez MD) Chest pain Elevated LFTs Pancreatic duct dilated Colon cancer screening Age-related osteoporosis without current pathological fracture Obstructive sleep apnea hypopnea, severe Varicose veins of right lower extremity with inflammation Obstructive sleep apnea (adult) (pediatric) Viral upper respiratory illness Witnessed apneic spells Lumbar spondylosis Preop exam for internal medicine Sinusitis Constipation Finger pain Knee pain, left Annual physical exam Low back pain COVID-19 virus infection Cervicalgia Osteoarthritis Pulmonary valve stenosis Factor 5 Leiden mutation, heterozygous Hypercholesterolemia Vitamin D deficiency Left renal stone Overweight (BMI 25.0-29.9) Anxiety and depression Hypertension Surgical History H/O colonoscopy Hx of total knee arthroplasty History of shoulder surgery Hx of breast reduction, elective Hx of right knee surgery Strabismus S/P PASCALE-BSO Peripheral vascular disease Family History Father Lung cancer Mother COPD (chronic obstructive pulmonary disease) CVD (cardiovascular disease) AAA (abdominal aortic aneurysm) Brother Diabetes Sister Acute CVA (cerebrovascular accident) Daughter Thyroid cancer Social History Housing: House Are you a primary resident care director to a significant other at home: No Do you presently have visiting nurse or other home services: No Alcohol intake: never Patient Tobacco Use Status: Never used Tobacco Tobacco use type: Cigarette e-Cigarette/Vaping Use: Never Used Second Hand Smoke Exposure: No service: No Current occupational status: retired Cognitive needs: No Hearing needs: No Vision needs: Yes (glasses) Questionnaire PHQ-9 Over the last 2 weeks, how often have you been bothered by any of the following problems? 1. Little interest or pleasure in doing things: not at all 2. Feeling down, depressed, or hopeless: not at all 3. Trouble falling or staying asleep, or sleeping too much: not at all 4. Feeling tired or having little energy: not at all 5. Poor appetite or overeating: not at all 6. Feeling bad about yourself - or that you are a failure or have let yourself or your family down: not at all 7. Trouble concentrating on things, such as reading the newspaper or watching television: not at all 8. Moving or speaking so slowly that other people could have noticed. Or the opposite - being so fidgety or restless that you have been moving around a lot more than usual: not at all 9. Thoughts that you would be better off or of hurting yourself in some way: not at all Total score: 0 Depression Screening Interpretation: Negative Depression Screening Done: Yes Source: Developed by Drs. Boom Jin, Yesy Yang, Travis Santos and colleagues, with an educational pascual from [employer]. Thrive Questionnaire Date Thrive assessed: 09/09/24 I am a: Patient What is your living situation today?: I have a steady place to live Within the past 12 months, did the food you bought not last and you didn't have the money to get more?: Never true Within the past 12 months, did you worry whether your food would run out before you got money to buy more?: Never true Do you have trouble paying for medicines?: No Do you have trouble getting transportation to medical appointments?: No Do you have trouble paying your heating and electricity bill?: No Do you have trouble taking care of your child, family member or friend?: No Do you have trouble with day-to-day activities such as bathing, preparing meals, shopping, managing finances, etc.?: No Are you currently unemployed and looking for a job?: No Are you interested in more education?: No Please select the resources that you would like help with: None Currently or been in a relationship where the following occur: No concerns reported THRIVE Score: 0 AUDIT C Alcohol Use Questionnaire (AUDIT-C) 1. How often do you have a drink containing alcohol?: Never 3. How often do you have six or more drinks on one occasion?: Never Total Score: 0 BING-7 AMB Questionnaire BING-7 Date BING - 7 assessed: 10/24/24 Source: Developed by Drs. Boom Jin, Yesy Yang, Travis Santos and colleagues, with an educational pascual from [employer]. Physical exam (Primary Care) Vital Signs: Last Vital Signs Pulse 78 12/16/24 09:19 BP 130/78 12/16/24 09:19 Pulse Ox 98 12/16/24 09:19 Oxygen Delivery Method Room Air 12/16/24 09:19 BMI result Body Mass Index 36.0 Tobacco/Smoking Status: Tobacco use Status Tobacco use date assessed 10/24/24 12/16/24 09:26 Patient Tobacco Use Status Never used Tobacco 12/16/24 09:26 Tobacco use type Cigarette 12/16/24 09:26 e-Cigarette/Vaping Use Never Used 12/16/24 09:26 PHQ-9: PHQ-9 Score PHQ-9: Total score 0 12/16/24 09:50 Depression Screening Interpretation: Negative Thrive Assessment: Date of Thrive Assessment Date Thrive assessed 09/09/24 12/16/24 09:26 Currently or been in a relationship where the following occur: No concerns reported Const General: alert; No acute distress Eyes Conjunctivae: conjunctivae normal Resp Auscultation: clear to auscultation bilaterally Cardio Rate: regular rate Rhythm: regular rhythm GI Inspection: Yes normal to inspection Extrem General: Yes normal to inspection and No edema Immunizations pneumoc 20-breanna conj-dip cr(PF) 0.5 mL IM syringe Performing Provider: Hyacinth Marquez MD [place] [facility] [facility] [place] [facility] Administered by: Isis Murphy CMA on 12/16/24 09:52 Dose Route Admin Location Dispensed Lot Number Expiration Date [facility] [employer] 0.5 mL IM Left Deltoid 0.5 mL [id number] 12/09/25 8023-5714-60 [employer] /[employer] Total Dispensed Waste 0.5 mL 0 % VIS Given Date VIS Provided VIS Publication Date 12/16/24 Single Vaccine 24 Eligibility Eligibility Date Funding Source Not [facility] Eligible 12/16/24 Private Coding Level of Care Code Est Pt Level 4 (55430) Complex EM visit Add On G2211 Diagnoses Osteopenia M85.80 Impaired fasting blood sugar R73.01 Gastroesophageal reflux disease without esophagitis K21.9 Esophagitis presence: without esophagitis Hepatic steatosis K76.0 Obstructive sleep apnea hypopnea, severe G47.33 Essential hypertension I10 Hypertension type: essential hypertension Hypercholesterolemia E78.00 Generalized anxiety disorder F41.1 Bilateral knee pain M25.561; M25.562 Assessment & Plan Assessment & Plan (1) Osteopenia: Comment: February Code(s): M85.80 - Other specified disorders of bone density and structure, unspecified site Category: Medical Plan: Patient is up-to-date with bone density. Discussed about calcium and vitamin-D (2) Impaired fasting blood sugar: Code(s): R73.01 - Impaired fasting glucose Category: Medical Plan: Decrease the amount of carbohydrate intake, pasta, bread, rice and potatoes are all sugar and that is aside from all the sweet stuff, remember that fruits are good but they are Sweet also. (3) GERD (gastroesophageal reflux disease): Code(s): K21.9 - Gastro-esophageal reflux disease without esophagitis Category: Medical Qualifiers: Esophagitis presence: without esophagitis Qualified Code(s): K21.9 - Gastro-esophageal reflux disease without esophagitis Plan: Avoid the foods that causes that usually spicy foods, tomato products, juices, coffee, soda and foods that your sensitive to. After eating do not lie down, allow 3-4 hours before in lie down. And keep the head of bed above 30 degrees to avoid the acid from going up. (4) Hepatic steatosis: Code(s): K76.0 - Fatty (change of) liver, not elsewhere classified Category: Medical Plan: Low-fat diet and exercise (5) Obstructive sleep apnea hypopnea, severe: Code(s): G47.33 - Obstructive sleep apnea (adult) (pediatric) Category: Medical Plan: Continue to use the CPAP more than 4 hours a night and benefits from this. (6) Hypertension: Code(s): I10 - Essential (primary) hypertension Category: Medical Qualifiers: Hypertension type: essential hypertension Qualified Code(s): I10 - Essential (primary) hypertension Plan: Continue with blood pressure medication. Decrease salt intake and exercise patient is on lisinopril 40 mg once a day hydrochlorothiazide 25 mg once a day (7) Hypercholesterolemia: Code(s): E78.00 - Pure hypercholesterolemia, unspecified Category: Medical Plan: Avoid fried foods, chicken skin, eggs, butter margarine, pastries and meat. Be it pork or beef they have a lot of cholesterol patient on simvastatin 10 mg once a day April last blood work (8) Generalized anxiety disorder: Comment: doing private counseling presently 06/2021 Code(s): F41.1 - Generalized anxiety disorder Category: Medical Plan: Continue with present medication and counseling. (9) Bilateral knee pain: Code(s): M25.561 - Pain in right knee; M25.562 - Pain in left knee Category: Medical Plan History of Present Illness The patient is a 64-year-old female presenting for a follow-up visit. She has a history of hypertension, hypercholesterolemia, lumbar spondylosis, obstructive sleep apnea, generalized anxiety disorder, osteopenia, gastroesophageal reflux disease, impaired glucose tolerance, hepatic steatosis, and vitamin D deficiency. The patient's hypertension is managed with lisinopril 40 mg once daily and hydrochlorothiazide 25 mg once daily. Her blood pressure was recorded at 130/78 mmHg during this visit, indicating good control. For hypercholesterolemia, she is on simvastatin 10 mg once daily, with her last LDL cholesterol level recorded at 99 mg/dL. She is advised to continue with her current medication regimen. The patient reports using a CPAP machine for obstructive sleep apnea, which she uses for more than 4 hours a night, and she benefits from this treatment. She has been experiencing anxiety, which she manages with hypnosis sessions conducted online. She reports that this has helped her calm down and manage her anxiety better. The patient has a history of osteopenia, with her last bone density test conducted in February 2024. She has been advised to discuss calcium and vitamin D supplementation. Her impaired glucose tolerance is monitored with an A1c of 5.9%, which is elevat ed but not at diabetic levels. She has been advised to maintain a low-fat diet and exercise regularly. The patient has hepatic steatosis, which was identified via ultrasound. She is up to date with her colon cancer screening, mammogram, and bone density test. She received a pneumonia vaccination during this visit. Health Maintenance - Colon cancer screening with stool test completed in June 2024 - Mammogram up to date as of May 2024 - Bone density test conducted in February 2024 - Pneumonia vaccination administered during this visit - Advised on calcium and vitamin D supplementation - Recommended low-fat diet and regular exercise for glucose tolerance management Social History - Exercise: Patient engages in swimming and plans to resume at the [facility] after closing her backyard pool for the season. - Family: Patient babysits her grandchildren daily, indicating active family involvement. - Weight Management: Patient has lost weight through hypnosis and is cautious about dietary intake, avoiding weighing herself to prevent fixation on numbers. Review of Systems - Cardiovascular: Denies chest pain or swelling. - Respiratory: Reports using CPAP for obstructive sleep apnea. - Gastrointestinal: Reports good bowel movements, denies any issues. - Musculoskeletal: Reports knee pain, especially when using stairs. - Neurological: Reports anxiety, managed with hypnosis. Physical Exam Results - Labs: Normal blood count with mildly low white blood cell count, normal platelet count, normal electrolytes, normal renal function, elevated blood sugar with A1c of 5.9%. - Imaging: Ultrasound showing hepatic steatosis. Plan Patient was informed and verbally consented to the use of an ambient scribe for clinic note documentation during this visit. 1. Hypertension The patient's hypertension is managed with lisinopril 40 mg once daily and hydrochlorothiazide 25 mg once daily. Her blood pressure was recorded at 130/78 mmHg during this visit, indicating good control. 2. Hypercholesterolemia The patient is on simvastatin 10 mg once daily for hypercholesterolemia, with her last LDL cholesterol level recorded at 99 mg/dL. She is advised to continue with her current medication regimen. 3. Obstructive Sleep Apnea The patient reports using a CPAP machine for obstructive sleep apnea, which she uses for more than 4 hours a night, and she benefits from this treatment. 4. Generalized Anxiety Disorder The patient manages her anxiety with hypnosis sessions conducted online, which she reports has helped her calm down and manage her anxiety better. 5. Osteopenia The patient has a history of osteopenia, with her last bone density test conducted in February 2024. She has been advised to discuss calcium and vitamin D supplementation. 6. Impaired Glucose Tolerance Her impaired glucose tolerance is monitored with an A1c of 5.9%, which is elevated but not at diabetic levels. She has been advised to maintain a low-fat diet and exercise regularly. 7. Hepatic Steatosis The patient has hepatic steatosis, which was identified via ultrasound. 8. Preventative Care The patient is up to date with her colon cancer screening, mammogram, and bone density test. She received a pneumonia vaccination during this visit. Discussion Notes During the visit, we discussed the management of the patient's hypertension, hypercholesterolemia, and impaired glucose tolerance. We reviewed her current medication regimen and emphasized the importance of adherence to prescribed treatments. The patient was advised to continue using her CPAP machine for obstructive sleep apnea and to maintain her current lifestyle modifications, including a low-fat diet and regular exercise. We also discussed the benefits of calcium and vitamin D supplementation for her osteopenia and the importance of regular screenings and vaccinations, including the pneumonia vaccine administered today. Patient Instructions - Continue taking lisinopril and hydrochlorothiazide as prescribed for blood pressure management. - Maintain current cholesterol medication regimen with simvastatin. - Use CPAP machine for at least 4 hours nightly for sleep apnea. - Follow a low-fat diet and engage in regular exercise to manage glucose levels. - Consider calcium and vitamin D supplements for bone health. - Stay up to date with regular screenings and vaccinations. Orders: Orders Free T4 (Free Thyroxine) 3 Months E78.00 - Pure hypercholesterolemia, unspecified Lipid Panel 3 Months E78.00 - Pure hypercholesterolemia, unspecified XR Knee Justyn 1or 2V Today M25.561 - Pain in right knee, M25.562 - Pain in left knee Pneumococcal 20 Immunization Today Z23 - Encounter for immunization Comprehensive Met. Panel 3 Months E78.00 - Pure hypercholesterolemia, unspecified Complete Blood Count Auto Diff 3 Months E78.00 - Pure hypercholesterolemia, unspecified Thyroid Stimulating Hormone 3 Months E78.00 - Pure hypercholesterolemia, unspecified Vitamin B12 and Folate 3 Months E78.00 - Pure hypercholesterolemia, unspecified Vitamin D 25-OH Total 3 Months E78.00 - Pure hypercholesterolemia, unspecified Hemoglobin A1c 3 Months E78.00 - Pure hypercholesterolemia, unspecified Referrals 2 Orthopedics Referral M25.561 - Pain in right knee, M25.562 - Pain in left knee
--- OUTSIDE RECORDS SUMMARY | 2024-12-16 10:26 | XMS_ITS | Patient Health Record ---
Author Organization [facility] Address [address] [place] [address] Care Team Providers Care Brush Worker Name Role Phone Hyacinth Marquez MD Primary Care Provider Boom Snow [phone] Allergies No Known Allergies Results Component Value Reference Range Notes Ferritin Reviewed date:08/16/2024 05:57:34 PM Interpretation: Performing Lab:[facility], [address] [place] [phone] Notes/Report: Ferritin 221 10-250 ng/mL Amylase Reviewed date:08/16/2024 05:57:27 PM Interpretation: Performing Lab:[facility], [address] [place] [phone] Notes/Report: Amylase 44 28-100 U/L Lipase Reviewed date:08/16/2024 05:57:20 PM Interpretation: Performing Lab:[facility], [address] [place] [phone] Notes/Report: Lipase 22 8-78 U/L Alpha 1 Anti-trypsin Reviewed date:09/06/2024 12:10:12 AM Interpretation: Performing Lab:[facility], [address] [place] [phone] Notes/Report: Alpha 1 Anti-trypsin 153 83-199 mg/dL THIS TEST WAS PERFORMED AT: [facility] [address] [place] [phone] MILANA FIGUEROA MD Liver Fibrosis Pnl Reviewed date:09/06/2024 12:10:40 AM Interpretation: Performing Lab:[facility], [address] [place] [phone] Notes/Report: Liver Fibrosis Score 0.09 Liver Fibrosis Stage F0 Liver Fibrosis Interpretation SEE NOTE no fibrosis Fibro Test Score (f) Metavir Score f>=0 and f<=0.21 : F0 (no fibrosis) f>0.21 and f<=0.27 : F0-F1 (no fibrosis) f>0.27 and f<=0.31 : F1 (minimal fibrosis) f>0.31 and f<=0.48 : F1-F2 (minimal fibrosis) f>0.48 and f<=0.58 : F2 (moderate fibrosis) f>0.58 and f<=0.72 : F3 (advanced fibrosis) f>0.72 and f<=0.74 : F3-F4 (advanced fibrosis) f>0.74 and f<=1.00 : F4 (severe fibrosis) Nec Inflam Act Score 0.09 Nec Inflam Act Grade A0 Nec Inflam Act Interpretation SEE NOTE no activity ActiTest Score (a) Metavir Score a>=0 and a<=0.17 : A0 (no activity) a>0.17 and a<=0.29 : A0-A1 (no activity) a>0.29 and a<=0.36 : A1 (minimal activity) a>0.36 and a<=0.52 : A1-A2 (minimal activity) a>0.52 and a<=0.60 : A2 (significant activity) a>0.60 and a<=0.62 : A2-A3 (significant activity) a>0.62 and a<=1.00 : A3 (severe activity) LXI-Dfmgr-9-Macroglobulin 166 106-279 mg/dL FIB-Haptoglobin 221 43-212 mg/dL FIB-Apolipoprotein A1 195 101-198 mg/dL FIB-Total Bilirubin 0.5 0.2-1.2 mg/dL FIB-GGT 31 3-65 U/L FIB-ALT 26 6-29 U/L Reference ID [id number] Footnote SEE NOTE The reliability of results is dependent on compliance with the preanalytical and analytical conditions recommended by [employer]. The tests have to be deferred for: acute hemolysis, acute hepatitis, acute inflammation, extra hepatic cholestasis. The advice of a specialist should be sought for interpretation in chronic hemolysis and Gilbert's syndrome. The test interpretation is not validated in liver transplant patients. Isolated extreme values of one of the components should lead to caution in interpreting the results. In case of discordance between a biopsy result and a test, it is recommended to seek the advice of a specialist. The causes of these discordances could be due to a flaw of the test or to a flaw in the biopsy: i.e. a liver biopsy has a 33% variability rate for one fibrosis stage. FibroTest is interpretable for chronic hepatitis B and C, alcoholic and non alcoholic steatosis. ActiTest is interpretable for chronic hepatitis B and C. The performance characteristics have been determined by [facility]. It has not been cleared or approved by the U.S. Food and Drug Administration. Performance characteristics refer to the analytical performance of the test. Solexant, the associated logo, Simply Zesty and all associated [employer] schroeder are the registered trademarks of [employer]. All third alliance party schroeder - (R) and (TM) - are the property of their respective owners. (C) [id number] [employer]. All rights reserved. THIS TEST WAS PERFORMED AT: [employer] [facility] [address] [place] [address] ESTEBAN MEDEIROS MD,PHD,LIBERTY Mitochondrial Antibody Reviewed date:09/06/2024 12:14:08 AM Interpretation: Performing Lab:[address] [phone] Notes/Report: Mitochondrial Antibodies NEGATIVE NEGATIVE The immunofluorescence assay (IFA) procedure reveals the possible presence of another autoantibody. Consider requesting order code 263, Smooth Muscle Antibody with Reflex to Titer, if clinically indicated. Staining was observed suggesting the presence of Antinuclear Antibodies. Consider requesting order code 249, RAFAEL Screen, IFA with reflex to titier and pattern, or order code [id number], RAFAEL Screen, IFA with reflex Titer/Pattern, Reflex to Multiplex 11 Ab [place], if clinically indicated. THIS TEST WAS PERFORMED AT: [employer] [address] [phone] MILANA FIGUEROA MD Mitochondrial Ab Titer TNP Smooth Muscle Antibody Reviewed date:09/06/2024 12:10:28 AM Interpretation: Performing Lab:[address] [phone] Notes/Report: Smooth Muscle Antibody <20 <20 U Reference Range: <20 U: Negative >or=20 U: Positive Antibodies recognizing actin are the main component of smooth muscle antibodies associated with auto- immune liver disease. Actin antibodies are found in approximately 75% of patients with autoimmune hepatitis (AIH) type 1, approximately 65% of patients with autoimmune cholangitis, approximately 30% of patients with primary biliary cirrhosis and approximately 2% of healthy controls. High values are closely correlated with AIH type 1. THIS TEST WAS PERFORMED AT: [employer]/[address] ISACC MARRERO MD,PHD Hepatitis B,C Profile Reviewed date:08/16/2024 05:57:11 PM Interpretation: Performing Lab:[address] [phone] Notes/Report: Hepatitis B Surface Antibody NONREACTIVE Nonreactive Nonreactive: < 8.00 mIU/mL Hepatitis B Core Antibody Nonreactive Nonreactive Hepatitis C Antibody Nonreactive Nonreactive Antibodies to HCV not detected; does not exclude early acute HCV infection. Hepatitis B Surface Antigen Negative Negative Pathology Reviewed date:08/09/2024 03:32:14 PM Interpretation: Performing Lab:[address] [phone] Notes/Report: Liver Panel Reviewed date:08/16/2024 05:53:36 PM Interpretation: Performing Lab:[address] [address] Notes/Report: Bilirubin Total 0.7 0.0-1.0 mg/dL Bilirubin Direct 0.3 0.0-0.5 mg/dL Aspartate Amino Transferase 30 5-31 U/L Alanine Aminotransferase 36 0-31 U/L Total Protein 7.2 6.5-8.0 g/dL Albumin Level 4.4 3.5-5.0 g/dL Alkaline Phosphatase 52 39-117 U/L IRON PROFILE Reviewed date:08/16/2024 05:53:25 PM Interpretation: Performing Lab:[address] [address] Notes/Report: Iron 96 30-160 mcg/dL Total Iron Binding Capacity 302 228-428 mcg/d L Percent Iron Saturation 32 15-50 % Unsaturated Iron Binding 206 Carbohydrate Antigen 19-9 Reviewed date:08/21/2024 06:11:07 PM Interpretation: Performing Lab:[facility], [address] [place] [phone] Notes/Report: Carbohydrate Antigen 19-9 36 <34 U/mL This test was performed using the Siemens chemiluminescent method. Values obtained from different assay methods cannot be used interchangeably. CA 19-9 levels, regardless of value, should not be interpreted as absolute evidence of the presence or absence of disease. THIS TEST WAS PERFORMED AT: [facility] [address] [place] [phone] MILANA FIGUEROA MD RAFAEL Reflex Titer and Pattern Reviewed date:08/25/2024 02:42:13 PM Interpretation: Performing Lab:[facility], [address] [place] [phone] Notes/Report: Anti Nuclear Antibody Screen POSITIVE NEGATIVE RAFAEL IFA is a first line screen for detecting the presence of up to approximately 150 autoantibodies in various autoimmune diseases. A positive RAFAEL IFA result is suggestive of autoimmune disease and reflexes to titer and pattern. Further laboratory testing may be considered if clinically indicated. For additional information, please refer to http://education.Yebol/faq/VCB210 (This link is being provided for informational/ educational purposes only.) Anti Nuclear Antibody Titer 1:320 Reference Range <1:40 Negative 1:40-1:80 Low Antibody Level >1:80 Elevated Antibody Level Anti Nuclear Antibody Pattern Nuclear, Dense Fine Speckled Abnormal Flag: A Dense fine speckled pattern is seen in normal individuals and rarely associated with systemic lupus erythematosis (SLE), Sjogren's syndrome and systemic sclerosis. AC-2: Dense Fine Speckled International Consensus on RAFAEL Patterns (https://doi.org/10.1515/cclm -8995-8519) THIS TEST WAS PERFORMED AT: [facility] [address] [place] [phone] MILANA FIGUEROA MD RAFAEL Titer 2 TNP RAFAEL Pattern 2 TNP RAFAEL Titer 3 TNP RAFAEL Pattern 3 TNP Reason For Referral No Information Medications Medication [...] Problem Status W/U Status Risk Notes Problem [id number] Encounter for screening for malignant neoplasm of colon (Z12.11) Active confirmed Problem Abnormal findings diagnostic imaging of liver and biliary tract (937597061) Abnormal CT scan, pancreas or bile duct (R93.2) Active confirmed Problem 461904631733721 Preprocedural examination (Z01.818) Active confirmed Problem Fatty liver (000405243) Fatty liver (K76.0) Active confirmed Problem Long-term current use of aspirin (121363376240868) Aspirin long-term use (Z79.82) Active confirmed Problem 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 Problem Imaging of abdomen abnormal (587228574) Abnormal MRI of abdomen (R93.5) Active confirmed Problem History of adenomatous polyp of colon (313987213) History of adenomatous polyp of colon (Z86.0101) Active confirmed Vital Signs Temperature 95.3 degrees Fahrenheit 08/09/2024 Blood pressure diastolic 01 mm Hg 08/09/2024 Height 68 in 08/09/2024 Blood pressure systolic 001 mm Hg 08/09/2024 Weight 226 lbs 08/09/2024 BMI 34.36 kg/m2 08/09/2024 Encounters Encounter Location Date Provider Diagnosis [facility] [address] [place] [phone] 06/26/2024 Boom Mclaughlin Colon cancer screeni ng Z12.11 ; Colon polyps K63.5 ; Diverticulosis of large intestine without perforation or abscess without bleeding K57.30 ; Other hemorrhoids K64.8 and External hemorrhoids K64.4 [facility] [address] [place] [address] 03/05/2024 Boom Mclaughlin Encounter for screen ing for malignant neoplasm of colon Z12.11 ; Aspirin long-term use Z79.82 and Preprocedural examination Z01.818 [facility] [address] [place] [address] 08/09/2024 Boom Mclaughlin Fatty liver K76.0 ; Pancreatic ductal abnormality Q45.3 ; History of adenomatous polyp of colon Z86.0101 and Abnormal MRI of abdomen R93.5 [facility] [address] [place] [address] 01/17/2024 Boom Mclaughlin [facility] [address] [place] [address] 08/25/2024 Boom Mclaughlin Assessments Encounter Date Diagnosis (ICD Code) Assessment Notes Treatment Notes Treatment Clinical Notes Section Notes 06/26/2024 Colon cancer screening (ICD-10 - Z12.11) 06/26/2024 Colon polyps (ICD-10 - K63.5) 03/05/2024 Encounter for screening for malignant neoplasm [...] to keep you advised of her progress. 08/09/2024 Fatty liver (ICD-10 - K76.0) Watch [...] keep you advised of her progress.. 06/26/2024 Diverticulosis of large intestine without perforation or abscess without bleeding (ICD-10 - K57.30) 03/05/2024 Preprocedural examination (ICD-10 - Z01.818) Overall, [...] to keep you advised of her progress. 08/09/2024 History of adenomatous polyp of colon [...] keep you advised of her progress.. 06/26/2024 Other hemorrhoids (ICD-10 - K64.8) 08/09/2024 Abnormal MRI of abdomen (ICD-10 - [...] 08/09/2024 FLUOR. ANTINUCLEAR AB SCREEN (ASAD) 05/2024 Future Test Test Name Order Date COLONOSCOPY 09/19/2018 COLONOSCOPY 03/05/2024 Next Appt Details Provider Name:Boom Mclaughlin , 01/07/2025 09:30:00 AM, [address] [place] [address], [address], [place], [address], Insurance Providers Payer Name Payer Address Payer Phone Subscriber Number Group Number Insured Name Patient Relationship to Insured Coverage Start Date Coverage End Date MEDICARE OF [place] [address] [facility] [place] [address] [id number] LIZA LOPEZ Self - patient is the insured [facility] [address] [place] [phone] [id number] LIZA LOPEZ Self - patient is the insured Medical (General) History Medical History History ICD Code Denies ME,DM,CVA,Lung disease,renal dise ase Hypertension Hyperlipidemia Anxiety Neg. [...]
--- OUTSIDE RECORDS SUMMARY | 2024-12-16 10:27 | XMS_ITS | Patient Health Record ---
Author Organization [facility] Address [address] [place] [address] Care Team Providers Care Lens Block Gauger Name Role Phone Hyacinth Marquez Primary Care Provider UnavailGraeme Rodríguez Unavailable [phone] Deyvi Henley Unavailable [phone] Namrata Fernandez Unavailable [phone] Allergies No Known Allergies Reason For Referral No Information Medications Medication SIG (Take, Route, Frequency, Duration) Notes Start Date End Date Status Vitamin D3 Not-Takin g hydroCHLOROthiazide 25 MG 1 tablet in th e morning Orally Once a day; Duration: 30 day(s) Active Lexapro 10 MG 1 tablet Orally Once a day; Duration: 30 day(s) Active Aspirin 81 MG 1 tablet Orally Once a day; Duration: 30 day(s) Active Simvastatin 10 MG 1 tablet in the evening Orally Once a day; Duration: 30 day(s) Active Lisinopril 40 MG 1 tablet Orally Once a day; Duration: 30 day(s) Active PARoxetine HCl 20 MG 1 tablet in the morning Orally Once a day; Duration: 30 day(s) Not-Taking Cephalexin 500 MG 1 capsule Orally 4 times a day; Duration: 10 day(s) 07/14/2024 Active Doxycycline Hyclate 100 MG 1 capsule Ora lly Once a day; Duration: 10 day(s) 07/13/2022 Not-Taking Physical Therapy . . . 2-3x/week; Duration: 3-4 weeks 06/15/2023 Not-Taking Immunizations Vaccine Route Administration Date Status Comme [facility] COVID-19 Moderna Vaccine Unknown 03/01/2021 Administered First [...] Ordered Date Performed Result Body Sit e 80434-RTQ 07/04/2024 N/A [id number] SKIN/TISSUE 07/16/2024 N/A Encounters Encounter Location Date Provider [facility] [address] [address] 07/04/2024 Graeme Padilla Ingrown [facility] L60.[facility] [address] 07/16/2024 Graeme Padilla Skin ulcer of toe of right foot with fat layer exposed L97.[address] [address] 07/14/2024 Graeme Padilla [address] [address] 07/14/2024 Graeme Padilla Assessments Encounter Date Diagnosis [...] X ray : Foot, right 3V 04/14/2021 [id number] 07/04/2024 [id number] SKIN/TISSUE 07/16/2024 Insurance Providers Payer Name Payer Address Payer Phone Subscriber Number Group Number Insured Name Patient Relationship to Insured Coverage Start Date Coverage End Date Medicare [employer] [address] [place] [address] [id number] Liza Ma Self - patient is the insured [facility] [address] [place] [address] [id number] Liza Ma Self - patient is the insured Medical (General) History Medical History History ICD Code Arthritis Back,Hip,and Knee pain Cancer covid-19 High blood pressure Rheumatic fever Measles Mumps Chicken pox Hypercholesterolemia Surgical History Surgery Date(Month/Year) rotator cuff tear repair Meniscus repair hysterectomy oral surgery cancer eye surgery left knee replacement 09/2021 wisdom teeth extraction
== END 2024-12-16 10:01 | disposition home or self-care (01) ==
LOC: HO.HMCH 09:17
PROVIDERS: PCP Internal Medicine; Visit Provider Internal Medicine
DX: M85.80 Other specified disorders of bone density and structure, unspecified site (principal); R73.01 Impaired fasting glucose; K21.9 Gastro-esophageal reflux disease without esophagitis; K76.0 Fatty (change of) liver, not elsewhere classified; G47.33 Obstructive sleep apnea (adult) (pediatric); I10 Essential (primary) hypertension; E78.00 Pure hypercholesterolemia, unspecified; F41.1 Generalized anxiety disorder; M25.561 Pain in right knee; M25.562 Pain in left knee; Z23 Encounter for immunization

== ENCOUNTER → 2024-12-16 09:16 | Outpatient (BNVA) | payer MEDICARE, OTHER, SELFPAY | PROVIDERS: PCP Internal Medicine; Visit Provider Internal Medicine | DX: I10 Essential (primary) hypertension (principal); K21.9 Gastro-esophageal reflux disease without esophagitis; M85.80 Other specified disorders of bone density and structure, unspecified site; R73.01 Impaired fasting glucose; K76.0 Fatty (change of) liver, not elsewhere classified; G47.33 Obstructive sleep apnea (adult) (pediatric); E78.00 Pure hypercholesterolemia, unspecified; F41.1 Generalized anxiety disorder; M25.561 Pain in right knee; M25.562 Pain in left knee; Z23 Encounter for immunization; Z99.89 Dependence on other enabling machines and devices | CPT/HCPCS: 90471; 90677; 96127; 99212 ==

== ENCOUNTER 2025-01-07 10:17 | Outpatient (REF) | payer MEDICARE, OTHER, SELFPAY ==
--- OUTSIDE RECORDS SUMMARY | 2024-03-20 04:15 | XMS_ITS ---
Author Organization [facility] Address [address] [place] [address] Care Team Providers Care Central Station Operator Name Role Phone Hyacinth Marquez Primary Care Provider UnavailGraeme Rodríguez Unavailable [phone] Deyvi Henley [phone] Marin Encounters Encounter Location Date Provider Diagnosis [facility] [address] [place] [address] 03/20/2024 Deyvi Henley Plan Of Treatment No Information Progress Notes * Liza MA MDOB:1960 (64 yo F)Acc No.[id number]:03/20/2024 Progress Note Patient: Liza LIAO Provider: Thang Henley DPM :1960 A ge:64 Y S ex:Female Date:03/20/2024 Address:[address] [place] [address] [facility] Pcp:Hyacinth Marquez Subjective: * Chief Complaints: * [...] Henley DPM Date: 1 05/21/2023 Generated for Printi ng/Faxing/eTransmitting on: 0 01/07/2025 11:28 AM EDT
--- OUTSIDE RECORDS SUMMARY | 2024-03-20 05:00 | XMS_ITS ---
Author Organization [facility] Address [address] [place] [address] Care Team Providers Care Gun Fitter Name Role Phone Hyacinth Marquez Primary Care Provider UnavailGraeme Rodríguez Unavailable [phone] Namrata Fernandez [phone] Marin Encounters Encounter Location Date Provider Diagnosis [facility] [address] [place] [address] 03/20/2024 Namrata Fernandez Plan Of Treatment No Information Progress Notes * Liza MA MDOB:1960 (64 yo F)Acc No.[id number]:03/20/2024 Progress Note Patient: Liza LIAO Provider: Doris Fernandez DPM :1960 A ge:64 Y S ex:Female Date:03/20/2024 Address:[address] [place] [address] [place] , [place] Pcp:Hyacinth Marquez Subjective: * Chief Complaints: * [address] Mairn. * Medical History: Objective: * Vitals: Assessment: Plan: * Treatment: * Images: * The named appointment provid er may or may not be the originator of this progress note, and it is not deemed complete until electronically signed by the appointment provider. Sign off status: Pending * Provider: Doris Fernandez DPM Date: 1 05/21/2023 Generated for Printi ng/Fajulio cg/eTransmitting on: 0 01/07/2025 11:27 AM EDT
--- OUTSIDE RECORDS SUMMARY | 2024-03-21 05:30 | XMS_ITS ---
Author Organization [facility] Address [address] [place] [address] Care Team Providers Care Engine Installer Name Role Phone Hyacinth Marquez Primary Care Provider UnavailGraeme Rodríguez Unavailable [phone] Namrata Fernnadez [phone] Encounters Encounter Location Date Provider Diagnosis [facility] [address] [place] [address] 03/21/2024 Namrata Fernandez Plan Of Treatment No Information Progress Notes * Liza [place] MDOB:1960 (64 yo F)Acc No.[id number]:03/21/2024 Progress Note Patient: Liza LIAO Provider: Doris Fernandez DPM :1960 A ge:64 Y S ex:Female Date:03/21/2024 Address:[address] [place] [facility] Pcp:Hyacinth Marquez Subjective: * Chief Complaints: * [...] 05/22/2023 Generated for Printi ng/Faxing/eTransmitting on: 0 01/07/2025 11:27 AM EDT
--- OUTSIDE RECORDS SUMMARY | 2024-06-26 04:30 | XMS_ITS ---
Author Organization [facility] Address [address] [place] [address] Care Team Providers Care Chief Revenue Officer Name Role Phone Hyacinth Marquez MD Primary Care Provider Boom Snow [phone] REASON FOR VISIT screening Encounters Encounter Location Date Provider Diagnosis [facility] Out[facility] [address] [place] [phone] 06/26/2024 Boom Mclaughlin Colon cancer scree tavo [...] No Information Progress Notes * JESSICAROGELIOLAKESHADOB:1960 ( 64 yo F)Acc No.[id number]:06/26/2024 COLON WITH MAC Patient: RAOUL LIAO Provider: Heidi Mclaughlin MD :1960 A ge:64 Y S ex:Female Date:06/26/2024 Address:[address] [place] [address], [id number] Pcp:Hyacinth Marquez MD Subjective: * Chief Complaints: [...] 0 06/26/2024 Generated for Emir boyd/Lilian/Mauricesmitting on: 0 01/07/2025 11:27 AM EDT
--- OUTSIDE RECORDS SUMMARY | 2025-01-07 11:28 | XMS_ITS | Patient Health Record ---
Author Organization [facility] Address [address] [place] [address] Care Team Providers Care Activity Aid Name Role Phone Hyacinth aMrquez Primary Care Provider UnavailGraeme Rodríguez Unavailable [phone] Deyvi Henley Unavailable [phone] Namrata Fernandez Unavailable [phone] Allergies No Known Allergies Reason For Referral [...] Immunizations Vaccine Route Administration Date Status Comme [facility] COVID-19 Moderna Vaccine Unknown 03/01/2021 Administered First [...] Ordered Date Performed Result Body Sit e 40922-DTQ 07/04/2024 N/A [id number] SKIN/TISSUE 07/16/2024 N/A Encounters Encounter [facility] Date [facility] [address] [address] 07/04/2024 [facility] Pad[facility] [address] 07/16/2024 Graeme Padilla Skin ulcer of toe of right foot with fat layer exposed L97.[address] [address] 07/14/2024 Graeme Padilla [address] [address] 07/14/2024 Graeme Padilla Assessments Encounter Date Diagnosis [...] X ray : Foot, right 3V 04/14/2021 [id number] 07/04/2024 [id number]-[id number] SKIN/TISSUE 07/16/2024 Insurance Providers Payer Name Payer Address Payer Phone Subscriber Number Group Number Insured Name Patient Relationship to Insured Coverage Start Date Coverage End Date Medicare [employer] [address] [place] [address] [id number] Liza Ma Self - patient is the insured [facility] [address] [place] [address] [id number] Liza Ma Self - patient is the insured Medical (General) History Medical History History ICD Code Arthritis Back,Hip,and Knee pain Cancer covid-19 High blood pressure Rheumatic fever Measles Mumps Chicken pox Hypercholesterolemia Surgical History Surgery Date(Month/Year) rotator cuff tear repair Meniscus repair hysterectomy oral surgery cancer eye surgery left knee replacement 09/2021 wisdom teeth extraction
--- OUTSIDE RECORDS SUMMARY | 2025-01-07 11:28 | XMS_ITS | Patient Health Record ---
Author Organization [facility] Address [address] [place] [address] Care Team Providers Care Form Layer Name Role Phone Hyacinth Marquez MD Primary Care Provider Boom Snow [phone] Allergies No Known Allergies Results Component Value Reference Range Notes Ferritin Reviewed date:08/16/2024 05:57:34 PM Interpretation: Performing Lab:[facility], [address] [place] [phone] Notes/Report: Ferritin 221 10-250 ng/mL Amylase Reviewed date:08/16/2024 05:57:27 PM Interpretation: Performing Lab:[facility], [address] [place] [phone] Notes/Report: Amylase 44 28-100 U/L Lipase Reviewed date:08/16/2024 05:57:20 PM Interpretation: Performing Lab:[facility], [address] [place] [phone] Notes/Report: Lipase 22 8-78 U/L Alpha 1 Anti-trypsin Reviewed date:09/06/2024 12:10:12 AM Interpretation: Performing Lab:[facility], [address] [place] [phone] Notes/Report: Alpha 1 Anti-trypsin 153 83-199 mg/dL THIS TEST WAS PERFORMED AT: [facility] [address] [place] [phone] MILANA FIGUEROA MD Liver Fibrosis Pnl Reviewed date:09/06/2024 12:10:40 AM Interpretation: Performing Lab:[facility], [address] [place] [phone] Notes/Report: Liver Fibrosis Score 0.09 Liver Fibrosis [...] a>0.62 and a<=1.00 : A3 (severe activity) KKD-Fvpgm-4-Macroglobulin 166 106-279 mg/dL FIB-Haptoglobin 221 43-212 mg/dL FIB-Apolipoprotein A1 195 101-198 mg/dL FIB-Total Bilirubin 0.5 0.2-1.2 mg/dL FIB-GGT 31 3-65 U/L FIB-ALT 26 6-29 U/L Reference ID [id number] Footnote SEE NOTE The reliability of results [...] The performance characteristics have been determined by [facility]. It has not been cleared or approved by the U.S. Food and Drug Administration. Performance characteristics refer to the analytical performance of the test. [employer], the associated logo, [employer] and all associated [employer] schroeder are the registered trademarks of [employer]. All third republican schroeder - (R) and (TM) - are the property of their respective owners. (C) [id number] [employer]. All rights reserved. THIS TEST WAS PERFORMED AT: [email or web address] [address] [place] [address] ESTEBAN MEDEIROS MD,PHD,LIBERTY Mitochondrial Antibody Reviewed date:09/06/2024 12:14:08 AM Interpretation: Performing Lab:[address] [phone] Notes/Report: Mitochondrial Antibodies NEGATIVE NEGATIVE The immunofluorescence assay (IFA) procedure reveals the possible presence of another autoantibody. Consider requesting order code 263, Smooth Muscle Antibody with Reflex to Titer, if clinically indicated. Staining was observed suggesting the presence of Antinuclear Antibodies. Consider requesting order code 249, RAFAEL Screen, IFA with reflex to titier and pattern, or order code [id number], RAFAEL Screen, IFA with reflex Titer/Pattern, Reflex to Multiplex 11 Ab [place], if clinically indicated. THIS TEST WAS PERFORMED AT: [facility] [address] [address] MILANA FIGUEROA MD Mitochondrial Ab Titer TNP Smooth Muscle Antibody Reviewed date:09/06/2024 12:10:28 AM Interpretation: Performing Lab:[address] [address] Notes/Report: Smooth Muscle Antibody <20 <20 U [...] type 1. THIS TEST WAS PERFORMED AT: [facility]/[address] ISACC MARRERO MD,PHD Hepatitis B,C Profile Reviewed date:08/16/2024 05:57:11 PM Interpretation: Performing Lab:[address] [phone] Notes/Report: Hepatitis B Surface Antibody NONREACTIVE Nonreactive Nonreactive: < 8.00 mIU/mL Hepatitis B Core Antibody Nonreactive Nonreactive Hepatitis C Antibody Nonreactive Nonreactive Antibodies to HCV not detected; does not exclude early acute HCV infection. Hepatitis B Surface Antigen Negative Negative Pathology Reviewed date:08/09/2024 03:32:14 PM Interpretation: Performing Lab:[address] [address] Notes/Report: Liver Panel Reviewed date:08/16/2024 05:53:36 PM Interpretation: Performing Lab:[address] [phone] Notes/Report: Bilirubin Total 0.7 0.0-1.0 mg/dL Bilirubin Direct 0.3 0.0-0.5 mg/dL Aspartate Amino Transferase 30 5-31 U/L Alanine Aminotransferase 36 0-31 U/L Total Protein 7.2 6.5-8.0 g/dL Albumin Level 4.4 3.5-5.0 g/dL Alkaline Phosphatase 52 39-117 U/L IRON PROFILE Reviewed date:08/16/2024 05:53:25 PM Interpretation: Performing Lab:[address] [address] Notes/Report: Iron 96 30-160 mcg/dL Total Iron Binding Capacity 302 228-428 mcg/d L Percent Iron Saturation 32 15-50 % Unsaturated Iron Binding 206 Carbohydrate Antigen 19-9 Reviewed date:08/21/2024 06:11:07 PM Interpretation: Performing Lab:[facility], [address] [place] [phone] Notes/Report: Carbohydrate Antigen 19-9 36 <34 U/mL This test was performed using the Siemens chemiluminescent method. Values obtained from different assay methods cannot be used interchangeably. CA 19-9 levels, regardless of value, should not be interpreted as absolute evidence of the presence or absence of disease. THIS TEST WAS PERFORMED AT: [facility] [address] [place] [phone] MILANA FIGUEROA MD RAFAEL Reflex Titer and Pattern Reviewed date:08/25/2024 02:42:13 PM Interpretation: Performing Lab:[facility], [address] [place] [phone] Notes/Report: Anti Nuclear Antibody Screen POSITIVE NEGATIVE RAFAEL IFA is a first line screen for detecting the presence of up to approximately 150 autoantibodies in various autoimmune diseases. A positive RAFAEL IFA result is suggestive of autoimmune disease and reflexes to titer and pattern. Further laboratory testing may be considered if clinically indicated. For additional information, please refer to http://education.eleni/faq/TUO653 (This link is being provided for informational/ [...] Speckled International Consensus on RAFAEL Patterns (https://doi.org/10.1515/cclm -4654-7696) THIS TEST WAS PERFORMED AT: [facility] [address] [place] [phone] MILANA FIGUEROA MD RAFAEL Titer 2 TNP [...] Unknown 01/17/2018 Administered Influenza Unknown 01/23/2024 Administered Influenza Unknown 01/07/2025 Refused Social History Tobacco Use: Social History Observation Description Date Details (start date - stop date) Never Smoker NA - NA Tobacco Use/Smoking Question Answer Notes Patient is a nonsmoker AUDIT-C (Standard) Question Answer Notes Did you have a drink containing alcohol in the p ast year? No Points 0 Interpretation Negative Section Notes: Nonsmoker; no sig alcohol Nonsmoker; no sig alcohol Nonsmoker; no sig alcohol Nonsmoker; no sig alcohol Problems Problem Type SNOMED Code ICD Code Onset Dates Problem Status W/U Status Risk Notes Problem 290187476 Encounter for screening for malignant neoplasm of colon (Z12.11) Active confirmed Problem Abnormal findings diagnostic imaging of liver and biliary tract (421633256) Abnormal CT scan, pancreas or bile duct (R93.2) Active confirmed Problem [id number] Preprocedural examination (Z01.818) Active confirmed Problem Fatty liver (492126298) Fatty liver (K76.0) Active confirmed Problem Long-term current use of aspirin (921661376912705) Aspirin long-term use (Z79.82) Active confirmed Problem 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 Problem Imaging of abdomen abnormal (012029035) Abnormal MRI of abdomen (R93.5) Active confirmed Problem History of adenomatous polyp of colon (545769509) History of adenomatous polyp of colon (Z86.0101) Active confirmed Vital Signs Temperature 93.0 degrees Fahrenheit 01/07/2025 Blood pressure diastolic 01 mm Hg 01/07/2025 Height 68 in 01/07/2025 Blood pressure systolic 001 mm Hg 01/07/2025 Weight 223.6 lbs 01/07/2025 BMI 33.99 kg/m2 01/07/2025 Encounters Encounter Location Date Provider Diagnosis [facility] Outpatient [address] [place], [place] [id number] 06/26/2024 Boom Arnoldo Colon cancer screeni ng Z12.11 ; Colon polyps K63.5 ; Diverticulosis of large intestine without perforation or abscess without bleeding K57.30 ; Other hemorrhoids K64.8 and External hemorrhoids K64.4 [facility] [address] [place] [phone] 01/07/2025 Boom Mclaughlin Fatty liver K76.0 ; Pancreatic ductal abnormality Q45.3 ; Abnormal MRI of abdomen R93.5 and Encounter for screening for malignant neoplasm of colon Z12.11 [facility] [address] [place] [phone] 03/05/2024 Boom Mclaughlin Encounter for screen ing for malignant neoplasm of colon Z12.11 ; Aspirin long-term use Z79.82 and Preprocedural examination Z01.818 [facility] [address] [address] 08/09/2024 Boom Mclaughlin Fatty liver K76.0 ; Pancreatic ductal abnormality Q45.3 ; History of adenomatous polyp of colon Z86.0101 and Abnormal MRI of abdomen R93.5 [facility] [address] [place] [phone] 01/17/2024 Boom Mclaughlin [facility] [address] [place] [phone] 08/25/2024 Boom Mclaughlin Assessments Encounter Date Diagnosis (ICD Code) Assessment Notes Treatment Notes Treatment Clinical Notes Section Notes 06/26/2024 Colon cancer screening (ICD-10 - Z12.11) 06/26/2024 Colon polyps (ICD-10 - K63.5) 01/07/2025 Fatty liver (ICD-10 - K76.0) Overall, [...] you advised of her progress as needed. 03/05/2024 Encounter for screening for malignant neoplasm [...] or abscess without bleeding (ICD-10 - K57.30) 01/07/2025 Pancreatic ductal abnormality (ICD-10 - Q45.3) [...] you advised of her progress as needed. 03/05/2024 Preprocedural examination (ICD-10 - Z01.818) Overall, [...] again for allowing me to participate in Lzia's care. I shall continue to keep you advised of her progress.. 06/26/2024 Other hemorrhoids (ICD-10 - K64.8) 01/07/2025 Abnormal MRI of abdomen (ICD-10 - [...] you advised of her progress as needed. 08/09/2024 Abnormal MRI of abdomen (ICD-10 - [...] progress.. 06/26/2024 External hemorrhoids (ICD-10 - K64.4) 01/07/2025 Encounter for screening for malignant neoplasm [...] her progress as needed. Plan Of Treatment Pending Test Test Name Order Date BUN 01/07/2025 LIVER PROFILE 01/07/2025 LIVER PROFILE 08/09/2024 IRON + IBC (FE) 08/09/2024 CA 19-9 08/09/2024 CA 19-9 01/07/2025 MRI ABD W&WO CONTRAST 01/07/2025 FLUOR. ANTINUCLEAR AB SCREEN (ASAD) 05/2024 Creatinine 01/07/2025 Amylase 01/07/2025 Lipase 01/07/2025 Future Test Test Name Order Date COLONOSCOPY 09/19/2018 COLONOSCOPY 03/05/2024 Insurance Providers Payer Name Payer Address Payer Phone Subscriber Number Group Number Insured Name Patient Relationship to Insured Coverage Start Date Coverage End Date MEDICARE OF [place] [address] [place] [address] [id number] LIZA LOPEZ Self - patient is the insured [facility] [address] [place] [address] [phone] [id number] LIZA LOPEZ Self - patient is the insured Medical (General) History Medical History History ICD Code Denies VT,DM,CVA,Lung disease,renal dise ase Hypertension Hyperlipidemia Anxiety Neg. screening colonoscopy in 03/2009 Neg. screening colonoscopy in 12/2018, bu t limited prep Screening colonoscopy in Jun after a 2-day prep revealed a single tubular adenoma that was removed Fatty liver with minimally e levated LFTs in 2024- -Workup was negative other than a positive RAFAEL. I did not think she had any component of autoimmune hepatitis based on her other laboratories and clinical history. Borderline dilated pancreati c duct seen on ultrasound and MRI in 2024, but without any sign of pancreatic mass. 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
[2025-01-07 11:58] LABS: Alanine Aminotransferase 39 U/L (0-31); Albumin Level 4.6 g/dL (3.5-5.0); Alkaline Phosphatase 44 U/L (39-117); Amylase 35 U/L (28-100); Aspartate Amino Transferase 30 U/L (5-31); Blood Urea Nitrogen 21 mg/dL (9-16); Estimated Glomerular Filt Rate > 60; Lipase 19 U/L (8-78); Total Protein 7.2 g/dL (6.5-8.0)
== END 2025-01-07 10:18 | disposition home or self-care (01) ==
LOC: HO.LAB 10:17
PROVIDERS: PCP Internal Medicine; Visit Provider Internal Medicine
DX: K76.0 Fatty (change of) liver, not elsewhere classified (principal); Q45.3 Other congenital malformations of pancreas and pancreatic duct; R93.5 Abnormal findings on diagnostic imaging of other abdominal regions, including retroperitoneum
CPT/HCPCS: 36415; 80076; 82150; 82565; 83690; 84520; 86301

== ENCOUNTER 2025-01-26 12:43 | Outpatient (REF) | payer MEDICARE, OTHER, SELFPAY ==
--- OUTSIDE RECORDS SUMMARY | 2024-03-20 04:15 | XMS_ITS ---
Author Organization [facility] Address [address] [place] [address] Care Team Providers Care Placement Secretary Name Role Phone Hyacinth Marquez Primary Care Provider UnavailGraeme Rodríguez Unavailable [phone] Deyvi Barrera [phone] Marin Encounters Encounter Location Date Provider Diagnosis [facility] [address] [place] [address] 03/20/2024 Deyvi Barrera Plan Of Treatment No Information Progress Notes * Liza MA MDOB:1960 (65 yo F)Acc No.[id number]:03/20/2024 Progress Note Patient: Liza LIAO Provider: Thang Henley DPM :1960 A ge:64 Y S ex:Female Date:03/20/2024 Address:[address] [facility] [address] [place], [place] Pcp:Hyacinth Marquez Subjective: * Chief Complaints: * [...] DPM Date: 1 05/21/2023 Generated for Emir body/Lilian/eTransmitting on: 5 12:47 PM EDT
--- OUTSIDE RECORDS SUMMARY | 2024-03-20 05:00 | XMS_ITS ---
Author Organization [facility] Address [address] [place] [address] Care Team Providers Care Handling Tech Name Role Phone Hyacinth Marquez Primary Care Provider UnavailGraeme Rodríguez Unavailable [phone] Namrata Fernandez [phone] Marin Encounters Encounter Location Date Provider Diagnosis [facility] [address] [place] [address] 03/20/2024 Namrata Fernandez Plan Of Treatment No Information Progress Notes * Liza [place] MDOB:1960 (65 yo F)Acc No.[id number]:03/20/2024 Progress Note Patient: Liza LIAO Provider: Doris Fernandez DPM :1960 A ge:64 Y S ex:Female Date:03/20/2024 Address:[address] [place] [address] [place] , [place] Pcp:Hyacinth Marquez Subjective: * Chief Complaints: * [address] Marin. * Medical History: Objective: * Vitals: Assessment: Plan: * Treatment: * Images: * The named appointment provid er may or may not be the originator of this progress note, and it is not deemed complete until electronically signed by the appointment provider. Sign off status: Pending * Provider: Doris Fernandez DPM Date: 05/21/2023 Generated for Emir boyd/Lilian/eTransmitting on: 12:46 PM EDT
--- OUTSIDE RECORDS SUMMARY | 2024-03-21 05:30 | XMS_ITS ---
Author Organization [facility] Address [address] [place] [address] Care Team Providers Care Tinning Machine Set Up Operator Name Role Phone Hyacinth Marquez Primary Care Provider UnavailGraeme Rodríguez Unavailable [phone] Namrata Fernandez [phone] Encounters Encounter Location Date Provider Diagnosis [facility] [address] [place] [address] 03/21/2024 Namrata Fernandez Plan Of Treatment No Information Progress Notes * Liza [place] MDOB:1960 (65 yo F)Acc No.[id number]:03/21/2024 Progress Note Patient: Liza LIAO Provider: Doris Fernandez DPM :1960 A ge:64 Y S ex:Female Date:03/21/2024 Address:[address] [place] Pcp:Hyacinth Marquez Subjective: * Chief Complaints: * [...] 1 05/22/2023 Generated for Printi ng/Faxing/eTransmitting on: 12:46 PM EDT
--- OUTSIDE RECORDS SUMMARY | 2024-06-26 04:30 | XMS_ITS ---
Author Organization [facility] Address [address] [place] [address] Care Team Providers Care Single Needle Tufting Machine Operator Name Role Phone Hyacinth Marquez MD Primary Care Provider Boom Snow [phone] REASON FOR VISIT screening Encounters Encounter Location Date Provider Diagnosis [facility] Outpatient [address] [place] [phone] 06/26/2024 Boom Mclaughlin Colon cancer scree tavo [...] hemorrhoids (ICD-10 - K64.4) Plan Of Treatment No Information Progress Notes * JESSICAROGELIOLAKESHADOB:1960 ( 65 yo F)Acc No.[id number]:06/26/2024 COLON WITH MAC Patient: RAOUL LIAO Provider: Heidi Mclaughlin MD :1960 A ge:64 Y S ex:Female Date:06/26/2024 Address:[address] [place] [address], [facility] Pcp:Hyacinth Marquez MD Subjective: * Chief Complaints: [...] MD Date: 0 06/26/2024 Generated for Emir boyd/Lilian/Mauricesmitting on: 12:47 PM EDT
--- OUTSIDE RECORDS SUMMARY | 2025-01-07 05:30 | XMS_ITS ---
Author Organization [facility] Address [address] [place] [address] Care Team Providers Care Erp Manager Name Role Phone Hyacinth Marquez MD Primary Care Provider Boom Snow [phone] Allergies No Known Allergies Results Component Value Reference Range Notes Creatinine Reviewed date:01/09/2025 01:24:35 AM Interpretation: Performing Lab:[facility], [address] [place] [phone] Notes/Report: Creatinine 0.66 0.5-1.4 mg/dL Estimated Glomerular Filt Rate > 60 Chronic Kidney Disease: Estimated GFR < 60 mL/min/1.73m2 Severe Kidney Disease: Estimated GFR < 15 mL/min/1.73m2 Amylase Reviewed date:01/09/2025 01:24:18 AM Interpretation: Performing Lab:[facility], [address] [place] [phone] Notes/Report: Amylase 35 28-100 U/L Lipase Reviewed date:01/09/2025 01:24:28 AM Interpretation: Performing Lab:[facility], [address] [place] [phone] Notes/Report: Lipase 19 8-78 U/L REASON FOR VISIT Patient presents today for enlarged pancreatic duct Medications Medication SIG (Take, Route, Frequency, Duration) Notes Start Date End Date Status hydroCHLOROthiazide 25 MG TAKE 1 TABLET BY MOUTH EVERY DAY Oral; Duration: 90 Active Escitalopram Oxalate 10 MG TAKE 1 TABLET BY MOUTH DAILY Oral; Duration: 90 Active Aspir-81 81 MG 1 tablet Orally Once a day; Duration: 30 day(s) Active Simvastatin 10 MG 1 tablet in the even ing Orally Once a day; Duration: 30 day(s) Active Lisinopril 40 MG 1 tablet Orally Once a day; Duration: 30 day(s) Active Immunizations Vaccine Route Administration Date Status Comme nts Influenza Unknown 01/07/2025 Refused Social History Tobacco Use: Social History Observation Description Date Details (start date - stop date) Never Smoker NA - NA Tobacco Use/Smoking Question Answer Notes Patient is a nonsmoker Alcohol Screen Question Answer Notes Did you have a drink containing alcohol in the p ast year? No Points 0 Interpretation Negative AUDIT-C (Standard) Question Answer Notes Did you have a drink containing alcohol in the p ast year? 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 We did review her history of the fatty liver and the previous liver workup earlier this year. I advised her that based on all of her laboratory she does not appear to have any other etiology of liver disease and appears to have very good liver function without any sign of liver damage. She certainly does not describe any symptoms nor have any signs of liver disease at the present time. We did review that obviously watching her diet and losing some weight would be the best treatment for this at this time. I do not think she requires a liver biopsy or any other specific treatment. In regard to the abnormal MRI of the pancreas in regard to the pancreatic duct I did recommend a follow-up study as it has been over 6 months since the previous MRI. I shall schedule the MRI of her abdomen for her along with a follow-up CA 19-9 level. I did advise her that if these upcoming studies are unremarkable that I do not think she would need any further follow-up of the pancreas in regard to further imaging studies given the just borderline findings and no worrisome symptoms in that regard. We did review her colonoscopy with the history of the tubular adenoma and I reminded her that she would need a follow-up colonoscopy in 2029. If the upcoming MRI and laboratories are unremarkable I advised her that she could then see me on apparent basis and I do not think she would need any further imaging of the pancreas at that point. Liza was comfortable with this plan. Thank you again for allowing me to participate in Liza's care. I shall continue to keep you advised of her progress as needed. 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 We did review her history of the fatty liver and the previous liver workup earlier this year. I advised her that based on all of her laboratory she does not appear to have any other etiology of liver disease and appears to have very good liver function without any sign of liver damage. She certainly does not describe any symptoms nor have any signs of liver disease at the present time. We did review that obviously watching her diet and losing some weight would be the best treatment for this at this time. I do not think she requires a liver biopsy or any other specific treatment. In regard to the abnormal MRI of the pancreas in regard to the pancreatic duct I did recommend a follow-up study as it has been over 6 months since the previous MRI. I shall schedule the MRI of her abdomen for her along with a follow-up CA 19-9 level. I did advise her that if these upcoming studies are unremarkable that I do not think she would need any further follow-up of the pancreas in regard to further imaging studies given the just borderline findings and no worrisome symptoms in that regard. We did review her colonoscopy with the history of the tubular adenoma and I reminded her that she would need a follow-up colonoscopy in 2029. If the upcoming MRI and laboratories are unremarkable I advised her that she could then see me on apparent basis and I do not think she would need any further imaging of the pancreas at that point. Liza was comfortable with this plan. Thank you again for allowing me to participate in Liza's care. I shall continue to keep you advised of her progress as needed. 01/07/2025 Abnormal MRI of abdomen (ICD-10 - R93.5) Overall, Liza appears quite well and is not having any worrisome GI complaints. We did review her history of the fatty liver and the previous liver workup earlier this year. I advised her that based on all of her laboratory she does not appear to have any other etiology of liver disease and appears to have very good liver function without any sign of liver damage. She certainly does not describe any symptoms nor have any signs of liver disease at the present time. We did review that obviously watching her diet and losing some weight would be the best treatment for this at this time. I do not think she requires a liver biopsy or any other specific treatment. In regard to the abnormal MRI of the pancreas in regard to the pancreatic duct I did recommend a follow-up study as it has been over 6 months since the previous MRI. I shall schedule the MRI of her abdomen for her along with a follow-up CA 19-9 level. I did advise her that if these upcoming studies are unremarkable that I do not think she would need any further follow-up of the pancreas in regard to further imaging studies given the just borderline findings and no worrisome symptoms in that regard. We did review her colonoscopy with the history of the tubular adenoma and I reminded her that she would need a follow-up colonoscopy in 2030. If the upcoming MRI and laboratories are unremarkable I advised her that she could then see me on apparent basis and I do not think she would need any further imaging of the pancreas at that point. Liza was comfortable with this plan. Thank you again for allowing me to participate in Liza's care. I shall continue to keep you advised of her progress as needed. 01/07/2025 Encounter for screening for malignant neoplasm of colon (ICD-10 - Z12.11) Repeat colonoscopy in 2029 Overall, Liza appears quite well and is not having any worrisome GI complaints. We did review her history of the fatty liver and the previous liver workup earlier this year. I advised her that based on all of her laboratory she does not appear to have any other etiology of liver disease and appears to have very good liver function without any sign of liver damage. She certainly does not describe any symptoms nor have any signs of liver disease at the present time. We did review that obviously watching her diet and losing some weight would be the best treatment for this at this time. I do not think she requires a liver biopsy or any other specific treatment. In regard to the abnormal MRI of the pancreas in regard to the pancreatic duct I did recommend a follow-up study as it has been over 6 months since the previous MRI. I shall schedule the MRI of her abdomen for her along with a follow-up CA 19-9 level. I did advise her that if these upcoming studies are unremarkable that I do not think she would need any further follow-up of the pancreas in regard to further imaging studies given the just borderline findings and no worrisome symptoms in that regard. We did review her colonoscopy with the history of the tubular adenoma and I reminded her that she would need a follow-up colonoscopy in 2029. If the upcoming MRI and laboratories are unremarkable I advised her that she could then see me on apparent basis and I do not think she would need any further imaging of the pancreas at that point. Liza was comfortable with this plan. Thank you again for allowing me to participate in Liza's care. I shall continue to keep you advised of her progress as needed. Plan Of Treatment Treatment Notes Assessment Notes Encounter for screening for malignant ne oplasm of colon Repeat colonoscopy in 2029 Pending Test Test Name Order Date BUN 01/07/2025 LIVER PROFILE 01/07/2025 CA 19-9 01/07/2025 MRI ABD W&WO CONTRAST 01/07/2025 Next Appt Details Follow Up: prn, Reason: Progress Notes * LIZA LOPEZDOB:1960 ( 65 yo F)Acc No.[id number]:01/07/2025 Progress Notes Patient: LIZA LIAO Provider: Heidi Mclaughlin MD :1960 A ge:64 Y S ex:Female Date:01/07/2025 Address:[address] [place] [address], [place], [place] Pcp:Hyacinth Marquez MD Subjective: * Chief Complaints: * 1 . Patient presents today for enlarged pancreatic duct. * HPI: i ncontinence: I saw Liza in follow-up today in regard to her previous abnormal imaging of her pancreatic duct, fatty liver with minimally elevated LFTs, and history of a tubular adenoma of the colon. Since I last saw Liza in August she has been feeling very well. She has had no problems with abdominal pain, jaundice, increasing abdominal girth, pruritus, fatigue, nor edema. She enjoys a good appetite and denies any significant heartburn or dysphagia. Her bowel movements have been regular and without any signs of bleeding. She has been trying to watch her diet and has lost a little weight intentionally. Her laboratories when I saw her in regard to the fatty liver were completely negative in regard to any other etiology of liver disease. She did have a positive RAFAEL at a titer of 1-320 but all other autoimmune studies were negative and the LFTs at that time were just very minimally elevated. Therefore I did not think this was a sign of autoimmune hepatitis and did advise her to follow-up with you about that, which she says she has done. She denies any particular arthritic symptoms, fatigue, or rash in that regard. Her liver fibrosis score was F0. Her CA 19-9 level was minimally elevated at 36. The previous MRI in June did not show any sign of pancreatic mass but did show a borderline dilated pancreatic duct. Her amylase and lipase were normal. * Medical History: D enies [place],DM,CVA,Lung disease,renal disease, Hypertension, Hyperlipidemia, Anxiety, Neg. screening colonoscopy in 03/2009, Neg. screening colonoscopy in 12/2018, but limited prep, Screening colonoscopy in June 2024 after a 2-day prep revealed a single tubular adenoma that was removed, Fatty liver with minimally elevated LFTs in 2024- -Workup was negative other than a positive RAFAEL. I did not think she had any component of autoimmune hepatitis based on her other laboratories and clinical history., Borderline dilated pancreatic duct seen on ultrasound and MRI in 2024, but without any sign of pancreatic mass.. 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 * Family History: F ather: , diagnosed with HTN (hypertension). M other: , diagnosed with HTN (hypertension). No colorectal cancer. no family history of liver cancer. * Social History: T obacco Use: T obacco Use/Smoking P atient is a n onsmoker. D rugs/Alcohol: A lcohol Screen D id you have a drink containing alcohol in the past year? N o, P oints 0 , I nterpretation N egative. M iscellaneous: Josiah arital status: . 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 D rug/Alcohol: A DARLENE-C (Standard) D id you have a drink containing alcohol in the past year? N o,?Points 0 , I nterpretation N egative. N onsmoker; no sig alcohol. * Medications: T aking Lisinopril 40 MG Tablet 1 tablet Orally [...] reviewed and reconciled with the patient * Allergies: N .K.D.A. Objective: * Vitals: W t: 223.6 lbs, Ht: 68 in, BMI: 33.99 Index, BP: 001/01 mm Hg, Temp: 93.0, Wt-k.42. Assessment: * Assessment: 1. F atty liver - K76.0 (Primary) 2 . P ancreatic ductal abnormality - Q45.3 3 . A bnormal MRI of abdomen - R93.5 4 . E ncounter for screening for malignant neoplasm of colon - Z12.11 Overall, Liza appears quite well and is not having any worrisome GI complaints. We did review her history of the fatty liver and the previous liver workup earlier this year. I advised her that based on all of her laboratory she does not appear to have any other etiology of liver disease and appears to have very good liver function without any sign of liver damage. She certainly does not describe any symptoms nor have any signs of liver disease at the present time. We did review that obviously watching her diet and losing some weight would be the best treatment for this at this time. I do not think she requires a liver biopsy or any other specific treatment. In regard to the abnormal MRI of the pancreas in regard to the pancreatic duct I did recommend a follow-up study as it has been over 6 months since the previous MRI. I shall schedule the MRI of her abdomen for her along with a follow-up CA 19-9 level. I did advise her that if these upcoming studies are unremarkable that I do not think she would need any further follow-up of the pancreas in regard to further imaging studies given the just borderline findings and no worrisome symptoms in that regard. We did review her colonoscopy with the history of the tubular adenoma and I reminded her that she would need a follow-up colonoscopy in 2030. If the upcoming MRI and laboratories are unremarkable I advised her that she could then see me on apparent basis and I do not think she would need any further imaging of the pancreas at that point. Liza was comfortable with this plan. Thank you again for allowing me to participate in Liza's care. I shall continue to keep you advised of her progress as needed. Plan: * Treatment: Value Reference Range C reatinine 0.66 0.5-1.4 - mg/dL * E stimated Glomerular Filt Rate > 60 - ?LAB: Amylase (Collection Date & Time - 01/07/2025 10:33 AM)* Value Reference Range A mylase 35 28-100 - U/L ?LAB: Lipase (Collection Date & Time - 01/07/2025 10:33 AM)* Value Reference Range L ipase 19 8-78 - U/L ?Imaging: MRI ABD W&WO CONTRAST* Compare to Aug, 2024 pt h as lab slipColon, Amr 01/07/2025 10:15:50 AM EDT > order faxed for scheduling * 2.?Pancreatic ductal abnormality?LAB: BUN ?LAB: LIVER PROFILE ?LAB: CA 19-9 ?LAB: Creatinine (Collection Date & Time - 01/07/2025 10:33 AM)* Value Reference Range C reatinine 0.66 0.5-1.4 - mg/dL * E stimated Glomerular Filt Rate > 60 - ?LAB: Amylase (Collection Date & Time - 01/07/2025 10:33 AM)* Value Reference Range A mylase 35 28-100 - U/L ?LAB: Lipase (Collection Date & Time - 01/07/2025 10:33 AM)* Value Reference Range L ipase 19 8-78 - U/L ?Imaging: MRI ABD W&WO CONTRAST* Compare to Aug, 2024 pt h as lab slipColonMar 01/07/2025 10:15:50 AM EDT > order faxed for scheduling * 3.?Abnormal MRI of abdomen?LAB: BUN ?LAB: LIVER PROFILE ?LAB: CA 19-9 ?LAB: Creatinine (Collection Date & Time - 01/07/2025 10:33 AM)* Value Reference Range C reatinine 0.66 0.5-1.4 - mg/dL * E stimated Glomerular Filt Rate > 60 - ?LAB: Amylase (Collection Date & Time - 01/07/2025 10:33 AM)* Value Reference Range A mylase 35 28-100 - U/L ?LAB: Lipase (Collection Date & Time - 01/07/2025 10:33 AM)* Value Reference Range L ipase 19 8-78 - U/L ?Imaging: MRI ABD W&WO CONTRAST* Compare to Aug, 2024 pt h as lab slipMar Cabrera 01/07/2025 10:15:50 AM EDT > order faxed for scheduling * 4.?Encounter for screening for malignant neoplasm of colon? Notes: Repeat colonoscopy in 2029?? * Immunizations: Influenza (Not administered - Refused: Patient decision) * Preventive Medicine: Counseling: C are goal follow-up plan: A marycruz Normal BMI Follow-up D ietary management education, guidance, and counseling, B WI management provided N o. Urinary Incontinence: U rinary Incontinence A ssessment: A bsent, P zahida of care documented: N o, reason not specified. Screenings: F all Risk Screening F all Risk Assessment: N o falls in the past year, S creening: N o falls in the past year, P zahida of Care: N ot documented, no reason specified. * Follow Up: p rn * * The named appointment provid er may or may not be the originator of this progress note, and it is not deemed complete until electronically signed by the appointment provider. Sign off status: Pending * Provider: Heidi Mclaughlin MD Date: 0 01/07/2025 Generated for Emir boyd/Lilian/Johnitting on: 12:47 PM EDT History and Physical Notes * HPI (History of Present Illness) Category Sub-Category Detail Notes Category Not es incontinence I saw Liza in follow-up today in regard to her previous abnormal imaging of her pancreatic duct, fatty liver with minimally elevated LFTs, and history of a tubular adenoma of the colon. Since I last saw Liza in August she has been feeling very well. She has had no problems with abdominal pain, jaundice, increasing abdominal girth, pruritus, fatigue, nor edema. She enjoys a good appetite and denies any significant heartburn or dysphagia. Her bowel movements have been regular and without any signs of bleeding. She has been trying to watch her diet and has lost a little weight intentionally. Her laboratories when I saw her in regard to the fatty liver were completely negative in regard to any other etiology of liver disease. She did have a positive RAFAEL at a titer of 1-320 but all other autoimmune studies were negative and the LFTs at that time were just very minimally elevated. Therefore I did not think this was a sign of autoimmune hepatitis and did advise her to follow-up with you about that, which she says she has done. She denies any particular arthritic symptoms, fatigue, or rash in that regard. Her liver fibrosis score was F0. Her CA 19-9 level was minimally elevated at 36. The previous MRI in June did not show any sign of pancreatic mass but did show a borderline dilated pancreatic duct. Her amylase and lipase were normal.
--- NOTE | ~2025-01-26 | MR_ITS ---
EXAMINATION: MR ABDOMEN WITHOUT THEN WITH IV CONTRAST HISTORY: PANCREATIC DUCTAL ABNORMALITY COMPARISON: Comparison is made with the prior examination dated 06/09/2024. TECHNIQUE: Axial in and out of phase T1-weighted gradient echo, axial diffusion weighted, and axial and coronal HASTE T2 with fat saturation images were obtained through the abdomen. Subsequently, fat suppressed axial and coronal T1-weighted images were obtained after the intravenous administration of 10 mL Gadavist. FINDINGS: Liver: There is diffuse loss of signal intensity in the liver on opposed phase imaging, consistent with steatosis. There is no enhancing liver mass. The hepatic and portal veins are patent. There is no intrahepatic biliary dilatation. Gallbladder/biliary tree: No gallstones are identified. The common bile duct is normal in caliber. No intraluminal filling defects are identified to suggest choledocholithiasis. Spleen: The spleen is unremarkable. Pancreas: There is a 6 mm cystic lesion in the pancreatic head without change. There is no definite connection to the pancreatic duct. There is no enhancing pancreatic mass. There is mild prominence of the pancreatic duct in the pancreatic head. Adrenals: The adrenal glands are unremarkable. Kidneys: The right kidney is unremarkable Again seen is a 1.6 cm cyst at the lower pole of the left kidney. There is no hydronephrosis. Lymph nodes: There is no retroperitoneal lymphadenopathy in the upper abdomen. Fluid: There is no ascites in the upper abdomen. Visualized bowel: The visualized small and large bowel loops are unremarkable in appearance. Visualized bones: The visualized bones demonstrate normal marrow signal intensity. MR/MR abdomen wo/w con IMPRESSION: 1. Stable 6 mm cystic lesion in the pancreatic head. Continued follow-up is recommended. 2. Hepatic steatosis. 3. 1.6 cm left lower pole renal cyst. Electronically signed by: Boom Burnette MD 01/27/2025 07:33 AM EDT
--- OUTSIDE RECORDS SUMMARY | 2025-01-26 12:47 | XMS_ITS | Patient Health Record ---
Author Organization [facility] Address [address] [place] [address] Care Team Providers Care Videotape Recording Engineer Name Role Phone Hyacinth Marquez Primary Care Provider UnavailGraeme Rodríguez Unavailable [phone] Deyvi Barrera Unavailable [phone] Namrata Fernandez Unavailable [phone] Allergies No Known Allergies Reason For Referral [...] Immunizations Vaccine Route Administration Date Status [facility] COVID-19 Moderna Vaccine Unknown 03/01/2021 Administered [...] Ordered Date Performed Result Body Sit e [id number] 07/04/2024 N/A [id number] SKIN/TISSUE 07/16/2024 N/A Encounters Encounter Location Date [facility] [address] [address] 07/04/2024 Graeme Padilla Ingrown nail L60.[address] [address] 07/16/2024 Graeme Padilla Skin ulcer of toe of right foot with fat layer exposed L97.[address] [address] 07/14/2024 Graeme Padilla [address] [address] 07/14/2024 Graeme Padilla Assessments Encounter Date Diagnosis [...] X ray : Foot, right 3V 04/14/2021 [id number] 07/04/2024 [id number] SKIN/TISSUE 07/16/2024 Insurance Providers Payer Name Payer Address Payer Phone Subscriber Number Group Number Insured Name Patient Relationship to Insured Coverage Start Date Coverage End Date Medicare [employer] [address] [place] [address] [id number] Liza Ma Self - patient is the insured [facility] [address] [place] [id number] Liza Ma Self - patient is the insured Medical (General) History Medical History History ICD Code Arthritis Back,Hip,and Knee pain Cancer covid-19 High blood pressure Rheumatic fever Measles Mumps Chicken pox Hypercholesterolemia Surgical History Surgery Date(Month/Year) rotator cuff tear repair Meniscus repair hysterectomy oral surgery cancer eye surgery left knee replacement 09/2021 wisdom teeth extraction
--- OUTSIDE RECORDS SUMMARY | 2025-01-26 12:47 | XMS_ITS | Patient Health Record ---
Author Organization [facility] Address [address] [place] [address] Care Team Providers Care Admissions Coordinator Name Role Phone Hyacinth Marquez MD Primary Care Provider Boom Snow [phone] Allergies No Known Allergies Results Component Value Reference Range Notes Creatinine Reviewed date:01/09/2025 01:24:35 AM Interpretation: Performing Lab:[facility], [address] [place] [phone] Notes/Report: Creatinine 0.66 0.5-1.4 mg/dL Estimated Glomerular Filt Rate > 60 Chronic Kidney Disease: Estimated GFR < 60 mL/min/1.73m2 Severe Kidney Disease: Estimated GFR < 15 mL/min/1.73m2 Amylase Reviewed date:01/09/2025 01:24:18 AM Interpretation: Performing Lab:[facility], [address] [place] [phone] Notes/Report: Amylase 35 28-100 U/L Lipase Reviewed date:01/09/2025 01:24:28 AM Interpretation: Performing Lab:[facility], [address] [place] [phone] Notes/Report: Lipase 19 8-78 U/L Ferritin Reviewed date:08/16/2024 05:57:34 PM Interpretation: Performing Lab:[facility], [address] [place] [phone] Notes/Report: Ferritin 221 10-250 ng/mL Amylase Reviewed date:08/16/2024 05:57:27 PM Interpretation: Performing Lab:[address] [phone] Notes/Report: Amylase 44 28-100 U/L Lipase Reviewed date:08/16/2024 05:57:20 PM Interpretation: Performing Lab:[address] [phone] Notes/Report: Lipase 22 8-78 U/L Alpha 1 Anti-trypsin Reviewed date:09/06/2024 12:10:12 AM Interpretation: Performing Lab:[address] [phone] Notes/Report: Alpha 1 Anti-trypsin 153 83-199 mg/dL THIS TEST WAS PERFORMED AT: [facility] [address] [place] [phone] MILANA FIGUEROA MD Liver Fibrosis Pnl Reviewed date:09/06/2024 12:10:40 AM Interpretation: Performing Lab:[address] [address] Notes/Report: Liver Fibrosis Score 0.09 Liver Fibrosis [...] a>0.62 and a<=1.00 : A3 (severe activity) VYF-[id number]-6-Macroglobulin 166 106-279 mg/dL FIB-Haptoglobin 221 43-212 mg/dL FIB-Apolipoprotein A1 195 101-198 mg/dL FIB-Total Bilirubin 0.5 0.2-1.2 mg/dL FIB-GGT 31 3-65 U/L FIB-ALT 26 6-29 U/L Reference ID [id number] Footnote SEE NOTE The reliability of results is dependent on compliance with the preanalytical and analytical conditions recommended by [employer]. The tests have to be deferred for: [...] The performance characteristics have been determined by [facility]. It has not been cleared or approved by the U.S. Food and Drug Administration. Performance characteristics refer to the analytical performance of the test. [employer], [employer], the associated logo, [employer] and all associated [employer] schroeder are the registered trademarks of [employer]. All third republican schroeder - (R) and (TM) - are the property of their respective owners. (C) 6461-8660 [employer]. All rights reserved. THIS TEST WAS PERFORMED AT: [facility] [address] [place] [address] ESTEBAN MEDEIROS MD,PHD,LIBERTY Mitochondrial Antibody Reviewed date:09/06/2024 12:14:08 AM Interpretation: Performing Lab:[facility], [address] [place] [phone] Notes/Report: Mitochondrial Antibodies NEGATIVE NEGATIVE The immunofluorescence assay (IFA) procedure reveals the possible presence of another autoantibody. Consider requesting order code 263, Smooth Muscle Antibody with Reflex to Titer, if clinically indicated. Staining was observed suggesting the presence of Antinuclear Antibodies. Consider requesting order code 249, RAFAEL Screen, IFA with reflex to titier and pattern, or order code [id number], RAFAEL Screen, IFA with reflex Titer/Pattern, Reflex to Multiplex [address] [place], if clinically indicated. THIS TEST WAS PERFORMED AT: [facility] [address] [address] MILANA FIGUEROA MD Mitochondrial Ab Titer TNP Smooth Muscle Antibody Reviewed date:09/06/2024 12:10:28 AM Interpretation: Performing Lab:[address] [address] Notes/Report: Smooth Muscle Antibody <20 <20 U [...] type 1. THIS TEST WAS PERFORMED AT: [facility]/[address] [address] ISACC MARRERO MD,PHD Hepatitis B,C Profile Reviewed date:08/16/2024 05:57:11 PM Interpretation: Performing Lab:[address] [address] Notes/Report: Hepatitis B Surface Antibody NONREACTIVE Nonreactive Nonreactive: < 8.00 mIU/mL Hepatitis B Core Antibody Nonreactive Nonreactive Hepatitis C Antibody Nonreactive Nonreactive Antibodies to HCV not detected; does not exclude early acute HCV infection. Hepatitis B Surface Antigen Negative Negative Pathology Reviewed date:08/09/2024 03:32:14 PM Interpretation: Performing Lab:[address] [address] Notes/Report: Liver Panel Reviewed date:08/16/2024 05:53:36 PM Interpretation: Performing Lab:[address] [address] Notes/Report: Bilirubin Total 0.7 0.0-1.0 mg/dL Bilirubin Direct 0.3 0.0-0.5 mg/dL Aspartate Amino Transferase 30 5-31 U/L Alanine Aminotransferase 36 0-31 U/L Total Protein 7.2 6.5-8.0 g/dL Albumin Level 4.4 3.5-5.0 g/dL Alkaline Phosphatase 52 39-117 U/L IRON PROFILE Reviewed date:08/16/2024 05:53:25 PM Interpretation: Performing Lab:[address] [address] Notes/Report: Iron 96 30-160 mcg/dL Total Iron Binding Capacity 302 228-428 mcg/d L Percent Iron Saturation 32 15-50 % Unsaturated Iron Binding 206 Carbohydrate Antigen 19-9 Reviewed date:08/21/2024 06:11:07 PM Interpretation: Performing Lab:[address] [address] Notes/Report: Carbohydrate Antigen 19-9 36 <34 U/mL This test was performed using the Siemens chemiluminescent method. Values obtained from different assay methods cannot be used interchangeably. CA 19-9 levels, regardless of value, should not be interpreted as absolute evidence of the presence or absence of disease. THIS TEST WAS PERFORMED AT: [facility] [address] [place] [phone] MILANA FIGUEROA MD RAFAEL Reflex Titer and Pattern Reviewed date:08/25/2024 02:42:13 PM Interpretation: Performing Lab:[address] [address] Notes/Report: Anti Nuclear Antibody Screen POSITIVE NEGATIVE RAFAEL IFA is a first line screen for detecting the presence of up to approximately 150 autoantibodies in various autoimmune diseases. A positive RAFAEL IFA result is suggestive of autoimmune disease and reflexes to titer and pattern. Further laboratory testing may be considered if clinically indicated. For additional information, please refer to http://education.[employer] Mouth/faq/WHH721 (This link is being provided for informational/ [...] Speckled International Consensus on RAFAEL Patterns (https://doi.org/10.1515/cclm -5545-7416) THIS TEST WAS PERFORMED AT: [facility] [address] [place] [phone] MILANA FIGUEROA MD RAFAEL Titer 2 TNP RAFAEL Pattern 2 TNP RAFAEL Titer 3 TNP RAFAEL Pattern 3 TNP Liver Panel Reviewed date:01/09/2025 01:14:50 AM Interpretation: Performing Lab:[address] [phone] Notes/Report: Bilirubin Total 0.8 0.0-1.0 mg/dL Bilirubin Direct 0.3 0.0-0.5 mg/dL Aspartate Amino Transferase 30 5-31 U/L Alanine Aminotransferase 39 0-31 U/L Total Protein 7.2 6.5-8.0 g/dL Albumin Level 4.6 3.5-5.0 g/dL Alkaline Phosphatase 44 39-117 U/L Blood Urea Nitrogen Reviewed date:01/09/2025 01:14:34 AM Interpretation: Performing Lab:[facility], [address] [place] [phone] Notes/Report: Blood Urea Nitrogen 21 9-16 mg/dL Carbohydrate Antigen 19-9 Reviewed date:01/09/2025 01:14:26 AM Interpretation: Performing Lab:[address] [address] Notes/Report: Carbohydrate Antigen 19-9 35 <34 U/mL This test was performed using the Siemens chemiluminescent method. Values obtained from different assay methods cannot be used interchangeably. CA 19-9 levels, regardless of value, should not be interpreted as absolute evidence of the presence or absence of disease. THIS TEST WAS PERFORMED AT: [facility] [address] [place] [phone] MILANA FIGUERAO MD Reason For Referral No Information Medications Medication [...] Problem Status W/U Status Risk Notes Problem Screening for malignant neoplasm of colon (575418729) Encounter for screening for malignant neoplasm of colon (Z12.11) Active confirmed Problem Abnormal findings diagnostic imaging of liver and biliary tract (052772016) Abnormal CT scan, pancreas or bile duct (R93.2) Active confirmed Problem Preprocedural examination (966828477790792) Preprocedural examination (Z01.818) Active confirmed Problem Fatty liver (330114302) Fatty liver (K76.0) Active confirmed Problem Long-term current use of aspirin (433365866214043) Aspirin long-term use (Z79.82) Active confirmed Problem Anomalies of pancreas (192464336) 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) Active confirmed Problem Imaging of abdomen abnormal (112656210) Abnormal MRI of abdomen (R93.5) Active confirmed Problem History of adenomatous polyp of colon (049256166) History of adenomatous polyp of colon (Z86.0101) Active confirmed Vital Signs Temperature 93.0 degrees Fahrenheit 01/07/2025 Blood pressure diastolic 01 mm Hg 01/07/2025 Height 68 in 01/07/2025 Blood pressure systolic 001 mm Hg 01/07/2025 Weight 223.6 lbs 01/07/2025 BMI 33.99 kg/m2 01/07/2025 Encounters Encounter Location Date Provider Diagnosis [facility] Outpatient [address] [place] [phone] 06/26/2024 Boom Mclaughlin Colon cancer screeni ng Z12.11 ; Colon polyps K63.5 ; Diverticulosis of large intestine without perforation or abscess without bleeding K57.30 ; Other hemorrhoids K64.8 and External hemorrhoids K64.4 [facility] [address] [place] [phone] 01/07/2025 Boom Mclaughlin Fatty liver K76.0 ; Pancreatic ductal abnormality Q45.3 ; Abnormal MRI of abdomen R93.5 and Encounter for screening for malignant neoplasm of colon Z12.11 [facility] [address] [place] [phone] 03/05/2024 Boom Mclaughlin Encounter for screen ing for malignant neoplasm of colon Z12.11 ; Aspirin long-term use Z79.82 and Preprocedural examination Z01.818 [facility] [address] [place] [phone] 08/09/2024 Boom Mclaughlin Fatty liver K76.0 ; Pancreatic ductal abnormality Q45.3 ; History of adenomatous polyp of colon Z86.0101 and Abnormal MRI of abdomen R93.5 [facility] [address] [place] [phone] 08/25/2024 Boom Arnoldo Assessments Encounter Date Diagnosis (ICD Code) Assessment [...] Name Order Date BUN 01/07/2025 LIVER PROFILE 08/09/2024 LIVER PROFILE 01/07/2025 IRON + IBC (FE) 08/09/2024 CA 19-9 08/09/2024 CA 19-9 01/07/2025 MRI ABD W&WO CONTRAST 01/07/2025 FLUOR. ANTINUCLEAR AB SCREEN (ASAD) 05/2024 Future Test Test Name Order Date COLONOSCOPY 09/19/2018 COLONOSCOPY 03/05/2024 Insurance Providers Payer Name Payer Address Payer Phone Subscriber Number Group Number Insured Name Patient Relationship to Insured Coverage Start Date Coverage End Date MEDICARE OF [place] [address] [place] [address] [id number] LIZA LOPEZ Self - patient is the insured [facility] [address] [place] [address] [phone] [id number] LIZA LOPEZ Self - patient is the insured Medical (General) History Medical History History ICD Code Denies MD,DM,CVA,Lung disease,renal dise ase Hypertension Hyperlipidemia Anxiety Neg. [...]
== END 2025-01-26 12:44 | disposition home or self-care (01) ==
LOC: HO.MRI 12:43
PROVIDERS: PCP Internal Medicine; Visit Provider Internal Medicine
DX: K76.0 Fatty (change of) liver, not elsewhere classified (principal); Q45.3 Other congenital malformations of pancreas and pancreatic duct
CPT/HCPCS: 74183; A9585

== ENCOUNTER → 2025-01-26 13:30 | Outpatient (BNV) | payer MEDICARE, OTHER, SELFPAY | PROVIDERS: PCP Internal Medicine; Visit Provider Radiology Diagnostic Radiology | DX: K86.2 Cyst of pancreas (principal); N28.1 Cyst of kidney, acquired; K76.0 Fatty (change of) liver, not elsewhere classified | CPT/HCPCS: 74183 ==

== ENCOUNTER 2025-01-30 10:45 | Outpatient (AMB) | payer MEDICARE, OTHER, SELFPAY ==
--- NOTE | 2025-01-30 11:07 | AM.OFFVISNUR ---
Intake Visit Reasons: Flu shot Allergies No Known Allergies (No Known Allergies*) Allergy (Verified 12/16/24 09:21) Office Procedures Flu Questionnaire Does the patient have a severe egg allergy?: No Does the patient have severe life threatening allergies?: No Does the patient have a fever or illness today?: No Has the patient ever had Guillain-Canaan Syndrome?: No Has the patient ever had any past reaction to a flu shot?: No Immunizations Fluarix 5989-7266 (PF) 45 mcg (15 mcg x 3)/0.5 mL IM syringe Performing Provider: Hyacinth Marquez MD [facility] Administered by: Alma Adams LPN on 01/30/25 11:07 Dose Route Admin Location Dispensed Lot Number Expiration Date [facility] Content Assistant 0.5 mL IM Left Deltoid 0.5 mL [id number] 10/07/25 94913-741-47 [facility] V[facility] Given Date VIS Provided VIS Publication Date 01/30/25 Single Vaccine 24 Eligibility Eligibility Date Funding Source Not [facility] Eligible 01/30/25 Private Assessment & Plan Assessment & Plan Orders: Orders Influenza [id number] Immunization Today Z23 - Encounter for immunization Coding
== END 2025-01-30 11:10 | disposition home or self-care (01) ==
LOC: HO.HMCH 10:46
PROVIDERS: PCP Internal Medicine; Visit Provider Internal Medicine
DX: Z23 Encounter for immunization (principal)

== ENCOUNTER → 2025-01-30 10:45 | Outpatient (BNVA) | payer MEDICARE, OTHER, SELFPAY | PROVIDERS: PCP Internal Medicine; Visit Provider Internal Medicine | DX: Z23 Encounter for immunization (principal) | CPT/HCPCS: 90471; 90656 ==

== ENCOUNTER 2025-02-05 07:48 | Outpatient (AMB) | payer MEDICARE, OTHER, SELFPAY ==
--- OUTSIDE RECORDS SUMMARY | 2024-03-20 04:15 | XMS_ITS ---
Author Organization [facility] Address [address] [place] [address] Care Team Providers Care Automotive Lot Attendant Name Role Phone Hyacinth Marquez Primary Care Provider UnavailGraeme Rodríguez Unavailable [phone] Deyvi Barrera [phone] Marin Encounters Encounter Location Date Provider Diagnosis [facility] [address] [place] [address] 03/20/2024 Deyvi Barrera Plan Of Treatment No Information Progress Notes * Liza MA MDOB:1960 (65 yo F)Acc No.[id number]:03/20/2024 Progress Note Patient: Liza LIAO Provider: Thang Henley DPM :1960 A ge:64 Y S ex:Female Date:03/20/2024 Address:[address] [facility] [address] [place], [place] Pcp:Hyacinth Marquez Subjective: * Chief Complaints: * [address] Marin. * Medical History: Objective: * Vitals: Assessment: Plan: * Treatment: * Images: * The named appointment provid er may or may not be the originator of this progress note, and it is not deemed complete until electronically signed by the appointment provider. Sign off status: Pending * Provider: Thang Henley DPM Date: 1 05/21/2023 Generated for Emir boyd/Lilian/eTransmitting on: 1 07:53 AM EDT
--- OUTSIDE RECORDS SUMMARY | 2024-03-20 05:00 | XMS_ITS ---
Author Organization [facility] Address [address] [place] [address] Care Team Providers Care Energy Professional Name Role Phone Hyacinth Marquez Primary Care Provider UnavailGraeme Rodríguez Unavailable [phone] Namrata Fernandez [phone] Marin Encounters Encounter Location Date Provider Diagnosis [facility] [address] [place] [address] 03/20/2024 Namrata Fernandez Plan Of Treatment No Information Progress Notes * Liza [place] MDOB:1960 (65 yo F)Acc No.[id number]:03/20/2024 Progress Note Patient: Liza LIAO Provider: Doris Fernandez DPM :1960 A ge:64 Y S ex:Female Date:03/20/2024 Address:[address] [place] [address] [place], [place] Pcp:Hyacinth Marquez Subjective: * Chief Complaints: * [address] Marin. * Medical History: Objective: * Vitals: Assessment: Plan: * Treatment: * Images: * The named appointment provid er may or may not be the originator of this progress note, and it is not deemed complete until electronically signed by the appointment provider. Sign off status: Pending * Provider: Drois Fernandez DPM Date: 05/21/2023 Generated for Emir boyd/Lilian/eTransmitting on: 07:52 AM EDT
--- OUTSIDE RECORDS SUMMARY | 2024-03-21 05:30 | XMS_ITS ---
Author Organization [facility] Address [address] [place] [address] Care Team Providers Care Director Targeted Marketing Name Role Phone Hyacinth Marquez Primary Care Provider UnavailGraeme Rodríguez Unavailable [phone] Namrata Fernandez [phone] Encounters Encounter Location Date Provider Diagnosis [facility] [address] [place] [address] 03/21/2024 Namrata Fernandez Plan Of Treatment No Information Progress Notes * Liza [place] MDOB:1960 (65 yo F)Acc No.[id number]:03/21/2024 Progress Note Patient: Liza LIAO Provider: Doris Fernandez DPM :1960 A ge:64 Y S ex:Female Date:03/21/2024 Address[address] [place] [facility] Pcp:Hyacinth Marquez Subjective: * Chief Complaints: * [...] 1 05/22/2023 Generated for Printi ng/Faxing/eTransmitting on: 07:52 AM EDT
--- OUTSIDE RECORDS SUMMARY | 2024-06-26 04:30 | XMS_ITS ---
Author Organization [facility] Address [address] [place] [address] [place] [address] Care Team Providers Care Workers' Compensation Mediator Name Role Phone Hyacinth Marquez MD Primary Care Provider Boom Snow [phone] REASON FOR VISIT screening Encounters Encounter Location Date Provider Diagnosis [facility] Outpatient [address] [place] [phone] 06/26/2024 Boom Mclaughlin Colon cancer scree tavo [...] Next Appt Details Provider Name:Boom Mclaughlin , 01/27/2026 09:10:00 AM, [address] [place] [address], [address], [place], [address], Progress Notes * RAOUL LOPEZDOB:1960 ( 65 yo F)Acc No.[id number]:06/26/2024 COLON WITH MAC Patient: RAOUL LIAO Provider: Heidi Mclaughlin MD :1960 A ge:64 Y S ex:Female Date:06/26/2024 Address:[address] [place], [place] [id number] Pcp:Hyacinth Marquez MD Subjective: * Chief Complaints: [...] 0 06/26/2024 Generated for Emir boyd/Lilian/Johnitting on: 07:52 AM EDT
--- OUTSIDE RECORDS SUMMARY | 2025-02-05 07:53 | XMS_ITS | Patient Health Record ---
Author Organization [facility] Address [address] [place] [address] Care Team Providers Care Director Occupational Name Role Phone Hyacinth Marquez MD Primary Care Provider Boom Snow [phone] Allergies No Known Allergies Results Component Value Reference Range Notes Ferritin Reviewed date:08/16/2024 05:57:34 PM Interpretation: Performing Lab:[facility], [address] [place] [phone] Notes/Report: Ferritin 221 10-250 ng/mL Amylase Reviewed date:08/16/2024 05:57:27 PM Interpretation: Performing Lab:[facility], [address] [place] [phone] Notes/Report: Amylase 44 28-100 U/L Lipase Reviewed date:08/16/2024 05:57:20 PM Interpretation: Performing Lab:[facility], [address] [place] [phone] Notes/Report: Lipase 22 8-78 U/L Alpha 1 Anti-trypsin Reviewed date:09/06/2024 12:10:12 AM Interpretation: Performing Lab:[facility], [address] [place] [phone] Notes/Report: Alpha 1 Anti-trypsin 153 83-199 mg/dL THIS TEST WAS PERFORMED AT: [facility] [address] [place] [phone] MILANA FIGUEROA MD Liver Fibrosis Pnl Reviewed date:09/06/2024 12:10:40 AM Interpretation: Performing Lab:[facility], [address] [place] [phone] Notes/Report: Liver Fibrosis Score 0.09 Liver Fibrosis [...] a>0.62 and a<=1.00 : A3 (severe activity) JPQ-Tezef-4-Macroglobulin 166 106-279 mg/dL FIB-Haptoglobin 221 43-212 mg/dL FIB-Apolipoprotein A1 195 101-198 mg/dL FIB-Total Bilirubin 0.5 0.2-1.2 mg/dL FIB-GGT 31 3-65 U/L FIB-ALT 26 6-29 U/L Reference ID [id number] Footnote SEE NOTE The reliability of results [...] The performance characteristics have been determined by [facility]. It has not been cleared or approved by the U.S. Food and Drug Administration. Performance characteristics refer to the analytical performance of the test. [employer], the associated logo, [employer] and all associated [employer] schroeder are the registered trademarks of [employer]. All third constitution party schroeder - (R) and (TM) - are the property of their respective owners. (C) [id number] [employer]. All rights reserved. THIS TEST WAS PERFORMED AT: [facility] [facility] [address] [place] [address] ESTEBAN MEDEIROS MD,PHD,LIBERTY Mitochondrial Antibody Reviewed date:09/06/2024 12:14:08 AM Interpretation: Performing Lab:[address] [address] Notes/Report: Mitochondrial Antibodies NEGATIVE NEGATIVE The immunofluorescence assay (IFA) procedure reveals the possible presence of another autoantibody. Consider requesting order code 263, Smooth Muscle Antibody with Reflex to Titer, if clinically indicated. Staining was observed suggesting the presence of Antinuclear Antibodies. Consider requesting order code 249, RAFAEL Screen, IFA with reflex to titier and pattern, or order code [id number], RAFAEL Screen, IFA with reflex Titer/Pattern, Reflex to Multiplex 11 Ab [place], if clinically indicated. THIS TEST WAS PERFORMED AT: [facility] [address] [address] MILANA FIGUEROA MD Mitochondrial Ab Titer TNP Smooth Muscle Antibody Reviewed date:09/06/2024 12:10:28 AM Interpretation: Performing Lab:[address] [address] Notes/Report: Smooth Muscle Antibody <20 <20 U [...] type 1. THIS TEST WAS PERFORMED AT: [facility]/[address] ISACC MARRERO MD,PHD Hepatitis B,C Profile Reviewed date:08/16/2024 05:57:11 PM Interpretation: Performing Lab:[address] [address] Notes/Report: Hepatitis B Surface Antibody NONREACTIVE Nonreactive Nonreactive: < 8.00 mIU/mL Hepatitis B Core Antibody Nonreactive Nonreactive Hepatitis C Antibody Nonreactive Nonreactive Antibodies to HCV not detected; does not exclude early acute HCV infection. Hepatitis B Surface Antigen Negative Negative Creatinine Reviewed date:01/09/2025 01:24:35 AM Interpretation: Performing Lab:[address] [address] Notes/Report: Creatinine 0.66 0.5-1.4 mg/dL Estimated Glomerular Filt Rate > 60 Chronic Kidney Disease: Estimated GFR < 60 mL/min/1.73m2 Severe Kidney Disease: Estimated GFR < 15 mL/min/1.73m2 Amylase Reviewed date:01/09/2025 01:24:18 AM Interpretation: Performing Lab:[facility], [address] [place] [phone] Notes/Report: Amylase 35 28-100 U/L Lipase Reviewed date:01/09/2025 01:24:28 AM Interpretation: Performing Lab:[address] [address] Notes/Report: Lipase 19 8-78 U/L Pathology Reviewed date:08/09/2024 03:32:14 PM Interpretation: Performing Lab:[address] [address] Notes/Report: Liver Panel Reviewed date:08/16/2024 05:53:36 PM Interpretation: Performing Lab:[address] [address] Notes/Report: Bilirubin Total 0.7 0.0-1.0 mg/dL Bilirubin Direct 0.3 0.0-0.5 mg/dL Aspartate Amino Transferase 30 5-31 U/L Alanine Aminotransferase 36 0-31 U/L Total Protein 7.2 6.5-8.0 g/dL Albumin Level 4.4 3.5-5.0 g/dL Alkaline Phosphatase 52 39-117 U/L IRON PROFILE Reviewed date:08/16/2024 05:53:25 PM Interpretation: Performing Lab:[address] [address] Notes/Report: Iron 96 30-160 mcg/dL Total Iron Binding Capacity 302 228-428 mcg/d L Percent Iron Saturation 32 15-50 % Unsaturated Iron Binding 206 Carbohydrate Antigen 19-9 Reviewed date:08/21/2024 06:11:07 PM Interpretation: Performing Lab:[address] [address] Notes/Report: Carbohydrate Antigen 19-9 36 <34 U/mL This test was performed using the Siemens chemiluminescent method. Values obtained from different assay methods cannot be used interchangeably. CA 19-9 levels, regardless of value, should not be interpreted as absolute evidence of the presence or absence of disease. THIS TEST WAS PERFORMED AT: [facility] [address] [place] [phone] MILANA FIGUEROA MD RAFAEL Reflex Titer and Pattern Reviewed date:08/25/2024 02:42:13 PM Interpretation: Performing Lab:[address] [address] Notes/Report: Anti Nuclear Antibody Screen POSITIVE NEGATIVE RAFAEL IFA is a first line screen for detecting the presence of up to approximately 150 autoantibodies in various autoimmune diseases. A positive RAFAEL IFA result is suggestive of autoimmune disease and reflexes to titer and pattern. Further laboratory testing may be considered if clinically indicated. For additional information, please refer to http://education.[employer]or/faq/OHD687 (This link is being provided for informational/ [...] Speckled International Consensus on RAFAEL Patterns (https://doi.org/10.1515/cclm -5159-0565) THIS TEST WAS PERFORMED AT: [facility] [address] [place] [phone] MILANA FIGUEROA MD RAFAEL Titer 2 TNP RAFAEL Pattern 2 TNP RAFAEL Titer 3 TNP RAFAEL Pattern 3 TNP Liver Panel Reviewed date:01/09/2025 01:14:50 AM Interpretation: Performing Lab:[address] [address] Notes/Report: Bilirubin Total 0.8 0.0-1.0 mg/dL Bilirubin Direct 0.3 0.0-0.5 mg/dL Aspartate Amino Transferase 30 5-31 U/L Alanine Aminotransferase 39 0-31 U/L Total Protein 7.2 6.5-8.0 g/dL Albumin Level 4.6 3.5-5.0 g/dL Alkaline Phosphatase 44 39-117 U/L Blood Urea Nitrogen Reviewed date:01/09/2025 01:14:34 AM Interpretation: Performing Lab:[facility], [address] [place] [phone] Notes/Report: Blood Urea Nitrogen 21 9-16 mg/dL Carbohydrate Antigen 19-9 Reviewed date:01/09/2025 01:14:26 AM Interpretation: Performing Lab:[address] [address] Notes/Report: Carbohydrate Antigen 19-9 35 <34 U/mL This test was performed using the Siemens chemiluminescent method. Values obtained from different assay methods cannot be used interchangeably. CA 19-9 levels, regardless of value, should not be interpreted as absolute evidence of the presence or absence of disease. THIS TEST WAS PERFORMED AT: [facility] [address] [place] [phone] MILANA FIGUEROA MD MR abdomen wo/w con Reviewed date:01/28/2025 12:20:45 AM Interpretation: Performing Lab: Notes/Report: [address] [address] Magnetic Resonance Report Signed Patient: Liza Ma MR#: [id number] 6 : 1960 Acct:[id number] Age/Sex: 65 / F ADM Date: 01/26/25 Loc: HO.MRI Attending Dr: Boom Mclaughlin MD Ordering Physician: Boom Mclaughlin MD Date of Service: 01/26/25 Procedure(s): MR abdomen wo/w con Accession Number(s): [id number] cc: Hyacinth Marquez MD; Boom Mclaughlin MD Reason for Exam: PANCREATIC DUCTAL ABNORMALITY EXAMINATION: MR ABDOMEN WITHOUT THEN WITH IV CONTRAST HISTORY: PANCREATIC DUCTAL ABNORMALITY COMPARISON: Comparison is made with the prior examination dated 06/09/2024. TECHNIQUE: Axial in and out of phase T1-weighted gradient echo, axial diffusion weighted, and axial and coronal HASTE T2 with fat saturation images were obtained through the abdomen. Subsequently, fat suppressed axial and coronal T1-weighted images were obtained after the intravenous administration of 10 mL Gadavist. FINDINGS: Liver: There is diffuse loss of signal intensity in the liver on opposed phase imaging, consistent with steatosis. There is no enhancing liver mass. The hepatic and portal veins are patent. There is no intrahepatic biliary dilatation. Gallbladder/biliary tree: No gallstones are identified. The common bile duct is normal in caliber. No intraluminal filling defects are identified to suggest choledocholithiasis. Spleen: The spleen is unremarkable. Pancreas: There is a 6 mm cystic lesion in the pancreatic head without change. There is no definite connection to the pancreatic duct. There is no enhancing pancreatic mass. There is mild prominence of the pancreatic duct in the pancreatic head. Adrenals: The adrenal glands are unremarkable. Kidneys: The right kidney is unremarkable Again seen is a 1.6 cm cyst at the lower pole of the left kidney. There is no hydronephrosis. Lymph nodes: There is no retroperitoneal lymphadenopathy in the upper abdomen. Fluid: There is no ascites in the upper abdomen. Visualized bowel: The visualized small and large bowel loops are unremarkable in appearance. Visualized bones: The visualized bones demonstrate normal marrow signal intensity. MR/MR abdomen wo/w con IMPRESSION: 1. Stable 6 mm cystic lesion in the pancreatic head. Continued follow-up is recommended. 2. Hepatic steatosis. 3. 1.6 cm left lower pole renal cyst. Electronically signed by: Boom Burnette MD 01/27/2025 07:33 AM EDT RP Dictated By: Boom Burnette MD Signed By: <Electronically signed by Boom Burnette MD in OV> 01/27/25 0733 DD/ 1330 TD/TT: 01/26/25 1353 Diamond Selector: Reason For Referral No Information Medications Medication [...] Problem Screening for malignant neoplasm of colon (334175156) Encounter for screening for malignant neoplasm of colon (Z12.11) Active confirmed Problem Abnormal findings diagnostic imaging of liver and biliary tract (366420968) Abnormal CT scan, pancreas or bile duct (R93.2) Active confirmed Problem Preprocedural examination (016549322468132) Preprocedural examination (Z01.818) Active confirmed Problem Fatty liver (986493313) Fatty liver (K76.0) Active confirmed Problem Long-term current use of aspirin (029316784363984) Aspirin long-term use (Z79.82) Active confirmed Problem 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 Problem Imaging of abdomen abnormal (561189572) Abnormal MRI of abdomen (R93.5) Active confirmed Problem History of adenomatous polyp of colon (318652572) History of adenomatous polyp of colon (Z86.0101) Active confirmed Vital Signs Temperature 93.0 degrees Fahrenheit 01/07/2025 Blood pressure diastolic 01 mm Hg 01/07/2025 Height 68 in 01/07/2025 Blood pressure systolic 001 mm Hg 01/07/2025 Weight 223.6 lbs 01/07/2025 BMI 33.99 kg/m2 01/07/2025 Encounters Encounter Location Date Provider Diagnosis [facility] [address] [place], [place] [id number] 06/26/2024 Boom Mclaughlin Colon cancer screeni ng Z12.11 ; Colon polyps K63.5 ; Diverticulosis of large intestine without perforation or abscess without bleeding K57.30 ; Other hemorrhoids K64.8 and External hemorrhoids K64.4 [facility] [address] [place] [address] 03/05/2024 Boom Mclaughlin Encounter for screen ing for malignant neoplasm of colon Z12.11 ; Aspirin long-term use Z79.82 and Preprocedural examination Z01.818 [facility] [address] [place] [address] 08/09/2024 Boom Mclaughlin Fatty liver K76.0 ; Pancreatic ductal abnormality Q45.3 ; History of adenomatous polyp of colon Z86.0101 and Abnormal MRI of abdomen R93.5 [facility] [address] [place] [phone] 01/07/2025 Boom Mclaughlin Fatty liver K76.0 ; Pancreatic ductal abnormality Q45.3 ; Abnormal MRI of abdomen R93.5 and Encounter for screening for malignant neoplasm of colon Z12.11 [facility] [address] [place] [address] 08/25/2024 Boom Mclaughlin [facility] [address] [place] [address] 01/28/2025 Boom Mclaughlin Assessments Encounter Date Diagnosis (ICD [...] to keep you advised of her progress.. 01/07/2025 Fatty liver (ICD-10 - K76.0) Overall, Liza appears quite well and is not having any worrisome GI complaints. We did review her history of the fatty liver and the previous liver workup earlier this year. I advised her that based on all of her laboratories she does not appear to have any [...] that she could then see me on a prn basis and I do not think she [...] her that based on all of her laboratories she does not appear to have any [...] that she could then see me on a prn basis and I do not think she would need any further imaging of the pancreas at that point. Liza was comfortable with this plan. Thank you again for allowing me to participate in Liza's care. I shall continue to keep you advised of her progress as needed. 06/26/2024 Diverticulosis of large intestine without perforation [...] to keep you advised of her progress.. 01/07/2025 Abnormal MRI of abdomen (ICD-10 - R93.5) Overall, Liza appears quite well and is not having any worrisome GI complaints. We did review her history of the fatty liver and the previous liver workup earlier this year. I advised her that based on all of her laboratories she does not appear to have any [...] that she could then see me on a prn basis and I do not think she would need any further imaging of the pancreas at that point. Liza was comfortable with this plan. Thank you again for allowing me to participate in Liza's care. I shall continue to keep you advised of her progress as needed. 06/26/2024 Other hemorrhoids (ICD-10 - K64.8) 08/09/2024 [...] to keep you advised of her progress.. 01/07/2025 Encounter for screening for malignant neoplasm of colon (ICD-10 - Z12.11) Repeat colonoscopy in 2029 Overall, Liza appears quite well and is not having any worrisome GI complaints. We did review her history of the fatty liver and the previous liver workup earlier this year. I advised her that based on all of her laboratories she does not appear to have any [...] that she could then see me on a prn basis and I do not think she would need any further imaging of the pancreas at that point. Liza was comfortable with this plan. Thank you again for allowing me to participate in Liza's care. I shall continue to keep you advised of her progress as needed. 06/26/2024 External hemorrhoids (ICD-10 - K64.4) Plan Of Treatment Pending Test Test Name Order Date BUN 01/07/2025 LIVER PROFILE 08/09/2024 LIVER PROFILE 01/07/2025 IRON + IBC (FE) 08/09/2024 CA 19-9 01/07/2025 CA 19-9 08/09/2024 MRI ABD W&WO CONTRAST 01/07/2025 FLUOR. ANTINUCLEAR AB SCREEN (ASAD) 05/2024 Future Test Test Name Order Date COLONOSCOPY 09/19/2018 COLONOSCOPY 03/05/2024 Next Appt Details Provider Name:Boom Mclaughlin , 01/27/2026 09:10:00 AM, [address] [place] [address], [address], [place], [address], Insurance Providers Payer Name Payer Address Payer Phone Subscriber Number Group Number Insured Name Patient Relationship to Insured Coverage Start Date Coverage End Date MEDICARE OF [employer] [address] [place] [address] [id number] [place] Self - patient is the insured [facility] [address] [place] [address] [phone] [id number] [place] Self - patient is the insured Medical (General) History Medical History History ICD Code Denies SD,DM,CVA,Lung disease,renal dise ase Hypertension Hyperlipidemia Anxiety Neg. [...]
--- OUTSIDE RECORDS SUMMARY | 2025-02-05 07:53 | XMS_ITS | Patient Health Record ---
Author Organization [facility] Address [address] [facility] [place] [address] Care Team Providers Care Community Liaison Officer Name Role Phone Hyacinth Marquez Primary Care Provider UnavailGraeme Rodríguez Unavailable [phone] Deyvi Barrera Unavailable [phone] Namrata Fernandez Unavailable [phone] Allergies No Known Allergies Reason For Referral [...] Immunizations Vaccine Route Administration Date Status Comme [facility] COVID-19 Moderna Vaccine Unknown 03/01/2021 Administered First [...] Ordered Date Performed Result Body Sit e 55293-QOU 07/04/2024 N/A 44021-UFCBGLF SKIN/TISSUE 07/16/2024 N/A Encounters En[facility] [address] [address] 07/04/2024 Graeme Padilla Ingrown nail L60.[address] [address] 07/16/2024 Graeme Padilla Skin ulcer of toe of right foot with fat layer exposed L97.[address] [address] 07/14/2024 Graeme Padilla [address] [address] 07/14/2024 Graeme Padilla Assessments Encounter Date Diagnosis [...] X ray : Foot, right 3V 04/14/2021 67907-XAM 07/04/2024 97073-[id number] SKIN/TISSUE 07/16/2024 Insurance Providers Payer Name Payer Address Payer Phone Subscriber Number Group Number Insured Name Patient Relationship to Insured Coverage Start Date Coverage End Date Medicare [employer] [address] [place] [address] [id number] Liza Ma Self - patient is the insured [facility] [address] [place] [address] [id number] Liza Ma Self - patient is the insured Medical (General) History Medical History History ICD Code Arthritis Back,Hip,and Knee pain Cancer covid-19 High blood pressure Rheumatic fever Measles Mumps Chicken pox Hypercholesterolemia Surgical History Surgery Date(Month/Year) rotator cuff tear repair Meniscus repair hysterectomy oral surgery cancer eye surgery left knee replacement 09/2021 wisdom teeth extraction
[2025-02-05 07:57] VITALS: BP 132/72; PULSE 71; O2SAT 98; BMI 35.7
--- NOTE | 2025-02-05 07:57 | A.OFFVIS_ITS ---
Vital Signs 02/05/25 07:57 Height 5 ft 6 in Weight 221 lb 4 oz BMI 35.7 BP 132/72 Blood Pressure Location Lt brachial Position Sitting Pulse 71 Pulse Source Pulse Oximeter Pulse Oximetry (%) 98 Oxygen Delivery Method Room Air Intake Visit Reasons: 6m follow up Intake Note: Patient presents follow up TADEO. Compliance in chart(88/90days, >=4hrs-96%, Average Usage- 7hrs 48min, Med Pressure-10.0, Med Leaks-0.0, AHI-1.0) Accompanied by: Self / Same As Patient Allergies No Known Allergies (No Known Allergies*) Allergy (Verified 02/05/25 08:01) HPI Comments Details: 65 y/o female comes for further management of Obstructive sleep apnea. TADEO Compliance report October 2024 to Jan 2025 reviewed with pt. Total avg use is 96/99 days and 98% >4hours is 7hours and 32 min. Press are 5-20cm H20 and Leaks are 2.0cmH20 AHI is 1/hr. She washes her mask, rinses her hoses, changes the filters and fills reservoir with water. She is being followed by GI for an unchanged 6mm cyst on the pancreatic head, recent MRI. The temperatures and pressures are good for her, she wakes up feeling well rested when she uses her machine and recently received all her supplies to include the Resmed Airfit F20 mask -med sized. She likes to swim 2- 3 x a week at [facility] and stays active with her grand kids. She denies morning headaches and muscle strains. She had a L. TKR and notices some pain in the joint will f/u with her ortho-surgeon for possible up coming correction thus swimming is a more tolerable form of exercise. She has some nocturnal leg cramps especially when she is on her feet a lot and uses 2 ibuprofens occasionally as needed. She denies any restless leg symptoms. Mood, diet, and memory is good, she is trying to lose weight, and enjoys all the sport activities with her 4 grand-kids. [facility] Medical History Chest pain Elevated LFTs Pancreatic duct dilated Colon cancer screening Age-related osteoporosis without current pathological fracture Obstructive sleep apnea hypopnea, severe Varicose veins of right lower extremity with inflammation Obstructive sleep apnea (adult) (pediatric) Viral upper respiratory illness Witnessed apneic spells Lumbar spondylosis Preop exam for internal medicine Sinusitis Constipation Finger pain Knee pain, left Annual physical exam Low back pain COVID-19 virus infection Cervicalgia Osteoarthritis Pulmonary valve stenosis Factor 5 Leiden mutation, heterozygous Hypercholesterolemia Vitamin D deficiency Left renal stone Overweight (BMI 25.0-29.9) Anxiety and depression Hypertension Surgical History H/O colonoscopy Hx of total knee arthroplasty History of shoulder surgery Hx of breast reduction, elective Hx of right knee surgery Strabismus S/P PASCALE-BSO Peripheral vascular disease Family History Father Lung cancer Mother COPD (chronic obstructive pulmonary disease) CVD (cardiovascular disease) AAA (abdominal aortic aneurysm) Brother Diabetes Sister Acute CVA (cerebrovascular accident) Daughter Thyroid cancer Social History Housing: House Are you a primary manager critical care unit to a significant other at home: No Do you presently have visiting nurse or other home services: No Alcohol intake: never Patient Tobacco Use Status: Never used Tobacco Tobacco use type: Cigarette e-Cigarette/Vaping Use: Never Used Second Hand Smoke Exposure: No service: No Current occupational status: retired Cognitive needs: No Hearing needs: No Vision needs: Yes (glasses) Physical Exam Vital Signs: Last Vital Signs Pulse 71 02/05/25 07:57 BP 132/72 02/05/25 07:57 Pulse Ox 98 02/05/25 07:57 Oxygen Delivery Method Room Air 02/05/25 07:57 BMI result Body Mass Index 35.7 Const General: cooperative, comfortable and no acute distress Nutritional Appearance: obese Orientation/consciousness: patient oriented x3 Eyes Pupils: Equal, round and reactive pupils present Neuro Other: strabismus Mallampatti grade 4 General: patient oriented x3, tone normal, moves all extremities and no focal motor deficits Cranial nerves: Yes Facial sensation intact/muscles of mastication intact, Yes Equal, round and reactive pupils present, Yes Nystagmus not present, Yes Normal facial strength present, Yes Midline tongue present, Yes Symmetric palate elevation present and Yes Ability to bilaterally elevate shoulders present Cognition (Neuro): normal cognition Gait exam (Neuro): Normal gait present Motor exam (neuro): 5/5 motor strength present throughout and Normal motor muscle tone present throughout Psych Appearance: grossly normal Attitude: cooperative Thought process: Normal thought process present Thought content: Normal thought content present Results Reviewed Results Reviewed: MR/MR abdomen wo/w con IMPRESSION: 1. Stable 6 mm cystic lesion in the pancreatic head. Continued follow-up is recommended. 2. Hepatic steatosis. 3. 1.6 cm left lower pole renal cyst. TADEO Compliance report October 2024 to Jan 2025 reviewed with pt. Total avg use is 96/99 days and 98% >4hours is 7hours and 32 min. Press are 5-20cm H20 and Leaks are 2.0cmH20 AHI is 1/hr. She washes her mask, rinses her hoses, changes the filters and fills reservoir with water. Assessment & Plan Assessment & Plan (1) Obstructive sleep apnea hypopnea, severe: Code(s): G47.33 - Obstructive sleep apnea (adult) (pediatric) Category: Medical (2) Cervicalgia: Code(s): M54.2 - Cervicalgia Category: Medical (3) Leg cramps, sleep related: Code(s): G47.62 - Sleep related leg cramps Category: Medical Plan TADEO on cpap and Compliance reviewed with patient today. She feels refreshed in the morning when using her cpap. Patient Education Sleep Hygiene as she has HTN and it is managed on HCTZ and Lisinopril. Anxiety, takes lexapro and mood has improved. Nocturnal leg cramps, will monitor start magnesium 400mg PO daily at bedtime. F/U in 6 months for compliance. Patient Instructions: Sleep Hygiene provided: set a scheduled bedtime and wake time to help regulate the circadian rhythm and balance the release of pituitary hormones. Sleep in a dark room, temperatures below 68 degrees, and no devices n bed. Limit caffein ated products 6 hours prior to bed, and limit fluids 2-4 hours prior to bed. Gentle night yoga, diffusing essential oils, and playing soft music can be relaxing. Coding Level of Care Code Est Pt Level 4 (69315) Diagnoses Obstructive sleep apnea hypopnea, severe G47.33 Cervicalgia M54.2 Leg cramps, sleep related G47.62
== END 2025-02-05 08:28 | disposition home or self-care (01) ==
LOC: HO.HSMC 07:49
PROVIDERS: PCP Internal Medicine; Visit Provider Physician Assistant Medical
DX: G47.33 Obstructive sleep apnea (adult) (pediatric) (principal); M54.2 Cervicalgia; G47.62 Sleep related leg cramps
CPT/HCPCS: 99214

== ENCOUNTER → 2025-02-05 07:48 | Outpatient (BNVA) | payer MEDICARE, OTHER, SELFPAY | PROVIDERS: PCP Internal Medicine; Visit Provider Physician Assistant Medical | DX: G47.33 Obstructive sleep apnea (adult) (pediatric) (principal); G47.62 Sleep related leg cramps; M54.2 Cervicalgia | CPT/HCPCS: 99212 ==

== ENCOUNTER 2025-03-10 09:09 | Outpatient (REF) | payer MEDICARE, OTHER, SELFPAY ==
--- OUTSIDE RECORDS SUMMARY | 2024-03-21 04:30 | XMS_ITS ---
Author Organization [facility] Address [address] [place] [address] Care Team Providers Care Produce Department Supervisor Name Role Phone Hyacinth Marquez Primary Care Provider UnavailGraeme Rodríguez Unavailable [phone] Namrata Fernandez [phone] Encounters Encounter Location Date Provider Diagnosis [facility] [address] [place] [address] 03/21/2024 Namrata Fernandez Plan Of Treatment No Information Progress Notes * Liza [place] MDOB:1960 (65 yo F)Acc No.[id number]:03/21/2024 Progress Note Patient: Liza LIAO Provider: Doris Fernandez DPM :1960 A ge:64 Y S ex:Female Date:03/21/2024 Address:[address] [facility] [place] [facility] Pcp:Hyacinth Marquez Subjective: * Chief Complaints: * * Medical History: Objective: * Vitals: Assessment: Plan: * Treatment: * Images: * The named appointment provid er may or may not be the originator of this progress note, and it is not deemed complete until electronically signed by the appointment provider. Sign off status: Pending * Provider: Doris Fernandez DPM Date: 05/22/2023 Generated for Merlyni ng/Fajulio cg/eTransmitting on: 05/11/2024 10:42 AM EST
[2025-03-10 10:32] LABS: MANUAL DIFF FLAG NO
--- OUTSIDE RECORDS SUMMARY | 2025-03-10 10:43 | XMS_ITS | Patient Health Record ---
Author Organization [facility] Address [address] [place] [address] Care Team Providers Care Investments Manager Name Role Phone Hyacinth Marquez Primary Care Provider UnavailGraeme Rodríguez Unavailable [phone] Deyvi Barrera Unavailable [phone] Namrata Fernandez Unavailable [phone] Allergies No Known Allergies Reason For Referral [...] Immunizations Vaccine Route Administration Date Status Comme [facility] COVID-19 Moderna Vaccine Unknown 03/01/2021 Administered [...] Ordered Date Performed Result Body Sit e [id number] 07/04/2024 N/A [id number] SKIN/TISSUE 07/16/2024 N/A Encounters Encounter Location Date [facility] [address] [address] 07/04/2024 Graeme Padilla Ingrown nail L60.[address] [address] 07/16/2024 Graeme Padilla Skin ulcer of toe of right foot with fat layer exposed L97.[address] [address] 07/14/2024 Graeme Padilla [address] [address] 07/14/2024 Graeme Padilla Assessments Encounter Date Diagnosis [...] X ray : Foot, right 3V 04/14/2021 [id number] 07/04/2024 [id number] SKIN/TISSUE 07/16/2024 Insurance Providers Payer Name Payer Address Payer Phone Subscriber Number Group Number Insured Name Patient Relationship to Insured Coverage Start Date Coverage End Date Medicare [employer] [address] [place] [address] [id number] Liza Ma Self - patient is the insured [facility] [address] [place] [address] [id number] Liza Ma Self - patient is the insured Medical (General) History Medical History History ICD Code Arthritis Back,Hip,and Knee pain Cancer covid-19 High blood pressure Rheumatic fever Measles Mumps Chicken pox Hypercholesterolemia Surgical History Surgery Date(Month/Year) rotator cuff tear repair Meniscus repair hysterectomy oral surgery cancer eye surgery left knee replacement 09/2021 wisdom teeth extraction
[2025-03-10 10:45] LABS: Hematocrit 39.6 % (37.0-47.0); Hemoglobin 13.2 g/dl (12.0-16.0); Imm Gran Abs Auto 0.01 X10*3/uL (0.00-0.03); Imm Gran Pct Auto 0.3 % (0.0-0.4); Lymphocytes Absolute Auto 0.9 X10*3/uL (1.2-4.9); Mean Corpuscular HGB Conc 33.3 g/dl (31.0-35.0); Mean Corpuscular Hemoglobin 28.8 pg (27.0-33.0); Mean Corpuscular Volume 86.3 fL (80.0-98.0); NRBC Abs Auto 0.000 X10*3/uL (0.0-0.012); NRBC Pct Auto 0.0 /100WBC (0.0-0.2); Platelet Count 260 X10*3/uL (160-400); Red Blood Count 4.59 X10*6/uL (4.20-5.50); White Blood Count 3.5 X10*3/uL (4.8-10.8)
[2025-03-10 11:52] LABS: Hemoglobin A1C 148.8162 umol/L
[2025-03-10 12:01] LABS: Folate 10.4 ng/mL (> or = 4.0); Vitamin B12 434 pg/mL (200-900)
[2025-03-10 12:02] LABS: Free T4 (Free Thyroxine) 0.85 ng/dL (0.71-1.85); Thyroid Stimulating Hormone 1.59 uIU/mL (0.32-4.0)
[2025-03-10 12:03] LABS: Anion Gap 13 (12-20)
[2025-03-10 12:07] LABS: Alanine Aminotransferase 38 U/L (0-31); Albumin Level 4.5 g/dL (3.5-5.0); Alkaline Phosphatase 49 U/L (39-117); Aspartate Amino Transferase 32 U/L (5-31); Blood Urea Nitrogen 23 mg/dL (9-16); Calcium 9.2 mg/dL (8.4-10.2); Carbon Dioxide 30 mmol/L (22-29); Chloride 103 mmol/L (96-108); Cholesterol 135 mg/dL (<200); Estimated Glomerular Filt Rate > 60; HDL Cholesterol 40 mg/dL (>40); Potassium 3.5 mmol/L (3.3-5.1); Sodium 142 mmol/L (135-145); Total Protein 6.9 g/dL (6.5-8.0); Triglycerides 79 mg/dL (<150)
== END 2025-03-10 09:10 | disposition home or self-care (01) ==
LOC: HO.HMGCLDS 09:09
PROVIDERS: PCP Internal Medicine; Visit Provider Internal Medicine
DX: E78.00 Pure hypercholesterolemia, unspecified (principal); Z13.21 Encounter for screening for nutritional disorder; Z13.1 Encounter for screening for diabetes mellitus
CPT/HCPCS: 36415; 80053; 80061; 82306; 82607; 82746; 83036; 84439; 84443; 85025

== ENCOUNTER 2025-03-12 10:24 | Outpatient (AMB) | payer MEDICARE, OTHER, SELFPAY ==
--- OUTSIDE RECORDS SUMMARY | 2024-03-20 03:15 | XMS_ITS ---
Author Organization [facility] Address [address] [place] [address] Care Team Providers Care [employer]dy Mill Worker Name Role Phone Hyacinth Marquez Primary Care Provider UnavailGraeme Rodríguez Unavailable [phone] Deyvi Barrera [phone] Marin Encounters Encounter Location Date Provider Diagnosis [facility] [address] [place] [address] 03/20/2024 Deyvi Barrera Plan Of Treatment No Information Progress Notes * Liza [place] MDOB:1960 (65 yo F)Acc No.[id number]:03/20/2024 Progress Note Patient: Liza LIAO Provider: Thang Henley DPM :1960 A ge:64 Y S ex:Female Date:03/20/2024 Address:[address] [facility] [address] [place], [place] Pcp:Hyacinth Marquez Subjective: * Chief Complaints: * [address] Marin. * Medical History: Objective: * Vitals: Assessment: Plan: * Treatment: * Images: * The named appointment provid er may or may not be the originator of this progress note, and it is not deemed complete until electronically signed by the appointment provider. Sign off status: Pending * Provider: Thang Henley DPM Date: 05/21/2023 Generated for Emir boyd/Lilian/eTransmitting on: 05/13/2024 11:56 AM EST
--- OUTSIDE RECORDS SUMMARY | 2024-03-21 04:30 | XMS_ITS ---
Author Organization [facility] Address [address] [place] [address] Care Team Providers Care Coal Inspector Name Role Phone Hyacinth Marquez Primary Care Provider UnavailGraeme Rodríguez Unavailable [phone] Namrata Fernandez [phone] Encounters Encounter Location Date Provider Diagnosis [facility] [address] [place] [address] 03/21/2024 Namrata Fernandez Plan Of Treatment No Information Progress Notes * Liza [place] MDOB:1960 (65 yo F)Acc No.[id number]:03/21/2024 Progress Note Patient: Liza LIAO Provider: Doris Fernandez DPM :1960 A ge:64 Y S ex:Female Date:03/21/2024 Address:[address] [facility] [place] Pcp:Hyacinth Marquez Subjective: * Chief Complaints: * * Medical History: Objective: * Vitals: Assessment: Plan: * Treatment: * Images: * The named appointment provid er may or may not be the originator of this progress note, and it is not deemed complete until electronically signed by the appointment provider. Sign off status: Pending * Provider: Doris Fernandez DPM Date: 05/22/2023 Generated for Merlyni ng/Faxing/eTransmitting on: 05/13/2024 11:55 AM EST
--- OUTSIDE RECORDS SUMMARY | 2024-06-26 03:30 | XMS_ITS ---
Author Organization [facility] Address [address] [place] [address] [place] [address] Care Team Providers Care Dredge Master Name Role Phone Hyacinth Marquez MD Primary Care Provider Boom Snow [phone] REASON FOR VISIT screening Encounters Encounter Location Date Provider Diagnosis [facility] Outpatient [address] [place] [phone] 06/26/2024 Boom Mclaughlin Colon cancer scree tavo Z12.11 ; Colon polyps K63.5 ; Diverticulosis of large intestine without perforation or abscess without bleeding K57.30 ; Other hemorrhoids K64.8 and External hemorrhoids K64.4 Assessments Encounter Date Diagnosis (ICD Code) Assessment Notes Treatment Notes Treatment Clinical Notes Section Notes 06/26/2024 Colon cancer screening (ICD-10 - Z12.11) 06/26/2024 Colon polyps (ICD-10 - K63.5) 06/26/2024 Diverticulosis of large intestine without perforation or abscess without bleeding (ICD-10 - K57.30) 06/26/2024 Other hemorrhoids (ICD-10 - K64.8) 06/26/2024 External hemorrhoids (ICD-10 - K64.4) Plan Of Treatment Next Appt Details Provider Name:Boom Mclauhglin , 01/27/2026 09:10:00 AM, [address] [place] [address], [address], [place], [address], Progress Notes * RAOUL LOPEZDOB:1960 ( 65 yo F)Acc No.[id number]:06/26/2024 COLON WITH MAC Patient: RAOUL LIAO Provider: Heidi Mclaughlin MD :1960 A ge:64 Y S ex:Female Date:06/26/2024 Address:[address] [place], [place] [id number] Pcp:Hyacinth Marquez MD Subjective: * Chief Complaints: * S creening Assessment: * Assessment: 1. C olon cancer screening - Z12.11 (Primary) 2 . C olon polyps - K63.5? 3. D iverticulosis of large intestine without perforation or abscess without bleeding - K57.30 4 . O ther hemorrhoids - K64.8 5 . E xternal hemorrhoids - K64.4 Plan: * Procedure Codes: 4 5385 LESION REMOVAL COLONOSCOPY, Modifiers: PT 0529F INTRVL 3+YRS PTS CLNSCP [id number] RCMND FLW-UP 10 YRS DOCD Billing Information: * Procedure Codes: 59617 LESION REMOVAL COLONOSCOPY. Modifiers: PT 0529F INTRVL 3+YRS PTS CLNSCP DOCD. 0528F RCMND FLW-UP 10 YRS DOCD. * The named appointment provid er may or may not be the originator of this progress note, and it is not deemed complete until electronically signed by the appointment provider. Sign off status: Pending * Provider: Heidi Mclaughlin MD Date: 0 06/26/2024 Generated for Emir boyd/Lilian/Johnitting on: 1 05/13/2024 11:56 AM EST
--- NOTE | 2025-03-12 10:58 | MHC.PC.OV ---
Vital Signs 03/12/25 11:00 Height 5 ft 6 in Weight 218 lb BMI 35.2 BP 132/72 Blood Pressure Location Lt brachial Position Sitting Pulse 78 Pulse Source Pulse Oximeter Pulse Oximetry (%) 98 Oxygen Delivery Method Room Air Intake Visit Reasons: Annual Exam Allergies No Known Allergies (No Known Allergies*) Allergy (Verified 03/12/25 11:01) Medication List - Last Reconciled 03/12/25 by Hyacinth Marquez MD aspirin (Adult Aspirin Regimen) 81 mg PO DAILY [AUTO PAP 6-16 cm H2O humidified AIR As directed] blood pressure monitor (Blood Pressure Kit) As directed escitalopram oxalate (Lexapro) 10 mg PO DAILY hydrochlorothiazide 25 mg PO DAILY lidocaine 5% 1 patch topical DAILY 15 days lisinopril 40 mg PO DAILY lorazepam 0.5 mg PO BID PRN 30 days magnesium 200 mg PO DAILY 90 days MDD 200mg PO omeprazole 20 mg PO DAILY PRN simvastatin 10 mg PO DAILY Tobacco use date assessed: 10/24/24 Fall risk assessment: No Falls in past year Last assessed Fall Risk: 03/12/25 Dental Screening Dental Screen Date: 10/24/24 HPI HPI Comments History of Present Illness Details History of Present Illness The patient is a 65-year-old individual presenting for a physical exam with a history of obesity, hypertension, hypercholesterolemia, lumbar and cervical spondylosis, generalized anxiety disorder, osteopenia, GERD, impaired glucose tolerance, and hepatic steatosis. The patient has a history of right total knee arthroplasty and was seen by orthopedics in January for mid-flexion instability and medial laxity, with recommendations for a trial of bracing and possible surgical intervention. For obstructive sleep apnea, the patient saw neurology in January, uses a CPAP regularly for more than 4 hours a night, and benefits from it. The patient was prescribed magnesium for leg cramps, which has been helpful. The patient was seen by gastroenterology in December 2024 for an enlarged pancreatic duct and was advised to have a follow-up MRI in six months. The patient's GERD symptoms have improved significantly with dietary changes, and the patient no longer takes omeprazole regularly. Recent bloodwork shows a chronically low white blood cell count stable since 2019, potassium at the lower end of normal, and an HbA1c that has risen to 6.0 from 5.9. The LDL cholesterol is 80. Liver function tests are borderline, and an ultrasound previously confirmed hepatic steatosis. The patient's medications include simvastatin, lisinopril 40 mg, hydrochlorothiazide 25 mg, Lexapro 10 mg, aspirin, magnesium, and lorazepam as needed. The patient reports working on weight loss and has good blood pressure control. The patient denies any allergies, alcohol use, or smoking. The last colonoscopy was in June 2024, the mammogram was in May 2024, and the last bone density scan was in February 2024. Health Maintenance All current medications will be refilled. The patient will schedule an appointment for the shingles vaccine. Discussed the COVID-19 vaccine; the patient remains undecided. Will continue to monitor chronic leukopenia. Social History - Tobacco Use: The patient denies smoking. - Alcohol Use: The patient denies drinking alcohol. - Exercise: The patient swims, sometimes up to 40 laps, without shortness of breath. - Diet: The patient is working on losing weight and has changed the diet, which has improved GERD symptoms. - Family Status: The patient has a child living at home. Results - Complete Blood Count: Shows a chronic low white blood cell count since 2019. Hemoglobin and platelet count are within normal limits. - Comprehensive Metabolic Panel: Potassium is on the lower side of normal. Kidney function is good. Results indicate a need for improved hydration. - Hemoglobin A1c: 6.0%, which is up from a previous value of 5.9%. - Liver Function Tests: Results are borderline. - Lipid Panel: LDL cholesterol is 80 mg/dL. - Vitamins/Hormones: Vitamin B12, vitamin D, folic acid, and thyroid function are all within normal limits. - Imaging: An ultrasound confirmed the presence of hepatic steatosis. Gastroenterology has recommended a follow-up MRI in 6 months for an enlarged pancreatic duct. Orthopedics requested a bone scan for the right knee. - Procedures: Last colonoscopy in June 2024 revealed a small, non-worrisome polyp. [facility] Medical History (Updated 03/12/25 @ 11:47 by Hyacinth Marquez MD) Pancreatic duct dilated Chest pain Elevated LFTs Colon cancer screening Age-related osteoporosis without current pathological fracture Obstructive sleep apnea hypopnea, severe Varicose veins of right lower extremity with inflammation Obstructive sleep apnea (adult) (pediatric) Viral upper respiratory illness Witnessed apneic spells Lumbar spondylosis Preop exam for internal medicine Sinusitis Constipation Finger pain Knee pain, left Annual physical exam Low back pain COVID-19 virus infection Cervicalgia Osteoarthritis Pulmonary valve stenosis Factor 5 Leiden mutation, heterozygous Hypercholesterolemia Vitamin D deficiency Left renal stone Overweight (BMI 25.0-29.9) Anxiety and depression Hypertension Surgical History H/O colonoscopy Hx of total knee arthroplasty History of shoulder surgery Hx of breast reduction, elective Hx of right knee surgery Strabismus S/P PASCALE-BSO Peripheral vascular disease Family History Father Lung cancer Mother COPD (chronic obstructive pulmonary disease) CVD (cardiovascular disease) AAA (abdominal aortic aneurysm) Brother Diabetes Sister Acute CVA (cerebrovascular accident) Daughter Thyroid cancer Social History Housing: House Are you a primary care director rn to a significant other at home: No Do you presently have visiting nurse or other home services: No Alcohol intake: never Patient Tobacco Use Status: Never used Tobacco Tobacco use type: Cigarette e-Cigarette/Vaping Use: Never Used Second Hand Smoke Exposure: No service: No Current occupational status: retired Cognitive needs: No Hearing needs: No Vision needs: Yes (glasses) Questionnaire PHQ-9 Over the last 2 weeks, how often have you been bothered by any of the following problems? 1. Little interest or pleasure in doing things: not at all 2. Feeling down, depressed, or hopeless: not at all 3. Trouble falling or staying asleep, or sleeping too much: not at all 4. Feeling tired or having little energy: not at all 5. Poor appetite or overeating: not at all 6. Feeling bad about yourself - or that you are a failure or have let yourself or your family down: not at all 7. Trouble concentrating on things, such as reading the newspaper or watching television: not at all 8. Moving or speaking so slowly that other people could have noticed. Or the opposite - being so fidgety or restless that you have been moving around a lot more than usual: not at all 9. Thoughts that you would be better off or of hurting yourself in some way: not at all Total score: 0 Depression Screening Interpretation: Negative Depression Screening Done: Yes Source: Developed by Drs. Boom Jin, Yesy Yang, Travis Santos and colleagues, with an educational pascual from [email or web address]. Thrive Questionnaire Date Thrive assessed: 09/09/24 I am a: Patient What is your living situation today?: I have a steady place to live Within the past 12 months, did the food you bought not last and you didn't have the money to get more?: Never true Within the past 12 months, did you worry whether your food would run out before you got money to buy more?: Never true Do you have trouble paying for medicines?: No Do you have trouble getting transportation to medical appointments?: No Do you have trouble paying your heating and electricity bill?: No Do you have trouble taking care of your child, family member or friend?: No Do you have trouble with day-to-day activities such as bathing, preparing meals, shopping, managing finances, etc.?: No Are you currently unemployed and looking for a job?: No Are you interested in more education?: No Please select the resources that you would like help with: None Currently or been in a relationship where the following occur: No concerns reported THRIVE Score: 0 AUDIT C Alcohol Use Questionnaire (AUDIT-C) 2. How many drinks containing alcohol do you have on a typical day when you are drinking?: 1 or 2 Total Score: 0 BING-7 AMB Questionnaire BING-7 Date BING - 7 assessed: 10/24/24 Source: Developed by Drs. Boom Jin, Yesy Yang, Travis Santos and colleagues, with an educational pascual from [email or web address]. Review of Systems Narrative Review of Systems - Constitutional: Denies fevers or syncope. - Eyes: Denies any vision issues. - HEENT: Reports intermittent pressure in the left ear, described as a bubble sensation. Denies dysphagia or hearing loss. - Cardiovascular: Denies chest pain or heaviness. Reports occasional tinges believed to be related to anxiety. Denies waking up with shortness of breath. - Respiratory: Denies dyspnea on exertion, including while swimming 40 laps. - Gastrointestinal: Reports a recent episode of vomiting and diarrhea after eating a salad, which has resolved. Denies blood in stool. GERD symptoms have improved with diet. - Genitourinary: Reports occasional nocturia, waking at most one time per night. - Musculoskeletal: Reports right knee instability. Reports leg cramps that are relieved by magnesium. Reports feeling dizzy when standing up after bending over. - Neurological: Reports a few episodes of dizziness, which were attributed to anxiety. - Psychiatric: Reports occasional anxiety. Const Denies poor appetite and Denies weakness Eyes Denies no additional complaints ENT Reports Normal hearing present, Denies dizziness, Denies nasal congestion, Denies tinnitus and Denies sore throat Card Denies chest pain, Denies syncope, Denies rapid heart rate and Denies dyspnea Resp Denies cough and Denies dyspnea GI Denies change in stool character, Reports constipation, Denies diarrhea, Denies nausea and Denies vomiting Denies urinary frequency, Denies difficulty voiding and Denies dysuria Neuro Reports Normal hearing present, Denies confusion, Denies dizziness, Denies syncope and Denies weakness Psych Denies confusion Physical exam (Primary Care) Vital Signs: Last Vital Signs Pulse 78 03/12/25 11:00 BP 132/72 03/12/25 11:00 Pulse Ox 98 03/12/25 11:00 Oxygen Delivery Method Room Air 03/12/25 11:00 BMI result Body Mass Index 35.2 Tobacco/Smoking Status: Tobacco use Status Tobacco use date assessed 10/24/24 03/12/25 11:01 Patient Tobacco Use Status Never used Tobacco 03/12/25 11:01 Tobacco use type Cigarette 03/12/25 11:01 e-Cigarette/Vaping Use Never Used 03/12/25 11:01 PHQ-9: PHQ-9 Score PHQ-9: Total score 0 03/12/25 11:48 Depression Screening Interpretation: Negative Thrive Assessment: Date of Thrive Assessment Date Thrive assessed 09/09/24 03/12/25 11:01 Currently or been in a relationship where the following occur: No concerns reported Narrative Physical Exam General: Cooperative, healthy appearing, comfortable, no acute distress and well developed Orientation: Patient oriented x3 Limitations: Mid flexion instability and laxity on the medial side of the right knee Head: Normal to inspection Ears: Hearing grossly normal bilaterally, but left ear occasionally feels pressury Nose: Normal external nose present Face and sinus: Normal facial exam Eyes: Appearance normal, both eyes and all related structures Neck: Normal visual inspection and Yes full ROM Respiratory: Normal respiratory effort and able to speak in complete sentences. Clear to auscultation bilaterally Cardiovascular: Regular rate and rhythm. Normal S1 and S2 GI: Normal to inspection. Soft to palpation and nontender Skin: No rashes or lesions noted Neuro: Patient oriented x3 Extremities: Normal to inspection, but right total knee arthroplasty noted with mid flexion instability and laxity on the medial side Const General: alert and awake; No confusion Orientation/consciousness: No confusion HENMT Head: Yes normocephalic Ears: external ears normal and TM's normal bilaterally Face and sinus: Yes normal facial exam Mouth: moist mucous membranes Throat: Yes tonsils normal Eyes Conjunctivae: conjunctivae normal Pupils: Equal, round and reactive pupils present and Pupil accommodation reflex normal Direct Ophthalmoscopy: normal light reflex Neck Neck: No lymphadenopathy Thyroid: Thyroid normal Chest Chest palpation & inspection: normal inspection of the chest Resp Effort & Inspection: normal respiratory effort and no audible wheezes Auscultation: clear to auscultation bilaterally, no crackles, no wheezes and lung sounds not diminished Cardio Rate: regular rate Rhythm: regular rhythm Peripheral pulses: radial pulses present and dorsalis pedis present GI Palpation (GI): no masses Auscultation: normal bowel sounds and normoactive bowel sounds Rectal Exam - Female: deferred Skin General skin exam: no rashes or lesions noted Rashes: no rashes Neuro General: deep tendon reflexes 2+ bilaterally and No confusion Cranial nerves: Yes Equal, round and reactive pupils present, Yes Midline tongue present, Yes Normal hearing present and Yes Ability to bilaterally elevate shoulders present Cognition (Neuro): normal cognition Gait exam (Neuro): Normal gait present Motor exam (neuro): 5/5 motor strength present throughout Deep tendon reflexes (DTR's): Right brachioradialis reflex intensity grade: 2+, Left brachioradialis reflex intensity grade: 2+, Right patellar reflex intensity grade: 2+ and Left patellar reflex intensity grade: 2+ Extrem General: No edema Coding Level of Care Code Est Pt Prev Care >65y(11877) Diagnoses Annual physical exam Z00.00 Obstructive sleep apnea hypopnea, severe G47.33 Gastroesophageal reflux disease without esophagitis K21.9 Esophagitis presence: without esophagitis Hepatic steatosis K76.0 Impaired fasting blood sugar R73.01 Essential hypertension I10 Hypertension type: essential hypertension Hypercholesterolemia E78.00 Generalized anxiety disorder F41.1 Pancreatic duct dilated K86.89 Assessment & Plan Assessment & Plan (1) Annual physical exam: Code(s): Z00.00 - Encounter for general adult medical examination without abnormal findings Category: Medical Plan: Patient is advised to eat healthy, keep well hydrated, keep active and have adequate sleep. (2) Obstructive sleep apnea hypopnea, severe: Code(s): G47.33 - Obstructive sleep apnea (adult) (pediatric) Category: Medical Plan: Continue to use the CPAP more than 4 hours a night and benefits from this. (3) GERD (gastroesophageal reflux disease): Code(s): K21.9 - Gastro-esophageal reflux disease without esophagitis Category: Medical Qualifiers: Esophagitis presence: without esophagitis Qualified Code(s): K21.9 - Gastro-esophageal reflux disease without esophagitis Plan: Avoid the foods that causes that usually spicy foods, tomato products, juices, coffee, soda and foods that your sensitive to. After eating do not lie down, allow 3-4 hours before in lie down. And keep the head of bed above 30 degrees to avoid the acid from going up. (4) Hepatic steatosis: Code(s): K76.0 - Fatty (change of) liver, not elsewhere classified Category: Medical Plan: Low-fat diet and exercise (5) Impaired fasting blood sugar: Code(s): R73.01 - Impaired fasting glucose Category: Medical Plan: Decrease the amount of carbohydrate intake, pasta, bread, rice and potatoes are all sugar and that is aside from all the sweet stuff, remember that fruits are good but they are Sweet also. (6) Hypertension: Code(s): I10 - Essential (primary) hypertension Category: Medical Qualifiers: Hypertension type: essential hypertension Qualified Code(s): I10 - Essential (primary) hypertension Plan: Continue with blood pressure medication. Decrease salt intake and exercise patient on hydrochlorothiazide 25 mg once a day lisinopril 40 mg once a day (7) Hypercholesterolemia: Code(s): E78.00 - Pure hypercholesterolemia, unspecified Category: Medical Plan: Avoid fried foods, chicken skin, eggs, butter margarine, pastries and meat. Be it pork or beef they have a lot of cholesterol LDL goal of less than 130 and triglyceride of less than 150 (8) Generalized anxiety disorder: Comment: doing private counseling presently 06/2021 Code(s): F41.1 - Generalized anxiety disorder Category: Medical Plan: Continue with present medication (9) Pancreatic duct dilated: Code(s): K86.89 - Other specified diseases of pancreas Category: Medical Plan: Patient has seen gastroenterology and advised 6 months follow-up with an MRI Plan Plan Patient was informed and verbally consented to the use of an ambient scribe for clinic note documentation during this visit. 1. Hypertension The patient's blood pressure is well-controlled. Continue current medications, lisinopril 40 mg once daily and hydrochlorothiazide 25 mg once daily. 2. Hypercholesterolemia The LDL goal is less than 130 mg/dL and triglycerides less than 150 mg/dL. Continue with the present medication, simvastatin. Encouraged to continue exercise to improve HDL cholesterol. 3. Obstructive Sleep Apnea The patient is doing well with CPAP therapy, using it for more than 4 hours per night with benefit. Continue current CPAP use. 4. Impaired Glucose Tolerance The hemoglobin A1c has increased slightly to 6.0. Advised caution with dietary sugar, including limiting fruits like apples, as well as refined carbohydrates. 5. Gastroesophageal Reflux Disease The patient's symptoms have improved with dietary changes. Continue low-fat diet and exercise. The patient is taking omeprazole only as needed for occasional heartburn. 6. Enlarged Pancreatic Duct The patient was seen by gastroenterology and advised to have a follow-up MRI in six months. 7. Right Knee Instability Orthopedics recommended a trial of bracing for mid-flexion instability. The patient has a follow-up appointment with orthopedics to discuss further management, which may include another procedure. Discussion Notes I reviewed the patient's recent consultations and lab results. We discussed the gastroenterology note regarding the need for a 6-month follow-up MRI for the pancreatic duct. We also reviewed the orthopedic plan for the right knee, which includes a trial of bracing and a follow-up visit to discuss potential surgical options. I informed the patient that the bloodwork showed a persistently low white count, which we will continue to monitor, and that the hemoglobin A1c had increased to 6.0, indicating a need to be careful with dietary sugars, including fruits and carbohydrates. We discussed that the liver numbers are borderline and relate to the diagnosis of fatty liver, which is managed with healthier eating. I reassured the patient that the cholesterol is well-controlled. I will provide refills for all of the patient's current medications. We discussed available vaccinations, and I informed the patient that the COVID-19 vaccine is available if desired. Patient Instructions - Continue your current medications for blood pressure and cholesterol as prescribed. All your medications will be refilled. - Continue to use your CPAP machine for more than 4 hours each night for your sleep apnea. - Be mindful of your sugar intake to help manage your blood sugar levels. This includes reducing foods like flour, pasta, bread, rice, potatoes, and even sugary fruits like apples. - Continue with your low-fat diet and exercise to help with your reflux and fatty liver. - Follow up with your family dentist for an MRI of your pancreas in about six months. - Follow up with your orthopedic doctor next week to discuss the bracing and other options for your right knee. - Make sure to drink plenty of water. - Please schedule an appointment to get your shingles vaccine.
[2025-03-12 11:00] VITALS: BP 132/72; PULSE 78; O2SAT 98; BMI 35.2
--- OUTSIDE RECORDS SUMMARY | 2025-03-12 11:56 | XMS_ITS | Patient Health Record ---
Author Organization [facility] Address [address] [place] [address] Care Team Providers Care Transformer Shop Supervisor Name Role Phone Hyacinth Marquez MD Primary Care Provider Boom Snow [phone] Allergies No Known Allergies Results Component Value Reference Range Flag Notes Creatinine Reviewed date:01/09/2025 01:24:35 AM Interpretation: Performing Lab:[facility], [address] [place] [phone] Notes/Report: Creatinine 0.66 0.5-1.4 mg/dL N Estimated Glomerular Filt Rate > 60 Chronic Kidney Disease: Estimated GFR < 60 mL/min/1.73m2 Severe Kidney Disease: Estimated GFR < 15 mL/min/1.73m2 Amylase Reviewed date:01/09/2025 01:24:18 AM Interpretation: Performing Lab:[facility], [address] [place] [phone] Notes/Report: Amylase 35 28-100 U/L N Lipase Reviewed date:01/09/2025 01:24:28 AM Interpretation: Performing Lab:[facility], [address] [place] [phone] Notes/Report: Lipase 19 8-78 U/L N Pathology Reviewed date:08/09/2024 03:32:14 PM Interpretation: Performing Lab:[facility], [address] [place] [phone] Notes/Report: Liver Panel Reviewed date:08/16/2024 05:53:36 PM Interpretation: Performing Lab:[facility], [address] [place] [phone] Notes/Report: Bilirubin Total 0.7 0.0-1.0 mg/dL N Bilirubin Direct 0.3 0.0-0.5 mg/dL N Aspartate Amino Transferase 30 5-31 U/L N Alanine Aminotransferase 36 0-31 U/L H Total Protein 7.2 6.5-8.0 g/dL N Albumin Level 4.4 3.5-5.0 g/dL N Alkaline Phosphatase 52 39-117 U/L N IRON PROFILE Reviewed date:08/16/2024 05:53:25 PM Interpretation: Performing Lab:[facility], [address] [place] [phone] Notes/Report: Iron 96 30-160 mcg/dL N Total Iron Binding Capacity 302 228-428 mcg/dL N Percent Iron Saturation 32 15-50 % N Unsaturated Iron Binding 206 RAFAEL Reflex Titer and Pattern Reviewed date:08/25/2024 02:42:13 PM Interpretation: Performing Lab:[address] [phone] Notes/Report: Anti Nuclear Antibody Screen POSITIVE NEGATIVE A RAFAEL IFA is a first line screen for detecting the presence of up to approximately 150 autoantibodies in various autoimmune diseases. A positive RAFAEL IFA result is suggestive of autoimmune disease and reflexes to titer and pattern. Further laboratory testing may be considered if clinically indicated. For additional information, please refer to [email or web address]/faq/XSK407 (This link is being provided for informational/ educational purposes only.) Anti Nuclear Antibody Titer 1:320 A Reference Range <1:40 Negative 1:40-1:80 Low Antibody Level >1:80 Elevated Antibody Level Anti Nuclear Antibody Pattern A Nuclear, Dense Fine Speckled Abnormal Flag: A Dense fine speckled pattern is seen in normal individuals and rarely associated with systemic lupus erythematosis (SLE), Sjogren's syndrome and systemic sclerosis. AC-2: Dense Fine Speckled International Consensus on RAFAEL Patterns (https://doi.org/10.1515/cc nd-0033-1738) THIS TEST WAS PERFORMED AT: [facility] [address] [place] [phone] MILANA FIGUEROA MD RAFAEL Titer 2 TNP RAFAEL Pattern 2 TNP RAFAEL Titer 3 TNP RAFAEL Pattern 3 TNP Liver Panel Reviewed date:01/09/2025 01:14:50 AM Interpretation: Performing Lab:[address] [phone] Notes/Report: Bilirubin Total 0.8 0.0-1.0 mg/dL N Bilirubin Direct 0.3 0.0-0.5 mg/dL N Aspartate Amino Transferase 30 5-31 U/L N Alanine Aminotransferase 39 0-31 U/L H Total Protein 7.2 6.5-8.0 g/dL N Albumin Level 4.6 3.5-5.0 g/dL N Alkaline Phosphatase 44 39-117 U/L N Blood Urea Nitrogen Reviewed date:01/09/2025 01:14:34 AM Interpretation: Performing Lab:[address] [address] Notes/Report: Blood Urea Nitrogen 21 9-16 mg/dL H Carbohydrate Antigen 19-9 Reviewed date:01/09/2025 01:14:26 AM Interpretation: Performing Lab:[address] [address] Notes/Report: Carbohydrate Antigen 19-9 35 <34 U/mL A This test was performed using the Siemens chemiluminescent method. Values obtained from different assay methods cannot be used interchangeably. CA 19-9 levels, regardless of value, should not be interpreted as absolute evidence of the presence or absence of disease. THIS TEST WAS PERFORMED AT: [facility] [address] [place] [phone] MILANA FIGUEROA MD Carbohydrate Antigen 19-9 Reviewed date:08/21/2024 06:11:07 PM Interpretation: Performing Lab:[address] [address] Notes/Report: Carbohydrate Antigen 19-9 36 <34 U/mL A This test was performed using the Siemens chemiluminescent method. Values obtained from different assay methods cannot be used interchangeably. CA 19-9 levels, regardless of value, should not be interpreted as absolute evidence of the presence or absence of disease. THIS TEST WAS PERFORMED AT: [facility] [address] [place] [phone] MILANA FIGUEROA MD Hepatitis B,C Profile Reviewed date:08/16/2024 05:57:11 PM Interpretation: Performing Lab:[facility], [address] [place] [phone] Notes/Report: Hepatitis B Surface Antibody NONREACTIVE Nonreactive Nonreactive: < 8 .00 mIU/mL Hepatitis B Core Antibody Nonreactive Nonreactive Hepatitis C Antibody Nonreactive Nonreactive Antibodies to HCV not detected; does not exclude early acute HCV infection. Hepatitis B Surface Antigen Negative Negative Smooth Muscle Antibody Reviewed date:09/06/2024 12:10:28 AM Interpretation: Performing Lab:[facility], [address] [place] [phone] Notes/Report: Smooth Muscle Antibody <20 <20 U [...] type 1. THIS TEST WAS PERFORMED AT: [facility]/[address] [address] ISACC MARRERO MD,PHD Mitochondrial Antibody Reviewed date:09/06/2024 12:14:08 AM Interpretation: Performing Lab:[address] [address] Notes/Report: Mitochondrial Antibodies NEGATIVE NEGATIVE N The immunofluorescence assay (IFA) procedure reveals the possible presence of another autoantibody. Consider requesting order code 263, Smooth Muscle Antibody with Reflex to Titer, if clinically indicated. Staining was observed suggesting the presence of Antinuclear Antibodies. Consider requesting order code 249, RAFAEL Screen, IFA with reflex to titier and pattern, or order code [id number], RAFAEL Screen, IFA with reflex Titer/Pattern, Reflex to Multiplex 11 Ab Hardeman, if clinically indicated. THIS TEST WAS PERFORMED AT: [facility] [address] [address] MILANA FIGUEROA MD Mitochondrial Ab Titer TNP Liver Fibrosis Pnl Reviewed date:09/06/2024 12:10:40 AM Interpretation: Performing Lab:[facility], [address] [place] [phone] Notes/Report: Liver Fibrosis Score 0.09 Liver Fibrosis [...] a>0.62 and a<=1.00 : A3 (severe activity) FKH-Ekaji-0-Macroglobulin 166 106-279 mg/dL FIB-Haptoglobin 221 43-212 mg/dL A FIB-Apolipoprotein A1 195 101-198 mg/dL FIB-Total Bilirubin 0.5 0.2-1.2 mg/dL FIB-GGT 31 3-65 U/L FIB-ALT 26 6-29 U/L Reference ID [id number] Footnote SEE NOTE The reliability of results [...] The performance characteristics have been determined by [facility]. It has not been cleared or approved by the U.S. Food and Drug Administration. Performance characteristics refer to the analytical performance of the test. [employer], the associated logo, [employer] and all associated [employer] schroeder are the registered trademarks of [employer]. All third democrat schroeder - (R) and (TM) - are the property of their respective owners. (C) 2779-7165 [employer]. All rights reserved. THIS TEST WAS PERFORMED AT: [facility] [address] [place] [address] ESTEBAN MEDEIROS MD,PHD,LIBERTY Alpha 1 Anti-trypsin Reviewed date:09/06/2024 12:10:12 AM Interpretation: Performing Lab:[address] [address] Notes/Report: Alpha 1 Anti-trypsin 153 83-199 mg/dL N THIS TEST WAS PERFORMED AT: [facility] [address] [address] MILANA FIGUEROA MD Lipase Reviewed date:08/16/2024 05:57:20 PM Interpretation: Performing Lab:[address] [address] Notes/Report: Lipase 22 8-78 U/L N Amylase Reviewed date:08/16/2024 05:57:27 PM Interpretation: Performing Lab:[address] [address] Notes/Report: Amylase 44 28-100 U/L N Ferritin Reviewed date:08/16/2024 05:57:34 PM Interpretation: Performing Lab:[facility], [address] [place] [address] Notes/Report: Ferritin 221 10-250 ng/mL N MR abdomen wo/w con Reviewed date:01/28/2025 12:20:45 AM Interpretation: Performing Lab: Notes/Report: [address] 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 Associate: Reason For Referral No Information Medications Medication SIG (Take, Route, Frequency, Duration) Notes Start Date End Date Status hydroCHLOROthiazide 25 MG Tablet TAKE 1 TABLET BY MOUTH EVERY DAY Oral; Duration: 90 Active Escitalopram Oxalate 10 MG Tablet TAKE 1 TABLET BY MOUTH DAILY Oral; Duration: 90 Active Aspir-81 81 MG Tablet Delaye d Release 1 tablet Orally Once a day; Duration: 30 day(s) Active Simvastatin 10 MG Tablet 1 tablet in the evening Orally Once a day; Duration: 30 day(s) Active Lisinopril 40 MG Tablet 1 tablet Orally Once a day; Duration: 30 day(s) Active Immunizations Vaccine Route Administration Date Status Comme nts Influenza Unknown 01/17/2018 Administered Influenza Unknown 01/23/2024 Administered Influenza Unknown 01/07/2025 Refused Social History Tobacco Use: Social History Observation Description Date Details (start date - stop date) Never Smoker NA - NA Social History Drug/Alcohol: Social Info Question Answer Notes AUDIT-C (Standard) Did you have a drink containing alcohol in the past year? 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 Section Notes: Nonsmoker; no sig alcohol Nonsmoker; no sig alcohol Nonsmoker; no sig alcohol Nonsmoker; no sig alcohol Problems Problem Type SNOMED Code ICD Code Onset Dates Problem Status W/U Status Risk Notes Problem Screening for malignant neoplasm of colon (873679178) Encounter for screening for malignant neoplasm of colon (Z12.11) Active confirmed Problem Abnormal findings diagnostic imaging of liver and biliary tract (614874419) Abnormal CT scan, pancreas or bile duct (R93.2) Active confirmed Problem Preprocedural examination (287639474526805) Preprocedural examination (Z01.818) Active confirmed Problem Fatty liver (471613258) Fatty liver (K76.0) Active confirmed Problem Long-term current use of aspirin (130774469535988) Aspirin long-term use (Z79.82) Active confirmed Problem 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) Active confirmed Problem Imaging of abdomen abnormal (448894453) Abnormal MRI of abdomen (R93.5) Active confirmed Problem History of adenomatous polyp of colon (454950957) History of adenomatous polyp of colon (Z86.0101) Active confirmed Vital Signs Temperature 93.0 degrees Fahrenheit 01/07/2025 Blood pressure diastolic 01 mm Hg 01/07/2025 Height 68 in 01/07/2025 Blood pressure systolic 001 mm Hg 01/07/2025 Weight 223.6 lbs 01/07/2025 BMI 33.99 kg/m2 01/07/2025 Encounters Encounter Location Date Provider Diagnosis [facility] [address] [place] [id number] 06/26/2024 Boom Mclaughlin Colon cancer screeni ng Z12.11 ; Colon polyps K63.5 ; Diverticulosis of large intestine without perforation or abscess without bleeding K57.30 ; Other hemorrhoids K64.8 and External hemorrhoids K64.4 [facility] [address] [place] [phone] 08/09/2024 Boom Mclaughlin Fatty liver K76.0 ; Pancreatic ductal abnormality Q45.3 ; History of adenomatous polyp of colon Z86.0101 and Abnormal MRI of abdomen R93.5 [facility] [address] [place] [phone] 01/07/2025 Boom Mclaughlin Fatty liver K76.0 ; Pancreatic ductal abnormality Q45.3 ; Abnormal MRI of abdomen R93.5 and Encounter for screening for malignant neoplasm of colon Z12.11 [facility] [address] [place] [address] 08/25/2024 Boom Mclaughlin [facility] [address] [place] [address] 01/28/2025 Boom Mclaughlin Assessments Encounter Date Diagnosis [...] advised of her progress as needed. 08/09/2024 History of adenomatous polyp of colon [...] K57.30) 06/26/2024 Other hemorrhoids (ICD-10 - K64.8) 01/07/2025 Encounter for screening for malignant neoplasm [...] Provider Name:Boom Mclaughlin , 01/27/2026 09:10:00 AM, [address] [place] [address], [place] [address], [place], [address], Insurance Providers Payer Name Payer Address Payer Phone Subscriber Number Group Number Insured Name Patient Relationship to Insured Coverage Start Date Coverage End Date MEDICARE OF [place] [address] [place] [address] [id number] [place] Self - patient is the insured [facility] [address] [facility] [place] [phone] [id number] [place] Self - patient is the insured Medical (General) History Medical History History ICD Code Denies LA,DM,CVA,Lung disease,renal dise ase Hypertension Hyperlipidemia Anxiety Neg. [...] of pancreatic mass. 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
--- OUTSIDE RECORDS SUMMARY | 2025-03-12 11:56 | XMS_ITS | Patient Health Record ---
Author Organization [facility] Address [address] [place] [address] Care Team Providers Care Quality Worker Name Role Phone Hyacinth Marquez Primary Care Provider UnavailGraeme Rodríguez Unavailable [phone] Deyvi Barrera Unavailable [phone] Namrata Fernandez Unavailable [phone] Allergies No Known Allergies Reason For Referral [...] Ordered Date Performed Result Body Sit e 70683-CEH 07/04/2024 N/A [id number] SKIN/TISSUE 07/16/2024 N/A Encounters Encounter Location Date [facility] [address] [address] 07/04/2024 Graeme Padilla Ingrown nail L60.[address] [address] 07/16/2024 Graeme Padilla Skin ulcer of toe of right foot with fat layer exposed L97.[address] [address] 07/14/2024 Graeme Padilla [address] [address] 07/14/2024 Graeme Padilla Assessments Encounter Date Diagnosis [...] X ray : Foot, right 3V 04/14/2021 [id number] 07/04/2024 [id number]-AUREJGA SKIN/TISSUE 07/16/2024 Insurance Providers Payer Name Payer Address Payer Phone Subscriber Number Group Number Insured Name Patient Relationship to Insured Coverage Start Date Coverage End Date Medicare National [employer] [address] [place] [address] [id number] Liza Ma Self - patient is the insured [facility] [address] [place] [address] [id number] Liza [place] Self - patient is the insured Medical (General) History Medical History History ICD Code Arthritis Back,Hip,and Knee pain Cancer covid-19 High blood pressure Rheumatic fever Measles Mumps Chicken pox Hypercholesterolemia Surgical History Surgery Date(Month/Year) rotator cuff tear repair Meniscus repair hysterectomy oral surgery cancer eye surgery left knee replacement 09/2021 wisdom teeth extraction
== END 2025-03-12 12:08 | disposition home or self-care (01) ==
LOC: HO.HMCH 10:25
PROVIDERS: PCP Internal Medicine; Visit Provider Internal Medicine
DX: Z00.00 Encounter for general adult medical examination without abnormal findings (principal); G47.33 Obstructive sleep apnea (adult) (pediatric); K21.9 Gastro-esophageal reflux disease without esophagitis; K76.0 Fatty (change of) liver, not elsewhere classified; R73.01 Impaired fasting glucose; I10 Essential (primary) hypertension; E78.00 Pure hypercholesterolemia, unspecified; F41.1 Generalized anxiety disorder; K86.89 Other specified diseases of pancreas

== ENCOUNTER → 2025-03-12 10:24 | Outpatient (BNVA) | payer MEDICARE, OTHER, SELFPAY | PROVIDERS: PCP Internal Medicine; Visit Provider Internal Medicine | DX: Z00.00 Encounter for general adult medical examination without abnormal findings (principal); K21.9 Gastro-esophageal reflux disease without esophagitis; G47.33 Obstructive sleep apnea (adult) (pediatric); K76.0 Fatty (change of) liver, not elsewhere classified; R73.01 Impaired fasting glucose; I10 Essential (primary) hypertension; E78.00 Pure hypercholesterolemia, unspecified; F41.1 Generalized anxiety disorder; K86.89 Other specified diseases of pancreas; Z13.31 Encounter for screening for depression | CPT/HCPCS: 96127; 99397 ==